=== PATIENT | female | born 1935 | race Caucasian/White ===

== ENCOUNTER 2022-03-29 10:29 | Outpatient (REF) | payer OTHER, SELFPAY ==
--- NOTE | ~2022-03-29 | CT_ITS ---
EXAMINATION: CT CHEST WITHOUT CONTRAST CLINICAL INFORMATION: Chest pain COMPARISON: None TECHNIQUE: Multidetector volumetric CT imaging of the chest was done. Axial MIP volume rendering provided. Sagittal and coronal reformatted images were obtained. This CT examination was performed using dose optimization techniques as appropriate, variously including the following: *Automated exposure control *Adjustment of mA and/or kV according to patient size (this includes techniques or standardized protocols for targeted exams where dose is matched to indication/reason for exam; i.e. extremities or head) *Use of iterative reconstruction technique DLP: 161 mGy-cm FINDINGS: [employer]ERSON[employer]: Enlarged cardiac silhouette LUNGS: There is peripheral or subpleural increased reticulation and scarring in the anterior right upper lobe and right middle lobe. These probably related to previous chest wall radiation. There is a denser linear bandlike density in the right middle lobe question representing scarring or subsegmental atelectasis. This area measures 3 x 15 mm axial image 265 series 5. There are several small micronodules the bilateral upper lobes. There are small bilateral peripheral or subpleural lower lobe dependent or posterior nodules probably representing small subpleural lymph nodes. There is linear scarring or subsegmental atelectasis at the lung bases, Left greater than right. MEDIASTINUM: The heart is enlarged. There is coronary artery and aortic valve calcification. There is no pericardial effusion. The thoracic aorta is normal in caliber. There are small mediastinal lymph nodes. No enlarged hilar or mediastinal lymph nodes. PLEURA: There are small bilateral pleural effusions. AXILLA: There are postsurgical changes to the right breast. No chest wall mass or enlarged axillary lymph nodes are seen. UPPER ABDOMEN: There is fatty infiltration of the pancreas. There is question of a left renal peripelvic cyst versus extrarenal pelvis. OSSEOUS STRUCTURES: There are degenerative changes of the spine and shoulders. There is a soft tissue periarticular fluid collection versus joint effusion left shoulder. CT/CT chest wo con IMPRESSION: Enlarged heart. Coronary artery and aortic valve calcification. Probable post radiation changes to the anterior peripheral or subpleural right upper and right middle lobes. Areas of bilateral linear scarring or subsegmental atelectasis. No suspicious pulmonary nodule. Fleischner guidelines were followed.
== END 2022-03-29 10:30 | disposition home or self-care (01) ==
LOC: HO.CT 10:29
PROVIDERS: PCP Internal Medicine; Visit Provider Internal Medicine
DX: R07.89 Other chest pain (principal)
CPT/HCPCS: 71250

== ENCOUNTER 2022-04-10 08:21 | Outpatient (REF) | payer OTHER, SELFPAY ==
[2022-04-10 11:05] LABS: Appearance Urine CLOUDY; Color Urine YELLOW; Glucose Urine UA NEG (NEG); Leukocyte Esterase Urine 2+ (NEG); Nitrite Urine NEG (NEG); PH 5.5 (5.0-8.0); Specific Gravity - Urine >= 1.030 (1.005-1.025); UACC Culture Trigger YES; Urine Blood 3+ (NEG); Urine Ketones 5 MG/DL (NEG); Urine Protein 3+ MG/DL (NEG-TRACE)
[2022-04-10 11:17] LABS: MANUAL DIFF FLAG NO
[2022-04-10 11:31] LABS: Basophils Percent Auto 0.3 % (0-2); Eosinophils Absolute Auto 0.2 X10*3/uL (0.0-0.4); Eosinophils Percent Auto 1.4 % (0-4); Imm Gran Abs Auto 0.09 X10*3/uL (0.00-0.03); Imm Gran Pct Auto 0.7 % (0.0-0.4); Lymphocytes Absolute Auto 2.6 X10*3/uL (1.2-4.9); Lymphocytes Percent Auto 20.1 % (20-40); Mean Corpuscular HGB Conc 31.8 g/dl (31.0-35.0); Mean Corpuscular Volume 94.4 fL (80.0-98.0); Monocytes Absolute Auto 0.7 X10*3/uL (0.1-1.2); Monocytes Percent Auto 5.6 % (2-11); Neutrophils Absolute Auto 9.1 x10*3/uL (2.0-8.3); Neutrophils Percent Auto 71.9 % (45-73); Platelet Count 224 X10*3/uL (160-400); Red Blood Count 4.66 X10*6/uL (4.20-5.50); Red Cell Distribution Width 14.7 % (11.0-16.0); White Blood Count 12.7 X10*3/uL (4.8-10.8)
[2022-04-10 11:40] LABS: Bacteria Urine 2+ /LPF; RBC Urine 50-75 /HPF (0); UACC CULT YES
[2022-04-10 11:46] LABS: Alanine Aminotransferase 17 U/L (0-31); Albumin Level 4.1 g/dL (3.5-5.0); Alkaline Phosphatase 87 U/L (39-117); Anion Gap 13 (12-20); Aspartate Amino Transferase 14 U/L (5-31); Bilirubin Total 0.9 mg/dL (0.0-1.0); Blood Urea Nitrogen 33 mg/dL (9-16); Calcium 9.7 mg/dL (8.4-10.2); Carbon Dioxide 25 mmol/L (22-29); Chloride 108 mmol/L (96-108); Estimated Glomerular Filt Rate 37; Glucose Random 121 mg/dL (60-115); Potassium 4.2 mmol/L (3.3-5.1); Sodium 142 mmol/L (135-145); Total Protein 6.2 g/dL (6.5-8.0)
[2022-04-10 11:47] LABS: B Type Natriuretic Peptide 416 pg/mL (<100)
== END 2022-04-10 08:22 | disposition home or self-care (01) ==
LOC: HO.MANLDS 08:21
PROVIDERS: Visit Provider Internal Medicine
DX: R06.09 Other forms of dyspnea (principal); R30.9 Painful micturition, unspecified; B96.20 Unspecified Escherichia coli [E. coli] as the cause of diseases classified elsewhere; Z16.11 Resistance to penicillins
CPT/HCPCS: 36415; 80053; 81001; 83880; 85025; 87086; 87088; 87186

== ENCOUNTER 2022-04-13 09:48 | Inpatient (IN) | payer MEDICARE, SELFPAY ==
[2022-04-13] VITALS (7 sets, daily range): BP systolic 78–118; BP diastolic 56–75; PULSE 93–140; RESP 16–23; TEMP 36.3–37.3; O2SAT 90–99; BMI 25.0; BMI 24.8
--- NOTE | ~2022-04-13 | CT_ITS ---
EXAMINATION: CT CHEST WITHOUT CONTRAST CLINICAL INFORMATION: Shortness of breath, dizziness. COMPARISON: CT chest 03/29/2022 TECHNIQUE: Multidetector volumetric CT imaging of the chest was done. Axial MIP volume rendering provided. Sagittal and coronal reformatted images were obtained. This CT examination was performed using dose optimization techniques as appropriate, variously including the following: *Automated exposure control *Adjustment of mA and/or kV according to patient size (this includes techniques or standardized protocols for targeted exams where dose is matched to indication/reason for exam; i.e. extremities or head) *Use of iterative reconstruction technique DLP: 247 mGy-cm FINDINGS: LUNGS: Stable peripheral subpleural increase reticulation and scarring in the anterior right upper lobe and right middle lobe. Stable curvilinear bandlike opacity in the right middle lobe, which could represent scarring or atelectasis. Several small micronodules in bilateral upper lobes are redemonstrated. There is a subpleural right lower lobe atelectasis. There is left lower lobe subpleural groundglass and patchy airspace opacities, increased from previous, which could reflect atelectasis or inflammatory/infectious process. No suspicious nodules identified. MEDIASTINUM: No suspicious findings in the visualized thyroid gland. Heart is enlarged. Coronary artery calcification. No pericardial effusion. Normal caliber thoracic aorta. Scattered atherosclerotic vascular calcification. No enlarged mediastinal or hilar lymphadenopathy. Subcentimeter mediastinal lymph nodes, stable. PLEURA: Small bilateral pleural effusions. AXILLA: No axillary lymphadenopathy. UPPER ABDOMEN: Fatty infiltration of the pancreas with atrophy. OSSEOUS STRUCTURES: Multilevel degenerative changes in the spine. Bilateral glenohumeral joint arthritis. No acute displaced rib fractures identified. Redemonstrated, in the left shoulder, is fluid along the anterior aspect of the joint, from joint effusion versus periarticular fluid collection. CT/CT chest wo con IMPRESSION: Stable cardiomegaly. No pericardial effusion. Stable small bilateral pleural effusions. Redemonstrated are probable posterior examination changes to the anterior peripheral and subpleural right upper lobe and right middle lobes. Left basilar groundglass and patchy airspace opacities, increased from previous, could reflect atelectasis or infectious/inflammatory process. Fleischner guidelines were followed.
--- NOTE | ~2022-04-13 | CT_ITS ---
EXAMINATION: HEAD CT WITHOUT CONTRAST CERVICAL SPINE CT WITHOUT CONTRAST CLINICAL INFORMATION: Dizziness, fall. COMPARISON: None. TECHNIQUE: Contiguous axial imaging of the head was performed without the administration of IV contrast. Axial multidetector volumetric images were also performed through the cervical spine without contrast. Multiplanar reconstructed images in coronal and sagittal orientations were submitted. DOSE: 1005 mGy-cm FINDINGS: HEAD: There is no evidence of acute intracranial hemorrhage or territorial infarction. No abnormal mass-effect or midline shift. No extra-axial fluid collections. Lynn to white matter differentiation is well preserved. Commensurate prominence of the ventricles and sulci is compatible with generalized parenchymal volume loss. There is periventricular and subcortical white matter hypoattenuation, most likely representing microangiopathic disease No acute calvarial fracture. The sinuses and mastoid air cells are clear. CERVICAL SPINE: There is slight reversal of the spinal curvature. Mild anterolisthesis of C2 on C3, C3 on C4. Mild retrolisthesis of C6 on C7. Mild anterolisthesis of C7 on T1. Severe cervical spondylosis present Severe disc degeneration at C5-C6, C6-C7. Multilevel facet degeneration. Bony fusion at bilateral C3-C4, C4-C5 facet joints. There is a prominent degenerative changes in the C1-C2 articulation. No acute fracture is identified of the vertebral bodies or posterior elements. No significant prevertebral soft tissue swelling. No suspicious thyroid findings. No cervical adenopathy identified. See chest CT report for lung findings. CT/CT cervical spine wo con IMPRESSION: 1. No CT evidence of acute intracranial pathology. 2. Advanced spondyloarthropathy of the cervical spine. Severe C5-C6, C6-C7 disc degeneration. Multilevel spondylolisthesis, likely degenerative in nature, detailed above.. No CT evidence of acute fracture or malalignment.
--- NOTE | 2022-04-13 10:06 | ECG_ITS ---
Test Reason : DIZZINESS Blood Pressure : / mmHG Vent. Rate : 125 BPM Atrial Rate : 000 BPM P-R Int : 000 ms QRS Dur : 088 ms QT Int : 290 ms P-R-T Axes : 000 -10 225 degrees QTc Int : 418 ms Atrial fibrillation with rapid ventricular response Nonspecific ST and T wave abnormality Abnormal ECG No previous ECGs available Referred By: Marilu Chan Electronically Signed By:CINDY ULLOA MD
--- NOTE | 2022-04-13 10:06 | ED.NAVMDI ---
HPI - Nausea/Vomiting/Diarrhea General Chief complaint: Nausea/Vomiting/Diarrhea Stated complaint: NVD Time Seen by Provider: 04/13/22 10:06 Source: patient and EMS Mode of arrival: EMS Limitations: no limitations History of Present Illness HPI Narrative: Patient is an 87 year old female with a history of atrial fibrillation for which she takes Warfarin, presenting to the emergency department today with dizziness. Patient states that yesterday she was given macrobid by her PCP for a urinary tract infection and she took her dose without issue yesterday. Patient states that today, she was very dizzy and had a mechanical fall. Patient states that when she fell, she did not hit her head however, she could not get back up so she called EMS. Patient states that she is not normally on oxygen at home and is not normally dizzy. Patient states that she does have a DNR/DNI. Patient states that over the last few days she has had nausea and diarrhea. Patient denies any current dizziness, lightheadedness, abdominal pain, vomiting, fever, chills, blurry vision, double vision, loss of vision, chest pain, difficulty breathing, shortness of breath, back pain, night sweats, pain with urination, increased urinary frequency, increased urinary urgency, blood in her urine or stool, syncope or a near syncopal episode, bowel incontinence, bladder incontinence, bowel retention, bladder retention, or any other complaints at this time. MD elicited complaint: nausea and diarrhea Onset (ago): day(s) Associated nausea: Yes Associated abdominal pain: No Severity: mild Exacerbating factors: none Relieving factors: none Associated symptoms: nausea/vomiting Related Data Home Medications Medication Instructions Recorded Confirmed diltiazem HCl 180 mg capsule,24 1 cap PO DAILY 04/13/22 04/13/22 hr,extended release gabapentin 100 mg capsule 1 cap PO TID 04/13/22 04/13/22 nitrofurantoin 1 cap PO BID 04/13/22 04/13/22 monohydrate/macrocrystals 100 mg capsule pantoprazole 40 mg tablet,delayed 1 tab PO BID 04/13/22 04/13/22 release warfarin 5 mg tablet 5 mg PO DAILY@1800 04/13/22 04/13/22 Allergies Allergy/AdvReac Type Severity Reaction Status Date / Time No Known Allergies Allergy Verified 04/13/22 10:06 Review of Systems Constitutional: Constitutional: Reports no additional constitutional complaints, Denies chills, Denies fever(s) and Denies night sweats Eyes: Eyes: Reports no additional eye complaints, Denies blurry vision, Denies change in vision, Denies diplopia, Denies eye discharge, Denies loss of vision and Denies eye pain ENT: Reports dizziness Cardiovascular: Cardiovascular: Reports no additional cardiovascular complaints, Denies chest pain, Denies lightheadedness, Denies Loss of Consciousness and Denies dyspnea Respiratory: Respiratory: Reports no additional respiratory complaints and Denies dyspnea Gastrointestinal: Gastrointestinal: Reports diarrhea and Reports nausea Genitourinary: Genitourinary: Denies hematuria, Denies urinary frequency, Denies dysuria, Denies urinary incontinence, Denies urinary hesitancy and Denies urinary urgency Musculoskeletal: Musculoskeletal: Reports no additional musculoskeletal complaints, Denies numbness and Denies tingling Neurologic: Reports dizziness, Denies loss of vision, Denies numbness and Denies tingling Psychiatric: Psychiatric: Reports no additional psychiatric complaints Endocrine: Endocrine: Reports no additional endocrine complaints Hematologic/Lymphatic: Hematologic/Lymphatic: Reports no additional hematologic/lymphatic complaints Allergic/Immunologic: Allergic/Immunologic: Reports no additional allergic/immunologic complaints FORMERLY [facility], [facility] Past Medical History Attestation statement: The following information was validated with the patient. Source: old records reviewed Medical History (Updated 04/13/22 @ 18:39 by Bakari Arciniega) Atrial fibrillation Breast cancer GERD (gastroesophageal reflux disease) Ovarian cancer Surgical History (Updated 04/13/22 @ 16:41 by Randee Richter NP) History of hip replacement Previous back surgery Family History Family History (Updated 04/13/22 @ 16:40 by Randee Richter NP) Other Breast cancer Coronary artery disease Prostate cancer Social History Social History Advance Directives: Yes Advance Directives Information Provided: Yes Advance Directives on File: No Physical Exam Vital Signs: Vital Signs: Last Vital Signs Temp 99.2 F 04/13/22 14:28 Pulse 114 H 04/13/22 14:28 Resp 23 H 04/13/22 14:28 BP 107/63 04/13/22 14:28 Pulse Ox 99 04/13/22 14:28 O2 Del Method 04/13/22 14:28 O2 Flow Rate 3 04/13/22 14:28 BMI result Body Mass Index 25.0 Const: General: cooperative, no acute distress, alert and awake Nutritional Appearance: well nourished Orientation/consciousness: patient oriented x3 Limitations: no limitations HEENT: Head: Yes normal to inspection and Yes atraumatic Ears: hearing grossly normal bilaterally and external ears normal General nose exam: Normal external nose present, no nasal discharge noted and no epistaxis Face and sinus: Yes normal facial exam, No abrasion and No laceration Mouth: Normal oral and palatal mucosa present, no drooling and no muffled voice Eyes: General: appearance normal, both eyes and all related structures Periorbital: periorbital findings normal Eyelids: Yes eyelids normal Conjunctivae: conjunctivae normal Pupils: Equal, round and reactive pupils present EOM: EOMs intact bilaterally Neck: Neck: Yes normal visual inspection, Yes full ROM and Yes no lymphadenopathy Chest: Chest palpation & inspection: normal inspection of the chest Resp: Effort & Inspection: normal respiratory effort and able to speak in complete sentences Auscultation: clear to auscultation bilaterally Cardio: Rate: tachycardic Rhythm: abnormal rhythm irregularly irregular GI: Inspection: Yes normal to inspection Palpation (GI): Soft to palpation, not firm, nontender and no guarding Neuro: General: patient oriented x3 and moves all extremities Cranial nerves: Yes Equal, round and reactive pupils present Cognition (Neuro): normal cognition Motor exam (neuro): 5/5 motor strength present throughout Sensory Exam: Normal double simultaneous stimulation for sensation Coordination: [id number] test normal Extrem: General: Yes normal to inspection, Yes full ROM and Yes capillary refill normal Psych: Appearance: grossly normal Mental Status: mental status grossly normal Affect: normal affect Attitude: cooperative Thought process: Normal thought process present Thought content: Normal thought content present Insight: Good insight present (Psych) MDM - Nausea/Vomiting/Diarrhea MDM Narrative Medical decision making narrative: Patient is an 87 year old female presenting to the emergency department today with nausea, vomiting, and dizziness. Patient's physical exam showed a tachycardic individual in obvious discomfort. Patient's blood work showed significantly elevated wbc count at 21, a low PLT count of 135, an elevated lactic acid of 2.1, an elevated creatinine of 1.83 and an elevated troponin of 46.4. Patient's repeat troponin was 42.1. Patient's repeat lactic acid after 1 liter of fluid was 1.0. Patient's INR was 3.3 secondary to her Warfarin use. Sepsis alert was called at 10:28. Rocephin was already ordered as well as blood cultures. Patient's blood pressure was stable and thus she was only given 1 liter of NS as she did not clinically need a 30mg/kg fluid bolus. Patient's d dimer was elevated however, I believe this is secondary to the patient's septic status as the patient is appropriately anti-coagulated on Warfarin. Patient's urine showed no acute process. Patient's EKG showed atrial fibrillation with RVR. Patient's chest CT showed left basilar groundglass and patchy airspace opacities, increased from previous at 1318. At that time, I added Azithromycin to cover for respiratory pathogens. Patient's head and neck CTs showed no acute process. Patient was given 10mg of cardizem which did decrease her heart rate to the 110-100bpm range. I explained my physical exam findings as well as all test results to the patient. I answered all questions asked by the patient. I spoke to Dr. Castro, the hospitalist promotions specialist, who agreed to admission of the patient. Patient verbalized agreement and understanding with this treatment plan and admission. Medical Records Attestation: I reviewed the patient's medical records. Lab Data Attestation: I reviewed the patient's lab results. Result diagrams: 04/13/22 10:28 04/13/22 10:28 Labs: Lab Results 04/13/22 04/13/22 04/13/22 Range/Units 10:28 10:28 10:28 WBC 21.0 H (4.8-10.8) X10*3/uL RBC 4.43 (4.20-5.50) X10*6/uL Hgb 13.1 (12.0-16.0) g/dl Hct 41.7 (37.0-47.0) % MCV 94.1 (80.0-98.0) fL MCH 29.6 (27.0-33.0) pg MCHC 31.4 (31.0-35.0) g/dl RDW 14.9 (11.0-16.0) % Plt Count 135 L D (160-400) X10*3/uL MPV 10.9 (9.4-12.3) fL Immature Gran % (Auto) 0.7 H (0.0-0.4) % Neut % (Auto) 88.9 H (45-73) % Lymph % (Auto) 5.1 L (20-40) % [place] % (Auto) 4.7 (2-11) % Eos % (Auto) 0.4 (0-4) % Baso % (Auto) 0.2 (0-2) % Lymph # (Auto) 1.1 L (1.2-4.9) X10*3/uL [place] # (Auto) 1.0 (0.1-1.2) X10*3/uL Eos # (Auto) 0.1 (0.0-0.4) X10*3/uL Baso # (Auto) 0.0 (0.0-0.2) X10*3/uL Abs Immat Gran (auto) 0.15 H (0.00-0.03) X10*3/uL Absolute Neuts (auto) 18.6 H (2.0-8.3) x10*3/uL Absolute Nucleated RBC 0.000 (0.0-0.012) X10*3/uL Nucleated RBC % (auto) 0.0 (0.0-0.2) /100WBC PT (9.9-13.0) SEC INR (0.9-1.1) APTT (24.1-38.0) SEC D-Dimer High Sensitivty NG/ML VBG pH (7.32-7.43) VBG pCO2 mmHg VBG pO2 mmHg VBG HCO3 (22-26) mmol/L VBG O2 Saturation % VBG Base Excess mmol/L Sodium 143 (135-145) mmol/L Potassium 5.1 D (3.3-5.1) mmol/L Chloride 108 (96-108) mmol/L Carbon Dioxide 26 (22-29) mmol/L Anion Gap 14 (12-20) BUN 33 H (9-16) mg/dL Creatinine 1.83 H (0.5-1.4) mg/dL Estim Creat Clear Calc 22.2 Estimated GFR 26 Random Glucose 90 (60-115) mg/dL Lactic Acid 2.1 H* (0.5-2.0) mmol/L Lactic Acid F/U @ 2Hr (0.5-2.0) mmol/L Calcium 9.2 (8.4-10.2) mg/dL Magnesium 2.1 (1.6-2.6) mg/dL Total Bilirubin 1.1 H (0.0-1.0) mg/dL AST 17 (5-31) U/L ALT 16 (0-31) U/L Alkaline Phosphatase 72 (39-117) U/L Troponin I High Sens (<3.5-17.0) ng/L Total Protein 5.6 L (6.5-8.0) g/dL Albumin 3.6 (3.5-5.0) g/dL COVID-19 (SHIMON) (Negative) COVID-19 Clin Com Influenza Type A (STEPHEN) (Negative) Influenza Type B (STEPHEN) (Negative) Influenza A & B Note 04/13/22 04/13/22 04/13/22 Range/Units 10:28 10:28 10:34 WBC (4.8-10.8) X10*3/uL RBC (4.20-5.50) X10*6/uL Hgb (12.0-16.0) g/dl Hct (37.0-47.0) % MCV (80.0-98.0) fL MCH (27.0-33.0) pg MCHC (31.0-35.0) g/dl RDW (11.0-16.0) % Plt Count (160-400) X10*3/uL MPV (9.4-12.3) fL Immature Gran % (Auto) (0.0-0.4) % Neut % (Auto) (45-73) % Lymph % (Auto) (20-40) % [place] % (Auto) (2-11) % Eos % (Auto) (0-4) % Baso % (Auto) (0-2) % Lymph # (Auto) (1.2-4.9) X10*3/uL [place] # (Auto) (0.1-1.2) X10*3/uL Eos # (Auto) (0.0-0.4) X10*3/uL Baso # (Auto) (0.0-0.2) X10*3/uL Abs Immat Gran (auto) (0.00-0.03) X10*3/uL Absolute Neuts (auto) (2.0-8.3) x10*3/uL Absolute Nucleated RBC (0.0-0.012) X10*3/uL Nucleated RBC % (auto) (0.0-0.2) /100WBC PT 38.2 H (9.9-13.0) SEC INR 3.3 H (0.9-1.1) APTT 35.6 (24.1-38.0) SEC D-Dimer High Sensitivty 448 NG/ML VBG pH 7.35 (7.32-7.43) VBG pCO2 46 mmHg VBG pO2 33 mmHg VBG HCO3 25 (22-26) mmol/L VBG O2 Saturation 48.0 % VBG Base Excess -0.2 mmol/L Sodium (135-145) mmol/L Potassium (3.3-5.1) mmol/L Chloride (96-108) mmol/L Carbon Dioxide (22-29) mmol/L Anion Gap (12-20) BUN (9-16) mg/dL Creatinine (0.5-1.4) mg/dL Estim Creat Clear Calc Estimated GFR Random Glucose (60-115) mg/dL Lactic Acid (0.5-2.0) mmol/L Lactic Acid F/U @ 2Hr (0.5-2.0) mmol/L Calcium (8.4-10.2) mg/dL Magnesium (1.6-2.6) mg/dL Total Bilirubin (0.0-1.0) mg/dL AST (5-31) U/L ALT (0-31) U/L Alkaline Phosphatase (39-117) U/L Troponin I High Sens 46.4 H (<3.5-17.0) ng/L Total Protein (6.5-8.0) g/dL Albumin (3.5-5.0) g/dL COVID-19 ([facility]IMON) (Negative) COVID-19 Clin Com Influenza Type A (STEPHEN) (Negative) Influenza Type B (STEPHEN) (Negative) Influenza A & B Note 04/13/22 04/13/22 04/13/22 Range/Units 10:41 10:41 13:13 WBC (4.8-10.8) X10*3/uL RBC (4.20-5.50) X10*6/uL Hgb (12.0-16.0) g/dl Hct (37.0-47.0) % MCV (80.0-98.0) fL MCH (27.0-33.0) pg MCHC (31.0-35.0) g/dl RDW (11.0-16.0) % Plt Count (160-400) X10*3/uL MPV (9.4-12.3) fL Immature Gran % (Auto) (0.0-0.4) % Neut % (Auto) (45-73) % Lymph % (Auto) (20-40) % [place] % (Auto) (2-11) % Eos % (Auto) (0-4) % Baso % (Auto) (0-2) % Lymph # (Auto) (1.2-4.9) X10*3/uL [place] # (Auto) (0.1-1.2) X10*3/uL Eos # (Auto) (0.0-0.4) X10*3/uL Baso # (Auto) (0.0-0.2) X10*3/uL Abs Immat Gran (auto) (0.00-0.03) X10*3/uL Absolute Neuts (auto) (2.0-8.3) x10*3/uL Absolute Nucleated RBC (0.0-0.012) X10*3/uL Nucleated RBC % (auto) (0.0-0.2) /100WBC PT (9.9-13.0) SEC INR (0.9-1.1) APTT (24.1-38.0) SEC D-Dimer High Sensitivty NG/ML VBG pH (7.32-7.43) VBG pCO2 mmHg VBG pO2 mmHg VBG HCO3 (22-26) mmol/L VBG O2 Saturation % VBG Base Excess mmol/L Sodium (135-145) mmol/L Potassium (3.3-5.1) mmol/L Chloride (96-108) mmol/L Carbon Dioxide (22-29) mmol/L Anion Gap (12-20) BUN (9-16) mg/dL Creatinine (0.5-1.4) mg/dL Estim Creat Clear Calc Estimated GFR Random Glucose (60-115) mg/dL Lactic Acid (0.5-2.0) mmol/L Lactic Acid F/U @ 2Hr (0.5-2.0) mmol/L Calcium (8.4-10.2) mg/dL Magnesium (1.6-2.6) mg/dL Total Bilirubin (0.0-1.0) mg/dL AST (5-31) U/L ALT (0-31) U/L Alkaline Phosphatase (39-117) U/L Troponin I High Sens 42.1 H (<3.5-17.0) ng/L Total Protein (6.5-8.0) g/dL Albumin (3.5-5.0) g/dL COVID-19 (SHIMON) Negative (Negative) COVID-19 Clin Com See Note Influenza Type A (STEPHEN) Negative (Negative) Influenza Type B (STEPHEN) Negative (Negative) Influenza A & B Note See Note 04/13/22 Range/Units 13:13 WBC (4.8-10.8) X10*3/uL RBC (4.20-5.50) X10*6/uL Hgb (12.0-16.0) g/dl Hct (37.0-47.0) % MCV (80.0-98.0) fL MCH (27.0-33.0) pg MCHC (31.0-35.0) g/dl RDW (11.0-16.0) % Plt Count (160-400) X10*3/uL MPV (9.4-12.3) fL Immature Gran % (Auto) (0.0-0.4) % Neut % (Auto) (45-73) % Lymph % (Auto) (20-40) % [place] % (Auto) (2-11) % Eos % (Auto) (0-4) % Baso % (Auto) (0-2) % Lymph # (Auto) (1.2-4.9) X10*3/uL [place] # (Auto) (0.1-1.2) X10*3/uL Eos # (Auto) (0.0-0.4) X10*3/uL Baso # (Auto) (0.0-0.2) X10*3/uL Abs Immat Gran (auto) (0.00-0.03) X10*3/uL Absolute Neuts (auto) (2.0-8.3) x10*3/uL Absolute Nucleated RBC (0.0-0.012) X10*3/uL Nucleated RBC % (auto) (0.0-0.2) /100WBC PT (9.9-13.0) SEC INR (0.9-1.1) APTT (24.1-38.0) SEC D-Dimer High Sensitivty NG/ML VBG pH (7.32-7.43) VBG pCO2 mmHg VBG pO2 mmHg VBG HCO3 (22-26) mmol/L VBG O2 Saturation % VBG Base Excess mmol/L Sodium (135-145) mmol/L Potassium (3.3-5.1) mmol/L Chloride (96-108) mmol/L Carbon Dioxide (22-29) mmol/L Anion Gap (12-20) BUN (9-16) mg/dL Creatinine (0.5-1.4) mg/dL Estim Creat Clear Calc Estimated GFR Random Glucose (60-115) mg/dL Lactic Acid (0.5-2.0) mmol/L Lactic Acid F/U @ 2Hr 1.0 (0.5-2.0) mmol/L Calcium (8.4-10.2) mg/dL Magnesium (1.6-2.6) mg/dL Total Bilirubin (0.0-1.0) mg/dL AST (5-31) U/L ALT (0-31) U/L Alkaline Phosphatase (39-117) U/L Troponin I High Sens (<3.5-17.0) ng/L Total Protein (6.5-8.0) g/dL Albumin (3.5-5.0) g/dL COVID-19 (SHIMON) (Negative) COVID-19 Clin Com Influenza Type A (STEPHEN) (Negative) Influenza Type B (STEPHEN) (Negative) Influenza A & B Note Imaging Data CT scan - chest: Attestation: I personally reviewed and interpreted this imaging study as follows: My impression: Possible pneumonia. Radiologist's impression: EXAMINATION: CT CHEST WITHOUT CONTRAST CLINICAL INFORMATION: Shortness of breath, dizziness.? COMPARISON: CT chest 03/29/2022? TECHNIQUE: Multidetector volumetric CT imaging of the chest was done. Axial MIP volume rendering provided. Sagittal and coronal reformatted images were obtained.? This CT examination was performed using dose optimization techniques as appropriate, variously including the following: *Automated exposure control *Adjustment of mA and/or kV according to patient size (this includes techniques or standardized protocols for targeted exams where dose is matched to indication/reason for exam; i.e. extremities or head) *Use of iterative reconstruction technique DLP: 247 mGy-cm FINDINGS: LUNGS: Stable peripheral subpleural increase reticulation and scarring in the anterior right upper lobe and right middle lobe. Stable curvilinear bandlike opacity in the right middle lobe, which could represent scarring or atelectasis. Several small micronodules in bilateral upper lobes are redemonstrated. There is a subpleural right lower lobe atelectasis. There is left lower lobe subpleural groundglass and patchy airspace opacities, increased from previous, which could reflect atelectasis or inflammatory/infectious process. No suspicious nodules identified.? MEDIASTINUM: No suspicious findings in the visualized thyroid gland. Heart is enlarged. Coronary artery calcification. No pericardial effusion. Normal caliber thoracic aorta. Scattered atherosclerotic vascular calcification. No enlarged mediastinal or hilar lymphadenopathy. Subcentimeter mediastinal lymph nodes, stable.? PLEURA: Small bilateral pleural effusions.? AXILLA: No axillary lymphadenopathy.? UPPER ABDOMEN: Fatty infiltration of the pancreas with atrophy.? OSSEOUS STRUCTURES: Multilevel degenerative changes in the spine. Bilateral glenohumeral joint arthritis. No acute displaced rib fractures identified. Redemonstrated, in the left shoulder, is fluid along the anterior aspect of the joint, from joint effusion versus periarticular fluid collection.? CT/CT chest wo con IMPRESSION: Stable cardiomegaly. No pericardial effusion. Stable small bilateral pleural effusions. Redemonstrated are probable posterior examination changes to the anterior peripheral and subpleural right upper lobe and right middle lobes. Left basilar groundglass and patchy airspace opacities, increased from previous, could reflect atelectasis or infectious/inflammatory process.? ? Fleischner guidelines were followed. Dictated By: Matthew Gilman MD Signed By: Electronically signed by Matthew Gilman MD 04/13/[address] C-Spine: Attestation: I personally reviewed and interpreted this imaging study as follows: My impression: No acute process. Radiologist's impression: EXAMINATION: HEAD CT WITHOUT CONTRAST CERVICAL SPINE CT WITHOUT CONTRAST CLINICAL INFORMATION: Dizziness, fall. COMPARISON: None. TECHNIQUE: Contiguous axial imaging of the head was performed without the administration of IV contrast. Axial multidetector volumetric images were also performed through the cervical spine without contrast. Multiplanar reconstructed images in coronal and sagittal orientations were submitted. DOSE: 1005 mGy-cm FINDINGS: HEAD: There is no evidence of acute intracranial hemorrhage or territorial infarction. No abnormal mass-effect or midline shift. No extra-axial fluid collections.? Lynn to white matter differentiation is well preserved. Commensurate prominence of the ventricles and sulci is compatible with generalized parenchymal volume loss. There is periventricular and subcortical white matter hypoattenuation, most likely representing microangiopathic disease No acute calvarial fracture. The sinuses and mastoid air cells are clear. CERVICAL SPINE: There is slight reversal of the spinal curvature. Mild anterolisthesis of C2 on C3, C3 on C4. Mild retrolisthesis of C6 on C7. Mild anterolisthesis of C7 on T1. Severe cervical spondylosis present Severe disc degeneration at C5-C6, C6-C7. Multilevel facet degeneration. Bony fusion at bilateral C3-C4, C4-C5 facet joints. There is a prominent degenerative changes in the C1-C2 articulation. No acute fracture is identified of the vertebral bodies or posterior elements. No significant prevertebral soft tissue swelling. No suspicious thyroid findings. No cervical adenopathy identified. See chest CT report for lung findings. CT/CT cervical spine wo con IMPRESSION: 1. No CT evidence of acute intracranial pathology. 2. Advanced spondyloarthropathy of the cervical spine. Severe C5-C6, C6-C7 disc degeneration. Multilevel spondylolisthesis, likely degenerative in nature, detailed above.. No CT evidence of acute fracture or malalignment. Dictated By: Matthew Gilman MD Signed By: Electronically signed by Matthew Gilman MD 04/13/22 1238 ECG Data Attestation: I personally reviewed and interpreted this ECG as follows: ECG interpretation date: 04/13/22 ECG interpretation time: 10:13 Prior ECG tracings: not available for review Interpretation: Vent. Rate: 125 BPM ? ? Atrial Rate: 000 BPM P-R Int: 000 ms? QRS Dur: 088 ms QT Int: 290 ms ? ? ? P-R-T Axes: 000 -10 225 degrees QTc Int: 418 ms ? Atrial fibrillation with rapid ventricular response Nonspecific ST and T wave abnormality Abnormal ECG No previous ECGs available DD/ [id number] Critical Care Time Critical Care Time Critical Care Time: Yes Total Critical Care Time: 30 Attestation: I spent 30 minutes of Critical Care Time with this patient. This does not include time spent on separately reported billable procedures. Discharge Plan Discharge Clinical Impression: Sepsis Patient Disposition: Admitted As Inpatient Interventions: Admission Worksheet (ED) Last Done: 04/13/22 18:38 Discharge Date/Time: 04/13/22 18:39
[2022-04-13] MEDS: ondansetron HCL 4 MG/2 ML VIAL IVPUSH (10:32)
[2022-04-13] MEDS: dilTIAZem HCL 50 MG/10 ML VIAL 10 MG IVPUSH (10:32)
[2022-04-13] MEDS: 0.9 % Sodium Chloride 1,000 ML 999 ML IVCONT (10:32)
[2022-04-13 10:37] LABS: MANUAL DIFF FLAG NO
[2022-04-13 10:38] LABS: Venous Blood Gas Refer to POC result
[2022-04-13 10:40] LABS: VBG Base Excess -0.2 mmol/L; VBG HCO3 25 mmol/L (22-26); VBG pCO2 46 mmHg; VBG pH 7.35 (7.32-7.43); VBG pO2 33 mmHg
[2022-04-13 10:42] LABS: Basophils Percent Auto 0.2 % (0-2); Eosinophils Absolute Auto 0.1 X10*3/uL (0.0-0.4); Eosinophils Percent Auto 0.4 % (0-4); Hematocrit 41.7 % (37.0-47.0); Hemoglobin 13.1 g/dl (12.0-16.0); Imm Gran Abs Auto 0.15 X10*3/uL (0.00-0.03); Imm Gran Pct Auto 0.7 % (0.0-0.4); Lymphocytes Absolute Auto 1.1 X10*3/uL (1.2-4.9); Lymphocytes Percent Auto 5.1 % (20-40); Mean Corpuscular HGB Conc 31.4 g/dl (31.0-35.0); Mean Corpuscular Hemoglobin 29.6 pg (27.0-33.0); Mean Corpuscular Volume 94.1 fL (80.0-98.0); Mean Platelet Volume 10.9 fL (9.4-12.3); Monocytes Percent Auto 4.7 % (2-11); Neutrophils Absolute Auto 18.6 x10*3/uL (2.0-8.3); Neutrophils Percent Auto 88.9 % (45-73); Platelet Count 135 X10*3/uL (160-400); Red Blood Count 4.43 X10*6/uL (4.20-5.50); Red Cell Distribution Width 14.9 % (11.0-16.0)
[2022-04-13 10:46] LABS: INTERNATIONAL NORM RATIO 3.3 (0.9-1.1); Prothrombin Time 38.2 SEC (9.9-13.0)
[2022-04-13 10:48] LABS: D Dimer High Sensitivity 448 NG/ML
[2022-04-13 10:49] LABS: Partial Thromboplastin Time 35.6 SEC (24.1-38.0)
[2022-04-13 11:00] LABS: Lactic Acid 2.1 mmol/L (0.5-2.0)
[2022-04-13] MEDS: cefTRIAXone sodium 2 GM in 0.9 % Sodium Chloride 50 ML IV (11:04)
[2022-04-13 11:05] LABS: Alanine Aminotransferase 16 U/L (0-31); Albumin Level 3.6 g/dL (3.5-5.0); Alkaline Phosphatase 72 U/L (39-117); Anion Gap 14 (12-20); Aspartate Amino Transferase 17 U/L (5-31); Bilirubin Total 1.1 mg/dL (0.0-1.0); Blood Urea Nitrogen 33 mg/dL (9-16); Calcium 9.2 mg/dL (8.4-10.2); Carbon Dioxide 26 mmol/L (22-29); Chloride 108 mmol/L (96-108); Creatinine Clr Calc Pharmacy 22.2; Estimated Glomerular Filt Rate 26; Glucose Random 90 mg/dL (60-115); Magnesium 2.1 mg/dL (1.6-2.6); Potassium 5.1 mmol/L (3.3-5.1); Sodium 143 mmol/L (135-145); Total Protein 5.6 g/dL (6.5-8.0); Troponin-I High Sensitivity 46.4 ng/L (<3.5-17.0)
[2022-04-13 11:15] LABS: COVID-19 Test Negative (Negative); IDNOW Serial# 16C4AD1C; Influenza A Negative (Negative); Influenza B2 Negative (Negative)
[2022-04-13 12:36] LABS: Reflex Lactate? Lactic Acid Added
--- NOTE | 2022-04-13 13:16 | PHA.MEDREC ---
Pharmacy Consult ? Medication Reconciliation Pharmacy has completed the medication reconciliation. Pt states that she gets warfarin 5mg tablets through [facility] and takes in the evening. Starting nitrofurantoin for UTI yesterday
[2022-04-13 13:42] LABS: Troponin-I High Sensitivity 42.1 ng/L (<3.5-17.0)
[2022-04-13] MEDS: Azithromycin 500 MG in 0.9 % Sodium Chloride 250 ML 125 MG IV (13:45)
--- NOTE | 2022-04-13 15:02 | P.HPHOSP_ITS ---
History of Present Illness Date of Service: 04/13/22 Attending physician on admission: Zia Villatoro Chief Complaint: Dizziness and fall 87-year-old woman presented to the ER with complaints of a fall. She reports that she felt dizzy like the room was spinning and fell to the ground today. She denied any loss of consciousness nor any traumatic injury. She reports over the last 12-24 hour she had developed some nausea vomiting and diarrhea but just prior to that she had been feeling just fine. She denied any recent travel, sick contacts, chest pain, shortness of breath, fever, chills. She reports that she lives alone and is very independent. She was recently given Macrobid by her primary care provider for urinary tract infection and she had taken her dose with no issue yesterday. In the ER, the urinalysis was positive, white blood cell count 21.0, lactic acid 2.1. She was noted to have heart rate in the high 120 these with history of atrial fibrillation. She was given a dose of IV adult Cardizem, Rocephin, azithromycin, Zofran, a L of IV fluids. Be admitted for further management and treatment sepsis secondary to urinary tract infection with atrial fibrillation with rapid ventricular response. Review of Systems Review of Systems: Denies any recent fever chills or decrease in appetite respiratory denies any shortness of breath coverage production cardiovascular Denies chest pain gastrointestinal denies any dysphagia abdominal pain nausea vomiting or diarrhea genitourinary denies any dysuria frequency or hematuria musculoskeletal denies any joint pain or swelling neuropsych denies any weakness or seizures all other systems reviewed are negative FORMERLY [facility] Medical History (Updated 04/13/22 @ 16:46 by Randee Richter NP) Atrial fibrillation Breast cancer GERD (gastroesophageal reflux disease) Ovarian cancer Family History (Updated 04/13/22 @ 16:40 by Randee Richter NP) Other Breast cancer Coronary artery disease Prostate cancer Surgical History (Updated 04/13/22 @ 16:41 by Randee Richter NP) History of hip replacement Previous back surgery Social History Advance Directives: Yes Advance Directives Information Provided: Yes Advance Directives on File: No Meds Allergies Allergy/AdvReac Type Severity Reaction Status Date / Time No Known Allergies Allergy Verified 04/13/22 10:06 Active Medications: Current Medications Azithromycin 500 mg/ Sodium (Chloride) 250 mls @ 125 mls/hr IV ONCE ONE Stop: 04/13/22 15:23 Last Admin: 04/13/22 13:45 Dose: 125 mls/hr Pharmacy Consult (Consult Rx Perform Med Rec) 1 each MISCELLANE ONCE PRN PRN Reason: Consult order Home Medications Medication Instructions Recorded Confirmed Last Taken Type diltiazem HCl 180 mg capsule,24 1 cap PO DAILY 04/13/22 04/13/22 04/12/22 History hr,extended release gabapentin 100 mg capsule 1 cap PO TID 04/13/22 04/13/22 04/12/22 History nitrofurantoin 1 cap PO BID 04/13/22 04/13/22 04/12/22 History monohydrate/macrocrystals 100 mg capsule pantoprazole 40 mg tablet,delayed 1 tab PO BID 04/13/22 04/13/22 04/12/22 History release warfarin 5 mg tablet 5 mg PO DAILY@1800 04/13/22 04/13/22 04/12/22 History Physical Exam Vital Signs and Narrative: Vital Signs: Last Vital Signs Temp 99.2 F 04/13/22 14:28 Pulse 114 H 04/13/22 14:28 Resp 23 H 04/13/22 14:28 BP 107/63 04/13/22 14:28 Pulse Ox 99 04/13/22 14:28 O2 Del Method 04/13/22 14:28 O2 Flow Rate 3 04/13/22 14:28 BMI result Body Mass Index 25.0 Appearing in no acute distress head is normocephalic atraumatic eyes pupils are PERRLA sclera is anicteric mouth throat mucous membranes are intact and moist neck is supple no lymphadenopathy, no JVD noted lung sounds are clear to auscultation heart regular rate rhythm, clear S1, S2 positive bowel sounds, abdomen is soft, nontender neuro patient is alert x3, no focal deficits Results Labs CBC and Chem 7: 04/13/22 10:28 04/13/22 10:28 Labs: Laboratory Results - last 24 hr 04/13/22 04/13/22 04/13/22 10:28 10:28 10:28 MCV 94.1 MCH 29.6 MCHC 31.4 RDW 14.9 Plt Count 135 L D MPV 10.9 Immature Gran % (Auto) 0.7 H Neut % (Auto) 88.9 H Lymph % (Auto) 5.1 L [place] % (Auto) 4.7 Eos % (Auto) 0.4 Baso % (Auto) 0.2 Lymph # (Auto) 1.1 L [place] # (Auto) 1.0 Eos # (Auto) 0.1 Baso # (Auto) 0.0 Abs Immat Gran (auto) 0.15 H Absolute Neuts (auto) 18.6 H Absolute Nucleated RBC 0.000 Nucleated RBC % (auto) 0.0 PT INR APTT D-Dimer High Sensitivty VBG pH VBG pCO2 VBG pO2 VBG HCO3 VBG O2 Saturation VBG Base Excess Anion Gap 14 Estim Creat Clear Calc 22.2 Estimated GFR 26 Random Glucose 90 Lactic Acid 2.1 H* Lactic Acid F/U @ 2Hr Calcium 9.2 Magnesium 2.1 Total Bilirubin 1.1 H AST 17 ALT 16 Alkaline Phosphatase 72 Troponin I High Sens Total Protein 5.6 L Albumin 3.6 COVID-19 (SHIMON) COVID-19 Clin Com Influenza Type A (STEPHEN) Influenza Type B (STEPHEN) Influenza A & B Note 04/13/22 04/13/22 04/13/22 10:28 10:28 10:34 MCV MCH MCHC RDW Plt Count MPV Immature Gran % (Auto) Neut % (Auto) Lymph % (Auto) [place] % (Auto) Eos % (Auto) Baso % (Auto) Lymph # (Auto) [place] # (Auto) Eos # (Auto) Baso # (Auto) Abs Immat Gran (auto) Absolute Neuts (auto) Absolute Nucleated RBC Nucleated RBC % (auto) PT 38.2 H INR 3.3 H APTT 35.6 D-Dimer High Sensitivty 448 VBG pH 7.35 VBG pCO2 46 VBG pO2 33 VBG HCO3 25 VBG O2 Saturation 48.0 VBG Base Excess -0.2 Anion Gap Estim Creat Clear Calc Estimated GFR Random Glucose Lactic Acid Lactic Acid F/U @ 2Hr Calcium Magnesium Total Bilirubin AST ALT Alkaline Phosphatase Troponin I High Sens 46.4 H Total Protein Albumin COVID-19 (SHIMON) COVID-19 Clin Com Influenza Type A (STEPHEN) Influenza Type B (STEPHEN) Influenza A & B Note 04/13/22 04/13/22 04/13/22 10:41 10:41 13:13 MCV MCH MCHC RDW Plt Count MPV Immature Gran % (Auto) Neut % (Auto) Lymph % (Auto) [place] % (Auto) Eos % (Auto) Baso % (Auto) Lymph # (Auto) [place] # (Auto) Eos # (Auto) Baso # (Auto) Abs Immat Gran (auto) Absolute Neuts (auto) Absolute Nucleated RBC Nucleated RBC % (auto) PT INR APTT D-Dimer High Sensitivty VBG pH VBG pCO2 VBG pO2 VBG HCO3 VBG O2 Saturation VBG Base Excess Anion Gap Estim Creat Clear Calc Estimated GFR Random Glucose Lactic Acid Lactic Acid F/U @ 2Hr Calcium Magnesium Total Bilirubin AST ALT Alkaline Phosphatase Troponin I High Sens 42.1 H Total Protein Albumin COVID-19 (SHIMON) Negative COVID-19 ContaAzul Com See Note Influenza Type A (STEPHEN) Negative Influenza Type B (STEPHEN) Negative Influenza A & B Note See Note 04/13/22 13:13 MCV MCH MCHC RDW Plt Count MPV Immature Gran % (Auto) Neut % (Auto) Lymph % (Auto) [place] % (Auto) Eos % (Auto) Baso % (Auto) Lymph # (Auto) [place] # (Auto) Eos # (Auto) Baso # (Auto) Abs Immat Gran (auto) Absolute Neuts (auto) Absolute Nucleated RBC Nucleated RBC % (auto) PT INR APTT D-Dimer High Sensitivty VBG pH VBG pCO2 VBG pO2 VBG HCO3 VBG O2 Saturation VBG Base Excess Anion Gap Estim Creat Clear Calc Estimated GFR Random Glucose Lactic Acid Lactic Acid F/U @ 2Hr 1.0 Calcium Magnesium Total Bilirubin AST ALT Alkaline Phosphatase Troponin I High Sens Total Protein Albumin COVID-19 (SHIMON) COVID-19 Clin Com Influenza Type A (STEPHEN) Influenza Type B (STEPHEN) Influenza A & B Note Imaging Radiologist's Impressions: Impressions Cervical Spine CT 04/13/22 11:24 IMPRESSION: 1. No CT evidence of acute intracranial pathology. 2. Advanced spondyloarthropathy of the cervical spine. Severe C5-C6, C6-C7 disc degeneration. Multilevel spondylolisthesis, likely degenerative in nature, detailed above.. No CT evidence of acute fracture or malalignment. Chest CT 04/13/22 11:24 IMPRESSION: Stable cardiomegaly. No pericardial effusion. Stable small bilateral pleural effusions. Redemonstrated are probable posterior examination changes to the anterior peripheral and subpleural right upper lobe and right middle lobes. Left basilar groundglass and patchy airspace opacities, increased from previous, could reflect atelectasis or infectious/inflammatory process. Fleischner guidelines were followed. Head CT 04/13/22 11:24 IMPRESSION: 1. No CT evidence of acute intracranial pathology. 2. Advanced spondyloarthropathy of the cervical spine. Severe C5-C6, C6-C7 disc degeneration. Multilevel spondylolisthesis, likely degenerative in nature, detailed above.. No CT evidence of acute fracture or malalignment. Assessment and Plan (1) Sepsis: Status: Acute Plan 87-year-old woman admitted with sepsis secondary to UTI with BEE on CKD Sepsis secondary to urinary tract infection Tachycardia,Tachypnea, leukocytosis, normal lactic acid Rocephin Follow cultures BEE and CKD stage 4 Secondary to UTI Gentle IV fluids Follow BMP Atrial fibrillation with rapid ventricular response Likely secondary to infection Diltiazem, warfarin Check PT INR daily Still tachycardic, will start diltiazem drip Supratherapeutic INR Hold warfarin for today Check INR tomorrow Resume as appropriate Thrombocytopenia. Likely secondary to infection Follow Elevated troponin. Troponins flat No chest pain No acute ischemic changes noted on EKG Likely related to AFib DVT prophylaxis with warfarin Attending Dr. Villatoro Patient likely requires 2 midnights in the hospital For treatment of sepsis secondary to urinary tract infection requiring IV antibiotics as well as IV fluids for BEE on CKD. Quality Stroke Does the patient have a stroke diagnosis?: No VTE Prior VTE?: No VTE Risk Level:: Medical - moderate - high VTE Device Contraindication: Treatment Not Indicated VTE Drug Contraindication: N/A - Med Ordered
[2022-04-13 16:34] LABS: Appearance Urine CLEAR; Color Urine YELLOW; Glucose Urine UA NEG (NEG); Leukocyte Esterase Urine NEG (NEG); Nitrite Urine NEG (NEG); PH 5.5 (5.0-8.0); Urine Blood NEG (NEG); Urine Ketones NEG (NEG); Urine Protein TRACE MG/DL (NEG-TRACE)
[2022-04-13] MEDS: dilTIAZem HCL 125 MG in 0.9 % Sodium Chloride 100 ML 10 MG IVCONT (18:14)
[2022-04-13] MEDS: Omeprazole 20 MG CAPSULE.DR PO (21:30)
[2022-04-13] MEDS: Gabapentin 100 MG CAPSULE PO (21:30)
--- NOTE | 2022-04-14 | ECG_ITS ---
Test Reason : chest pain Blood Pressure : / mmHG Vent. Rate : 087 BPM Atrial Rate : 000 BPM P-R Int : 000 ms QRS Dur : 094 ms QT Int : 342 ms P-R-T Axes : 000 -06 -01 degrees QTc Int : 411 ms Atrial fibrillation with premature ventricular or aberrantly conducted complexes Nonspecific ST and T wave abnormality Abnormal ECG When compared with ECG of 13-APR-2022 10:13, No significant changes seen Referred By: Randee Richter Electronically Signed By:KRISTI CRUZ
[2022-04-14 02:49] VITALS: BP 103/65; PULSE 94; RESP 18; TEMP 36.7; O2SAT 96
[2022-04-14] MEDS: dilTIAZem HCL 125 MG in 0.9 % Sodium Chloride 100 ML IVCONT (06:40)
[2022-04-14 07:07] LABS: MANUAL DIFF FLAG NO
[2022-04-14 07:11] LABS: Basophils Percent Auto 0.2 % (0-2); Eosinophils Absolute Auto 0.4 X10*3/uL (0.0-0.4); Hematocrit 38.4 % (37.0-47.0); Imm Gran Abs Auto 0.07 X10*3/uL (0.00-0.03); Imm Gran Pct Auto 0.6 % (0.0-0.4); Lymphocytes Absolute Auto 1.2 X10*3/uL (1.2-4.9); Lymphocytes Percent Auto 9.4 % (20-40); Mean Corpuscular HGB Conc 31.3 g/dl (31.0-35.0); Mean Corpuscular Hemoglobin 29.9 pg (27.0-33.0); Mean Corpuscular Volume 95.5 fL (80.0-98.0); Monocytes Absolute Auto 0.5 X10*3/uL (0.1-1.2); Neutrophils Absolute Auto 10.4 x10*3/uL (2.0-8.3); Neutrophils Percent Auto 82.8 % (45-73); Platelet Count 112 X10*3/uL (160-400); Red Blood Count 4.02 X10*6/uL (4.20-5.50); Red Cell Distribution Width 15.1 % (11.0-16.0); White Blood Count 12.5 X10*3/uL (4.8-10.8)
[2022-04-14 07:15] LABS: INTERNATIONAL NORM RATIO 2.8 (0.9-1.1); Prothrombin Time 32.4 SEC (9.9-13.0)
[2022-04-14 07:29] LABS: Anion Gap 10 (12-20); Blood Urea Nitrogen 21 mg/dL (9-16); Calcium 8.7 mg/dL (8.4-10.2); Carbon Dioxide 26 mmol/L (22-29); Chloride 112 mmol/L (96-108); Creatinine Clr Calc Pharmacy 41.6; Estimated Glomerular Filt Rate 54; Glucose Random 85 mg/dL (60-115); Sodium 143 mmol/L (135-145)
[2022-04-14 07:49] VITALS: BP 113/66; PULSE 93; RESP 18; TEMP 36.9; O2SAT 98
[2022-04-14] MEDS: Gabapentin 100 MG CAPSULE PO ×3 (09:17→21:23)
[2022-04-14] MEDS: Omeprazole 20 MG CAPSULE.DR PO ×2 (09:17→21:23)
[2022-04-14] MEDS: 0.9 % Sodium Chloride Flush 3 ML SYRINGE IVFLUSH ×3 (09:17→20:12)
[2022-04-14] MEDS: dilTIAZem HCL CD 180 MG CAP.ER.24H PO (09:17)
[2022-04-14 11:09] VITALS: BP 119/75; PULSE 107; RESP 20; TEMP 37.4; O2SAT 98
--- NOTE | 2022-04-14 11:18 | PM.CNCAR ---
History of Present Illness History of Present Illness Date of Service: 04/14/22 Requesting physician: Randee Richter Consult reason: atrial fibrillation Chief complaint: afib rvr, fall Narrative: I was consulted to see Melissa in cardiology consultation today for management of atrial fibrillation. She has 87-year-old woman who is independent and lives at home is in generally good health. Patient presented to the hospital because for recent UTI she was given antibiotic and subsequently developed significant nausea and vomiting. Then when she tried to get up from the sitting position she got dizzy and then fell down. She did not lose consciousness. She denies any significant other symptoms. Patient denies any recent change in diet. When she came to the the ER she was noted to have positive urinalysis with elevated white cell count and lactic acid. She was then treated as sepsis protocol. She is also noted to be in atrial fibrillation rapid ventricular response but she tells me that she is in atrial fibrillation all the time. This is unclear to me whether she has paroxysmal atrial fibrillation with frequent episodes versus persistent atrial fibrillation. She is not sure herself. She is on oral anticoagulation warfarin with therapeutic INR. She is looking very short of breath and says that she short of breath and feels her atrial fibrillation right now. She denies any chest pain. Her chest CT showed by basilar ground-glass opacities. She also noted to have cardiomegaly. She denies any prior history of heart failure. She also denies any prior history of myocardial infarction or coronary artery disease or stenting. She says she is very independent otherwise and where she lives she goes for walk on a daily basis for 10 minutes without restriction. She had another fall many years ago. She has no history of syncope otherwise in the past. No history of valvular heart disease. Review of Systems Constitutional: Constitutional: Reports no additional constitutional complaints Eyes: Eyes: Reports no additional eye complaints Cardiovascular: Cardiovascular: Denies chest pain, Reports rapid heart rate, Denies leg edema, Reports lightheadedness, Denies Loss of Consciousness, Reports dyspnea, Denies dyspnea on exertion and Reports orthopnea Respiratory: Respiratory: Denies no additional respiratory complaints, Reports dyspnea and Denies dyspnea on exertion Gastrointestinal: Gastrointestinal: Reports diarrhea and Reports vomiting Genitourinary: Genitourinary: Reports no additional female genitourinary complaints Musculoskeletal: Musculoskeletal: Reports no additional musculoskeletal complaints Integumentary/Breasts: Skin/Breast: Reports system reviewed and no additional complaints, except as docu Neurologic: Reports system reviewed and no additional complaints, except as documented Psychiatric: Psychiatric: Reports no additional psychiatric complaints Endocrine: Endocrine: Reports no additional endocrine complaints Hematologic/Lymphatic: Hematologic/Lymphatic: Reports no additional hematologic/lymphatic complaints [facility] Past Medical History Medical History Atrial fibrillation Breast cancer GERD (gastroesophageal reflux disease) Ovarian cancer Family History Family History Other Breast cancer Coronary artery disease Prostate cancer Surgical History Surgical History History of hip replacement Previous back surgery Social History Social History Household Members: None Housing: Apartment Do you presently have visiting nurse or other home services: No Patient Tobacco Use Status: Never used Tobacco Use of substances other than those prescribed or required for medical reasons: No Currently Displaying Signs/Symptoms of Drug Intoxication Withdrawal: No Have you been hit, kicked, punched, or otherwise hurt by someone within the past year? If so, by whom?: No Do you feel safe in your current relationship?: No Current Relationship Is there a partner from a previous relationship who is making you feel unsafe now?: No Are you made to feel afraid or neglected: No Advance Directives: Yes Advance Directives Information Provided: Yes Advance Directives on File: No Advance Directives Date on File: 04/13/22 Do you have thoughts of harming others: None Do you have a plan to hurt others: No Plan Recently lost weight without trying: No Nutrition Risks: No Nutritional Risk Patient : No Meds Allergies Allergy/AdvReac Type Severity Reaction Status Date / Time No Known Allergies Allergy Verified 04/13/22 10:06 Active Medications: Current Medications Acetaminophen (Acetaminophen 325 Mg Tablet) 650 mg PO Q6H PRN PRN Reason: Pain, Mild (Pain Scale 1-3) Diltiazem HCl (Diltiazem Hcl Cd 180 Mg Cap.Er.24h) 180 mg PO DAILY [facility]; Protocol Last Admin: 04/14/22 09:17 Dose: 180 mg Gabapentin (Gabapentin 100 Mg Capsule) 100 mg PO TID [facility] Last Admin: 04/14/22 09:17 Dose: 100 mg Diltiazem HCl 125 mg/ Sodium (Chloride) 125 mls @ 0 mls/hr IVCONT .Q0M [facility]; Protocol Last Admin: 04/14/22 06:40 Dose: 5 mg/hr, 5 mls/hr Ceftriaxone Sodium 1 gm/ (Sodium Chloride) 50 mls @ 100 mls/hr IV Q24H [facility] Omeprazole (Omeprazole 20 Mg Capsule.Dr) 20 mg PO BID [facility] Last Admin: 04/14/22 09:17 Dose: 20 mg Ondansetron HCl (Ondansetron Hcl 4 Mg/2 Ml Vial) 4 mg IVPUSH Q8H PRN PRN Reason: Nausea and Vomiting Pharmacy Consult (Consult Rx Perform Med Rec) 1 each MISCELLANE ONCE PRN PRN Reason: Consult order Sodium Chloride (0.9 % Sodium Chloride Flush 3 Ml Syringe) 3 ml IVFLUSH QSHIFT [facility] Last Admin: 04/14/22 09:17 Dose: 3 ml Home Medications Medication Instructions Recorded Confirmed Last Taken Type diltiazem HCl 180 mg capsule,24 1 cap PO DAILY 04/13/22 04/13/22 04/12/22 History hr,extended release gabapentin 100 mg capsule 1 cap PO TID 04/13/22 04/13/22 04/12/22 History nitrofurantoin 1 cap PO BID 04/13/22 04/13/22 04/12/22 History monohydrate/macrocrystals 100 mg capsule pantoprazole 40 mg tablet,delayed 1 tab PO BID 04/13/22 04/13/22 04/12/22 History release warfarin 5 mg tablet 5 mg PO DAILY@1800 04/13/22 04/13/22 04/12/22 History Physical Exam Vital Signs: Vital Signs: Last Vital Signs Temp 99.4 F 04/14/22 11:09 Pulse 107 H 04/14/22 11:09 Resp 20 04/14/22 11:09 BP 119/75 04/14/22 11:09 Pulse Ox 98 04/14/22 11:09 O2 Del Method 04/14/22 11:09 O2 Flow Rate 2 04/14/22 11:09 BMI result Body Mass Index 24.8 Const: General: cooperative, alert, awake, in distress moderate and respiratory and anxious Nutritional Appearance: average body habitus Orientation/consciousness: patient oriented x3 HEENT: Head: Yes normocephalic and Yes atraumatic Neck: Neck: Yes trachea midline, Yes supple and Yes no JVD Resp: Effort & Inspection: normal respiratory effort Auscultation: crackles bilateral at the base Cardio: Palpation: normal PMI Rate: tachycardic Rhythm: abnormal rhythm irregularly irregular Heart sounds: S1 normal heart sound present, S2 normal heart sound present, no click, no gallops, no murmurs and no rubs GI: Auscultation: normal bowel sounds Skin: General skin exam: no rashes or lesions noted Neuro: General: patient oriented x3 and no focal motor deficits Extrem: General: Yes no clubbing, cyanosis or edema Objective Labs and Meds Result diagrams: 04/14/22 05:59 04/14/22 05:59 Lab results: Laboratory Results - last 24 hr 04/13/22 04/13/22 04/13/22 10:34 13:13 13:13 WBC RBC Hgb Hct MCV MCH MCHC RDW Plt Count MPV Immature Gran % (Auto) Neut % (Auto) Lymph % (Auto) [place] % (Auto) Eos % (Auto) Baso % (Auto) Lymph # (Auto) [place] # (Auto) Eos # (Auto) Baso # (Auto) Abs Immat Gran (auto) Absolute Neuts (auto) Absolute Nucleated RBC Nucleated RBC % (auto) PT INR VBG pH 7.35 VBG pCO2 46 VBG pO2 33 VBG HCO3 25 VBG O2 Saturation 48.0 VBG Base Excess -0.2 Sodium Potassium Chloride Carbon Dioxide Anion Gap BUN Creatinine Estim Creat Clear Calc Estimated GFR Random Glucose Lactic Acid F/U @ 2Hr 1.0 Calcium Troponin I High Sens 42.1 H Urine Color Urine Appearance Urine pH Ur Specific [place] Urine Protein Urine Glucose (UA) Urine Ketones Urine Blood Urine Nitrite Ur Leukocyte Esterase 04/13/22 04/14/22 04/14/22 16:27 05:59 05:59 WBC 12.5 H RBC 4.02 L Hgb 12.0 Hct 38.4 MCV 95.5 MCH 29.9 MCHC 31.3 RDW 15.1 Plt Count 112 L MPV 11.0 Immature Gran % (Auto) 0.6 H Neut % (Auto) 82.8 H Lymph % (Auto) 9.4 L [place] % (Auto) 4.0 Eos % (Auto) 3.0 Baso % (Auto) 0.2 Lymph # (Auto) 1.2 [place] # (Auto) 0.5 Eos # (Auto) 0.4 Baso # (Auto) 0.0 Abs Immat Gran (auto) 0.07 H Absolute Neuts (auto) 10.4 H Absolute Nucleated RBC 0.000 Nucleated RBC % (auto) 0.0 PT INR VBG pH VBG pCO2 VBG pO2 VBG HCO3 VBG O2 Saturation VBG Base Excess Sodium 143 Potassium 5.0 Chloride 112 H Carbon Dioxide 26 Anion Gap 10 L BUN 21 H Creatinine 0.98 Estim Creat Clear Calc 41.6 Estimated GFR 54 Random Glucose 85 Lactic Acid F/U @ 2Hr Calcium 8.7 Troponin I High Sens Urine Color YELLOW Urine Appearance CLEAR Urine pH 5.5 Ur Specific [place] 1.020 Urine Protein TRACE Urine Glucose (UA) NEG Urine Ketones NEG Urine Blood NEG Urine Nitrite NEG Ur Leukocyte Esterase NEG 04/14/22 05:59 WBC RBC Hgb Hct MCV MCH MCHC RDW Plt Count MPV Immature Gran % (Auto) Neut % (Auto) Lymph % (Auto) [place] % (Auto) Eos % (Auto) Baso % (Auto) Lymph # (Auto) [place] # (Auto) Eos # (Auto) Baso # (Auto) Abs Immat Gran (auto) Absolute Neuts (auto) Absolute Nucleated RBC Nucleated RBC % (auto) PT 32.4 H INR 2.8 H VBG pH VBG pCO2 VBG pO2 VBG HCO3 VBG O2 Saturation VBG Base Excess Sodium Potassium Chloride Carbon Dioxide Anion Gap BUN Creatinine Estim Creat Clear Calc Estimated GFR Random Glucose Lactic Acid F/U @ 2Hr Calcium Troponin I High Sens Urine Color Urine Appearance Urine pH Ur Specific [place] Urine Protein Urine Glucose (UA) Urine Ketones Urine Blood Urine Nitrite Ur Leukocyte Esterase Imaging Radiologist's impression: Impressions Cervical Spine CT 04/13/22 11:24 IMPRESSION: 1. No CT evidence of acute intracranial pathology. 2. Advanced spondyloarthropathy of the cervical spine. Severe C5-C6, C6-C7 disc degeneration. Multilevel spondylolisthesis, likely degenerative in nature, detailed above.. No CT evidence of acute fracture or malalignment. Chest CT 04/13/22 11:24 IMPRESSION: Stable cardiomegaly. No pericardial effusion. Stable small bilateral pleural effusions. Redemonstrated are probable posterior examination changes to the anterior peripheral and subpleural right upper lobe and right middle lobes. Left basilar groundglass and patchy airspace opacities, increased from previous, could reflect atelectasis or infectious/inflammatory process. Fleischner guidelines were followed. Head CT 04/13/22 11:24 IMPRESSION: 1. No CT evidence of acute intracranial pathology. 2. Advanced spondyloarthropathy of the cervical spine. Severe C5-C6, C6-C7 disc degeneration. Multilevel spondylolisthesis, likely degenerative in nature, detailed above.. No CT evidence of acute fracture or malalignment. Assessment and Plan (1) Atrial fibrillation: Status: Acute Presentation with atrial fibrillation rapid ventricular response which could be due to her acute medical illness with near syncope. Her near syncopal episode appears to be due to dehydration and has been treated with sepsis protocol. Not sure as to the IV fluids given to her. Rate is borderline elevated. She is currently on low-dose Cardizem therapy. Switch her to p.o. metoprolol 25 mg q.6 hours. Continue warfarin therapy with goal INR between 2 and 3. Obtain old records especially cardiology notes from her own e m assembler Dr. Goodrich in [place]. Echocardiogram to assess LV systolic and diastolic function. (2) CHF exacerbation: Status: Acute Patient appears to be very short of breath. This could be related to as reported bilateral atelectasis/infiltration seen on the chest CT. However clinically appears to be probably in heart failure. Obtain an echocardiogram to assess LV systolic and diastolic function biatrial chamber size and valvular abnormality. Gentle diuresis with Lasix 20 mg IV b.i.d.. Strict intake and output chart needs to be pursued. Continue to trend renal function electrolytes as well as BNP tomorrow. Continue supportive care. Continue oxygen supplementation. Continue treat underlying UTI and avoid sudden fluid overload. Will follow with you. Thank you for allowing us to partake in her care Procedures Date of Service Date of Service: 04/14/22
--- NOTE | 2022-04-14 14:06 | P.PNIM_ITS ---
Subjective Subjective Date of Service: 04/14/22 Review of Systems follow-up sepsis secondary to urinary tract infection Patient having right-sided sharp chest pain, reports she has had in the past Denies nausea, vomiting, diarrhea Sitting up in a chair Physical Exam Vital Signs: Vital Signs: Last Vital Signs Temp 99.4 F 04/14/22 11:09 Pulse 107 H 04/14/22 11:09 Resp 20 04/14/22 11:09 BP 119/75 04/14/22 11:09 Pulse Ox 98 04/14/22 11:09 O2 Del Method 04/14/22 11:09 O2 Flow Rate 2 04/14/22 11:09 BMI result Body Mass Index 24.8 Appearing in no acute distress lung sounds are clear to auscultation heart regular rate rhythm, clear S1, S2, no palpable pain positive bowel sounds, abdomen is soft, nontender neuro patient is alert x3, no focal deficits Objective Data Active Medications Acetaminophen (Acetaminophen 325 Mg Tablet) 650 mg PO Q6H PRN PRN Reason: Pain, Mild (Pain Scale 1-3) Diltiazem HCl (Diltiazem Hcl Cd 180 Mg Cap.Er.24h) 180 mg PO DAILY [facility]; Protocol Last Admin: 04/14/22 09:17 Dose: 180 mg Documented By: REGINO Gabapentin (Gabapentin 100 Mg Capsule) 100 mg PO TID [facility] Last Admin: 04/14/22 09:17 Dose: 100 mg Documented By: REGINO Diltiazem HCl 125 mg/ Sodium (Chloride) 125 mls @ 0 mls/hr IVCONT .Q0M [facility]; Protocol Last Admin: 04/14/22 06:40 Dose: 5 mg/hr, 5 mls/hr Documented By: SETH Ceftriaxone Sodium 1 gm/ (Sodium Chloride) 50 mls @ 100 mls/hr IV Q24H [facility] Lidocaine (Lidocaine 4 % Patch Adh..Patch) 1 patch TRANSDERMA DAILY [facility]; [place] [facility] Omeprazole (Omeprazole 20 Mg Capsule.Dr) 20 mg PO BID [facility] Last Admin: 04/14/22 09:17 Dose: 20 mg Documented By: REGINO Ondansetron HCl (Ondansetron Hcl 4 Mg/2 Ml Vial) 4 mg IVPUSH Q8H PRN PRN Reason: Nausea and Vomiting Oxycodone HCl (Oxycodone Hcl Immed Release 5 Mg Tablet) 2.5 mg PO Q4H PRN PRN Reason: Pain, Mild (Pain Scale 1-3) Pharmacy Consult (Consult Rx Perform Med Rec) 1 each MISCELLANE ONCE PRN PRN Reason: Consult order Sodium Chloride (0.9 % Sodium Chloride Flush 3 Ml Syringe) 3 ml IVFLUSH QSHIFT [facility] Last Admin: 04/14/22 09:17 Dose: 3 ml Documented By: REGINO Warfarin Sodium (Warfarin Sodium 5 Mg Tablet) 5 mg PO DAILY@1800 [facility] Labs CBC & Chem 7: 04/14/22 05:59 04/14/22 05:59 Labs: Laboratory Results - last 24 hr 04/13/22 04/13/22 04/14/22 10:34 16:27 05:59 MCV 95.5 MCH 29.9 MCHC 31.3 RDW 15.1 Plt Count 112 L MPV 11.0 Immature Gran % (Auto) 0.6 H Neut % (Auto) 82.8 H Lymph % (Auto) 9.4 L [place] % (Auto) 4.0 Eos % (Auto) 3.0 Baso % (Auto) 0.2 Lymph # (Auto) 1.2 [place] # (Auto) 0.5 Eos # (Auto) 0.4 Baso # (Auto) 0.0 Abs Immat Gran (auto) 0.07 H Absolute Neuts (auto) 10.4 H Absolute Nucleated RBC 0.000 Nucleated RBC % (auto) 0.0 PT INR VBG pH 7.35 VBG pCO2 46 VBG pO2 33 VBG HCO3 25 VBG O2 Saturation 48.0 VBG Base Excess -0.2 Anion Gap Estim Creat Clear Calc Estimated GFR Random Glucose Calcium Urine Color YELLOW Urine Appearance CLEAR Urine pH 5.5 Ur Specific [place] 1.020 Urine Protein TRACE Urine Glucose (UA) NEG Urine Ketones NEG Urine Blood NEG Urine Nitrite NEG Ur Leukocyte Esterase NEG 04/14/22 04/14/22 05:59 05:59 MCV MCH MCHC RDW Plt Count MPV Immature Gran % (Auto) Neut % (Auto) Lymph % (Auto) [place] % (Auto) Eos % (Auto) Baso % (Auto) Lymph # (Auto) [place] # (Auto) Eos # (Auto) Baso # (Auto) Abs Immat Gran (auto) Absolute Neuts (auto) Absolute Nucleated RBC Nucleated RBC % (auto) PT 32.4 H INR 2.8 H VBG pH VBG pCO2 VBG pO2 VBG HCO3 VBG O2 Saturation VBG Base Excess Anion Gap 10 L Estim Creat Clear Calc 41.6 Estimated GFR 54 Random Glucose 85 Calcium 8.7 Urine Color Urine Appearance Urine pH Ur Specific [place] Urine Protein Urine Glucose (UA) Urine Ketones Urine Blood Urine Nitrite Ur Leukocyte Esterase Microbiology Microbiology Results: Microbiology 04/13/22 10:41 Blood Culture - Preliminary Blood - Venous No growth after 24 hours. 04/13/22 10:28 Blood Culture - Preliminary Blood - Venous No growth after 24 hours. Assessment and Plan (1) CHF exacerbation: Status: Acute Plan 87-year-old woman admitted with sepsis secondary to UTI with BEE on CKD Right-sided chest pain. Pain with inspiration Reports that she has had this in the past EKG Lidocaine patch for musculoskeletal pain ? CHF, unspecified Will obtain echo lasix 20mg IV BID follow BNP and BMP follow Intake and output Atrial fibrillation with rapid ventricular response Likely secondary to infection switch to oral metoprolol 25mg Q6h warfarin Sepsis secondary to urinary tract infection Tachycardia,Tachypnea, leukocytosis, normal lactic acid Rocephin Follow cultures BEE and CKD stage 4. Resolved Secondary to UTI Follow BMP fluids stopped Supratherapeutic INR. Resolved, 2.8 today resume warfarin Check INR daily Thrombocytopenia.? Likely secondary to infection Follow Elevated troponin.? Troponins flat No chest pain No acute ischemic changes noted on EKG Likely related to AFib DVT prophylaxis with warfarin Attending Dr. Villatoro Patient requires continued hospitalization for treatment of sepsis secondary to urinary tract infection requiring IV antibiotics as well as IV fluids for BEE on CKD. Quality Stroke Does the patient have a stroke diagnosis?: No VTE Prior VTE?: No VTE Risk Level:: Medical - moderate - high VTE Device Contraindication: Treatment Not Indicated VTE Drug Contraindication: N/A - Med Ordered
[2022-04-14 15:01] VITALS: BP 109/58; PULSE 85; RESP 17; TEMP 36.6; O2SAT 95
--- NOTE | 2022-04-14 16:26 | MHC.CM.PN ---
PT REPORTS SHE LIVES ALONE AND IS INDEPENDENT WITH CARE PT DENIES USE OF DME OR HOME SERVICES PT HAS A MOLST ON FILE AND REPORTS SHE HAS AN APPT WITH HER ATTY TO REDO HER HCP AND WILL PT REPORTS SHE IS COVID-19 VACCINATED AND BOOSTED PCP: KD ARGUELLO IMM DELIVERED CURRENT DC PLAN IS HOME WITH NO SERVICES SON TO TRANSPORT
[2022-04-14] MEDS: Lidocaine 4 % Patch ADH..PATCH 1 PATCH TRANSDERMA (16:39)
[2022-04-14] MEDS: oxyCODONE HCl Immed Release 5 MG TABLET 2.5 MG PO (16:39)
[2022-04-14] MEDS: cefTRIAXone sodium 1 GM in 0.9 % Sodium Chloride 50 ML IV (16:57)
[2022-04-14] MEDS: Furosemide 20 MG/2 ML VIAL IVPUSH (18:22)
[2022-04-14] MEDS: Warfarin Sodium 5 MG TABLET PO (18:24)
[2022-04-14] MEDS: Metoprolol Tartrate 25 MG TABLET PO ×2 (18:25→21:23)
[2022-04-14 18:56] VITALS: BP 123/63; PULSE 88; RESP 17; TEMP 36.9; O2SAT 95
[2022-04-14 19:51] VITALS: BP 104/60; PULSE 80; RESP 18; TEMP 36.7; O2SAT 96
[2022-04-14] MEDS: predniSONE 10 MG TABLET PO (20:12)
[2022-04-15] VITALS: BP 116/64; PULSE 85; RESP 16; TEMP 36.7; O2SAT 96
[2022-04-15 04:00] VITALS: BP 105/77; PULSE 89; RESP 16; TEMP 36.9; O2SAT 97
--- NOTE | 2022-04-15 07:00 | CA_ITS ---
Transthoracic Echocardiogram Patient (Last, First, Middle): Melissa Ray, Gender: Female Date of : 1935 Age: 87 Procedure Date: 04/15/2022 Procedure Type: Transthoracic Echocardiogram Location: [facility] [place] Height: 172.72 cm Weight: 73.94 kg BSA: 1.87 m2 Heart Rate: bpm BP: 105 / 77 mmHg Senior Corporate Strategy Manager: LUCAS Referring MD: Randee Richter NP Poultry Vaccinator: Gm Tirado MD Symptoms: chf Study Quality: Fair ECG Rhythm: Atrial Fibrillation Conclusions: - The left ventricular systolic function is mildly decreased. The visually estimated ejection fraction is between 45-50%. - Moderately increased right ventricular cavity size. - There is mild aortic valve stenosis. - There is mild mitral valve regurgitation. - There is mild to moderate tricuspid valve regurgitation. - Mild pulmonary hypertension is present. Findings Left Ventricle Normal left ventricular cavity size. There is moderately increased left ventricular wall thickness. The left ventricular systolic function is mildly decreased. The visually estimated ejection fraction is between 45-50%. There is mild global hypokinesis. Diastolic function is indeterminate on the basis of available data. Right Ventricle Moderately increased right ventricular cavity size. There is normal right ventricular systolic function. Atria The left atrium is severely dilated. The right atrium is mildly dilated. Aortic Valve The aortic valve structure and function is likely normal. There is moderate calcification of the aortic valve. There is mild aortic valve stenosis. The mean gradient is 10 mmHg. The aortic valve area is 1.61 cm2. There is mild aortic valve regurgitation. Mitral Valve There is mild anterior mitral leaflet thickening. There is mild mitral annular calcification. There is mild mitral valve regurgitation. There is no mitral valve stenosis. Pulmonic Valve There is mild pulmonic valve regurgitation. Tricuspid Valve Normal tricuspid valve structure. There is mild to moderate tricuspid valve regurgitation. Mild pulmonary hypertension is present. Great Vessels The aortic annulus, sinuses of valsalva, and asc aorta are normal in size. Venous The inferior vena cava is mildly dilated and collapses greater than 50% with inspiration. Pericardium/Pleural There is no evidence of pericardial effusion. Prior Study Comparison No prior study available for comparison. Measurements 2D Linear Measurements IVSd: 1.34 0.6-0.9/0.6-1.0 cm LVIDd: 4.38 3.9-5.3/4.2-5.9 cm LVIDd Index: 2.34 2.4-3.2/2.2-3.1 cm/m2 LVIDs: 3.02 2.0-3.6 cm LVPWd: 1.33 0.7-1.1 cm LA Diam: 4.30 2.7-3.8/3.0-4.0 cm LAIDs Index: 2.30 1.5-2.3 cm/m2 LV Mass: 277.03 67-162/88-224 g LV Mass Index: 148.14 43-95/49-115 g/m2 LVOT Diam: 2.00 3.0+(-)1.3 cm 2D Systolic Function EF 4C: 50.80 >55% EF 2C: 42.10 >55% EF BiP: 47.30 >55% Mitral Valve MV Pk E: 0.66 MV Decel Time: 223.00 E'Lateral: 13.20 E'Medial: 9.20 E/E' Med: 7.20 E/E' Lat: 5.00 PHT: 65.00 MVA PHT: 3.38 Decel Keith: 2.99 Aortic Valve AoV Pk Jason: 2.02 AoV Mn Jason: 1.47 AoV VTI: 0.37 AoV Pk Grad: 16.00 Aov Mn Grad: 10.00 QIAN Cont.VTI: 1.61 AI Pk Jason: 4.78 AI Keith: 3.34 LVOT LVOT Pk Jason: 0.96 LVOT Mn Jason: 0.68 LVOT VTI: 0.19 LVOT Pk Grad: 4.00 LVOT Mn Grad: 2.00 LVOT Diam: 2.00 LVOT Area: 3.14 Diastolic Function MV Pk E: 0.66 E'Medial: 9.20 E/E' Med: 7.20 E' Laterial: 13.20 E/E' Lat: 5.00 Right Ventricle TAPSE (mm): 17.00 TVS' Jason: 15.00 Tricuspid Valve TR Pk Jason: 2.69 TR Pk Grad: 29.00 RA Press: 8.00 RVSP: 37.00 Great Vessels Aorta Ao Asc: 3.50 2.1-3.4 cm Updated in Other Vendor System with Status of Final Gm Tirado MD electronically signed on 04/15/2022 10:24:24 AM with status of Final
[2022-04-15 07:25] LABS: INTERNATIONAL NORM RATIO 1.9 (0.9-1.1); Prothrombin Time 21.4 SEC (9.9-13.0)
[2022-04-15 07:36] LABS: Anion Gap 10 (12-20); Blood Urea Nitrogen 18 mg/dL (9-16); Calcium 8.8 mg/dL (8.4-10.2); Carbon Dioxide 27 mmol/L (22-29); Chloride 108 mmol/L (96-108); Creatinine Clr Calc Pharmacy 45.7; Estimated Glomerular Filt Rate > 60; Glucose Random 102 mg/dL (60-115); Potassium 4.8 mmol/L (3.3-5.1); Sodium 140 mmol/L (135-145)
[2022-04-15 07:46] LABS: B Type Natriuretic Peptide 476 pg/mL (<100)
[2022-04-15 08:00] VITALS: BP 117/69; PULSE 83; RESP 20; TEMP 36.5; O2SAT 98
[2022-04-15] MEDS: Gabapentin 100 MG CAPSULE PO ×3 (08:14→21:34)
[2022-04-15] MEDS: dilTIAZem HCL CD 180 MG CAP.ER.24H PO (08:14)
[2022-04-15] MEDS: predniSONE 10 MG TABLET PO (08:14)
[2022-04-15] MEDS: Metoprolol Tartrate 25 MG TABLET PO ×4 (08:14→21:34)
[2022-04-15] MEDS: Omeprazole 20 MG CAPSULE.DR PO ×2 (08:14→21:34)
[2022-04-15] MEDS: Furosemide 20 MG/2 ML VIAL IVPUSH ×2 (08:15→17:34)
[2022-04-15] MEDS: 0.9 % Sodium Chloride Flush 3 ML SYRINGE IVFLUSH ×3 (08:15→21:35)
[2022-04-15] MEDS: oxyCODONE HCl Immed Release 5 MG TABLET 2.5 MG PO (08:28)
--- NOTE | 2022-04-15 09:35 | PM.PNCARD ---
Subjective Subjective Date of Service: 04/15/22 Interval history: Complaining of shortness of breath. Not actively feeling any palpitations. Otherwise, ok. Review of Systems Review of Systems Yes all other systems are reviewed and are negative Constitutional: Reports as per HPI Eyes: Reports as per HPI Reports as per HPI Cardiovascular: Reports as per HPI, Denies acrocyanosis, Denies cool extremities, Denies chest pain, Denies leg edema, Denies lightheadedness, Denies palpitations and Reports dyspnea Respiratory: Reports as per HPI, Reports no additional respiratory complaints and Reports dyspnea Gastrointestinal: Reports as per HPI and Reports no additional gastrointestinal complaints Genitourinary: Reports as per HPI Musculoskeletal: Reports no additional musculoskeletal complaints and Reports as per HPI Skin/Breast: Reports system reviewed and no additional complaints, except as docu Reports system reviewed and no additional complaints, except as documented and Reports as per HPI Psychiatric: Reports no additional psychiatric complaints and Reports as per HPI Endocrine: Reports no additional endocrine complaints, Reports as per HPI and Denies palpitations Hematologic/Lymphatic: Reports no additional hematologic/lymphatic complaints and Reports as per HPI Allergic/Immunologic: Reports no additional allergic/immunologic complaints and Reports as per HPI Physical Exam Vital Signs: Last Vital Signs Temp 97.7 F 04/15/22 08:00 Pulse 83 04/15/22 08:00 Resp 20 04/15/22 08:00 BP 117/69 04/15/22 08:00 Pulse Ox 98 04/15/22 08:00 O2 Del Method 04/15/22 08:00 O2 Flow Rate 2 04/15/22 08:00 BMI result Body Mass Index 24.8 Const General: alert and awake Orientation/consciousness: patient oriented x3 HEENT Other: Unremarkable Head: Yes normal to inspection Neck Neck: Yes normal visual inspection Chest Chest palpation & inspection: normal inspection of the chest Resp Other: minimal crackles Cardio Palpation: normal PMI Heart sounds: S1 normal heart sound present, S2 normal heart sound present, no gallops, no murmurs and no rubs GI Palpation (GI): Soft to palpation Back/Spine/Pelvis Other: unremarkable Skin General skin exam: no rashes or lesions noted Neuro General: patient oriented x3 Extrem General: Yes normal to inspection Psych Mental Status: mental status grossly normal Objective Labs and Meds Result diagrams: 04/14/22 05:59 04/15/22 06:15 Lab results: Laboratory Results - last 24 hr 04/15/22 04/15/22 04/15/22 06:15 06:15 06:15 PT 21.4 H INR 1.9 H Sodium 140 Potassium 4.8 Chloride 108 Carbon Dioxide 27 Anion Gap 10 L BUN 18 H Creatinine 0.89 Estim Creat Clear Calc 45.7 Estimated GFR > 60 Random Glucose 102 Calcium 8.8 B-Natriuretic Peptide 476 H Imaging Radiologist's impression: Impressions Cervical Spine CT 04/13/22 11:24 IMPRESSION: 1. No CT evidence of acute intracranial pathology. 2. Advanced spondyloarthropathy of the cervical spine. Severe C5-C6, C6-C7 disc degeneration. Multilevel spondylolisthesis, likely degenerative in nature, detailed above.. No CT evidence of acute fracture or malalignment. Chest CT 04/13/22 11:24 IMPRESSION: Stable cardiomegaly. No pericardial effusion. Stable small bilateral pleural effusions. Redemonstrated are probable posterior examination changes to the anterior peripheral and subpleural right upper lobe and right middle lobes. Left basilar groundglass and patchy airspace opacities, increased from previous, could reflect atelectasis or infectious/inflammatory process. Fleischner guidelines were followed. Head CT 04/13/22 11:24 IMPRESSION: 1. No CT evidence of acute intracranial pathology. 2. Advanced spondyloarthropathy of the cervical spine. Severe C5-C6, C6-C7 disc degeneration. Multilevel spondylolisthesis, likely degenerative in nature, detailed above.. No CT evidence of acute fracture or malalignment. Progress Note: A&P Assessment and plan (1) Atrial fibrillation with rapid ventricular response: Status: Acute (2) CHF exacerbation: Status: Acute Plan Pertinent data reviewed. High sensitive troponins are 46 and 42. Cardiac BNP is 476. Chest CT scan with stable cardiomegaly, small bilateral pleural effusions. Coronary as well as vascular calcifications. Currently rate is better controlled. She is on diltiazem and metoprolol. No changes. Also getting gentle diuretics. Anticoagulation. Echocardiogram for LV function assessment. Will eventually need ischemic workup as well considering borderline troponins as well as findings of vascular calcification on CT scan. Discussed with [id number] the bedside. Time Spent With Patient Time: Total time spent is greater than 50% in coordination of care (as documented) at patient's floor/unit and/or counseling patient: 35min Progress Note: Quality Stroke Does the patient have a stroke diagnosis?: No Procedures Date of Service Date of Service: 04/15/22
--- NOTE | 2022-04-15 10:33 | P.PNIM_ITS ---
Subjective Subjective Date of Service: 04/15/22 Interval History: seen and examined this AM family bedside pt reports improvement in her breathing and R chest wall pain reports she has not ambulated much so unsure of any STRONG Review of Systems negative exept HPI Physical Exam Vital Signs: Vital Signs: Last Vital Signs Temp 97.7 F 04/15/22 08:00 Pulse 83 04/15/22 08:00 Resp 20 04/15/22 08:00 BP 117/69 04/15/22 08:00 Pulse Ox 98 04/15/22 08:00 O2 Del Method 04/15/22 08:00 O2 Flow Rate 2 04/15/22 08:00 BMI result Body Mass Index 24.8 Const: Other: General - no acute distress, appears comfortable Cardiovascular - IRR; +edema Lungs - rales bilaterally at bases; dyspnea with conversation Abdomen - soft, nontender, no rebound or guarding Extremities - +edema Neuro - awake and alert, no focal deficits Objective Data Active Medications Acetaminophen (Acetaminophen 325 Mg Tablet) 650 mg PO Q6H PRN PRN Reason: Pain, Mild (Pain Scale 1-3) Furosemide (Furosemide 20 Mg/2 Ml Vial) 20 mg IVPUSH BID@0900,1800 [facility]; Protocol Last Admin: 04/15/22 08:15 Dose: 20 mg Documented By: CAROLANN Gabapentin (Gabapentin 100 Mg Capsule) 100 mg PO TID [facility] Last Admin: 04/15/22 08:14 Dose: 100 mg Documented By: CAROLANN Ceftriaxone Sodium 1 gm/ (Sodium Chloride) 50 mls @ 100 mls/hr IV Q24H [facility] Last Infusion: 04/14/22 18:32 Dose: 0 mls/hr Documented By: JESE Lidocaine (Lidocaine 4 % Patch Adh..Patch) 1 patch TRANSDERMA DAILY [facility]; Protocol Last Admin: 04/15/22 08:15 Dose: Not Given Documented By: CAROLANN Non-Admin Reason: Patient Refused Lorazepam (Lorazepam 2 Mg/Ml Vial) 0.25 mg IVPUSH Q6H PRN PRN Reason: anxiety Metoprolol Tartrate (Metoprolol Tartrate 25 Mg Tablet) 25 mg PO QID [facility]; Protocol Last Admin: 04/15/22 08:14 Dose: 25 mg Documented By: CAROLANN Omeprazole (Omeprazole 20 Mg Capsule.Dr) 20 mg PO BID [facility] Last Admin: 04/15/22 08:14 Dose: 20 mg Documented By: CAROLANN Ondansetron HCl (Ondansetron Hcl 4 Mg/2 Ml Vial) 4 mg IVPUSH Q8H PRN PRN Reason: Nausea and Vomiting Oxycodone HCl (Oxycodone Hcl Immed Release 5 Mg Tablet) 2.5 mg PO Q4H PRN PRN Reason: Pain, Mild (Pain Scale 1-3) Last Admin: 04/15/22 08:28 Dose: 2.5 mg Documented By: CAROLANN Pharmacy Consult (Consult Rx Perform Med Rec) 1 each MISCELLANE ONCE PRN PRN Reason: Consult order Prednisone (Prednisone 10 Mg Tablet) 10 mg PO DAILY [facility] Last Admin: 04/15/22 08:14 Dose: 10 mg Documented By: CAROLANN Sodium Chloride (0.9 % Sodium Chloride Flush 3 Ml Syringe) 3 ml IVFLUSH QSHIFT [facility] Last Admin: 04/15/22 08:15 Dose: 3 ml Documented By: CAROLANN Warfarin Sodium (Warfarin Sodium 5 Mg Tablet) 5 mg PO DAILY@1800 [facility] Last Admin: 04/14/22 18:24 Dose: 5 mg Documented By: JESE Labs CBC & Chem 7: 04/14/22 05:59 04/15/22 06:15 Labs: Laboratory Results - last 24 hr 04/15/22 04/15/22 04/15/22 06:15 06:15 06:15 PT 21.4 H INR 1.9 H Anion Gap 10 L Estim Creat Clear Calc 45.7 Estimated GFR > 60 Random Glucose 102 Calcium 8.8 B-Natriuretic Peptide 476 H Microbiology Microbiology Results: Microbiology 04/13/22 10:41 Blood Culture - Preliminary Blood - Venous No growth after 24 hours. 04/13/22 10:28 Blood Culture - Preliminary Blood - Venous No growth after 24 hours. Assessment and Plan (1) CHF exacerbation: Status: Acute Plan 87-year-old woman admitted with sepsis secondary to UTI with BEE on CKD Sepsis secondary to E. Coli UTI blood cx negative to date, urine growing e. coli sensitive to cephalosporins continue rocehpin -- day #3 f/u final blood cx Acute CHF, unspecified has pleural effusions, LE edema, rales on exam, o2 dependence Echo pending empiric IV lasix BID i/O Right-sided chest pain. intermittently chronic -- reports prior radiation and rpeorts pain worsening during acute illness in the past symptomatic treatment. Atrial fibrillation with rapid ventricular response rates improved with cardizem drip, po cardizem and po metoprolo continue po cardizem/metoprolol continue coumadin -- INR 1.9 today BEE and CKD stage -- suspected stage 3 baseline likely due to cardiorenal versus ATN from sepsis improving monitor closely Thrombocytopenia.? Likely secondary to infection AM CBC pending Elevated troponin.? Troponins flat No chest pain No acute ischemic changes noted on EKG Likely related to AFib DVT prophylaxis with warfarin Attending Dr. Villatoro Reason for continued hospitalization: continues to required oxgen secondary to acute CHF. She is also on IV diuretics. Quality Stroke Does the patient have a stroke diagnosis?: No VTE Prior VTE?: No VTE Risk Level:: Medical - moderate - high VTE Device Contraindication: Treatment Not Indicated VTE Drug Contraindication: N/A - Med Ordered
[2022-04-15 11:31] LABS: Hematocrit 39.7 % (37.0-47.0); Hemoglobin 12.7 g/dl (12.0-16.0); Mean Corpuscular Hemoglobin 30.3 pg (27.0-33.0); Mean Corpuscular Volume 94.7 fL (80.0-98.0); Mean Platelet Volume 11.1 fL (9.4-12.3); Platelet Count 109 X10*3/uL (160-400); Red Blood Count 4.19 X10*6/uL (4.20-5.50); Red Cell Distribution Width 14.6 % (11.0-16.0); White Blood Count 9.8 X10*3/uL (4.8-10.8)
--- NOTE | 2022-04-15 11:59 | MHC.CM.PN ---
Per ROUNDS discussion, Patient is not yet medically cleared for dc (needs PT eval, IV Ceftriaxone, IV LKasix, Still requiring O2); home is the goal and CM will continue to follow.
[2022-04-15 12:00] VITALS: BP 100/68; PULSE 90; RESP 20; TEMP 36.6; O2SAT 99
[2022-04-15] MEDS: cefTRIAXone sodium 1 GM in 0.9 % Sodium Chloride 50 ML IV (13:46)
[2022-04-15 15:19] VITALS: BP 118/64; PULSE 77; RESP 18; TEMP 37; O2SAT 98
[2022-04-15] MEDS: Warfarin Sodium 5 MG TABLET PO (17:34)
[2022-04-15 19:27] VITALS: BP 110/60; PULSE 79; RESP 18; TEMP 36.6; O2SAT 99
[2022-04-16] VITALS: BP 118/69; PULSE 77; RESP 15; TEMP 36.4; O2SAT 98
[2022-04-16 03:44] VITALS: BP 109/59; PULSE 78; RESP 16; TEMP 36.8; O2SAT 95
[2022-04-16 08:00] VITALS: BP 140/85; PULSE 106; RESP 20; TEMP 36.1; O2SAT 99
[2022-04-16] MEDS: dilTIAZem HCL CD 180 MG CAP.ER.24H PO (09:04)
[2022-04-16] MEDS: predniSONE 10 MG TABLET PO (09:04)
[2022-04-16] MEDS: Omeprazole 20 MG CAPSULE.DR PO (09:04)
[2022-04-16] MEDS: Metoprolol Tartrate 25 MG TABLET PO ×2 (09:04→11:57)
[2022-04-16] MEDS: Furosemide 20 MG/2 ML VIAL IVPUSH (09:04)
[2022-04-16] MEDS: Gabapentin 100 MG CAPSULE PO (09:04)
[2022-04-16 09:44] VITALS: BP 140/85; PULSE 84; O2SAT 95
--- NOTE | 2022-04-16 10:18 | PM.PNCARD ---
Subjective Subjective Date of Service: 04/16/22 Interval history: Today, she states that she is feeling much better. She is actually sitting in a chair. Yesterday she was in bed morning. Seems to be in better spirits too. Review of Systems Review of Systems Yes all other systems are reviewed and are negative Constitutional: Reports as per HPI Eyes: Reports as per HPI Reports as per HPI Cardiovascular: Reports as per HPI, Denies acrocyanosis, Denies cool extremities, Denies chest pain, Denies leg edema, Denies lightheadedness, Denies palpitations and Denies dyspnea Respiratory: Reports as per HPI, Reports no additional respiratory complaints and Denies dyspnea Gastrointestinal: Reports as per HPI and Reports no additional gastrointestinal complaints Genitourinary: Reports as per HPI Musculoskeletal: Reports no additional musculoskeletal complaints and Reports as per HPI Skin/Breast: Reports system reviewed and no additional complaints, except as docu Reports system reviewed and no additional complaints, except as documented and Reports as per HPI Psychiatric: Reports no additional psychiatric complaints and Reports as per HPI Endocrine: Reports no additional endocrine complaints, Reports as per HPI and Denies palpitations Hematologic/Lymphatic: Reports no additional hematologic/lymphatic complaints and Reports as per HPI Allergic/Immunologic: Reports no additional allergic/immunologic complaints and Reports as per HPI Physical Exam Vital Signs: Last Vital Signs Temp 97 F 04/16/22 08:00 Pulse 84 04/16/22 09:44 Resp 20 04/16/22 08:00 BP 140/85 H 04/16/22 09:44 Pulse Ox 95 04/16/22 09:44 O2 Del Method 04/16/22 08:00 O2 Flow Rate 3 04/16/22 08:00 BMI result Body Mass Index 24.8 Const General: comfortable and no acute distress Orientation/consciousness: patient oriented x3 HEENT Other: Unremarkable Head: Yes normal to inspection Neck Neck: Yes normal visual inspection Chest Chest palpation & inspection: normal inspection of the chest Resp Other: minimal crackles Cardio Palpation: normal PMI Heart sounds: S1 normal heart sound present, S2 normal heart sound present, no gallops, no murmurs and no rubs GI Palpation (GI): Soft to palpation Back/Spine/Pelvis Other: unremarkable Skin General skin exam: no rashes or lesions noted Neuro General: patient oriented x3 Extrem General: Yes normal to inspection Psych Mental Status: mental status grossly normal Objective Labs and Meds Result diagrams: 04/15/22 10:20 04/15/22 06:15 Lab results: Laboratory Results - last 24 hr 04/15/22 04/16/22 10:20 06:31 WBC 9.8 RBC 4.19 L Hgb 12.7 Hct 39.7 MCV 94.7 MCH 30.3 MCHC 32.0 RDW 14.6 Plt Count 109 L MPV 11.1 Absolute Nucleated RBC 0.000 Nucleated RBC % (auto) 0.0 PT 23.0 H INR 2.0 H Progress Note: A&P Assessment and plan (1) Atrial fibrillation with rapid ventricular response: Status: Acute (2) Acute diastolic (congestive) heart failure: Status: Acute (3) Atherosclerotic cardiovascular disease: Status: Acute Plan High sensitive troponins are 46 and 42. Cardiac BNP is 476. Chest CT scan with stable cardiomegaly, small bilateral pleural effusions. Coronary as well as vascular calcifications. Echocardiogram with mild LV dysfunction with an EF of 45-50%. Right ventricular size increased. Otherwise, mild aortic stenosis and mild mitral regurgitation with [id number] tricuspid regurgitation. There was mild pulmonary hypertension. With regard to her clinical symptoms, she seems significantly improved. On diltiazem, metoprolol. On telemetry, atrial fibrillation rate is around 90s. Some low 100s but nothing too fast. Further rate control can be achieved as an outpatient. We can switch her to oral diuretics. Since admission, she has negative-1.7 L by input output charting. Anticoagulation. She has no angina but has vascular calcifications on CT scan. Outpatient ischemic workup can be considered. Discharge planning. Discussed with by Roya. Time Spent With Patient Time: Total time spent is greater than 50% in coordination of care (as documented) at patient's floor/unit and/or counseling patient: 35min. Progress Note: Quality Stroke Does the patient have a stroke diagnosis?: No Procedures Date of Service Date of Service: 04/16/22
--- NOTE | 2022-04-16 11:22 | PC.NURSE ---
pt stated she would like to be discharged home today. PT evaluated pt stating she did great. informed
[2022-04-16 11:57] VITALS: BP 108/60; PULSE 82; RESP 20; TEMP 36.8; O2SAT 97
--- NOTE | 2022-04-16 12:04 | P.DS_ITS ---
DS: Providers Provider Date of Service: 04/16/22 Date of admission: 04/13/22 15:26 Primary care physician: Ciaran Man MD Consults: 04/13/22 16:42 Consult to Cardiology Routine Consulting Provider: Michel Gaming Reason for consultation: afib rvr Has provider been notified: No DS: Diagnosis Discharge Diagnosis (1) Sepsis secondary to UTI: Status: Acute (2) Atrial fibrillation with rapid ventricular response: Status: Acute DS: Summary Hospital Course Hospital Course: 87-year-old woman presented to the ER with complaints of a fall.? She reports that she felt dizzy like the room was spinning and fell to the ground today.? She denied any loss of consciousness nor any traumatic injury.? She reports over the last 12-24 hour she had developed some nausea vomiting and diarrhea but just prior to that she had been feeling just fine.? She denied any recent travel, sick contacts, chest pain, shortness of breath, fever, chills.? She reports that she lives alone and is very independent.? She was recently given Macrobid by her primary care provider for urinary tract infection and she had taken her dose with no issue yesterday.? In the ER, the urinalysis was positive, white blood cell count 21.0, lactic acid 2.1.? She was noted to have heart rate in the high 120 these with history of atrial fibrillation.? She was given a dose of IV adult Cardizem, Rocephin, azithromycin, Zofran, a L of IV fluids.? Be admitted for further management and treatment sepsis secondary to urinary tract infection with atrial fibrillation with rapid ventricular response. Hospital course Was started on ceftriaxone for UTI; culture ultimately grew E coli sensitive to same and she will be discharged on a course of oral Ceftin. She was managed with IV Cardizem and subsequently switched to oral with the addition of a beta- kade. She also was noted to be in acute diastolic CHF. She was diuresed approximately 2 L with improvement of symptoms. Per Cardiology, the time of discharge rate control is adequate and she can follow-up with her outpatient apartment assistant manager. Her sepsis responded as expected to IV antibiotics and volume repletion. Time Spent with Patient Time attestation: Total time spent providing and/or coordinating discharge services: Discharge coordination time: Greater than 30 minutes Quality: Safe Use of Opioids Does Pt have an Active Cancer Diagnosis on the Problem List?: No Quality: Stroke Does the patient have a stroke diagnosis?: No Physical Exam Vital Signs: Vital Signs: Last Vital Signs Temp 98.2 F 04/16/22 11:57 Pulse 82 04/16/22 11:57 Resp 20 04/16/22 11:57 BP 108/60 04/16/22 11:57 Pulse Ox 97 04/16/22 11:57 O2 Del Method 04/16/22 11:57 O2 Flow Rate 3 04/16/22 08:00 BMI result Body Mass Index 24.8 Const: Other: Awake alert oriented x3 no acute distress Resp: Other: Clear to auscultation bilaterally no rales rhonchi or wheezes Cardio: Other: Irregularly irregular; no S4; positive S1-S2; no S3 murmurs rubs or gallops GI: Other: Soft nontender nondistended with normoactive bowel sounds Neuro: Other: Cranial nerves 2-12 grossly intact as tested. Motor is 5/5 all extremities. Sensation is intact. Cognition is appropriate Extrem: Other: No edema bilaterally DS: Data Data Completed and Pending Labs on day of discharge: Laboratory Results - last 24 hr 04/16/22 06:31 PT 23.0 H INR 2.0 H Preliminary micro results at discharge 04/13/22 10:41 Blood Culture - Preliminary Blood - Venous No growth after 48 hours. 04/13/22 10:28 Blood Culture - Preliminary Blood - Venous No growth after 48 hours. Discharge Plan Discharge Patient Disposition: Home, Self-Care Discharge Diagnosis: Sepsis secondary to UTI Referrals: Ciaran Man MD [Primary Care Provider] - 1 Week Discharge Medications: New prednisone 10 mg tablet 10 mg PO DAILY Qty: 5 0RF Rx Instructions: 10 mg orally; metoprolol tartrate 50 mg tablet 50 mg PO BID Qty: 60 0RF cefuroxime axetil 500 mg tablet 500 mg PO BID 10 Days Qty: 20 0RF Continued diltiazem HCl 180 mg capsule,extended release 24 hr 1 cap PO DAILY pantoprazole 40 mg tablet,delayed release (DR/EC) 1 tab PO BID gabapentin 100 mg capsule 1 cap PO TID warfarin 5 mg Tablet 5 mg PO DAILY@1800 Discontinued nitrofurantoin monohyd/m-cryst 100 mg capsule 1 cap PO BID Discharge Orders: Discharge Order (Routine); Ordered 04/16/22 Ordered By: Misael Metzger Diet: advance to usual diet Activity on Discharge: As tolerated Stand Alone Forms: Patient Portal Discharge page Care Plan Goals: Complete course of antibiotics (Ceftin) twice daily for 10 days. Complete prednisone as ordered for chest pain. Health Concerns: Add metoprolol to regimen of Cardizem for rate control Plan of Treatment: Will need to follow-up with your apartment assistant manager for further evaluation and to ass ess rate control Assessment: See discharge summary
--- NOTE | 2022-04-16 12:48 | PC.NURSE ---
pt discharge. tele removed and iV's removed. pt family picked pt up
--- NOTE | 2022-04-16 13:19 | MHC.CM.PN ---
Patient has been medically cleared for dc to home today, no services.Last IMM addressed on 04/14/22.
== END 2022-04-16 12:48 | disposition home or self-care (01) | DRG 871 ==
LOC: HO.ED 15:04 → HO.EDOVER 15:37 → HO.IMC 17:26
PROVIDERS: Family Medicine; Physician Assistant Medical; Admitting Provider Nurse Practitioner Acute Care; Emergency Provider Emergency Medicine; PCP Internal Medicine; Responsible Provider Hospitalist; Visit Provider Hospitalist
DX: A41.9 Sepsis, unspecified organism (principal); I50.31 Acute diastolic (congestive) heart failure; N17.0 Acute kidney failure with tubular necrosis; N39.0 Urinary tract infection, site not specified; N18.4 Chronic kidney disease, stage 4 (severe); B96.20 Unspecified Escherichia coli [E. coli] as the cause of diseases classified elsewhere; I25.10 Atherosclerotic heart disease of native coronary artery without angina pectoris; R79.1 Abnormal coagulation profile; D69.59 Other secondary thrombocytopenia; K21.9 Gastro-esophageal reflux disease without esophagitis; Z20.822 Contact with and (suspected) exposure to COVID-19; Z92.3 Personal history of irradiation; Z85.3 Personal history of malignant neoplasm of breast; Z79.01 Long term (current) use of anticoagulants; Z79.899 Other long term (current) drug therapy
CPT/HCPCS: 36415; 70450; 71250; 72125; 80048; 80053; 81003; 82803; 83605; 83735; 83880; 84484; 85025; 85027; 85379; 85610; 85730; 87040; 87502; 87635; 93005; 93306; 96361; 96365; 96366; 96375; 97161; 99285; J0456; J0696; J1940; J2405

== ENCOUNTER 2025-04-01 08:44 | Observation (INO) | payer MEDICARE, SELFPAY ==
[2025-04-01] VITALS (8 sets, daily range): BP systolic 102–151; BP diastolic 60–70; PULSE 89–108; RESP 16–25; TEMP 36.2–36.9; O2SAT 94–98; BMI 27.9
--- NOTE | 2025-04-01 | ECG_ITS ---
Test Reason : CHEST PAIN Blood Pressure : */* mmHG Vent. Rate : 98 BPM Atrial Rate : * BPM P-R Int : * ms QRS Dur : 110 ms QT Int : 318 ms P-R-T Axes : * -7 199 degrees QTcB Int : 405 ms Atrial fibrillation Minimal voltage criteria for LVH, may be normal variant ( Jimbo product ) Nonspecific ST and T wave abnormality Abnormal ECG When compared with ECG of 01-Apr-2025 11:31, No significant change was found Referred By: Theodora Flynn Electronically Signed By: CINDY ULLOA MD
--- NOTE | ~2025-04-01 | US_ITS ---
EXAMINATION: US ABDOMEN LIMITED CLINICAL INFORMATION: Right upper quadrant pain, abnormal LFTs.gb/cbd only per Saba Treviño COMPARISON: CT chest April 13, 2022 TECHNIQUE: Real-time imaging of the gallbladder and extrahepatic bile duct. FINDINGS: GALLBLADDER: The gallbladder is physiologically distended without evidence of stones, sludge, polyps, wall thickening or pericholecystic fluid. EXTRAHEPATIC BILE DUCT: Normal in caliber measuring 4 mm in diameter. US/US abdomen limited IMPRESSION: Unremarkable gallbladder ultrasound Electronically signed by: Leo Casey MD 04/01/2025 11:47 AM EDT
--- NOTE | ~2025-04-01 | MR_ITS ---
CLINICAL HISTORY: abd pain ,elevated lft -? Choledocholithiasis MR abdomen without contrast, MRCP Comparison: None Findings: No signal abnormality in the lung bases. Cardiomegaly. No cholelithiasis. No gallbladder distention, wall thickening or pericholecystic fluid. Mild intrahepatic and extrahepatic biliary ductal dilatation. The common bile duct measures up to 1.0 cm. There is no stone to indicate choledocholithiasis. No abrupt cutoff. The proximal pancreatic duct is mildly dilated, measuring up to 3.4 mm. Upstream the duct is nondilated. There is pancreatic lipomatosis. In the lower pole of the right kidney there is a 1.2 cm cyst with dependent low signal material on the T2 weighted images which could be calcification /milk of calcium. Mild fullness of the bilateral renal collecting systems with extrarenal pelvises. There are bilateral renal cysts, measuring up to 4.6 cm on the left. No loss of signal in the liver on the out of phase images to indicate hepatic steatosis. subcentimeter fluid attenuation lesions in the liver could be cysts or biliary hamartoma. The other solid organs are unremarkable. No bowel wall thickening or dilation. Colonic diverticulosis. No aneurysm. No lymphadenopathy. No ascites. Status post ventral hernia repair. Normal marrow signal. Mild scoliosis. Multilevel perineural cysts. Impression: Mild intrahepatic and extrahepatic biliary ductal dilatation. No choledocholithiasis. No abrupt cutoff to indicate stricture or mass.. This document has been electronically signed by: Svetlana Frye MD on 04/02/2025 19:33:20
--- NOTE | ~2025-04-01 | CT_ITS ---
EXAMINATION: CT ABDOMEN AND PELVIS WITH CONTRAST CLINICAL INFORMATION: Nausea and vomiting.] Antegrade tolerate p.o. COMPARISON: Ultrasound abdomen limited 04/01/2025 TECHNIQUE: Multidetector volumetric images were obtained from the superior aspect of the liver through the pubic symphysis following administration 85 mL of Omnipaque 350 intravenous and oral contrast. Sagittal and coronal reformatted images were obtained on the technologist's workstation. Oral contrast: No DLP: 624 mGy/cm. This CT examination was performed using dose optimization techniques as appropriate, variously including the following: *Automated exposure control *Adjustment of mA and/or kV according to patient size (this includes techniques or standardized protocols for targeted exams where dose is matched to indication/reason for exam; i.e. extremities or head) *Use of iterative reconstruction technique FINDINGS: LUNG BASES: There is bibasilar atelectasis and/or scarring. Heart size is mildly enlarged. LIVER, GALLBLADDER, AND BILIARY TREE: The liver is normal in size, shape, and attenuation. There is a punctate hypodensity right hepatic lobe image 11/3, nonspecific. There are no additional focal hepatic lesion or biliary ductal dilatation is present. The gallbladder is unremarkable with no evidence of radiopaque gallstones, gallbladder wall thickening, or obvious pericholecystic inflammatory changes. PANCREAS: Unremarkable. SPLEEN: Unremarkable. ADRENAL GLANDS: Unremarkable. KIDNEYS AND URETERS: The kidneys are lobulated with bilateral renal cyst. No radiopaque renal calculi seen. BLADDER: Unremarkable. GASTROINTESTINAL TRACT: There is scattered stool, diverticuli and gas seen in colon without distention. The small bowel loops are normal caliber. Appendix is not visualized with certainty. No free air or free fluid seen. ABDOMINAL WALL: Tiny umbilical hernia containing fat. LYMPH NODES: Normal. VASCULAR: There is mild aneurysmal dilatation of mid abdominal aorta measuring 2.5 cm wide and 2.2 cm in AP on axial image 38/3 similarly there is mild nasal dilatation of the proximal abdominal aorta measuring 3.0 cm in AP and 2.4 cm wide. PELVIC VISCERA: Surgical negrita in the pelvis from previous intervention. Most of the pelvis is limited evaluation secondary to beam hardening artifact from bilateral hip prosthesis. OSSEOUS STRUCTURES: Mildly in this changes L3-4, L4-5 and L5-S1 disc levels. No aggressive lytic or sclerotic process seen. Bilateral hip prosthesis. CT/CT abdomen pelvis w IV con IMPRESSION: Moderate constipation. Colonic diverticulosis without diverticulitis. No signs of obstruction. Mild mucosal dilatation of proximal and mid abdominal aorta. Bilateral renal cysts largest in the lower pole left kidney measuring 4.5 cm Bibasilar atelectasis and/or scarring. All cardiomegaly. Fleischner guidelines were followed. Electronically signed by: Shahram Deleon MD 04/01/2025 05:13 PM EDT
--- NOTE | ~2025-04-01 | XR_ITS ---
EXAMINATION: XR ABDOMEN KUB CLINICAL INDICATION: abdominal pain COMPARISON: None available. TECHNIQUE: AP view of the abdomen. FINDINGS: There is gas throughout intestine. No gross air-fluid levels. No gross intestinal dilatation. Stool within the right hemicolon. Multiple vascular clips overlapping the lumbar spine and both sides of the pelvis. Metallic prosthesis both hips no fully included in the [id number]. S-shaped curvature of the lumbar spine. Calcified plaques in the abdominal aorta. XR/XR KUB IMPRESSION: No intestinal obstruction pattern. Electronically signed by: Daren Hull MD 04/01/2025 09:24 AM EDT
--- NOTE | ~2025-04-01 | XR_ITS ---
EXAMINATION: XR CHEST CLINICAL INFORMATION: sob COMPARISON: None available. TECHNIQUE: Frontal view of the chest was obtained. FINDINGS: Mild prominence of the interstitial markings. No consolidation pleural effusion or pneumothorax. Cardiomediastinal silhouette size appears prominent. Postop plaque thoracic aorta. S-shaped curvature of the thoracolumbar spine. Multilevel thoracolumbar spondylosis. Degenerative changes in the right shoulder with joint space narrowing at the acromioclavicular humeral joint space. XR/XR chest 1V IMPRESSION: Consider mild interstitial edema in the correct clinical settings. 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 Electronically signed by: Daren Hull MD 04/01/2025 09:23 AM EDT
--- NOTE | ~2025-04-01 | XR_ITS ---
CLINICAL HISTORY: right lower rib cage pain --- Additional Notes or Special Instructions: Called kathieo r, reached out to transport 1230 and transport stated they will bring patient after lunch--CM Radiographs of the chest and bilateral ribs Comparison: CR/SR - XR CHEST 1V - 04/01/25 09:11 EDT Findings: No rib fracture or other acute osseous abnormality. Cardiomegaly. Normal mediastinal contours. No pneumothorax. Faint opacity in the right upper lobe could be scarring. No pleural effusion. Normal upper abdomen. Impression: No rib fracture. This document has been electronically signed by: Svetlana Frye MD on 04/03/2025 15:55:04
--- NOTE | 2025-04-01 08:46 | ED.ABDPAIN ---
HPI - Abdominal Pain General Chief Complaint: Abdominal Pain Stated Complaint: ABD PAIN/NAUSEA, AFIB PER EMS Time Seen by Provider: 04/01/25 08:45 Source: patient, EMS, RN notes reviewed and old records reviewed Mode of arrival: EMS Limitations: no limitations History of Present Illness ED Provider: Krystal Treviño PA-C HPI narrative: 89 yo female with history of afib on coumadin, sepsis 2/2 E. coli UTI in the past, CHF w/ EF 45%, recent admission to [facility] for diverticulitis and then again for upper abdominal pain (normal CT scan at that time) who presents to the ER today for evaluation of upper abdominal pain, constipation and nausea that started 2 days ago. She reports she last had a BM 03/30 morning and her symptoms began later that day. She has had the sensation that her stomach is unable to empty and move things along her digestive tract. She states she was only able to eat jello and a few bites of yogurt yesterday. She has had vomiting x1, on 03/30 night. She reports the pain is sharp and below both of her ribs. Pain is associated with both SOB and chest pain. She denies fever, chills, urinary symptoms, dizziness, cough, URI symptoms. She denies any lower abdominal pain or suprapubic pain. MD elicited complaint: abdominal pain Pertinent past history: constipation Onset (ago): day(s) (2) Pain Consistency: constant Location: epigastric, LUQ and RUQ Severity: severe Quality: cramping and sharp Radiation: none Migration to: no migration Exacerbating factors: eating Context: history of similar episodes Associated symptoms: nausea and constipation Related Data Home Medications ?Medication ?Instructions ?Recorded ?Confirmed diltiazem HCl 180 mg capsule,24 1 cap PO DAILY 04/13/22 04/13/22 hr,extended release gabapentin 100 mg capsule 1 cap PO TID 04/13/22 04/13/22 pantoprazole 40 mg tablet,delayed 1 tab PO BID 04/13/22 04/13/22 release warfarin 5 mg tablet 5 mg PO DAILY@1800 04/13/22 04/13/22 Previous Rx's ?Medication ?Instructions ?Recorded cefuroxime axetil 500 mg tablet 500 mg PO BID 10 days #20 tabs 04/16/22 metoprolol tartrate 50 mg tablet 50 mg PO BID #60 tabs 04/16/22 prednisone 10 mg tablet 10 mg PO DAILY #5 tabs 04/16/22 Allergies Allergy/AdvReac Type Severity Reaction Status Date / Time ciprofloxacin [From Cipro] Allergy Rash Verified 04/01/25 09:08 Sulfa (Sulfonamide Allergy Rash Verified 04/01/25 09:07 Antibiotics) codeine AdvReac Vomiting Verified 04/01/25 09:08 Review of Systems Review of Systems Yes all other systems are reviewed and are negative [facility] Past Medical History Medical History (Updated 04/01/25 @ 17:36 by DRE Adams) Atherosclerotic cardiovascular disease Atrial fibrillation Breast cancer Ovarian cancer GERD (gastroesophageal reflux disease) Atrial fibrillation Surgical History Previous back surgery History of hip replacement Family History Family History (System 04/15/22 @ 08:33 by Reba Collazo) Other Breast cancer Coronary artery disease Prostate cancer Social History Social History (System 04/15/22 @ 08:33 by Reba Collazo) Household Members: None Housing: Apartment Do you presently have visiting nurse or other home services: No Patient Tobacco Use Status: Never used Tobacco Smoked in Last 30 Days: No Use of substances other than those prescribed or required for medical reasons: No Advance Directives: Yes Advance Directives Information Provided: Yes Advance Directives on File: No Advance Directives Date on File: 04/13/22 Do you have a plan to hurt others: No Plan service: No Current occupational status: retired Physical Exam ED Vital Signs: Vital Signs - 24 hr 04/01/25 08:59 04/01/25 09:45 04/01/25 11:31 Temperature 98.4 F 97.2 F Pulse Rate 102 H 103 H 97 Respiratory Rate 16 18 25 H Blood Pressure 140/61 H 151/70 H 102/60 Pulse Oximetry 98 95 94 Oxygen Delivery Method Room Air Room Air Room Air 04/01/25 14:15 04/01/25 16:18 04/01/25 18:07 Temperature 98.1 F 97.9 F Pulse Rate 101 H 89 93 Respiratory Rate 16 18 18 Blood Pressure 105/60 119/61 125/60 Pulse Oximetry 96 96 97 Oxygen Delivery Method Room Air Room Air Room Air 04/01/25 20:13 Temperature 97.7 F Pulse Rate 108 H Respiratory Rate 19 Blood Pressure 122/65 Pulse Oximetry 94 Oxygen Delivery Method Room Air BMI result Body Mass Index 27.9 Appearance: Alert elderly female, appears uncomfortable. Oriented X3. Mild acute distress, holding her upper abdomen in pain Head: normocephalic, atraumatic. Eyes: Pupils equal, round and reactive to light. ENT: Pharynx normal. No tonsillar swelling or exudate. Neck: Normal inspection. Neck supple. CVS: Normal heart rate and rhythm. Pulses normal. Respiratory: No respiratory distress. Breath sounds normal. Abdomen: epigastric, LUQ and RUQ tenderness on examination. Skin: Skin warm and dry. Normal skin color. Normal skin turgor. No rashes. Extremities: No lower extremity edema. No joint swelling. Neuro/psych: Oriented X 3. No motor deficit. No sensory deficit. CN II-XII intact. Normal speech and cognition. Course Reevaluation(s) Reevaluation #1: patient received in sign-out at change of shift pending re-evaluation after bowel regimen. She had a very small bowel movement in his still complaining of abdominal pain. She does report feeling somewhat improved but still complaining of pain. She is requesting to try to have an additional bowel movement Time: 21:00 Reevaluation #2: the patient was able to have an additional bowel movement but still complains of abdominal pain and does not feel safe being home, discuss with the hospitalist and she will be hospitalized under an observation status for intractable abdominal pain and a bowel regimen for constipation. Medical Decision Making Medical Decision Making MDM Narrative: 89 yo female with history of afib on coumadin, sepsis 2/2 E. coli UTI in the past, CHF w/ EF 45%, recent admission to [facility] for diverticulitis and then again for upper abdominal pain (normal CT scan at that time) who presents to the ER today for evaluation of upper abdominal pain, constipation and nausea that started 2 days ago. She feels like she is obstructed On arrival patient in pain. HR low 100s with stable BP. she has diffuse upper abdominal pain and tenderness. She had a normal CT scan on 03/22. This was with IV contrast. She has hyperactive bowel sounds in the left side of her abdomen. Her abdomen is tender throughout, more in the bilateral upper quadrants and less so in the lower quadrants. Clinically she is not obstructed. She is very worried something is blocking her GI tract. Patient given IV Zofran and morphine with improvement in her symptoms Right upper quadrant ultrasound was ordered which was unremarkable. Patient developed right-sided chest pain, repeat EKGs unremarkable. Repeat troponin is unremarkable. She has some central vascular congestion on chest x-ray without any over pulmonary edema. Her BNP is less than her baseline. No resp distress. PO tylenol given with improvement. She continues to c/o abdominal pain. CT with PO contrast ordered for further evaluation. 16:20 - patient able to tolerate the PO contrast. when she got back from CT scan she c/o recurrent abd pain and is asking for more pain medication. 2nd dose IV morphine ordered. will reassess. 18:00 - patient feeling better after 2nd dose of morphine. CT scan is only showing moderate constipation. She is feeling slightly better but is worried about her recurrent pain in her chest and abdomen. EKGs have been unremarkable, troponins are flat. Will start bowel regimen and see if having a bowel movement helps her pain. Case discussed with hospitalist who does not feel admission to the hospital for intractable abdominal pain is warranted at this time. If she has a bowel movement and is still having significant pain, plan to reconsult the hospitalist for admission. Will place patient physician observation pending improvement in her abdominal pain, will physical therapy and Case Management involved as well Differential Diagnosis Differential Diagnoses: The differential diagnosis associated with the presentation includes SBO, [place]'s syndrome, constipation, pancreatitis, cholecystitis, biliary colic, gastritis, PUD, ACS Admission/Observation Consideration of admission/observation: Escalation of care including admission/observation considered Consult Healthcare Provider Management of the patient was discussed with: Hospitalist Dr. Ríos Lab Data MDM Lab Attestation statement: I reviewed the patient's lab results. Mild leukocytosis, normal renal function, flat troponin 04/01/25 09:25 04/01/25 09:25 Labs: Lab Results 04/01/25 04/01/25 04/01/25 Range/Units : 09:30 12:13 WBC 13.3 H (4.8-10.8) X10*3/uL RBC 3.97 L (4.20-5.50) X10*6/uL Hgb 12.1 (12.0-16.0) g/dl Hct 36.6 L (37.0-47.0) % MCV 92.2 (80.0-98.0) fL MCH 30.5 (27.0-33.0) pg MCHC 33.1 (31.0-35.0) g/dl RDW 13.3 (11.0-16.0) % Plt Count 178 D (160-400) X10*3/uL MPV 11.7 (9.4-12.3) fL Immature Gran % (Auto) 0.6 H (0.0-0.4) % Neut % (Auto) 87.0 H (45-73) % Lymph % (Auto) 6.2 L (20-40) % [place] % (Auto) 4.7 (2-11) % Eos % (Auto) 1.3 (0-4) % Baso % (Auto) 0.2 (0-2) % Lymph # (Auto) 0.8 L (1.2-4.9) X10*3/uL [place] # (Auto) 0.6 (0.1-1.2) X10*3/uL Eos # (Auto) 0.2 (0.0-0.4) X10*3/uL Baso # (Auto) 0.0 (0.0-0.2) X10*3/uL Abs Immat Gran (auto) 0.08 H (0.00-0.03) X10*3/uL Absolute Neuts (auto) 11.6 H (2.0-8.3) x10*3/uL Absolute Nucleated RBC 0.000 (0.0-0.012) X10*3/uL Nucleated RBC % (auto) 0.0 (0.0-0.2) /100WBC PT 24.7 H (10.9-12.4) SEC INR 2.2 H (0.9-1.1) APTT 34.0 (26.0-36.8) SEC Sodium 136 (135-145) mmol/L Potassium 4.2 (3.3-5.1) mmol/L Chloride 104 (96-108) mmol/L Carbon Dioxide 25 (22-29) mmol/L Anion Gap 11 L (12-20) BUN 23 H (9-16) mg/dL Creatinine 1.21 (0.5-1.4) mg/dL Estim Creat Clear Calc 32.1 Estimated GFR 42 Random Glucose 94 (60-115) mg/dL Lactic Acid 1.3 (0.5-2.0) mmol/L Calcium 9.9 D (8.4-10.2) mg/dL Magnesium 2.0 (1.6-2.6) mg/dL Total Bilirubin 2.0 H (0.0-1.0) mg/dL Direct Bilirubin 1.1 H (0.0-0.5) mg/dL AST 43 H (5-31) U/L ALT 30 (0-31) U/L Alkaline Phosphatase 71 (39-117) U/L Troponin I High Sens 13.4 12.7 (<3.5-17.0) ng/L B-Natriuretic Peptide 331 H (<100) pg/mL Total Protein 6.7 (6.5-8.0) g/dL Albumin 4.2 (3.5-5.0) g/dL Lipase 62 (8-78) U/L TSH 3.40 (0.32-4.0) uIU/mL Urine Color Urine Appearance Urine pH (5.0-9.0) Ur Specific [place] (1.005-1.025) Urine Protein (Neg-Trace) mg/dL Urine Glucose (UA) (Negative) mg/dL Urine Ketones (Negative) mg/dL Urine Blood (Negative) Urine Nitrite (Negative) Ur Leukocyte Esterase (Negative) Urine RBC (0-2) /HPF Urine WBC (0-5) /HPF Ur Squamous Epith Cells (0-2) /HPF Urine Bacteria (None Seen) Hyaline Casts (0-2) /LPF Influenza Type A (PCR) NEGATIVE (Negative) Influenza Type B (PCR) NEGATIVE (Negative) RSV RNA Qual (PCR) NEGATIVE (Negative) SARS-CoV-2 RNA (RT-PCR) NEGATIVE (Negative) 04/01/25 Range/Units 16:18 WBC (4.8-10.8) X10*3/uL RBC (4.20-5.50) X10*6/uL Hgb (12.0-16.0) g/dl Hct (37.0-47.0) % MCV (80.0-98.0) fL MCH (27.0-33.0) pg MCHC (31.0-35.0) g/dl RDW (11.0-16.0) % Plt Count (160-400) X10*3/uL MPV (9.4-12.3) fL Immature Gran % (Auto) (0.0-0.4) % Neut % (Auto) (45-73) % Lymph % (Auto) (20-40) % [place] % (Auto) (2-11) % Eos % (Auto) (0-4) % Baso % (Auto) (0-2) % Lymph # (Auto) (1.2-4.9) X10*3/uL [place] # (Auto) (0.1-1.2) X10*3/uL Eos # (Auto) (0.0-0.4) X10*3/uL Baso # (Auto) (0.0-0.2) X10*3/uL Abs Immat Gran (auto) (0.00-0.03) X10*3/uL Absolute Neuts (auto) (2.0-8.3) x10*3/uL Absolute Nucleated RBC (0.0-0.012) X10*3/uL Nucleated RBC % (auto) (0.0-0.2) /100WBC PT (10.9-12.4) SEC INR (0.9-1.1) APTT (26.0-36.8) SEC Sodium (135-145) mmol/L Potassium (3.3-5.1) mmol/L Chloride (96-108) mmol/L Carbon Dioxide (22-29) mmol/L Anion Gap (12-20) BUN (9-16) mg/dL Creatinine (0.5-1.4) mg/dL Estim Creat Clear Calc Estimated GFR Random Glucose (60-115) mg/dL Lactic Acid (0.5-2.0) mmol/L Calcium (8.4-10.2) mg/dL Magnesium (1.6-2.6) mg/dL Total Bilirubin (0.0-1.0) mg/dL Direct Bilirubin (0.0-0.5) mg/dL AST (5-31) U/L ALT (0-31) U/L Alkaline Phosphatase (39-117) U/L Troponin I High Sens (<3.5-17.0) ng/L B-Natriuretic Peptide (<100) pg/mL Total Protein (6.5-8.0) g/dL Albumin (3.5-5.0) g/dL Lipase (8-78) U/L TSH (0.32-4.0) uIU/mL Urine Color Dark Yellow Urine Appearance Clear Urine pH 6.5 (5.0-9.0) Ur Specific [place] 1.015 (1.005-1.025) Urine Protein Trace (Neg-Trace) mg/dL Urine Glucose (UA) Negative (Negative) mg/dL Urine Ketones Trace (Negative) mg/dL Urine Blood Negative (Negative) Urine Nitrite Negative (Negative) Ur Leukocyte Esterase Trace H (Negative) Urine RBC 0-2 (0-2) /HPF Urine WBC 0-5 (0-5) /HPF Ur Squamous Epith Cells 0-2 (0-2) /HPF Urine Bacteria None Seen (None Seen) Hyaline Casts 0-2 (0-2) /LPF Influenza Type A (PCR) (Negative) Influenza Type B (PCR) (Negative) RSV RNA Qual (PCR) (Negative) SARS-CoV-2 RNA (RT-PCR) (Negative) Independent Interpretation I performed an independent interpretation of an: EKG, Ultrasound and CT Scan Interpretation: #1 atrial fibrillation, ventriculat rate 99 bpm, nonspecific ST and T-wave abnormality, no change from 2021 #2Atrial fibrillation, ventricular rate 92 beats per minute, nonspecific ST and T-wave abnormality, some artifact is present no change from prior CT scan of the abdomen Ultrasound of the gallbladder without any appreciated stones Radiology Impression Discussion of test interpretation with radiology: I have reviewed the radiologist's reading. Radiologist Impression: US/US abdomen limited IMPRESSION: Unremarkable gallbladder ultrasound CT/CT abdomen pelvis w IV con IMPRESSION: Moderate constipation. Colonic diverticulosis without diverticulitis. No signs of obstruction. Mild mucosal dilatation of proximal and mid abdominal aorta. Bilateral renal cysts largest in the lower pole left kidney measuring 4.5 cm Bibasilar atelectasis and/or scarring. All cardiomegaly. Independent Historian Clinical information obtained from an independent historian. History obtained from or confirmed by: EMS External Record Review External record reviewed: Inpatient record, Outpatient record, Prior outpatient labs and Primary care record Tests considered The following testing was considered but not selected: CTA chest considered given c/o chest pain w/ tachycardia however low suspicion for PE, INR therapeutic Prescription Management I considered prescription management with: Pain Medication and Antibiotic Chronic Conditions Patient?s care impacted by: Hypertension Medications Administered Discontinued Medications Generic Name Dose Route Start Last Admin Trade Name Freq PRN Reason Stop Dose Admin Acetaminophen 975 mg 04/01/25 12:21 04/01/25 12:32 Acetaminophen 325 Mg Tablet PO 04/01/25 12:22 975 mg ONCE ONE Administration Diatrizoate Meglum/Diatrizoate Sod 30 ml 04/01/25 16:23 04/01/25 16:23 Diatrizoate Meglumine, Sodium 30 Ml Solution PO 04/01/25 16:24 30 ml ONCE ONE Administration Iohexol 100 ml 04/01/25 16:22 04/01/25 16:22 Iohexol 350 Mg/Ml 100 Ml Infus..Btl IV 04/01/25 16:23 85 ml ONCE ONE Administration Morphine Sulfate 4 mg 04/01/25 09:03 04/01/25 09:41 Morphine Sulfate 4 Mg/Ml Cartridge IVPUSH 04/01/25 09:04 4 mg ONCE ONE Administration Protocol Morphine Sulfate 4 mg 04/01/25 16:20 04/01/25 16:24 Morphine Sulfate 4 Mg/Ml Cartridge IVPUSH 04/01/25 16:21 4 mg ONCE ONE Administration Protocol Ondansetron HCl 4 mg 04/01/25 09:03 04/01/25 09:40 Ondansetron Hcl 4 Mg/2 Ml Vial IVPUSH 04/01/25 09:04 4 mg ONCE ONE Administration Polyethylene Glycol 17 gm 04/01/25 17:16 04/01/25 17:55 Polyethylene Glycol 3350 17 Gm Powd.Pack PO 04/01/25 17:17 17 gm ONCE ONE Administration Senna 17.2 mg 04/01/25 17:16 04/01/25 17:55 Sennosides Oral Syrup 8.8 Mg/5 Ml PO 04/01/25 17:17 17.2 mg ONCE ONE Administration Sodium Biphosphate/Sodium Phosphate 133 ml 04/01/25 17:36 04/01/25 18:29 Sodium Phosphate,[place]-Dibasic 133 Ml Enema VA 04/01/25 17:37 133 ml ONCE ONE Administration Critical Care Time Critical Care Time Critical Care Time: Yes Total Critical Care Time: 33 Attestation: I have personally provided critical care time exclusive of time spent on separately billable procedures. Time includes review of lab data, radiology results, discussion with consultants, and monitoring for potential decompensation. Intervention performed as documented. Discharge Plan Discharge Clinical Impression: Abdominal pain, Constipation Patient Disposition: Admitted As Inpatient Prescriptions: No Action diltiazem HCl 180 mg capsule,extended release 24 hr 1 cap PO DAILY pantoprazole 40 mg tablet,delayed release (DR/EC) 1 tab PO BID gabapentin 100 mg capsule 1 cap PO TID warfarin 5 mg Tablet 5 mg PO DAILY@1800 prednisone 10 mg tablet 10 mg PO DAILY Qty: 5 0RF Rx Instructions: 10 mg orally; metoprolol tartrate 50 mg tablet 50 mg PO BID Qty: 60 0RF cefuroxime axetil 500 mg tablet 500 mg PO BID 10 Days Qty: 20 0RF Print Language: Cambodian
--- NOTE | 2025-04-01 08:51 | ECG_ITS ---
Test Reason : CHEST PAIN Blood Pressure : */* mmHG Vent. Rate : 99 BPM Atrial Rate : * BPM P-R Int : * ms QRS Dur : 100 ms QT Int : 310 ms P-R-T Axes : * -8 101 degrees QTcB Int : 397 ms Atrial fibrillation Minimal voltage criteria for LVH, may be normal variant ( R in aVL ) Nonspecific ST and T wave abnormality Abnormal ECG When compared with ECG of 14-Apr-2022 14:20, No significant change was found Referred By: Saba Treviño Electronically Signed By: CINDY ULLOA MD
--- NOTE | 2025-04-01 09:12 | PC.NURSE ---
Report received. Taken over care at this time.
[2025-04-01 09:38] LABS: MANUAL DIFF FLAG NO
[2025-04-01] MEDS: ondansetron HCL 4 MG/2 ML VIAL IVPUSH (09:40)
[2025-04-01] MEDS: Morphine Sulfate 4 MG/ML CARTRIDGE IVPUSH ×2 (09:41→16:24)
[2025-04-01 09:42] LABS: Basophils Percent Auto 0.2 % (0-2); Eosinophils Absolute Auto 0.2 X10*3/uL (0.0-0.4); Eosinophils Percent Auto 1.3 % (0-4); Hematocrit 36.6 % (37.0-47.0); Hemoglobin 12.1 g/dl (12.0-16.0); Imm Gran Abs Auto 0.08 X10*3/uL (0.00-0.03); Imm Gran Pct Auto 0.6 % (0.0-0.4); Lymphocytes Absolute Auto 0.8 X10*3/uL (1.2-4.9); Lymphocytes Percent Auto 6.2 % (20-40); Mean Corpuscular HGB Conc 33.1 g/dl (31.0-35.0); Mean Corpuscular Hemoglobin 30.5 pg (27.0-33.0); Mean Corpuscular Volume 92.2 fL (80.0-98.0); Mean Platelet Volume 11.7 fL (9.4-12.3); Monocytes Absolute Auto 0.6 X10*3/uL (0.1-1.2); Monocytes Percent Auto 4.7 % (2-11); Neutrophils Absolute Auto 11.6 x10*3/uL (2.0-8.3); Platelet Count 178 X10*3/uL (160-400); Red Blood Count 3.97 X10*6/uL (4.20-5.50); Red Cell Distribution Width 13.3 % (11.0-16.0); White Blood Count 13.3 X10*3/uL (4.8-10.8)
--- NOTE | 2025-04-01 09:46 | PC.NURSE ---
Pt. has allergy to codeine, verified with provider Saba, if okay to give. Provider okay and made aware.
[2025-04-01 09:49] LABS: INTERNATIONAL NORM RATIO 2.2 (0.9-1.1); Prothrombin Time 24.7 SEC (10.9-12.4)
[2025-04-01 10:00] LABS: Lactic Acid 1.3 mmol/L (0.5-2.0)
[2025-04-01 10:07] LABS: B Type Natriuretic Peptide 331 pg/mL (<100)
[2025-04-01 10:08] LABS: Alanine Aminotransferase 30 U/L (0-31); Albumin Level 4.2 g/dL (3.5-5.0); Alkaline Phosphatase 71 U/L (39-117); Anion Gap 11 (12-20); Aspartate Amino Transferase 43 U/L (5-31); Bilirubin Direct 1.1 mg/dL (0.0-0.5); Blood Urea Nitrogen 23 mg/dL (9-16); Calcium 9.9 mg/dL (8.4-10.2); Carbon Dioxide 25 mmol/L (22-29); Chloride 104 mmol/L (96-108); Creatinine Clr Calc Pharmacy 32.1; Estimated Glomerular Filt Rate 42; Glucose Random 94 mg/dL (60-115); Lipase 62 U/L (8-78); Potassium 4.2 mmol/L (3.3-5.1); Sodium 136 mmol/L (135-145); Total Protein 6.7 g/dL (6.5-8.0)
[2025-04-01 10:10] LABS: Troponin-I High Sensitivity 13.4 ng/L (<3.5-17.0)
--- OUTSIDE RECORDS SUMMARY | 2025-04-01 10:10 | XMS_ITS | Data Portability ---
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) [facility] MODERATE MUST MEET 2 OUT OF 3 ELEMENTS: PROBLEMS, DATA OR RISK ELEMENT 1: PROBLEMS ADDRESSED 1 OR MORE CHRONIC ILLNESS WITH EXACERBATION OR 2 OR MORE STABLE CHRONIC ILLNESSES OR 1 UNDIAGNOSED NEW PROBLEM OR 1 ACUTE ILLNESS W/SYMPTOMS OR 1 ACUTE COMPLICATED INJURY ELEMENT 2: DATA MUST MEET 1 OF 3 CATEGORIES CATEGORY 1: REVIEW OF PRIOR EXTERNAL NOTES, REVIEW OF RESULTS, ORDERING OF EACH TEST, ASSESSMENT REQUIRING INDEPENDENT HISTORIAN OR CATEGORY 2: INDEPENDENT INTERPRETATION OF TESTS BY ANOTHER PHYSICIAN OR SPECIALIST OR CATEGORY 3: DISCUSSION OF MGT OR TEST INTERPRETATION W/EXTERNAL PHYSICIAN OR SPECIALIST ELEMENT 3: RISK RISK OF COMPLICATIONS AND/OR MORBIDITY OR MORTALITY OF PATIENT MANAGEMENT PROVIDER MUST THOROUGHLY DOCUMENT EACH ELEMENT THAT IS COVERED Not available 08/09/2024 12:06:49 03/02/2025 03/02/20[place] [id number] [place] [id number] (DRINKING WATER TECHNICIAN) [facility] MODERATE MUST MEET 2 OUT OF 3 ELEMENTS: PROBLEMS, DATA OR RISK ELEMENT 1: PROBLEMS ADDRESSED 1 OR MORE CHRONIC ILLNESS WITH EXACERBATION OR 2 OR MORE STABLE CHRONIC ILLNESSES OR 1 UNDIAGNOSED NEW PROBLEM OR 1 ACUTE ILLNESS W/SYMPTOMS OR 1 ACUTE COMPLICATED INJURY ELEMENT 2: DATA MUST MEET 1 OF 3 CATEGORIES CATEGORY 1: REVIEW OF PRIOR EXTERNAL NOTES, REVIEW OF RESULTS, ORDERING OF EACH TEST, ASSESSMENT REQUIRING INDEPENDENT HISTORIAN OR CATEGORY 2: INDEPENDENT INTERPRETATION OF TESTS BY ANOTHER PHYSICIAN OR SPECIALIST OR CATEGORY 3: DISCUSSION OF MGT OR TEST INTERPRETATION W/EXTERNAL PHYSICIAN OR SPECIALIST ELEMENT 3: RISK RISK OF COMPLICATIONS AND/OR MORBIDITY OR MORTALITY OF PATIENT MANAGEMENT PROVIDER MUST THOROUGHLY DOCUMENT EACH ELEMENT THAT IS COVERED Not available 03/02/2025 14:34:16 Plan of Treatment Reminders Order Date Submit Date Provider Last Modified By Organization Details Last Modified Time Details Appointments FOLLOW UP 15 2024 04:15P M DR ARGUELLO Not available Not available Not available FOLLOW UP 15 2024 01:30P M DR ARGUELLO Not available Not available Not available Lab None recorded . Referral None recorded . Procedures None recorded . Surgeries None recorded . Imaging None recorded . Medication Orders None recorded . Patient TargetsNo targets recorded. Patient Instructions Encounter Date Encounter Id Patient Instructions Last Modified By Organization Details Last Modified Time 05/05/2023 [id number] pulse oximetry* [facility] Not available 05/05/2023 13:50:09 03/05/2024 [id number] pulse oximetry* [facility] Not available 03/05/2024 14:53:01 heart failure: care instructions Not available 03/05/2024 12:03:03 learning about heart failure Not available 03/05/2024 12:03:03 08/09/2024 [id number] stroke: care instructions Not available 08/09/2024 12:06:50 atrial fibrillation: care instructions Not available 08/09/2024 12:06:51 pulse oximetry* Not available 08/09/2024 12:06:54 chronic obstructive pulmonary disease (COPD): care instructions Not available 08/09/2024 12:06:51 learning about copd and how to prevent lung infections Not available 08/09/2024 12:06:51 03/02/2025 [id number] pulse oximetry* Not available 03/02/2025 14:36:18 Reason for Referral None Reported. Results Created Date Observation Date Name Description Value Unit Range Abnormal Flag Note LastModifiedBy Organization Detail LastModifiedTime 08/09/20 24 08/09/2024 pulse oxime try* Result 97 Not Available [facility] [address] [place] [address] D, [place], [address], 07/21/2024 11:05:17 03/02/20 25 03/02/2025 pulse oxime try* Result 98 Not Available [facility] [address], [place], [address], 02/28/2025 12:10:39 04/14/20 23 04/12/2023 MRI, lumba r spine , w/o contr ast No observ ation record ed. [facility] [address], [place], [address], 04/15/2023 09:12:17 05/08/20 23 05/07/2023 myoca rdial perfu mark study w/ eject ion fract ion (PROC ) No observ ation record ed. [address] Cardi[facility]a r [facility] [address], [place], [address], 05/08/2023 16:56:40 07/30/20 23 07/18/2023 sammie r monit or No observ ation record ed. [facility] [address], [place], [address], 07/30/2023 08:42:47 02/18/20 24 02/18/2024 CT, abdom en + pelvi s, w/o contr ast No observ ation record ed. [email or web address] [facility] (Emergency Room) [address] [place] [address], [address], 02/18/2024 09:47:01 06/01/20 24 06/01/2024 compl ete PFT w/ post [facility] hodil ator delio metry * No observ ation record ed. [email or web address] (Genetics) [address] [place] [address], [place], [address], 06/01/2024 23:07:57 06/01/20 24 06/01/2024 compl ete PFT w/ post [facility] hodil ator delio metry * No observ ation record ed. [facility] [address], [place], [address], 06/01/2024 23:07:57 06/01/20 24 06/01/2024 compl ete PFT w/ post [facility] hodil ator delio metry * No observ ation record ed. [facility] (Genetics) [address], [place], [address], 06/01/2024 23:07:58 02/24/20 25 02/22/2025 , [facility] ardio gram No observ ation record ed. [email or web address] [facility] [address] , [place], [address], 02/23/2025 09:21:19 04/01/20 25 04/01/2025 imagi ng/di agnos tic resul t No observ ation record ed. [facility] (Medical Records) [address] [place], [address], 04/01/2025 09:27:46 04/01/20 25 04/01/2025 imagi ng/di agnos tic resul t No observ ation record ed. [facility] (Medical Records) [address] [place], [address], 04/01/2025 09:29:24 Result Notes None recorded. Problems Name Problem SNOMED Code Status Onset Date Resolution Date Notes Provider Name and Address Organization Details Recorded Time Hyperten sive disorder 86815710 Active 2017 Not Available [facility] 2 06:29:15 Allergic rhinitis 67608056 Active 2017 Not Available [facility] 2 06:29:15 Sacrum sprain 753282284 Active 2017 Not Available [facility] 2 06:29:14 Atrial fibrilla tion 66765877 Active 2017 Not Available [facility] 2 06:29:15 Osteoart hritis of knee 536873058 Active 2017 left Not Available [facility] 2 06:29:15 Malignan t neoplasm of ovary 876194977 Active 2017 Not Available [facility] 2 06:29:14 Pulmonar y embolism 37490060 Active 2017 Not Available [facility] 2 06:29:15 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 2365317501 75159 Completed 201804/21/2019 Removal Reason: had surgery back in 1970's Ciaran Arguello DO [address] [place] [address], [address], [facility] 9 14:29:03 Osteopor osis 45331447 Active 2018 Not Available [facility] 2 06:29:15 Insomnia 800671009 Active 2019 Not Available [facility] 2 06:29:15 Gastroes ophageal reflux disease 145048231 Active 2020 Not Available [facility] 2 06:29:15 Acute urinary tract infectio n 755025460 Active 2021 Ciaran Arguello DO [address] [place] [address], [address], [facility] 5 10:37:50 Costal chondrit is 57444275 Active 2021 Not Available [facility] 2 06:29:15 Atypical chest pain 346362568 Active 2021 Not Available [facility] 2 06:29:15 Melanocy tic nevus 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 2021 Ciaran Arguello DO [address] [place] [address], [address], [facility] 2 12:44:16 Dyspnea on exertion 45399278 Active 2021 Ciaran Arguello DO [address] [place] [address], [address], [facility] 2 13:46:34 Intersti tial lung disease 158289761 Active 2021 Ciaran Arguello DO [address] [place] [address], [address], [facility] 2 16:15:11 Recurren t urinary tract infectio n 681063056 Active 2021 Ciaran Arguello DO [address] [place], [address], [facility] 2 12:09:35 Bilatera l hydronep hrosis 18760235 Active 2022 DRE RYAN [address] [place], [address], [facility] 3 13:28:19 Chronic urinary tract infectio n 301576173 Active 2022 DRE RYAN [address] [place] [address], [address], [facility] 3 13:28:27 Chronic kidney disease 046203882 Active 2022 DRE RYAN [address] [place] [address], [address], [facility] 3 13:29:19 Systolic heart failure 651822940 Active 2022 DRE RYAN [address] [place] [address], [address], [facility] 3 13:29:36 Thrombop hilia 960625364 Active 2022 DRE RYAN [address] [place] [address], [address], [facility] 3 13:29:45 Pyelonep hritis 78802136 Active 2022 DRE RYAN [address] [place] [address], [address], [facility] 3 13:30:22 Bilatera l hearing loss 70823794 Active 2022 DRE RYAN [address] [place], [address], [facility] 3 13:58:48 Paresthe manuel of lower extremit y 543220388 Active 2022 DRE RYAN [address] [place], [address], [facility] 3 14:02:20 Cervical radiculo cliff 86365188 Active 2022 DRE RYAN [address] [place], [address], [facility] 3 14:10:21 Actinic keratosi s 217358648 Active 2022 DRE RYAN [address] [place], [address], [facility] 3 14:10:40 Cerebrov ascular accident 909532547 Active 2022 DRE RYAN [address] [place], [address], [facility] 3 11:21:47 Myasthen ia gravis, adult form 66979486 Active 2022 DRE RYAN [address] [place], [address], [facility] 3 11:26:53 Hyperlip idemia 93052454 Active 2023 DRE RYAN [address] [place], [address], [facility] 4 15:00:01 Myasthen ia gravis 58375773 Active 2023 DRE RYAN [address] [place], [address], [facility] 4 13:48:07 Congesti ve heart failure 48414095 Active 2023 DRE RYAN [address] [place], [address], [facility] 4 13:48:07 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 001486304 Active 2023 DRE RYAN [address] [place], [address], [facility] 4 13:48:07 Blood coagulat ion disorder 89350504 Active 2023 DRE RYAN [address] [place], [address], [facility] 4 13:48:07 Chronic obstruct scotty pulmonar y disease 73739873 Active 2023 DRE RYAN [address] [place] [address], [address], [facility] 4 13:48:07 Bilatera l pneumoni a 713899181 Active 2023 Ciaran Arguello DO [address] [place] [address], [address], [facility] 4 11:26:26 Pneumoni a 197928276 Active 2023 DRE RYAN [address] [place] [address], [address], [facility] 4 11:16:47 Cough 94247435 Active 2023 Ciaran Arguello DO [address] [place] [address], [address], [facility] 4 16:47:46 Ischemic congesti ve cardiomy opathy 078134724 Active 2023 Ciaran Arguello DO [address] [place] [address], [address], [facility] 4 12:06:18 Atrial dilatati on 47806634 Active 2024 Ciaran Arguello DO [address] [place] [address], [address], [facility] 5 14:34:28 Problem Notes None recorded. Procedures Surgical History Date Name Laterality Status Provider Name and Address Organization Details Recorded Time 021 Corticosteroid Injection completed Ciaran ArguelloDO [address] [place] [address], [address], [facility] 04/11/2021 11:21:52 020 Corticosteroid Injection completed Ciaran ArguelloDO [address] [place] [address], [address], [facility] 09/11/2020 14:43:31 020 Cataract Surgery completed [facility] 05/24/2020 14:59:05 019 Breast Surgery completed [facility] 05/24/2020 14:59:05 010 Orthopedic Surgery completed [facility] 05/24/2020 14:59:05 010 Other completed [facility] 05/24/2020 14:59:05 009 Cancer Surgery completed [facility] 05/24/2020 14:59:05 009 Total Hysterectomy completed [facility] 05/24/2020 14:59:05 963 Tubal Ligation completed [facility] 05/24/2020 14:59:05 Colonoscopy completed [facility] 05/24/2020 14:59:06 Back Surgery completed [facility] 05/24/2020 14:59:06 Imaging Results None recorded. Procedure Notes None recorded. Medical Equipment None Reported. Allergies Allergen ID Allergen Name Allergen Category Reaction Reaction Severity Criticality Documentation Date Start Date Code Code System Note Provider Name and Address Organization Details Recorded Time 2488 codeine medicatio n nausea Not available low 08/24/2018 2670 RxNorm Ciaran ArguelloDO [address] [place] [address], [address], [facility] 4 11:31:59 2489 Diovan medicatio n Not available Not available Not available 08/24/2018 47755 2 [facility] 8 16:49:39 2490 Substance with sulfonami de structure and antibacte rial mechanism of action (substanc e) medicatio n Not available Not available Not available 08/24/2018 31165 8003 [facility] 8 16:49:43 2491 Product containin g angiotens in-conver ting enzyme inhibitor (product) medicatio n Not available Not available Not available 08/24/2018 05265 009 [facility] Nilsa burnette [facility] 8 16:49:57 2492 Inderal medicatio n Not available Not available Not available 08/24/2018 96030 0 RxNorm Nilsa burnette [facility] 8 16:50:13 4717 Cipro medicatio n Not available Not available Not available 06/15/202130686 3 RxNorm [facility] 1 14:47:08 7871 Product containin g 3-hydroxy -3-methyl glutaryl- coenzyme A reductase inhibitor (product) medicatio n muscle cramps Not available [facility] 12/29/2023 73456 009 SNOMED DRE RYAN [address] [place], [address] [place] [address] 4 15:57:15 Medications Name Sig Start Date Stop Date Status Note LastModified by Organization Details LastModified Time amoxicillin 500 mg capsule TAKE 1 CAPSULE BY MOUTH EVERY 8 HOURS FOR 10 DAYS 12/09 completed Not Available Not Available Not Available atorvastati n 80 mg tablet Take 1 tablet every day by oral route for 90 days. 12/28 completed Not Available Not Available Not Available prednisone 10 mg tablet TAKE 1 TABLET BY MOUTH EVERY DAY FOR 7 DAYS 03/03 completed Not Available Not Available Not Available cefuroxime axetil 250 mg tablet 12/15 completed Not Available Not Available Not Available diltiazem ER 180 mg capsule,24 hr,extended release TAKE 1 CAPSULE DAILY active Not Available Not Available No t Available trazodone 50 mg tablet Take 1 tablet every day by oral route for 90 days. 07/06 completed Not Available Not Available Not Available cefpodoxime 200 mg tablet TAKE 1 TABLET (200 MG TOTAL) BY MOUTH EVERY 12 (TWELVE) HOURS FOR 3 DAYS. 08/09 completed Not Available Not Available Not Available azithromyci n 250 mg tablet TAKE 2 TABLETS BY MOUTH TODAY, THEN TAKE 1 TABLET DAILY FOR 4 DAYS DIRECTED 08/09 completed Not Available Not Available Not Available diltiazem CD 180 mg capsule,ext ended release 24 hr 05/20 completed Not Available Not Available Not Available amiodarone 200 mg tablet Take 1 tablet every day by oral route for 30 days. 05/20 completed Not Available Not Available Not Available benzonatate 200 mg capsule TAKE 1 CAPSULE BY MOUTH 3 TIMES A DAY FOR 7 DAY(S), NEEDED FOR COUGH AND CONGESTIO N 03/27 completed Not Available Not Available Not Available prednisone 20 mg tablet TAKE 2 TABLETS BY MOUTH EVERY DAY DIRECTED FOR 14 DAYS 08/09 completed Not Available Not Available Not Available diltiazem ER 240 mg capsule,24 hr,extended release TAKE 1 CAPSULE DAILY 07/06 completed Not Available Not Available Not Available ciprofloxac in 250 mg tablet TAKE 1 TABLET BY MOUTH TWICE A DAY FOR 5 DAYS 07/06 completed Not Available Not Available Not Available prochlorper azine maleate 10 mg tablet 08/25 completed Not Available Not Available Not Available tramadol 50 mg tablet Take 1 tablet every 6 hours by oral route for 7 days. 07/06 completed Not Available Not Available Not Available spironolact one 25 mg tablet Take 1 tablet every day by oral route. active Not Available Not Available No t Available lidocaine-p rilocaine 2.5 %-2.5 % topical cream 08/25 completed Not Available Not Available Not Available warfarin 3 mg tablet Take 1.5 tablets every day by oral route for 90 days. 05/05 completed Not Available Not Available Not Available ketorolac 10 mg tablet Take 1 tablet 3 times a day by oral route with meals for 3 days. 03/05 completed Not Available Not Available Not Available ketorolac 0.5 % eye drops INSTILL 1 DROP IN LEFT EYE THREE TIMES A DAY FOR THREE WEEKS FOLLOWING CATARACT SURGERY 03/03 completed Not Available Not Available Not Available prednisolon e acetate 1 % eye drops,suspe nsion INSTILL 1 DROP IN LEFT EYE THREE TIMES A DAY FOR THREE WEEKS FOLLOWING CATARACT SURGERY 03/03 completed Not Available Not Available Not Available lorazepam 0.5 mg tablet prn 05/24 completed Not Available Not Available Not Available amiodarone 400 mg tablet 07/06 completed Not Available Not Available Not Available benzonatate 100 mg capsule TAKE 1 CAPSULE BY MOUTH THREE TIMES A DAY NEEDED 03/27 completed Not Available Not Available Not Available gemfibrozil 600 mg tablet TAKE 1 TABLET TWICE A DAY BY ORAL ROUTE FOR 90 DAYS. active Not Available Not Available No t Available cephalexin 500 mg capsule TAKE 1 CAPSULE BY MOUTH EVERY 6 HOURS FOR 7 DAYS 12/09 completed Not Available Not Available Not Available pantoprazol e 40 mg tablet,aj yed release TAKE 1 TABLET BY MOUTH EVERY DAY active Not Available Not Available No t Available nitrofurant oin macrocrysta l 100 mg capsule Take 1 capsule twice a day by oral route for 7 days. 07/06 completed Not Available Not Available Not Available ranitidine 150 mg tablet Take 1 tablet twice a day by oral route for 90 days. 08/08 completed Not Available Not Available Not Available lansoprazol e 30 mg capsule,del ayed release TAKE 1 CAPSULE BY MOUTH EVERY DAY 07/06 completed Not Available Not Available Not Available warfarin 5 mg tablet TAKE 1 TABLET BY MOUTH ON FRIDAY, FRIDAY, FRIDAY , FRIDAY AND 05/05 completed Not Available Not Available Not Available metoprolol tartrate 50 mg tablet TAKE 1 TABLET BY MOUTH TWICE A DAY 05/20 completed Not Available Not Available Not Available furosemide 20 mg tablet TAKE 1 TABLET BY MOUTH EVERY DAY active Not Available Not Available No t Available gabapentin 100 mg capsule TAKE 1 CAPSULE BY MOUTH THREE TIMES A DAY 03/02 completed Not Available Not Available Not Available cefuroxime axetil 500 mg tablet TAKE 1 TABLET (500 MG TOTAL) BY MOUTH IN THE MORNING AND BEFORE BEDTIME FOR 10 DAYS 03/05 completed Not Available Not Available Not Available albuterol sulfate HFA 90 mcg/actuati on aerosol inhaler TAKE 2 PUFFS BY MOUTH EVERY 4 HOURS NEEDED 07/06 completed Not Available Not Available Not Available ketoconazol e 2 % topical cream 08/25 completed Not Available Not Available Not Available ondansetron 4 mg disintegrat ing tablet TAKE 1 TABLET BY MOUTH EVERY 8 HOURS NEEDED FOR NAUSEA active Not Available Not Available No t Available doxycycline hyclate 100 mg tablet TAKE 1 TABLET BY MOUTH TWICE A DAY FOR 7 DAYS 02/20 completed Not Available Not Available Not Available amoxicillin 875 mg-potassiu m clavulanate 125 mg tablet TAKE 1 TABLET BY MOUTH TWICE A DAY FOR 10 DAYS active Not Available Not Available No t Available oxycodone 5 mg tablet TAKE 1 TABLET BY MOUTH 4 TIMES A DAY NEEDED FOR 7 DAYS. 03/05 completed Not Available Not Available Not Available enoxaparin 40 mg/0.4 mL subcutaneou s syringe 08/25 completed Not Available Not Available Not Available rosuvastati n 5 mg tablet Take 1 tablet every day by oral route. 04/16 completed Not Available Not Available Not Available metoprolol tartrate 25 mg tablet Take 1 tablet twice a day by oral route for 30 days. 03/02 completed Not Available Not Available Not Available nitrofurant oin monohydrate /macrocryst als 100 mg capsule Take 1 capsule every 12 hours by oral route for 5 days. 2024 active Not Available Not Available Not Avai lable Boostrix Tdap 2.5 Lf unit-8 mcg-5 Lf/0.5 mL intramuscul ar syringe 08/08 completed Not Available Not Available Not Available furosemide 20 MG 2024 active Not Available Not Available Not Avai lable fiber qd 03/03 completed Not Available Not Available Not Available Vitamin D3 1500mg qd 03/03 completed Not Available Not Available Not Available hydrocodone 10 mg-acetamin ophen 325 mg/15 mL (15 mL) oral solution Take 10 mL every 8 hours by oral route as needed for 7 days. 08/09 completed Not Available Not Available Not Available Probiotic qd 03/03 completed Not Available Not Available Not Available Eliquis 5 mg tablet TAKE 1 TABLET TWICE A DAY active Not Available Not Available No t Available Repatha SureClick 140 mg/mL subcutaneou s pen injector 03/03 completed Not Available Not Available Not Available Shingrix (PF) 50 mcg/0.5 mL intramuscul ar suspension, kit PHARMACY ADMINISTE RED 01/01 completed Not Available Not Available Not Available Glucosamine Chondroitin qd 03/03 completed Not Available Not Available Not Available Nexlizet 180 mg-10 mg tablet TAKE 1 TABLET DAILY active Not Available Not Available No t Available Vitals Date Recorded Body height Body mass index (BMI) Body weight Heart rate Oxygen saturation Oxygen saturation in Arterial blood by Pulse oximetry Systolic blood pressure Diastolic blood pressure Provider Name and Address Organization Details Last Updated DateTime 5 172.72 cm 24.3 kg/m2 89613.7 8 g 90 /min 98 % 98 % 120 mm[Hg] 78 mm[Hg] Claudia Mata [facility] 5 14:12:08 Date Recorded Body height Body mass index (BMI) Body weight Heart rate Oxygen saturation Oxygen saturation in Arterial blood by Pulse oximetry Systolic blood pressure Diastolic blood pressure Provider Name and Address Organization Details Last Updated DateTime 4 172.72 cm 24.6 kg/m2 34116.9 6 g 86 /min 98 % 98 % 126 mm[Hg] 74 mm[Hg] Francine Hayes [facility] 4 13:37:50 Date Recorded Body height Body mass index (BMI) Body weight Heart rate Respiratory rate Oxygen saturation Oxygen saturation in Arterial blood by Pulse oximetry Systolic blood pressure Diastolic blood pressure Provider Name and Address Organization Details Last Updated DateTime 4 172.72 cm 24.3 kg/m2 68400.0 6 g 86 /min 16 /min 98 % 98 % 132 mm[Hg] 80 mm[Hg] Theodore Winkler [facility] 4 11:35:14 Date Recorded Body height Body mass index (BMI) Body weight Heart rate Oxygen saturation Oxygen saturation in Arterial blood by Pulse oximetry Systolic blood pressure Diastolic blood pressure Provider Name and Address Organization Details Last Updated DateTime 3 172.72 cm 24.3 kg/m2 73602.7 8 g 87 /min 97 % 97 % 118 mm[Hg] 62 mm[Hg] Veto Arguello [facility] 3 13:29:41 Date Recorded Body height Body mass index (BMI) Body weight Heart rate Oxygen saturation Oxygen saturation in Arterial blood by Pulse oximetry Systolic blood pressure Diastolic blood pressure Provider Name and Address Organization Details Last Updated DateTime 4 172.72 cm 24.3 kg/m2 05820.7 8 g 90 /min 97 % 97 % 118 mm[Hg] 66 mm[Hg] Theodore Espino [facility] 4 11:43:49 Social History Question Answer Notes LastModified by Organizat ion Details LastModified Time Tobacco Smoking Status Former Smoker Not Available [employer] 08/22/2020 03:36:24 Do You Have An Advance Directive? Yes [id number] Information not available 08/22/2020 Are You Blind Or Do You Have Difficulty Seeing? No [id number] Information not available 08/22/2020 What Is Your Level Of Caffeine Consumption? Moderate [id number] Information not available 08/22/2020 How Much Tobacco Do You Chew? None [id number] Information not available 08/22/2020 Are You Deaf Or Do You Have Serious Difficulty Hearing? No [id number] Information not available 08/22/2020 What Type Of Diet Are You Following? REGULAR [id number] Information not available 08/22/2020 Education 12 Information no t available 05/24/2020 How Many Days Of Moderate To Strenuous Exercise, Like A Brisk Walk, Did You Do In The Last 7 Days? 7 [id number] Information not available 08/22/2020 On Those Days That You Engage In Moderate To Strenuous Exercise, How Many Minutes, On Average, Do You Exercise? 10 [id number] Information not available 08/22/2020 Are There Any Guns Present In Your Home? No [id number] Information not available 08/22/2020 Hard Of Hearing Or Deaf In One Or Both Ears? No Information not available 05/24/2020 Live Alone Or With Others? With Others Information not available 05/24/2020 What Was The Date Of Your Most Recent Tobacco Screening? 03/02/2025 Information not available 03/02/2025 How Many Children Do You Have? 0 [id number] Information not available 08/22/2020 Performs Monthly Self-breast Exam? Yes Information not available 05/24/2020 Are You Sexually Active? No [id number] Information not available 08/22/2020 Smoke Alarm In Home Yes Information not available 05/24/2020 Are You Passively Exposed To Smoke? No Information not available 05/24/2020 Do You Use Sunscreen Routinely? No [id number] Information not available 08/22/2020 How Many Years Have You Smoked Tobacco? 10 [id number] Information not available 08/22/2020 Do You Have Difficulty Walking Or Climbing Stairs? Yes [id number] Information not available 08/22/2020 Sex: Unknown Functional Status Question Answer Note LastModified by Organizat ion Details LastModified Time Do you use any illicit or recreational drugs? No Information not available 03/05/2023 Do you or have you ever used any other forms of tobacco or nicotine? No Information not available 03/22/2022 What is your level of alcohol consumption? Occasional [id number] Information not available 08/22/2020 Are you currently employed? No [id number] Information not available 08/22/2020 Are you able to walk? YESWOREST [id number] Information not available 08/22/2020 Are you able to care for yourself? Yes [id number] Information n ot available 08/22/2020 What is your occupation? retired [id number] Information not available 08/22/2020 Do you have difficulty dressing or bathing? No [id number] Information not available 08/22/2020 What is your exercise level? Moderate [id number] Information not available 08/22/2020 Mental Status Question Answer Note LastModified by Organization D etails LastModified Time Do you have difficulty concentrating, remembering or making decisions? No [id number] Information no t available 08/22/2020 Family History Relationship Description Onset Age of this Age Resolved Age Notes LastModified by Organization Details LastModified Time Father No current problems or disability [email or web address] Not available 03/03 13:50:00 Mother No current problems or disability [email or web address] Not available 03/03 13:50:00 Medical History Condition Response Coronary Artery Disease N Gout N Other N Kidney Stones N Blood Diseases N Blood Transfusion N Breast Cancer Y Lung Disease N Depression N COPD N Defects or Inherited Disease N Anxiety Disorder N Muscle, Joint, or Bone Problems N Obesity N Vision or Eye Problems N Arthritis Y Infertility N Polyps N Mental Disorder N Cancer N Stroke N Varicosities N Endometriosis N Bladder or Kidney Problems N High Cholesterol N Liver Disease N Fibromyalgia N Headaches N Kidney Disease N Allergies/Hayfever N Heart Problems N Hospitalizations N Thyroid Problems N GI Problems N Eating Disorder N Skin Problems N Anemia N MRSA exposure N Constipation N Mental Illness N Diabetes N Ovarian Cancer N Seizures/Epilepsy N Tuberculosis N Congestive Heart Failure (CHF) N Eczema N Abuse/Domestic Violence N Diverticulitis N Asthma N Reflux/GERD N Hepatitis N Heart Disease N Pulmonary Embolism N Hypertension N Chicken Pox N Autism Spectrum Disorder (ASD) N Osteoporosis N Gynecological HistoryNo gynecological history recorded. Obstetrics History GPAL:G 0 P 0 0 0 0 Immunizations Vaccine Type Date Status Note Provider Nam e and Address Organization Details Recorded Time COVID-19 vaccine, vector-nr, rS-ChAdOx1, PF, 0.5 mL 1 completed Not Available [facility] 03/26/2022 06:29:15 COVID-19, mRNA, LNP-S, PF, 100 mcg/0.5mL dose or 50 mcg/0.25mL dose 1 completed Not Available [facility] 03/26/2022 06:29:15 zoster recombinant 0 completed OLY Doss [facility] 03/05/2023 14:14:39 Influenza, split virus, quadrivalent, preservative 9 completed Not Available [facility] 03/26/2022 06:29:15 Influenza, split virus, quadrivalent, preservative 9 completed Not Available [facility] 03/26/2022 06:29:15 Tdap 0 completed Not Available [facility] 03/26/2022 06:29:15 zoster recombinant 0 completed Not Available [facility] 03/26/2022 06:29:15 zoster recombinant 0 completed Not Available [facility] 03/26/2022 06:29:15 Past Encounters Encounter ID Performer Location Encounter Start Date Encounter Closed Date Diagnosis/Indication Diagnosis SNOMED-CT Code Diagnosis ICD10 Code Diagnosis Note [id number] DO Srinivas [facility] [address] [facility],[place] [address] 08/25/2018 14:11:39 08/25/2018 15:31:01 Atrial fibrillation 50130347 I48.91 quiet good rate with no evid of AF Hypertensive disorder 38 436725 I10 excellent bp stays very active and is without major symptoms no cp no sob Malignant neoplasm of ovary 746494426 C56.9 2008 , considered curative will need to have her get f/'u of hwer breast issue needs to have this after rt Malignant tumor of breast 709103562 C50.011 will be seeing ocologist tomorrow [id number] Ciaran Arguello [facility] [address] [facility], [place] [address] 12/15/2018 13:32:09 12/15/2018 13:49:30 Atrial fibrillation 39462844 I48.91 quiet good rate with no evid of AF Hypertensive disorder 38 392069 I10 excellent bp stays very active and is without major symptoms no cp Viral syndrome 992027156 B34.9 now becoming more pneumonia as she has had for 3 weeks and is now worsening Pneumonia 610120587 J18. 9 [id number] Ciaran Arguello [facility] [address] [place] [address], [place] [address] 04/21/2019 14:00:45 04/21/2019 14:32:54 Lumbar radiculopathy 433925713 M54.16 [id number] Ciaran Arguello [facility] [address] [facility],[place] [address] 04/25/2020 15:26:35 04/25/2020 15:49:09 Pre-surgery evaluation 356793543 Z01.818 based on examinatio n and discussing PMH with patient, the patient is cleared for surgery Atrial fibrillation 4943 6004 I48.91 stable [id number] Ciaran Arguello [facility] [address] [facility],[place] [address] 05/24/2020 14:57:03 05/24/2020 15:27:45 Atrial fibrillation 34431493 I48.91 quiet good rate with no evid of AF Hypertensive disorder 38 745855 I10 excellent bp stays very active and is without major symptoms no cp 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 1067642815 29699 M51.16 [id number] Ciaran Arguello [facility] [address] [facility] [address] 08/08/2020 10:51:42 08/08/2020 11:42:39 Active or passive immunization 420688753 Z23 up to date Adult heal th examination 045222049 Z00.01 if not for her back she is doing quite good Atrial fibrillation 4943 6004 I48.91 is in afib right now but with a controlled VR at 88 Spinal milvia nosis of lumbar region 93242844 M48.062 requires new L3 epidural injection [id number] Ciaran Arguello [facility] [address] [facility] [facility] [place] [address] 09/11/2020 14:25:52 09/11/2020 15:00:04 Insomnia 177167878 G47.00 [id number] Ciaran Arguello [facility] [address] [facility],[place] [address] 02/20/2021 15:47:25 02/20/2021 16:29:35 Atrial fibrillation 52069172 I48.91 is in afib right now but with a controlled VR at 88 Hypertensive disorder 38 976308 I10 excellent bp stays very active and is without major symptoms no cp Sacrum sprain 631390454 S33.6XXD noted osteoarthr itis of the LS spine [id number] Ciaran Arguello [facility] [address] [facility],[place] [facility] [address] 04/11/2021 10:29:11 04/11/2021 12:06:15 Osteoarthritis of left knee joint 1863549100 95833 M17.12 cortisone well tolerated isntructio ns given Malignant neoplasm of ovary 869028947 C56.9 2008 , considered curative will need to have her get f/'[place] [id number] Ciaran Arguello [facility] [address] [facility],[place] [address] 06/06/2021 09:37:52 06/06/2021 14:31:11 Renewal of prescription 348446039 Z76.0 Atrial fibrillation 4943 6004 I48.91 is in afib right now but with a controlled VR at 88 Hypertensive disorder 38 691992 I10 excellent bp stays very active and is without major symptoms no cp Gastroesop hageal reflux disease 893680072 K21.9 we will start a PPI and discussion re this med Osteoarthr itis of knee 558346432 M17.9 GIVEN HER ONGOING PAIN we will xr her knees and rechk Malignant neoplasm of ovary 021723727 C56.9 2008 , considered curative will need to have her get f/'u of hwer breast [place] [id number] Ciaran Arguello [facility] [address] [facility],[place] [address] 07/06/2021 12:15:56 07/06/2021 13:22:54 Atrial fibrillation 83189214 I48.91 is in afib right now but with a controlled VR at 88 Pneumonia 281231582 J18. 9 now stabilized and is doing better she will slowly get stronger Hypertensive disorder 38 746446 I10 excellent bp stays very active and is without major symptoms no cp Gastroesop hageal reflux disease 295083713 K21.9 we will start a PPI and discussion re this med Bilateral osteoarthritis of knees 2815285195 10902 M17.0 discussed xray results will use chacorta inj when need [id number] Ciaran Arguello [facility] [address] [facility],[place] [address] 03/22/2022 10:29:49 03/22/2022 11:25:04 Malignant neoplasm of ovary 034483905 C56.9 2008 , considered curative needs [place] 125 Atrial fibrillation 4943 6004 I48.91 current palpations are not present Advance care planning 71 9025707 Z71.89 done Costal chondritis 952220 04 M94.0 we will treat as above currently but will pursue with a ct scan Atypical chest pain 1025 37905 R07.89 as noted we will use this and get the [id number] Ciaran Arguello [facility] [address] [facility],[place] [address] 03/27/2022 11:34:33 03/27/2022 12:47:25 Atypical chest pain 390466596 R07.89 as noted we will use this and get the pred finished if her sx return we will have her restart the pred Melanocytic nevus 619770 001 D22.9 [id number] Ciaran Rice [facility] [address] [facility],[place] [address] 05/20/2022 11:18:35 05/20/2022 13:09:30 Active or passive immunization 707539978 Z23 advised she is due for pneumovax Adult heal th examination 936989065 Z00.01 if not for her back she is doing quite good Screening for cardiovascular system disease 191500216 Z13.6 stable so no further eval for lipids now Screening for malignant neoplasm of colon 266646910 Z12.11 set up Screening for osteoporosis 122352781 Z13.820 will order Screening mammography 24 634570 Z12.31 not needed now Atrial fibrillation 4943 6004 I48.91 current palpations are not present and pulse is normal no afib Recurrent urinary tract infection 237996989 N39.0 [id number] Ciaran Meltoncaro [facility] [address] [facility],[place] [address] 06/04/2022 11:57:36 06/04/2022 12:41:59 Atrial fibrillation 06142254 I48.91 current palpations are not present and pulse is normal no afib Gastroesop hageal reflux disease 393228291 K21.9 we will start a PPI and discussion re this medbut she has noticed onset of some diff swallow requiring her to use glass of h2O to get food down this is infrequent but has increased as of lateshe will need an egd in the future to chk for esoph stricture [id number] Ciaran Rice [facility] [address] [facility],[place] [address] 03/05/2023 13:51:33 03/05/2023 15:16:07 Bilateral hydronephrosis 63581103 N13.0 per uromonitor ing Chronic ur inary tract infection 191607266 N11.1 stable Pyelonephritis 06307677 N16 stable Malignant neoplasm of ovary 570699383 C56.3 remission Atrial fibrillation 4943 6004 I48.11 stable Interstiti al lung disease 231072661 J44.9 stable Chronic ki dney disease 855063859 N18.4 stable Systolic h eart failure 121863346 I50.9 stable Thrombophilia 762635939 D68.69 stable Bilateral hearing loss 78548367 H90.3 referral sent Paresthesi a of lower extremity 347936355 R20.2 MRI sent Cervical radiculopathy 32951945 M54.12 agreed to both cervical and lumbar MRI Actinic keratosis 007 L57.0 agreed to derm referral; concern for carcinoma r/o melanoma [id number] Ciaran Arguello [facility] [address] [place] [address] 04/08/2023 10:59:38 04/08/2023 11:44:19 Cerebrovascular accident 075691587 I63.412 will set up with [facility] for speech rehabpossi kristen given referral at the hospital Atrial fibrillation 4943 6004 I48.0 stable Myasthenia gravis, adult form 67814179 G70.00 [id number] Ciaran Arguello [facility] [address] [facility],[place] [address] 05/05/2023 13:24:41 05/05/2023 16:06:50 Pre-surgery evaluation 181872612 Z01.818 The patient was seen in the office today for pre-op evaluation . All medical conditions on patient's problem list were addressed and are currently stable, no interventi on needed at this time. Based on history and physical performed, the patient is cleared for surgery. 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 Myasthenia gravis 573191 04 G70.00 stable Congestive heart failure 66263097 I50.9 stable, recent echo normal Atrial fibrillation 4943 6004 I48.91 stable Cerebrovas cular accident 714364496 I63.412 recovering wellmild speech deficits but also improving 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 881550678 G81.91 stable Chronic ob structive pulmonary disease 74936282 J44.9 stable Chronic ki dney disease 870351651 N18.4 stable [id number] Ciaran Arguello [facility] [address] [facility], [place] [address] 03/05/2024 11:24:15 03/05/2024 12:27:03 Active or passive immunization 259010679 Z23 advised she is due for pneumovax Adult [facility] th examination 818816631 Z00.00 if not for her back she is doing quite good Atrial fibrillation 4943 6004 I48.91 current palpations are not present and pulse is normal no afib Chronic ob structive pulmonary disease 80854189 J44.9 stable Hypertensive disorder 38 601221 I10 excellent bp stays very active and is without major symptoms no cp Depression screening 171 095095 Z13.31 Negative Screening Congestive heart failure 43284623 I50.9 stabkle occ cough [id number] Ciaran Krystal Arguello [facility] [address] [facility] [address] 08/09/2024 11:31:13 08/09/2024 13:37:15 Chronic obstructive pulmonary disease 81485378 J44.9 stable Atrial fibrillation 4943 6004 I48.91 current palpations are not present and pulse is normal no afib Cerebrovas cular accident 710298972 I63.412 she is doing great and continues to improve Chronic ki dney disease 409881628 N18.4 stable and no major issue Hypertensive disorder 38 044115 I10 excellent bp stays very active and is without major symptoms no cp [id number] DO Srinivas [facility] [address] [facility] [address],[place] [address] 03/02/2025 14:07:22 03/02/2025 14:45:20 Chronic obstructive pulmonary disease 03983868 J44.9 stable Hypertensive disorder 38 852843 I10 excellent bp stays very active and is without major symptoms no cp Hyperlipidemia 45562842 E78.5 ?cont the nexilit? Depression screening 171 280983 Z13.31 Negative Screening Atrial fibrillation 4943 6004 I48.91 current palpations are not present and pulse is normal no afibwill be seeing cardiology Atrial dilatation 886273 03 I51.7 had echo will be seeing cardiol Health Concerns Section Related Observation LastModified by Organization Detai ls LastModified Time None Recorded Concern Status LastModified by Organization Details LastModified Time None Recorded Advance Directives Directive Y: Payers Insurance Date Sequence Insurance Name Policy Number Policy Kennedy Covered Member ID Kennedy Member ID Guarantor Name 03/29/2025 1 [employer] (MEDICARE REPLACEMENT/ ADVANTAGE - PPO) [id number] 2 Melissa Sun [id number] Melissa 03/02/[address] [facility] [id number] Melissa Sun [id number] Melissa Sun Notes Date Note Type Note Provider Name and Address Organization Details Recorded Time 05/05/20 23 text/htm l Pre-OpReported bypatient.Surgery to be Performed:left eye cataract with Dr. Castro Context/Condition Being Addressed:left eye cataract Location:left eye Severity:moderate; blurred vision left eye Risk Factorsno cognitive impairment; no functional impairment; no malnutrition; no frailty; able to climb a flight of stairs (exercise capacity>4 METS); no obstructive sleep apnea; non-smoker; no alcohol misuse; no illicit drug use; no chronic cardiopulmonary condition; not obese;chronic cardiopulmonary condition(recent CVA; recovering well (mild verbal deficits which are improving)) Anesthesia hx:no hx of anesthesia complications; no allergy to anesthetic agents; no family history of anesthesia complications Functional Ability:able to walk up stairs; able to perform heavy work around the house; no difficulty walking up hills; able to walk 4 mph Post-Op Support:adequate assistance at home DRE RYAN [address] [place], [address], [facility] 05/05/2023 13:47:52 03/03/20 text/htm l f/u medication the patient reports that is no longer taking atorvastatin or repatha, needs it taken off from [facility] the patient is now taking rosuvastatin 5 mg, once per day without muscle pain which is excellent afib is well controlledmedications all set up otherwise doing DRE RYAN [address] [place], [address], [facility] 03/03/2024 13:53:22 03/05/20 text/htm l Annual WellnessReported bypatient.Diet and Nutrition:healthy diet Fracture Risk:no history of fractures; no recent explained fracture; no sudden unexplained fractures; no previous musculoskeletal injuries Physical Activity:exercises on a regular basis; recent increase in physical activity; good physical condition Additional Lifestyle Factors:no tobacco use; no alcohol intake; stopped drinking alcohol Depression Risk:never feels sad, empty, or tearful; no loss of interest in activities; no significant changes in weight; no sleep disturbances or insomnia; no agitation; no loss of energy; no feelings of worthlessness or guilt; no thoughts of suicide; no history of depression; no history of mood disorders Hearing:no loss of hearing Vision:no vision problemsNotes:she has some dysarthria but is working hard to get better relates that overall she has been managing Ciaran RobertGerald Donovan, [address] [place], [address], [facility] 03/05/2024 12:03:24 08/09/20 text/htm l Care Management - HypertensionReported bypatient.Self Care:not under emotional stress Severity:symptoms are improving; does not interfere with daily activities Associated Symptoms:no dizziness; no lightheadedness; no chest pain; no shortness of breath; no palpitations; no edema; no calf muscle cramps; no blurred vision; no confusion; no headaches; no fatigue here for rechk and is feeling ok overallrelates her right shoulder is still sore but she is doing exercises and feels betterhasd a pneumonia this summer and is still a bit fatigued from thather stroke has left her a bit unsteady but this is improving and she is no longer thinking about her foot planting Ciaran Arguello DO [address] [place], [address], [facility] 08/09/2024 12:07:24 03/02/20 25 text/htm l Care Management - Atrial FibrillationReported bypatient.Medications:comp liant with medication Prior Imaging:echocardiogram; recent ECG Associated Symptoms:no dizziness; no chest pain; no easy bruisability; no rapid heart rateCare Management - Chronic Obstructive Pulmonary Disease (COPD)Reported bypatient.Severity:symptom s are improving; does not interfere with daily activities Associated Symptoms:no chest tightness; no shortness of breath; no wheezing; not constantly clearing the throat; no blueness of the lips; no fatigue; no respiratory infectionsCare Management - HyperlipidemiaReported bypatient.Control:usually well controlled; improving; at goal Complications:no coronary artery disease; no heart attack; no cardiovascular disease; no pancreatitis; no strokeCare Management - HypertensionReported bypatient.Self Care:not under emotional stress Severity:symptoms are improving; does not interfere with daily activities Associated Symptoms:no dizziness; no lightheadedness; no chest pain; no shortness of breath; no palpitations; no edema; no calf muscle cramps; no blurred vision; no confusion; no headaches; no fatigue here for rechk [facility] found to have dilated atriashe has been more tired than usual Ciaran Arguello DO [address] [place], [id number], [facility] Internal Medicine 03/02/2025 14:38:08 OBGyn Episode No OBEpisode recorded.
[2025-04-01 10:21] LABS: Influenza A PCR NEGATIVE (Negative); Influenza B PCR NEGATIVE (Negative); Resp Syncy Virus RNA Qual PCR NEGATIVE (Negative); SARS COV2 PCR INHOUSE NEGATIVE (Negative)
--- NOTE | 2025-04-01 11:36 | ECG_ITS ---
Test Reason : CP Blood Pressure : */* mmHG Vent. Rate : 92 BPM Atrial Rate : * BPM P-R Int : * ms QRS Dur : 94 ms QT Int : 354 ms P-R-T Axes : * -12 -49 degrees QTcB Int : 437 ms Atrial fibrillation Nonspecific ST and T wave abnormality Abnormal ECG When compared with ECG of 01-Apr-2025 09:04, No significant change was found Referred By: Saba Treviño Electronically Signed By: CINDY ULLOA MD
[2025-04-01] MEDS: Acetaminophen 325 MG TABLET 975 MG PO (12:32)
[2025-04-01 12:45] LABS: Troponin-I High Sensitivity 12.7 ng/L (<3.5-17.0)
[2025-04-01] MEDS: iohexoL 350 MG/ML 100 ML INFUS..BTL IV (16:22)
[2025-04-01 16:23] LABS: Appearance Urine Clear; Color Urine Dark Yellow; Glucose Urine UA Negative (Negative); Leukocyte Esterase Urine Trace (Negative); Nitrite Urine Negative (Negative); PH 6.5 (5.0-9.0); Specific Gravity - Urine 1.015 (1.005-1.025); UMIC TRIGGER UACC YES; Urine Blood Negative (Negative); Urine Ketones Trace mg/dL (Negative); Urine Protein Trace mg/dL (Neg-Trace)
[2025-04-01] MEDS: Diatrizoate Meglumine, Sodium 30 ML SOLUTION PO (16:23)
[2025-04-01 16:27] LABS: Bacteria Urine None Seen (None Seen); Hyaline Casts Urine 0-2 /LPF (0-2); RBC Urine 0-2 /HPF (0-2); Squamous Epithelial Cell Urine 0-2 /HPF (0-2); WBC Urine 0-5 /HPF (0-5)
[2025-04-01] MEDS: polyethylene glycoL 3350 17 GM POWD.PACK PO (17:55)
[2025-04-01] MEDS: Sennosides Oral Syrup 8.8 MG/5 ML 17.2 MG PO (17:55)
[2025-04-01] MEDS: Sodium Phosphate,Mono-Dibasic 133 ML ENEMA PR (18:29)
--- NOTE | 2025-04-01 20:24 | PC.NURSE ---
Pt. still constipated and c/o pain. Informed DRE Pathak. Awaiting orders.
[2025-04-01] MEDS: HYDROmorphone HCl 1 MG/ML SYRINGE IVPUSH (22:10)
--- NOTE | 2025-04-01 22:16 | P.HPHOSP_ITS ---
History of Present Illness Date of Service: 04/01/25 Attending physician on admission: Theodora Flynn Chief Complaint: Abdominal pain Melissa Ray is 89 years old woman with past medical history significant for GERD, postoperative PE, recurrent UTIs, stroke, atrial fibrillation on warfarin, essential hypertension, HFrEF (45-50%) and ovarian + breast CA presents to the emergency department complaining of generalized abdominal pain that started 2 days ago associated with nausea and vomiting. She denied constipation to me, anatomic that actually she has no problems with constipation. Now, she complains of right-sided chest pain/upper abdominal pain that increases with inspiration. She will has been unable to eat due to early satiety. He denied fever, chills, or any acute urinary symptoms. He denies shortness or breath, dizziness, cough or palpitations. She denied tobacco smoking, alcohol abuse or illicit drug use. Recently received a prescription for nitrofurantoin. Recently, the patient has been evaluated twice at [facility] one for diverticulitis and another one for upper abdominal pain. In the ED she was found to stable vital signs. Blood workup showed leukocytosis of 13.3. There is no lactic acidosis. Hemoglobin is 12.1 and platelet 178. INR is 2.2. There are no electrolyte imbalances. BUN is 23 and creatinine 1.21. Total bilirubin is 2.0 endarterectomy bilirubin 1.2. AST is 43 and alk- phos 71. Troponin is negative x2 (13.4 --> 12.7). Lipase is normal. TSH 3.40. Urinalysis is unremarkable. Viral testing for COVID-19, influenza and RSV is negative. CXR showed possible findings of mild interstitial edema in the [facility] clinical setting. Abdominal ultrasound showed unremarkable gallbladder. Abdomen pelvis CT scan with IV contrast, moderate constipation, colonic diverticulosis without diverticulitis no cyanosis oxygen. It also showed bibasilar atelectasis and/or scaring; and cardiomegaly. ECG x2 showed no acute ischemia. ED tx: Morphine 8 mg IV total, Zofran 4 mg IV, acetaminophen 975 mg p.o., MiraLax 17 g PO, [employer]ICIAN 17.2 mg p.o., Fleet enema. Review of Systems 2 Review of Systems: All 12 systems were reviewed and normal except as noted in HPI. [facility] Medical History (Updated 04/01/25 @ 23:14 by Theodora Flynn MD) Atherosclerotic cardiovascular disease Atrial fibrillation Breast cancer Ovarian cancer GERD (gastroesophageal reflux disease) Atrial fibrillation Family History (System 04/15/22 @ 08:33 by Reba Collazo) Other Breast cancer Coronary artery disease Prostate cancer Surgical History Previous back surgery History of hip replacement Social History (System 04/15/22 @ 08:33 by Reba Collazo) Household Members: None Housing: Apartment Do you presently have visiting nurse or other home services: No Patient Tobacco Use Status: Never used Tobacco Smoked in Last 30 Days: No Use of substances other than those prescribed or required for medical reasons: No Advance Directives: Yes Advance Directives Information Provided: Yes Advance Directives on File: No Advance Directives Date on File: 04/13/22 Do you have a plan to hurt others: No Plan service: No Current occupational status: retired Meds Allergies Allergy/AdvReac Type Severity Reaction Status Date / Time ciprofloxacin [From Cipro] Allergy Rash Verified 04/01/25 09:08 Sulfa (Sulfonamide Allergy Rash Verified 04/01/25 09:07 Antibiotics) codeine AdvReac Vomiting Verified 04/01/25 09:08 Active Medications: Current Medications Hydromorphone HCl (Hydromorphone Hcl 0.5 Mg/0.5 Ml Syringe) 0.5 mg IVPUSH Q4H PRN; Protocol PRN Reason: Pain, Severe (Pain Scale 7-10) Acetaminophen (Ofirmev) 1,000 mg in 100 mls @ 400 mls/hr IV Q6H [facility] Stop: 04/02/25 10:29 Sodium Chloride (0.9 % Sodium Chloride Flush 3 Ml Syringe) 3 ml IVFLUSH QSHIFT [facility] Home Medications ?Medication ?Instructions ?Recorded ?Confirmed ?Last Taken ?Type diltiazem HCl 180 mg capsule,24 1 cap PO DAILY 04/13/22 04/13/22 04/12/22 History hr,extended release gabapentin 100 mg capsule 1 cap PO TID 04/13/22 04/13/22 04/12/22 History pantoprazole 40 mg tablet,delayed 1 tab PO BID 04/13/22 04/13/22 04/12/22 History release warfarin 5 mg tablet 5 mg PO DAILY@1800 04/13/22 04/13/22 04/12/22 History apixaban 5 mg tablet (Eliquis) 5 mg PO BID 04/01/25 Unknown History bempedoic acid 180 mg-ezetimibe 10 1 tab PO DAILY 04/01/25 Unknown History mg tablet (Nexlizet) furosemide 20 mg tablet 20 mg PO DAILY 04/01/25 Unknown History nitrofurantoin 1 cap PO BID 04/01/25 Unknown History monohydrate/macrocrystals 100 mg capsule ondansetron 4 mg disintegrating 4 mg PO Q8H PRN nausea 04/01/25 Unknown History tablet spironolactone 25 mg tablet 25 mg PO DAILY 04/01/25 Unknown History Physical Exam 2 Vital Signs and Narrative: Vital Signs: Last Vital Signs Temp 97.7 F 04/01/25 20:13 Pulse 108 H 04/01/25 20:13 Resp 19 04/01/25 20:13 BP 122/65 04/01/25 20:13 Pulse Ox 94 04/01/25 20:13 O2 Del Method Room Air 04/01/25 20:13 BMI result Body Mass Index 27.9 Constitutional - Awake and Alert. In acute distress due to abdominal pain. Cooperative. Pleasant. HEENT - PER, EOMI. Dry oral mucosa. Heart- RRR, No murmurs. Lungs- Normal lung expansion, Normal respiratory effort, No respiratory distress, CTA bilaterally Abdomen - Increased bowel sounds. Nondistended. Generalized tenderness to palpation with mild guarding. No rebound. Midline infraumbilical surgical scar. Extremities - no calf tenderness bilaterally, no swelling Musculoskeletal - Normal inspection, normal ROM Skin - Warm/Dry Neurological - Alert & oriented x3. No focal weakness grossly noted. Normal speech. Psychological - Appropriate affect Results Labs 04/01/25 09:25 04/01/25 09:25 Labs: Laboratory Results - last 24 hr 04/01/25 04/01/25 04/01/25 09: 09:30 12:13 MCV 92.2 MCH 30.5 MCHC 33.1 RDW 13.3 Plt Count 178 D MPV 11.7 Immature Gran % (Auto) 0.6 H Neut % (Auto) 87.0 H Lymph % (Auto) 6.2 L Cataño % (Auto) 4.7 Eos % (Auto) 1.3 Baso % (Auto) 0.2 Lymph # (Auto) 0.8 L Cataño # (Auto) 0.6 Eos # (Auto) 0.2 Baso # (Auto) 0.0 Abs Immat Gran (auto) 0.08 H Absolute Neuts (auto) 11.6 H Absolute Nucleated RBC 0.000 Nucleated RBC % (auto) 0.0 PT 24.7 H INR 2.2 H APTT 34.0 Anion Gap 11 L Estim Creat Clear Calc 32.1 Estimated GFR 42 Random Glucose 94 Lactic Acid 1.3 Calcium 9.9 D Magnesium 2.0 Total Bilirubin 2.0 H Direct Bilirubin 1.1 H AST 43 H ALT 30 Alkaline Phosphatase 71 Troponin I High Sens 13.4 12.7 B-Natriuretic Peptide 331 H Total Protein 6.7 Albumin 4.2 Lipase 62 TSH 3.40 Urine Color Urine Appearance Urine pH Ur Specific Jeddo Urine Protein Urine Glucose (UA) Urine Ketones Urine Blood Urine Nitrite Ur Leukocyte Esterase Urine RBC Urine WBC Ur Squamous Epith Cells Urine Bacteria Hyaline Casts Influenza Type A (PCR) NEGATIVE Influenza Type B (PCR) NEGATIVE RSV RNA Qual (PCR) NEGATIVE SARS-CoV-2 RNA (RT-PCR) NEGATIVE 04/01/25 16:18 MCV MCH MCHC RDW Plt Count MPV Immature Gran % (Auto) Neut % (Auto) Lymph % (Auto) Cataño % (Auto) Eos % (Auto) Baso % (Auto) Lymph # (Auto) Cataño # (Auto) Eos # (Auto) Baso # (Auto) Abs Immat Gran (auto) Absolute Neuts (auto) Absolute Nucleated RBC Nucleated RBC % (auto) PT INR APTT Anion Gap Estim Creat Clear Calc Estimated GFR Random Glucose Lactic Acid Calcium Magnesium Total Bilirubin Direct Bilirubin AST ALT Alkaline Phosphatase Troponin I High Sens B-Natriuretic Peptide Total Protein Albumin Lipase TSH Urine Color Dark Yellow Urine Appearance Clear Urine pH 6.5 Ur Specific Jeddo 1.015 Urine Protein Trace Urine Glucose (UA) Negative Urine Ketones Trace Urine Blood Negative Urine Nitrite Negative Ur Leukocyte Esterase Trace H Urine RBC 0-2 Urine WBC 0-5 Ur Squamous Epith Cells 0-2 Urine Bacteria None Seen Hyaline Casts 0-2 Influenza Type A (PCR) Influenza Type B (PCR) RSV RNA Qual (PCR) SARS-CoV-2 RNA (RT-PCR) Imaging Radiologist's Impressions: Impressions KUB X-Ray 04/01/25 08:09 IMPRESSION: No intestinal obstruction pattern. Electronically signed by: Daren Hull MD 04/01/2025 09:24 AM EDT RP Chest X-Ray 04/01/25 08:11 IMPRESSION: Consider mild interstitial edema in the correct clinical settings. 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 Electronically signed by: Daren Hull MD 04/01/2025 09:23 AM EDT RP Abdomen Ultrasound 04/01/25 11:19 IMPRESSION: Unremarkable gallbladder ultrasound Electronically signed by: Leo Casey MD 04/01/2025 11:47 AM EDT RP Abdomen/Pelvis CT 04/01/25 14:56 IMPRESSION: Moderate constipation. Colonic diverticulosis without diverticulitis. No signs of obstruction. Mild mucosal dilatation of proximal and mid abdominal aorta. Bilateral renal cysts largest in the lower pole left kidney measuring 4.5 cm Bibasilar atelectasis and/or scarring. All cardiomegaly. Fleischner guidelines were followed. Electronically signed by: Shahram Deleon MD 04/01/2025 05:13 PM EDT RP Assessment and Plan (1) Abdominal pain: Qualifiers: Abdominal location: generalized Qualified Code(s): R10.84 - Generalized abdominal pain Status: Acute (2) Nausea and vomiting: Qualifiers: Vomiting type: unspecified Qualified Code(s): R11.2 - Nausea with vomiting, unspecified Status: Acute Plan Melissa Ray is 89 y/o woman admitted with: * Abdominal pain, unclear etiology associated with nausea and vomiting; elevated total/direct bilirubin and. AST. ?Acute gastritis ?2/2 nitrofurantoin. Admit to hospitalist service. NPO. Supportive therapy with IV fluids, antiemetic and PPI IV. Gastroenterology consult. * Leukocytosis, likely secondary to vomiting. IV fluids. Encourage PO hydration if tolerated. * Chest pain. ECG x2 showed no acute ischemic changes. Troponin negative x2. Recheck troponin. Recheck ECG - negative for ischemia. * ?Constipation. Patient denied constipation. Had an adequate bowel movement after enema given in the ED. * Atrial fibrillation, rate controlled. Continue diltiazem and warfarin. INR is therapeutic. Daily INR checks. * History of postop PE. On warfarin. INR therapeutic. * Essential hypertension. Continue diltiazem and spironolactone. * HFrEF (EF 45-50%). BNP < than baseline. CXR ? Pulmonary edema but lungs clear and normal oxygen saturation. * GERD. Protonix IV. * Hx of ovarian + breast CA. s/p surgery and chemotherapy. DVT prophylaxis: On warfarin Code status: Full Patient will need hospitalization for at least midnights for recurrent abdominal pain therapy with IV pain control symptomatic therapy with antiemetics and anti- reflux medications. Assessment and Plan per providers at [facility] ED (March 25, 2025) Patient presents for an episode of epigastric abdominal pain with nausea and vomiting that resolved prior to my evaluation. Similar episode of pain yesterday resolved with medicine given by EMS en route. Her medical workup last week was negative for any cardiac or acute intra-abdominal surgical or infectious pathology contirmed by climaging. Her labs today show that she is likely slightly dehydrated. Given IV fluids. With her pain resolved, and similar to last week's episode with no acute process identified, I did not think she required repeat CT imaging. Patient agreed with this. She was requesting food. She tolerated p.o. without recurrence of symptoms. On review of her medications, she had previously been prescribed Protonix. However she does not take this medication anymore and she is unsure why. On chart review it looks like she was told to hold this medication while on cephalosporin about a year ago. It seems as though she never restarted this medicine. Discussed possible GERD/gastritis with recommended restart of Protonix. Also discussed that recent antibiotic use can cause Gl upset, though that should improve with time. Ultimately no concerning pathology identified or suspected on history, exam, medical workup. Suspect benign etiology at this time. Advised to follow-up closely with PCP and return to ER for any acutely worsening symptoms or other urgent medical concerns. Patient was agreeable this plan and discharged stable condition. Quality Stroke Does the patient have a stroke diagnosis?: No VTE Prior VTE?: No VTE Risk Level:: Medical - moderate - high VTE Device Contraindication: Treatment Not Indicated VTE Drug Contraindication: N/A - Med Ordered
[2025-04-02] VITALS (9 sets, daily range): BP systolic 101–135; BP diastolic 55–96; PULSE 77–96; RESP 16–20; TEMP 36–36.9; O2SAT 93–98; BMI 25.1
[2025-04-02] MEDS: Acetaminophen 1,000 MG/100 ML PIGGYBACK 400 MG IV ×2 (00:24→06:01)
[2025-04-02] MEDS: 0.9 % Sodium Chloride 500 ML IV (00:25)
[2025-04-02] MEDS: Pantoprazole Sodium 40 MG/10 ML VIAL IVPUSH ×2 (00:25→04:13)
--- NOTE | 2025-04-02 00:47 | PC.NURSE ---
pt reported having some heartburn, nearimng epigastric region, Dr. Clay made aware, PRN order for tums placed, meds given per DEC. With good effect.
--- NOTE | 2025-04-02 00:52 | PC.NURSE ---
assumed care of pt. Pt medicated per DEC. Wrist IV on L did not flush well. Meds running through L AC line. PT has no complaints.
--- NOTE | 2025-04-02 02:00 | PC.NURSE ---
LATE ENTRY DELAY IN ADMIN OF IV TYLENOL DUE TO CLARIFYING ORDERS WITH HOSPITALIST. PHARMACY CALLED TO RE-TIME NEXT DOSE OF IV TYLENOL
--- NOTE | 2025-04-02 02:59 | PC.NURSE ---
Resumed care of patient at 0300, Pt is currently resting comfortably at this time. Call ramirez is within reach, all needs met at this time, pt is awaiting bed at this time.
--- NOTE | 2025-04-02 04:08 | PC.NURSE ---
Pt called this RN into room stating she was having increased acid reflux, noted to be having pain in epigastric/ lower esophagus area. Pt states she has really struggled with her acid reflux in the past, vitals within normal limits, denies CP/ SOB. Hospitalist messaged to see if pt can receive protonix early, and assess if she can eat or drink. okay'd protonix early, NPO until GI assess
--- NOTE | 2025-04-02 06:22 | PC.NURSE ---
Pt reporting resolved heartburn at this time. Pt reporting medications given helped and this RN also had given her a heat pack which also helped resolved the pain. Pt is currently sleeping comfortably at this time.
[2025-04-02 06:41] LABS: MANUAL DIFF FLAG NO
[2025-04-02 06:46] LABS: Basophils Percent Auto 0.4 % (0-2); Eosinophils Absolute Auto 0.3 X10*3/uL (0.0-0.4); Eosinophils Percent Auto 3.9 % (0-4); Hematocrit 32.6 % (37.0-47.0); Hemoglobin 10.6 g/dl (12.0-16.0); Imm Gran Abs Auto 0.03 X10*3/uL (0.00-0.03); Imm Gran Pct Auto 0.4 % (0.0-0.4); Lymphocytes Percent Auto 11.7 % (20-40); Mean Corpuscular HGB Conc 32.5 g/dl (31.0-35.0); Mean Corpuscular Hemoglobin 30.2 pg (27.0-33.0); Mean Corpuscular Volume 92.9 fL (80.0-98.0); Mean Platelet Volume 11.3 fL (9.4-12.3); Monocytes Absolute Auto 0.7 X10*3/uL (0.1-1.2); Monocytes Percent Auto 8.4 % (2-11); Neutrophils Absolute Auto 6.2 x10*3/uL (2.0-8.3); Neutrophils Percent Auto 75.2 % (45-73); Platelet Count 153 X10*3/uL (160-400); Red Blood Count 3.51 X10*6/uL (4.20-5.50); Red Cell Distribution Width 13.7 % (11.0-16.0); White Blood Count 8.2 X10*3/uL (4.8-10.8)
[2025-04-02 06:56] LABS: INTERNATIONAL NORM RATIO 1.5 (0.9-1.1); Prothrombin Time 17.2 SEC (10.9-12.4)
[2025-04-02 06:58] LABS: Anion Gap 13 (12-20); Blood Urea Nitrogen 26 mg/dL (9-16); Calcium 9.5 mg/dL (8.4-10.2); Carbon Dioxide 23 mmol/L (22-29); Chloride 106 mmol/L (96-108); Creatinine Clr Calc Pharmacy 35.3; Estimated Glomerular Filt Rate 47; Glucose Random 68 mg/dL (60-115); Potassium 3.8 mmol/L (3.3-5.1); Sodium 138 mmol/L (135-145)
[2025-04-02] MEDS: 0.9 % Sodium Chloride Flush 3 ML SYRINGE IVFLUSH ×2 (07:49→21:35)
--- NOTE | 2025-04-02 07:52 | PC.NURSE ---
patient a&ox3, rr equal/non labored, lungs clear, pt oob with PT this morning, teletypesetter monitor- afib -pt has history of afib, vitals stable, pt currently npo but feeling hungry and wanting to eat. call ramirez within reach, plan of care ongoing
--- NOTE | 2025-04-02 08:00 | P.CNGI_ITS ---
History of Present Illness Data of Consult Service Date: 04/02/25 Requesting physician: Theodora Flynn Primary Care Provider: Ciaran Man MD [facility] Reason for consult: Abdominal pain, elevated LFTs 89 YF with GERD, postoperative PE, recurrent UTIs, stroke, atrial fibrillation on warfarin, essential hypertension, HFrEF (45-50%) and ovarian + breast CA seen at [facility] ED on 04/01/25 with generalized abdominal pain that started 2 days ago associated with nausea and vomiting. Pt reports early satiety for the past 4 months followed by intermittent episodes of upper abdominal pain for 3 weeks. Also complains of pain below the right ribs - becomes worse with breathing. She was seen at ER x 2 once for diverticulitis and another visit for upper abdominal pain. She stopped eating and drinking for 8 - 10 hrs and abd pain eased off after 5-6 hours and pt was discharged home. Pt notes improvement in abd pain after having a few BMs overnight. Pt has noted a change in her bowel pattern for the past several months - has been having multiple soft/bulky BMs several times a day like baby poop - sometimes with nocturnal incontinence (previously she had one firm BM daily) Pt gives a hx of low grade fever and denies chills, or any acute urinary symptoms, shortness or breath, dizziness, cough or palpitations. Pt admits to wt loss of 5-6 lbs over the past 3 months. Pt reports she had a negative colon 15 yrs ago at [facility] - no report in [employer] Pt smoked 1/2 PPD in the past and quitted in the 1970's, takes alcohol occasionally. Recently received a prescription for nitrofurantoin for UTI symptoms. Pt reports being dxed with Ovarian cancer in 2008 and had total hysterectomy with salpingo-oophorectomy and resection of part of her bowel. Had surgery for breast cancer in 2018. Patient is , worked as a banker, lives alone (a son and a daughter live close by) and is independent with her ADLs - drives and does her own shopping, cooking and laundry. In the ED she was found to stable vital signs. Labs showed leukocytosis of 13.3. Hemoglobin is 12.1 and platelet 178. INR is 2.2. There are no no lactic acidosis or electrolyte imbalances. BUN is 23 and creatinine 1.21. Total bilirubin is 2.0 indirect bilirubin 1.2. AST is 43 and alk-phos 71. Troponin is negative x2 (13.4 --> 12.7). Lipase is normal. TSH 3.40. Viral testing for COVID-19, influenza and RSV is negative. CXR showed possible findings of mild interstitial edema in the [facility] clinical setting. Abdominal ultrasound showed unremarkable gallbladder. ECG x2 showed no acute ischemia. ED tx: Morphine 8 mg IV total, Zofran 4 mg IV, acetaminophen 975 mg p.o., MiraLax 17 g PO, [employer] 17.2 mg p.o., Fleet enema. 04/01/[address] SCAN SHOWED: Moderate constipation. Colonic diverticulosis without diverticulitis. No signs of obstruction. Mild mucosal dilatation of proximal and mid abdominal aorta. Bilateral renal cysts largest in the lower pole left kidney measuring 4.5 cm Bibasilar atelectasis and/or scarring. All cardiomegaly. Review of Systems 2 Review of Systems: Yes all other systems are reviewed and are negative [facility] Past Medical History Medical History (Updated 04/02/25 @ 12:52 by Allison Matamoros MD) Atherosclerotic cardiovascular disease Atrial fibrillation Breast cancer Ovarian cancer GERD (gastroesophageal reflux disease) Atrial fibrillation Family History Family History (System 04/15/22 @ 08:33 by Reab Collazo) Other Breast cancer Coronary artery disease Prostate cancer Surgical History Surgical History Previous back surgery History of hip replacement Social History Social History (System 04/15/22 @ 08:33 by Reba Collazo) Household Members: None Housing: Apartment Do you presently have visiting nurse or other home services: No Patient Tobacco Use Status: Never used Tobacco Advance Directives Date on File: 04/13/22 service: No Current occupational status: retired Meds Allergies Allergy/AdvReac Type Severity Reaction Status Date / Time ciprofloxacin [From Cipro] Allergy Rash Verified 04/01/25 09:08 Sulfa (Sulfonamide Allergy Rash Verified 04/01/25 09:07 Antibiotics) codeine AdvReac Vomiting Verified 04/01/25 09:08 Active Medications: Current Medications Hydromorphone HCl (Hydromorphone Hcl 0.5 Mg/0.5 Ml Syringe) 0.5 mg IVPUSH Q4H PRN; Protocol PRN Reason: Pain, Severe (Pain Scale 7-10) Acetaminophen (Ofirmev) 1,000 mg in 100 mls @ 400 mls/hr IV Q6H [facility] Stop: 04/02/25 12:14 Last Infusion: 04/02/25 06:19 Dose: Infused Metoclopramide HCl (Metoclopramide Hcl 10 Mg/2 Ml Vial) 5 mg IVPUSH Q6H PRN PRN Reason: Nausea and Vomiting Pantoprazole Sodium (Pantoprazole Sodium 40 Mg/10 Ml Vial) 40 mg IVPUSH DAILY@0630 [facility] Last Admin: 04/02/25 04:13 Dose: 40 mg Sodium Chloride (0.9 % Sodium Chloride Flush 3 Ml Syringe) 3 ml IVFLUSH QSHIFT [facility] Last Admin: 04/02/25 07:49 Dose: 3 ml Home Medications ?Medication ?Instructions ?Recorded ?Confirmed ?Last Taken ?Type diltiazem HCl 180 mg capsule,24 1 cap PO DAILY 04/13/22 04/02/25 03/31/25 History hr,extended release pantoprazole 40 mg tablet,delayed 1 tab PO DAILY 04/13/22 04/02/25 03/31/25 History release apixaban 5 mg tablet (Eliquis) 5 mg PO BID 04/01/25 04/02/25 03/31/25 History bempedoic acid 180 mg-ezetimibe 10 1 tab PO DAILY 04/01/25 04/02/25 03/31/25 History mg tablet (Nexlizet) furosemide 20 mg tablet 20 mg PO DAILY 04/01/25 04/02/25 03/31/25 History nitrofurantoin 1 cap PO BID 04/01/25 04/02/25 03/31/25 History monohydrate/macrocrystals 100 mg capsule spironolactone 25 mg tablet 25 mg PO DAILY 04/01/25 04/02/25 03/31/25 History Physical Exam 2 Vital Signs: Vital Signs: Last Vital Signs Temp 98.0 F 04/02/25 07:50 Pulse 92 04/02/25 07:50 Resp 16 04/02/25 07:50 BP 116/57 L 04/02/25 07:50 Pulse Ox 98 04/02/25 07:50 O2 Del Method Room Air 06/14/25 07:50 BMI result Body Mass Index 27.9 Const: General: healthy appearing and no acute distress Nutritional Appearance: overweight Orientation/consciousness: patient oriented x3 L imitations: no limitations HEENT: Head: Yes normal to inspection Ears: hearing grossly normal bilaterally Eyes: Sclerae: sclerae normal Pupils: Equal, round and reactive pupils present Neck: Neck: Yes normal visual inspection Chest: Chest palpation & inspection: normal inspection of the chest Resp: Effort & Inspection: normal respiratory effort Auscultation: clear to auscultation bilaterally Cardio: Palpation: normal PMI Rate: regular rate Rhythm: regular rhythm Heart sounds: S1 normal heart sound present, S2 normal heart sound present and no murmurs GI: Palpation (GI): Soft to palpation, Tenderness to palpation present (GI) (Mild tenderness in epigastric area and over rt lower ribs) and No hepatosplenomegaly present Auscultation: normal bowel sounds Rectal Exam - Female: deferred Skin: General skin exam: no rashes or lesions noted Neuro: General: patient oriented x3, gait normal and moves all extremities Cranial nerves: Yes Equal, round and reactive pupils present Psych: Appearance: grossly normal Mental Status: mental status grossly normal Results Labs 04/02/25 06:29 04/02/25 06:29 Labs: Short CBC 04/01/25 04/02/25 Range/Units 09:25 06:29 WBC 13.3 H 8.2 (4.8-10.8) X10*3/uL Hgb 12.1 10.6 L (12.0-16.0) g/dl Hct 36.6 L 32.6 L (37.0-47.0) % Plt Count 178 D 153 L (160-400) X10*3/uL [facility] 04/01/25 04/02/25 09:25 06:29 Sodium 136 138 Potassium 4.2 3.8 Chloride 104 106 Carbon Dioxide 25 23 BUN 23 H 26 H Creatinine 1.21 1.10 Calcium 9.9 D 9.5 Liver Function 04/01/25 Range/Units 09:25 Total Bilirubin 2.0 H (0.0-1.0) mg/dL Direct Bilirubin 1.1 H (0.0-0.5) mg/dL AST 43 H (5-31) U/L ALT 30 (0-31) U/L Alkaline Phosphatase 71 (39-117) U/L Albumin 4.2 (3.5-5.0) g/dL Urine 04/01/25 Range/Units 16:18 Urine Color Dark Yellow Urine Appearance Clear Urine pH 6.5 (5.0-9.0) Ur Specific [place] 1.015 (1.005-1.025) Urine Protein Trace (Neg-Trace) mg/dL Urine Glucose (UA) Negative (Negative) mg/dL Assessment and Plan (1) Abdominal pain: Qualifiers: Abdominal location: generalized Qualified Code(s): R10.84 - Generalized abdominal pain Status: Acute (2) Constipation: Status: Acute (3) Elevated LFTs: Status: Acute Plan 89 YF with GERD, postoperative PE, recurrent UTIs, stroke, atrial fibrillation on warfarin, essential hypertension, HFrEF (45-50%) and ovarian + breast CA admitted to [facility] on 04/01/25 with early satiety, upper abdominal pain, nausea and vomiting. Abdominal pain can be related to constipation versus pancreatic or biliary source (given LFT elevation). Pt notes increased stool frequency with soft, bulky stools suggestive of possible pancreatic insufficiency Labs showed total bilirubin is 2.0 indirect bilirubin 1.2. AST is 43 and alk- phos 71. Lipase is normal. Abdominal ultrasound showed unremarkable gallbladder. Abd CT scan showed moderate constipation, diverticulosis and bilateral renal cysts. RECOMMENDATIONS: 1. Agree with IV PPI, antiemetics and pain medicine 2. Stool for pancreatic elastase - order placed. 3. Abdominal MRI with MRCP - rule out pancreatic/biliary source of pain. 4. Continue Miralax daily for constipation. Procedures Date of Service Date of Service: 04/02/25
--- NOTE | 2025-04-02 08:17 | PHA.MEDREC ---
Addendum entered by Kumar Liu RPh 04/02/25 08:31: MED REC REVIEWED Original Note: Pharmacy Consult ? Medication Reconciliation Pharmacy has completed the medication reconciliation. Spoke to patient to confirm med list. Patient states she is no longer taking Gabapentin 100 mg, Metoprolol tart 50 mg, Zofran 4 mg, Prednisone 10 mg and Warfarin 5 mg ( Now on Eliquis 5 mg). Patient is still taking Macrobid 100 mg BID. End date is 04/04/25.
[2025-04-02 09:06] LABS: Alanine Aminotransferase 18 U/L (0-31); Albumin Level 3.6 g/dL (3.5-5.0); Alkaline Phosphatase 57 U/L (39-117); Aspartate Amino Transferase 22 U/L (5-31); Bilirubin Direct 0.7 mg/dL (0.0-0.5); Bilirubin Total 1.2 mg/dL (0.0-1.0); Total Protein 5.7 g/dL (6.5-8.0)
[2025-04-02] MEDS: Furosemide 20 MG TABLET PO (09:29)
[2025-04-02] MEDS: Apixaban 5 MG TABLET PO ×2 (09:29→21:34)
[2025-04-02] MEDS: dilTIAZem HCL CD 180 MG CAP.ER.24H PO (09:29)
[2025-04-02] MEDS: Pantoprazole Sodium 20 MG TABLET.DR 40 MG PO (09:30)
[2025-04-02] MEDS: Ezetimibe 10 MG TABLET PO (11:12)
[2025-04-02] MEDS: Acetaminophen 1,000 MG/100 ML PIGGYBACK 100 MG IV (11:12)
--- NOTE | 2025-04-02 15:55 | HO.PM.IMPN ---
Subjective Subjective Date of Service: 04/02/25 Interval History: abd pain ,constipation ,elevated lft Review of Systems abd pain improving ,passing bm Review of Systems: Yes all other systems are reviewed and are negative Physical Exam Vital Signs: Vital Signs: Last Vital Signs Temp 96.9 F 04/02/25 12:00 Pulse 93 04/02/25 12:00 Resp 18 04/02/25 12:00 BP 109/62 04/02/25 12:00 Pulse Ox 96 04/02/25 12:00 O2 Del Method Room Air 04/02/25 12:00 BMI result Body Mass Index 25.1 Appearance: Alert.? Oriented X3.? cvs: rrr, [id number]. res: clear to auscultation ,no rhonchii or wheezing abd: no rebound or guarding ,nt, bs present. ext pulses present , no cyanosis. neuro: axo3 , nonfocal. Objective Data Active Medications Apixaban (Apixaban 5 Mg Tablet) 5 mg PO BID [facility] Last Admin: 04/02/25 09:29 Dose: 5 mg Documented By: KENNY Diltiazem HCl (Diltiazem Hcl Cd 180 Mg Cap.Er.24h) 180 mg PO DAILY [facility]; Protocol Last Admin: 04/02/25 09:29 Dose: 180 mg Documented By: KENNY Ezetimibe (Ezetimibe 10 Mg Tablet) 10 mg PO DAILY [facility] Last Admin: 04/02/25 11:12 Dose: 10 mg Documented By: KENNY Furosemide (Furosemide 20 Mg Tablet) 20 mg PO DAILY [facility]; Protocol Last Admin: 04/02/25 09:29 Dose: 20 mg Documented By: KENNY Hydromorphone HCl (Hydromorphone Hcl 0.5 Mg/0.5 Ml Syringe) 0.5 mg IVPUSH Q4H PRN; Protocol PRN Reason: Pain, Severe (Pain Scale 7-10) Metoclopramide HCl (Metoclopramide Hcl 10 Mg/2 Ml Vial) 5 mg IVPUSH Q6H PRN PRN Reason: Nausea and Vomiting Pantoprazole Sodium (Pantoprazole Sodium 40 Mg/10 Ml Vial) 40 mg IVPUSH DAILY@0630 [facility] Last Admin: 04/02/25 04:13 Dose: 40 mg Documented By: CORIE Comments: MD okay'd to give early Sodium Chloride (0.9 % Sodium Chloride Flush 3 Ml Syringe) [facility] Last Admin: 04/02/25 07:49 Dose: 3 ml Documented By: KENNY Labs 04/02/25 06:29 04/02/25 06:29 Labs: Laboratory Results - last 24 hr 04/01/25 04/01/25 04/02/25 16:18 22:28 06:29 MCV 92.9 MCH 30.2 MCHC 32.5 RDW 13.7 Plt Count 153 L MPV 11.3 Immature Gran % (Auto) 0.4 Neut % (Auto) 75.2 H Lymph % (Auto) 11.7 L [place] % (Auto) 8.4 Eos % (Auto) 3.9 Baso % (Auto) 0.4 Lymph # (Auto) 1.0 L [place] # (Auto) 0.7 Eos # (Auto) 0.3 Baso # (Auto) 0.0 Abs Immat Gran (auto) 0.03 Absolute Neuts (auto) 6.2 Absolute Nucleated RBC 0.000 Nucleated RBC % (auto) 0.0 PT 17.2 H D INR 1.5 H Anion Gap 13 Estim Creat Clear Calc 35.3 Estimated GFR 47 Random Glucose 68 Calcium 9.5 Total Bilirubin 1.2 H Direct Bilirubin 0.7 H AST 22 ALT 18 Alkaline Phosphatase 57 Troponin I High Sens 11.0 Total Protein 5.7 L Albumin 3.6 Urine Color Dark Yellow Urine Appearance Clear Urine pH 6.5 Ur Specific [place] 1.015 Urine Protein Trace Urine Glucose (UA) Negative Urine Ketones Trace Urine Blood Negative Urine Nitrite Negative Ur Leukocyte Esterase Trace H Urine RBC 0-2 Urine WBC 0-5 Ur Squamous Epith Cells 0-2 Urine Bacteria None Seen Hyaline Casts 0-2 Microbiology Microbiology Results: Microbiology 04/01/25 09:35 Blood Culture - Preliminary Blood - Venous No growth after 24 hours. 04/01/25 09:30 Blood Culture - Preliminary Blood - Venous No growth after 24 hours. Assessment and Plan (1) Elevated LFTs: Status: Acute (2) Constipation: Status: Acute (3) Nausea and vomiting: Status: Acute Plan 89 y/o woman admitted with: Abdominal pain, unclear etiology associated with nausea and vomiting; elevated total/direct bilirubin and. AST. ?Acute gastritis ?2/2 nitrofurantoin. Admit to hospitalist service. NPO. Supportive therapy with IV fluids, antiemetic and PPI IV. Gi eval noted-in view of recurrent symptoms, LFT elevation-added MRCP. Leukocytosis, likely secondary to vomiting. IV fluids. Encourage PO hydration if tolerated. Chest pain. ECG x2 showed no acute ischemic changes. Troponin negative x2. Recheck troponin. Recheck ECG - negative for ischemia. Constipation. Patient denied constipation. Had an adequate bowel movement after enema given in the ED. Atrial fibrillation, rate controlled. Continue diltiazem and warfarin. INR is INR mildly subtherapeutic,. Daily INR checks. History of postop PE. On warfarin. INR therapeutic. Essential hypertension. Continue diltiazem and spironolactone. HFrEF (EF 45-50%). BNP < than baseline. CXR ? Pulmonary edema but lungs clear and normal oxygen saturation. GERD. Protonix IV. UA negative: Patient does not have any urinary symptoms, stop nitrofurantoin.d/w patient pcp. Hx of ovarian + breast CA. s/p surgery and chemotherapy. dvt prophylax: continue warfrain Ongoing need: Recurrent abdominal pain/constipation/L. LFTs-need renal function electrolyte LFT monitoring as well as need workup for elevated LFTs including MRCP. Quality Stroke Does the patient have a stroke diagnosis?: No VTE Prior VTE?: No VTE Risk Level:: Medical - moderate - high VTE Device Contraindication: Treatment Not Indicated VTE Drug Contraindication: N/A - Med Ordered
--- NOTE | 2025-04-02 16:38 | MHC.CM.PN ---
PT REPORTS SHE LIVES ALONE AND IS INDEPENDENT WITH CARE SHE HAS NO DME AND NO SERVICES SHE REPORTS SHE HAS A HCP ON FILE AT [facility], UNABLE TO REQUEST COPY ON WEEKEND PCP: KD ARGUELLO OBSERVATION NOTICE DELIVERED PT IS AWARE PT SERVICES HAVE BEEN RECOMMENDED, HOWEVER STATES SHE FEELS SHE IS JUST CAPABLE WHEN SHE CAME IN SO DOES NOT FEEL THEY ARE NEEDED FAMILY WILL TRANSPORT AT [place]
[2025-04-02] MEDS: Calcium Carbonate 750 MG TAB.CHEW PO (21:34)
[2025-04-03] VITALS (8 sets, daily range): BP systolic 109–123; BP diastolic 55–79; PULSE 53–86; RESP 12–18; TEMP 36–36.5; O2SAT 94–99
--- NOTE | 2025-04-03 | ECG_ITS ---
Test Reason : rib cage pain Blood Pressure : */* mmHG Vent. Rate : 72 BPM Atrial Rate : * BPM P-R Int : * ms QRS Dur : 102 ms QT Int : 388 ms P-R-T Axes : * -12 22 degrees QTcB Int : 424 ms Atrial fibrillation Nonspecific ST abnormality Abnormal ECG When compared with ECG of 01-Apr-2025 22:44, Nonspecific T wave abnormality, improved in Lateral leads Referred By: Ambar Venegas Electronically Signed By: August Vera
[2025-04-03] MEDS: Pantoprazole Sodium 40 MG/10 ML VIAL IVPUSH (05:35)
[2025-04-03] MEDS: Furosemide 20 MG TABLET PO (09:01)
[2025-04-03] MEDS: Apixaban 5 MG TABLET PO ×2 (09:01→20:41)
[2025-04-03] MEDS: Ezetimibe 10 MG TABLET PO (09:01)
[2025-04-03] MEDS: dilTIAZem HCL CD 180 MG CAP.ER.24H PO (09:01)
[2025-04-03] MEDS: 0.9 % Sodium Chloride Flush 3 ML SYRINGE IVFLUSH ×3 (09:03→20:41)
[2025-04-03 10:07] LABS: Alanine Aminotransferase 22 U/L (0-31); Albumin Level 3.9 g/dL (3.5-5.0); Alkaline Phosphatase 76 U/L (39-117); Aspartate Amino Transferase 25 U/L (5-31); Bilirubin Direct 0.4 mg/dL (0.0-0.5); Bilirubin Total 0.9 mg/dL (0.0-1.0); Total Protein 6.2 g/dL (6.5-8.0)
--- NOTE | 2025-04-03 16:44 | HO.PM.IMPN ---
Subjective Subjective Date of Service: 04/03/25 Interval History: abd pain ,constipation ,elevated lft Review of Systems abd pain seems improved has rib cage pain ,dry cough Review of Systems: Yes all other systems are reviewed and are negative Physical Exam Vital Signs: Vital Signs: Last Vital Signs Temp 97.0 F 04/03/25 16:01 Pulse 53 04/03/25 16:01 Resp 12 04/03/25 16:01 BP 109/55 L 04/03/25 16:01 Pulse Ox 94 04/03/25 16:01 O2 Del Method Room Air 04/03/25 16:01 BMI result Body Mass Index 25.1 Appearance: Alert.? Oriented X3.? cvs: rrr, [id number]. res: clear to auscultation ,no rhonchii or wheezing abd: no rebound or guarding ,nt, bs present. ext pulses present , no cyanosis. neuro: axo3 , nonfocal. Objective Data Active Medications Apixaban (Apixaban 5 Mg Tablet) 5 mg PO BID [facility] Last Admin: 04/03/25 09:01 Dose: 5 mg Documented By: IVONE Calcium Carbonate (Calcium Carbonate 750 Mg Tab.Chew) 750 mg PO Q6H PRN PRN Reason: Heartburn Last Admin: 04/02/25 21:34 Dose: 750 mg Documented By: YURI Diltiazem HCl (Diltiazem Hcl Cd 180 Mg Cap.Er.24h) 180 mg PO DAILY [facility]; Protocol Last Admin: 04/03/25 09:01 Dose: 180 mg Documented By: IVONE Ezetimibe (Ezetimibe 10 Mg Tablet) 10 mg PO DAILY [facility] Last Admin: 04/03/25 09:01 Dose: 10 mg Documented By: IVONE Furosemide (Furosemide 20 Mg Tablet) 20 mg PO DAILY [facility]; Protocol Last Admin: 04/03/25 09:01 Dose: 20 mg Documented By: IVONE Guaifenesin (Guaifenesin 200 Mg/10 Ml 10 Ml Liquid) 10 ml PO Q6H PRN PRN Reason: Cough Hydromorphone HCl (Hydromorphone Hcl 0.5 Mg/0.5 Ml Syringe) 0.5 mg IVPUSH Q4H PRN; Protocol PRN Reason: Pain, Severe (Pain Scale 7-10) Metoclopramide HCl (Metoclopramide Hcl 10 Mg/2 Ml Vial) 5 mg IVPUSH Q6H PRN PRN Reason: Nausea and Vomiting Pantoprazole Sodium (Pantoprazole Sodium 40 Mg/10 Ml Vial) 40 mg IVPUSH DAILY@0630 [facility] Last Admin: 04/03/25 05:35 Dose: 40 mg Documented By: YURI Sodium Chloride (0.9 % Sodium Chloride Flush 3 Ml Syringe) 3 ml IVFLUSH QSHIFT [facility] Last Admin: 04/03/25 16:30 Dose: 3 ml Documented By: IVONE Labs 04/02/25 06:29 04/02/25 06:29 Labs: Laboratory Results - last 24 hr 04/03/25 09:38 Total Bilirubin 0.9 Direct Bilirubin 0.4 AST 25 ALT 22 Alkaline Phosphatase 76 Total Protein 6.2 L Albumin 3.9 Microbiology Microbiology Results: Microbiology 04/01/25 09:35 Blood Culture - Preliminary Blood - Venous No growth after 48 hours. 04/01/25 09:30 Blood Culture - Preliminary Blood - Venous No growth after 48 hours. Assessment and Plan (1) Elevated LFTs: Status: Acute Assessment and Plan: 89 y/o woman admitted with: Abdominal pain, unclear etiology associated with nausea and vomiting; elevated total/direct bilirubin and. AST. ?Acute gastritis ?2/2 nitrofurantoin. Admit to hospitalist service. NPO. Supportive therapy with IV fluids, antiemetic and PPI IV. Gi eval noted-in view of recurrent symptoms, LFT elevation- seems improved. mrcp: No choledocholithiasis Leukocytosis, likely secondary to vomiting-reactive and resolved. blood culture neg@48hrs Chest pain. ECG x2 showed no acute ischemic changes. Troponin negative x2. Recheck troponin. Recheck ECG - negative . Constipation: no abd pain tolertaing diet. Atrial fibrillation, rate controlled. Continue diltiazem and warfarin. INR is INR mildly subtherapeutic,. Daily INR checks. History of postop PE. On warfarin. INR therapeutic. Essential hypertension. Continue diltiazem and spironolactone. mild HFrEF (EF 45-50%) excerebation: has some ribcage soarness,cough CXR ? Pulmonary edema but lungs clear and normal oxygen saturation. bnp elevated ,rib cage xary seems fine plan: will check ekg ,trop,added iv lasix moniter I&O, daily weight, renal function electrolytes. GERD. Protonix IV. UA negative: Patient does not have any urinary symptoms, stop nitrofurantoin.d/w patient pcp. Hx of ovarian + breast CA. s/p surgery and chemotherapy. dvt prophylax: continue warfrain Ongoing need: Recurrent abdominal pain/constipation/L. LFTs-need renal function electrolyte LFT monitoring as well as need workup for elevated LFTs including MRCP. (2) Nausea and vomiting: Status: Acute (3) Constipation: Status: Acute Quality Stroke Does the patient have a stroke diagnosis?: No VTE Prior VTE?: No VTE Risk Level:: Medical - moderate - high VTE Device Contraindication: Treatment Not Indicated VTE Drug Contraindication: N/A - Med Ordered
[2025-04-03 17:45] LABS: Anion Gap 14 (12-20); Blood Urea Nitrogen 15 mg/dL (9-16); Calcium 9.8 mg/dL (8.4-10.2); Carbon Dioxide 20 mmol/L (22-29); Chloride 110 mmol/L (96-108); Creatinine Clr Calc Pharmacy 39.4; Estimated Glomerular Filt Rate 56; Glucose Fasting 80 mg/dL (60-99); Potassium 4.4 mmol/L (3.3-5.1); Sodium 140 mmol/L (135-145)
[2025-04-03 17:53] LABS: Troponin-I High Sensitivity 9.8 ng/L (<3.5-17.0)
[2025-04-03] MEDS: Furosemide 20 MG/2 ML VIAL IVPUSH (17:54)
[2025-04-03 19:54] LABS: INTERNATIONAL NORM RATIO 1.8 (0.9-1.1); Prothrombin Time 20.7 SEC (10.9-12.4)
[2025-04-04 04:00] VITALS: BP 121/69; PULSE 75; RESP 16; TEMP 36.2; O2SAT 98
[2025-04-04] MEDS: Pantoprazole Sodium 40 MG/10 ML VIAL IVPUSH (05:34)
[2025-04-04 06:00] VITALS: BMI 24.6
[2025-04-04 06:57] LABS: B Type Natriuretic Peptide 369 pg/mL (<100)
[2025-04-04 07:04] LABS: Anion Gap 14 (12-20); Blood Urea Nitrogen 14 mg/dL (9-16); Calcium 10.2 mg/dL (8.4-10.2); Carbon Dioxide 26 mmol/L (22-29); Chloride 109 mmol/L (96-108); Creatinine Clr Calc Pharmacy 33.2; Estimated Glomerular Filt Rate 50; Glucose Random 89 mg/dL (60-115); Potassium 4.5 mmol/L (3.3-5.1); Sodium 144 mmol/L (135-145)
[2025-04-04 07:47] VITALS: BP 97/65; PULSE 88; RESP 12; TEMP 36.6; O2SAT 97
[2025-04-04] MEDS: Ezetimibe 10 MG TABLET PO (08:44)
[2025-04-04] MEDS: Furosemide 20 MG/2 ML VIAL IVPUSH (08:44)
[2025-04-04] MEDS: 0.9 % Sodium Chloride Flush 3 ML SYRINGE IVFLUSH (08:45)
[2025-04-04] MEDS: Apixaban 5 MG TABLET PO (08:45)
[2025-04-04] MEDS: dilTIAZem HCL CD 180 MG CAP.ER.24H PO (08:45)
--- NOTE | 2025-04-04 11:53 | P.DS_ITS ---
DS: Providers Provider Date of Service: 04/04/25 Date of admission: 04/01/25 21:09 Date of discharge: 04/04/25 Primary care physician: Ciaran Man MD Consults: 04/01/25 23:04 Consult to Gastroenterology Routine Consulting Provider: Allison Matamoros Reason for consultation: Recurrent upper abdominal pain, elevated bilirubin and AST Has provider been notified: No Attending physician on discharge: Ambar Vengeas Discharging clinician: Ambar Venegas DS: Diagnosis Discharge Diagnosis (1) Elevated LFTs: Status: Acute (2) Nausea and vomiting: Status: Acute (3) Constipation: Status: Acute DS: Summary Hospital Course Hospital Course: 89 years old woman with past medical history significant for GERD, postoperative PE, recurrent UTIs, stroke, atrial fibrillation on warfarin, essential hypertension, HFrEF (45-50%) and ovarian + breast CA presents to the emergency department complaining of generalized abdominal pain that started 2 days ago associated with nausea and vomiting. She denied constipation to me, anatomic that actually she has no problems with constipation. Now, she complains of right-sided chest pain/upper abdominal pain that increases with inspiration. She will has been unable to eat due to early satiety. He denied fever, chills, or any acute urinary symptoms. He denies shortness or breath, dizziness, cough or palpitations. She denied tobacco smoking, alcohol abuse or illicit drug use. Recently received a prescription for nitrofurantoin. Recently, the patient has been evaluated twice at [facility] one for diverticulitis and another one for upper abdominal pain. In the ED she was found to stable vital signs. Blood workup showed leukocytosis of 13.3. There is no lactic acidosis. Hemoglobin is 12.1 and platelet 178. INR is 2.2. There are no electrolyte imbalances. BUN is 23 and creatinine 1.2 1. Total bilirubin is 2.0 endarterectomy bilirubin 1.2. AST is 43 and alk-phos 71. Troponin is negative x2 (13.4 --> 12.7). Lipase is normal. TSH 3.40. Urinalysis is unremarkable. Viral testing for COVID-19, influenza and RSV is negative. CXR showed possible findings of mild interstitial edema in the [facility] clinical setting. Abdominal ultrasound showed unremarkable gallbladder. Abdomen pelvis CT scan with IV contrast, moderate constipation, colonic diverticulosis without diverticulitis no cyanosis oxygen. It also showed bibasilar atelectasis and/or scaring; and cardiomegaly. ECG x2 showed no acute ischemia. ED tx: Morphine 8 mg IV total, Zofran 4 mg IV, acetaminophen 975 mg p.o., MiraLax 17 g PO, [employer] 17.2 mg p.o., Fleet enema. Hospital course: 89 y/o woman admitted with:Abdominal pain, unclear etiology associated with nausea and vomiting; elevated total/direct bilirubin and. AST-thought to be Acute gastritis vs sec nitrofurantoin use: Patient had denies any urinary comp laints, UA negative-hence nitrofurantoin discontinued.Leukocytosis thought to be reactive to nausea vomiting which is resolved. No new symptoms. Discussed with the patient's PCP-she was started for nitrofurantoin empirically outpatient, currently does not have any symptoms UA negative, agreeable with different antibiotics. Question of elevated LFTs: CT abdomen showed moderate constipation, Seen by GI MRCP done-did not show choledocholithiasis, abdominal pain improved. LFTs are normal. Might have mild elevation secondary to antibiotic use . Constipation: Patient received stool softener and passing bowels. Abdominal pain improved.added prn stool softener and laxative for home. Mild CHF exacerbation(HF with reduced ef): Patient had interstitial changes on on chest x-ray question pulmonary edema, occasional dry cough, also had some discomfort nonspecific lower ribcage: Ribcage chest x-ray also negative. BNP slightly trending up : Patient was started IV Lasix , diuresed well and patient's symptoms improved significantly. Patient says she is at her baseline now. last echo was in 2021 ef :40-45% In addition patient has CT abdomen shows had bibasilar atelectasis at the bases of the lung: Patient was encouraged to for ambulation, incentive spirometry. Patient is currently walking fine without any distress, her symptoms are resolved, her sats are 97% on room air, she is walking fine without any symptoms. Currently will be going home with p.o. Lasix, Lasix dose adjusted to 20 mg b.i.d. Patient was seen by PT -[facility]. CTA abdomen: Incidental findings:Mild mucosal dilatation of proximal and mid abdominal aorta. Bilateral renal cysts largest in the lower pole left kidney measuring 4.5 cm For above incidental CTA abdominal finding-further workup outpatient with PCP if needed. Plan: Monitor CBC, CMP ,bnp outpatient. Lasix 20 mg b.i.d. Continue incentive spirometry Lidocaine patch and Tylenol as needed CHF education given-if gains weight 2 lb or more in a week-will need outpatient Lasix dosing assessment with PCP. Consider Follow-up with cardiology outpatient If any new symptoms go to nearest emergency room. Monitor BMP/BNP outpatient with PCP, consider outpatient cardiology follow-up. Above management discussed with the patient detail length she understand and in agreement with the above plan, time spent 40 minute, all question answered, staff was present during conversation. Time Attestation Total time managing care of this patient today: 40 mintues. Discharge Coordination Time (in mins): 40 minute. Quality: Safe Use of Opioids Does Pt have an Active Cancer Diagnosis on the Problem List?: No Quality: Stroke Does the patient have a stroke diagnosis?: No Physical Exam Vital Signs: Vital Signs: Last Vital Signs Temp 97.9 F 04/04/25 07:47 Pulse 88 04/04/25 07:47 Resp 12 04/04/25 07:47 BP 97/65 04/04/25 07:47 Pulse Ox 97 04/04/25 07:47 O2 Del Method Room Air 04/04/25 07:47 BMI result Body Mass Index 24.6 Appearance: Alert.? Oriented X3. cvs: rrr, [id number] . res: clear to auscultation ,no rhonchii or wheezing abd: no rebound or guarding ,nt, bs present. ext pulses present , no cyanosis . neuro: axo3 , nonfocal. DS: Data Data Completed and Pending Labs on day of discharge: Laboratory Results - last 24 hr 04/03/25 04/03/25 04/04/25 17:00 17:20 06:04 PT 20.7 H D INR 1.8 H Sodium 140 144 Potassium 4.4 4.5 Chloride 110 H 109 H Carbon Dioxide 20 L 26 Anion Gap 14 14 BUN 15 14 Creatinine 0.94 1.03 Estim Creat Clear Calc 39.4 33.2 Estimated GFR 56 50 Random Glucose 89 Fasting Glucose 80 Calcium 9.8 10.2 Troponin I High Sens 9.8 B-Natriuretic Peptide 369 H Preliminary micro results at discharge 04/01/25 09:35 Blood Culture - Preliminary Blood - Venous No growth after 48 hours. 04/01/25 09:30 Blood Culture - Preliminary Blood - Venous No growth after 48 hours. Imaging Chest x-ray: Radiologist's impression: ITS Impressions KUB X-Ray 04/01/25 08:09 IMPRESSION: No intestinal obstruction pattern. Chest X-Ray 04/01/25 08:11 IMPRESSION: Consider mild interstitial edema in the correct clinical settings. 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 Abdomen Ultrasound 04/01/25 11:19 IMPRESSION: Unremarkable gallbladder ultrasound Abdomen/Pelvis CT 04/01/25 14:56 IMPRESSION: Moderate constipation. Colonic diverticulosis without diverticulitis. No signs of obstruction. Mild mucosal dilatation of proximal and mid abdominal aorta. Bilateral renal cysts largest in the lower pole left kidney measuring 4.5 cm Bibasilar atelectasis and/or scarring. All cardiomegaly. Fleischner guidelines were followed. Discharge Plan Discharge Anticipated Discharge Date/Time: 04/04/25 11:32 Patient Disposition: Home, Self-Care Discharge Diagnosis: Abdominal pain, elevated LFTs, possible mild CHF exacerbation Referrals: Ciaran Man MD [Primary Care Provider] - 1 Week Discharge Medications: New docusate sodium [Colace] 100 mg capsule 100 mg PO BID PRN (Reason: constipation) Qty: 30 0RF polyethylene glycol 3350 [Miralax] 17 gram/dose powder 17 g PO DAILY PRN (Reason: constipation) Qty: 119 0RF guaifenesin [Chest Congestion Relief] 100 mg/5 mL liquid 200 mg PO Q6H PRN (Reason: congestion) Qty: 473 0RF Continued diltiazem HCl 180 mg capsule,extended release 24 hr 1 cap PO DAILY pantoprazole 40 mg tablet,delayed release (DR/EC) 1 tab PO DAILY spironolactone 25 mg tablet 25 mg PO DAILY Eliquis 5 mg tablet 5 mg PO BID Nexlizet 180-10 mg tablet 1 tab PO DAILY Changed furosemide 20 mg tablet 20 mg PO BID Qty: 60 0RF Discontinued nitrofurantoin monohyd/m-cryst 100 mg capsule 1 cap PO BID Rx Instructions: end date 04/04/25 Discharge Orders: Discharge Order (Routine); Ordered 04/04/25 Ordered By: Ambar Venegas Diet: Advance to usual diet Activity on Discharge: As tolerated Stand Alone Forms: Patient Portal Discharge page Print Language: Cameroonian Other Ambulatory Orders: B Type Natriuretic Peptide (Routine) Timeframe: 1 Day Facility: [facility] - Location: Laboratory Ordered By: Ambar Venegas Complete Blood Count no Diff (Routine) Timeframe: 1 Week Facility: [facility] - Location: Laboratory Ordered By: Ambar Venegas Comprehensive Met. Panel (Routine) Timeframe: 1 Week Facility: [facility] - Location: Laboratory Ordered By: Ambar Venegas Care Plan Goals: As below Health Concerns: Monitor CBC, CMP, BNP outpatient. Lasix 20 mg b.i.d. Continue incentive spirometry Lidocaine patch and Tylenol as needed CHF education given-if gains weight 2 lb or more in a week-will need outpatient Lasix dosing assessment with PCP. Consider Follow-up with cardiology outpatient If any new symptoms go to nearest emergency room. Monitor BMP/BNP outpatient with PCP, consider outpatient cardiology follow-up. Plan of Treatment: As above. Assessment: As above.
--- NOTE | 2025-04-04 12:02 | MHC.CM.PN ---
PT WILL DC HOME TODAY WITH NO SERVICES VIA FAMILY TRANSPORT
[2025-04-04 12:04] VITALS: BP 113/55; PULSE 84; RESP 12; TEMP 36.1; O2SAT 97
== END 2025-04-04 14:08 | disposition home or self-care (01) ==
LOC: HO.ED 21:30 → HO.EDOVER 21:37 → HO.S3 04-02 11:41
PROVIDERS: Physician Assistant; Admitting Provider Internal Medicine; Emergency Provider Emergency Medicine; PCP Internal Medicine; Visit Provider Internal Medicine
DX: R10.10 Upper abdominal pain, unspecified (principal); R79.89 Other specified abnormal findings of blood chemistry; I11.0 Hypertensive heart disease with heart failure; I50.20 Unspecified systolic (congestive) heart failure; R07.9 Chest pain, unspecified; R11.2 Nausea with vomiting, unspecified; R06.02 Shortness of breath; R10.9 Unspecified abdominal pain; K59.00 Constipation, unspecified; I48.91 Unspecified atrial fibrillation; K21.9 Gastro-esophageal reflux disease without esophagitis; D72.829 Elevated white blood cell count, unspecified; Z79.01 Long term (current) use of anticoagulants; Z85.3 Personal history of malignant neoplasm of breast; Z85.43 Personal history of malignant neoplasm of ovary
CPT/HCPCS: 0241U; 36415; 71045; 71111; 74018; 74177; 74181; 76705; 80048; 80076; 81001; 83605; 83690; 83735; 83880; 84443; 84484; 85025; 85610; 85730; 87040; 93005; 96365; 96366; 96375; 96376; 97161; 99221; 99285; J0131; J1171; J1938; J2270; J2405; J2470; Q9967

== ENCOUNTER → 2025-04-01 08:51 | Outpatient (BNV) | payer MEDICARE, SELFPAY | PROVIDERS: Emergency Provider Emergency Medicine; PCP Internal Medicine; Visit Provider Internal Medicine Cardiovascular Disease | DX: I48.91 Unspecified atrial fibrillation (principal) | CPT/HCPCS: 93010 ==

== ENCOUNTER → 2025-04-01 08:52 | Outpatient (BNV) | payer MEDICARE, SELFPAY | PROVIDERS: Emergency Provider Emergency Medicine; PCP Internal Medicine; Visit Provider Radiology Diagnostic Radiology | DX: K59.00 Constipation, unspecified (principal); K57.30 Diverticulosis of large intestine without perforation or abscess without bleeding; N28.1 Cyst of kidney, acquired; I51.7 Cardiomegaly; J98.11 Atelectasis; R10.11 Right upper quadrant pain; R06.02 Shortness of breath; R10.9 Unspecified abdominal pain | CPT/HCPCS: 71045; 74018; 74177; 76705 ==

== ENCOUNTER 2025-04-01 21:09 | Outpatient (BNV) | payer MEDICARE, SELFPAY | END 2025-04-03 18:52 | PROVIDERS: Admitting Provider Internal Medicine; Emergency Provider Emergency Medicine; PCP Internal Medicine; Visit Provider Internal Medicine Cardiovascular Disease | DX: I48.91 Unspecified atrial fibrillation (principal) | CPT/HCPCS: 93010 ==

== ENCOUNTER 2025-04-01 21:09 | Outpatient (BNV) | payer MEDICARE, SELFPAY | END 2025-04-03 14:40 | PROVIDERS: Admitting Provider Internal Medicine; Emergency Provider Emergency Medicine; PCP Internal Medicine; Visit Provider Radiology Diagnostic Radiology | DX: R07.81 Pleurodynia (principal) | CPT/HCPCS: 71111 ==

== ENCOUNTER 2025-04-01 21:09 | Outpatient (BNV) | payer MEDICARE, SELFPAY | END 2025-04-02 17:13 | PROVIDERS: Admitting Provider Internal Medicine; Emergency Provider Emergency Medicine; PCP Internal Medicine; Visit Provider Radiology Diagnostic Radiology | DX: R10.9 Unspecified abdominal pain (principal); R74.01 Elevation of levels of liver transaminase levels | CPT/HCPCS: 74181 ==

== ENCOUNTER → 2025-04-01 21:09 | Outpatient (BNV) | payer MEDICARE, SELFPAY | PROVIDERS: Admitting Provider Internal Medicine; Emergency Provider Emergency Medicine; PCP Internal Medicine; Visit Provider Internal Medicine | DX: R79.89 Other specified abnormal findings of blood chemistry (principal); K59.00 Constipation, unspecified; R11.2 Nausea with vomiting, unspecified | CPT/HCPCS: 99231 ==

== ENCOUNTER → 2025-04-01 21:09 | Outpatient (BNV) | payer MEDICARE, SELFPAY | PROVIDERS: Admitting Provider Internal Medicine; Emergency Provider Emergency Medicine; PCP Internal Medicine; Visit Provider Internal Medicine Gastroenterology | DX: R10.84 Generalized abdominal pain (principal); K59.00 Constipation, unspecified; R79.89 Other specified abnormal findings of blood chemistry; D72.829 Elevated white blood cell count, unspecified; I50.9 Heart failure, unspecified | CPT/HCPCS: 99499 ==

== ENCOUNTER 2025-08-08 15:03 | Outpatient (REF) | payer MEDICARE, SELFPAY ==
--- OUTSIDE RECORDS SUMMARY | 2025-08-04 09:05 | XMS_ITS | Encounter Summary ---
Author Organization [facility] Address [address] [place] [address] [place] [id number] Phone Care Team Providers Care Independent Sales Representative Name Role Phone Chris Martinez MD Unavailable [phone] Shanta Gregory MD Unavailable [phone] Ciaran Man DO Primary Care Provider [phone] Reason for Referral * Outpatient Procedure - New Request Specialty Diagnoses / Procedures Referred By Katelin leblanc Referred To Contact Diagnoses Cardiomyopathy, unspecified type Aortic valve stenosis with insufficiency, etiology of cardiac valve disease unspecified Procedures Adult Echo TTE Kamilah Sloan DNP [address] [place] [id number] Phone: tel: fax: mailto: Referral ID Status Reason Start Date Expiration Date V isits Requested Visits Authorized [id number] New Request 03/10/2025 1 1 Reason for Visit * Outpatient Procedure - New Request Specialty Diagnoses / Procedures Referred By Katelin leblanc Referred To Contact Diagnoses Cardiomyopathy, unspecified type Aortic valve stenosis with insufficiency, etiology of cardiac valve disease unspecified Procedures Adult Echo TTE Kamilah Sloan DNP [address] [place] [id number] Phone: tel: fax: [email or web address]:[email or web address] Referral ID Status Reason Start Date Expiration Date V isits Requested Visits Authorized [id number] New Request 03/10/2025 1 1 Encounter Details Date Type Department Care Team (Latest Contact Info) Description 08/04/2025 9:05 AM EDT - 08/04/2025 11:59 PM EDT Hospital Encounter Echo Lab [place] [place] [address] Kamilah Sloan, [facility] [address] [place] [address] Arrived Discharge Disposition: Home or Self Care Social History Tobacco Use Types Packs/Day Years Used Date Smoking Tobacco: Former Cigarettes Q uit: 1970 Smokeless Tobacco: Never Alcohol Use Standard Drinks/Week Comments Yes 0 (1 standard drink = 0.6 oz pur e alcohol) rare Home Health Assessment: Transportation Answer Date Recorded Lack of Transportation (Medical) No 05/25/2024 Lack of Transportation (Non-Medical) No 05/25/2024 Patient Unable or Declines to Respond No 05/25/2024 Education Answer Date Recorded Are you interested in more education? Not on ramón e 02/24/2023 Are you concerned about learning? Not on file 02/24/2023 No 02/24/2023 No 02/24/2023 Food Answer Date Recorded Within the past 6 months we worried whether our food would run out before we got money to buy more. Never True 03/22/2025 Within the past 6 months the food we bought just didn't last and we didn't have enough money to get more. Never True Residential Stability Answer Date Recor ded What is your housing situation today? I have andreea sing 03/22/2025 How many times have you move d in the past 12 months? Zero (I did not move) 03/22/2025 Paying for Meds Answer Date Recorded Do you have trouble paying for medicines? No 03/22/2025 Paying Utility Bills Answer Date Record ed Do you have trouble paying your heating or elect ricity bill? No 03/22/2025 Transportation Answer Date Recorded Has the lack of transportati on kept you from medical appointments or from getting medications? No 03/22/2025 Digital Access Answer Date Recorded No 03/22/2025 Yes 03/22/2025 Do you have reliable internet access at home? Ye s 03/22/2025 Do you have a device (e.g., phone, tablet, computer) with a working camera? Yes 03/22/2025 Intimate Partner Violence Answer Date R ecorded Are you denied basic needs s uch as food, clothing, or medical care? No 03/25/2025 In the past 12 months have y ou been in a relationship with a person who hurts, threatens, or tries to control you? No 03/25/2025 Are you denied basic needs s uch as food, clothing, or medical care? No 03/25/2025 In the past 12 months have y ou been in a relationship with a person who hurts, threatens, or tries to control you? No 03/25/2025 Comments No Sex and Gender Information Value Date Recorded Sex Assigned at Female 06/15/2018 11:58 AM EDT Legal Sex Female 7:02 PM EST Gender Identity Female 06/15/2018 11:58 AM EDT Sexual Orientation Straight 06/15/2018 11 :58 AM EDT documented as of this encounter Medications at Time of Discharge aluminum-magnesium hydroxide-simethicon e (MAALOX) 200-200-20 mg/5 mL Susp Take 30 mL by mouth every 6 (six) hours as needed (abdominal pain). 354 mL 03/25/2025 apixaban (ELIQUIS) 5 mg tablet Take 1 tablet (5 mg total) by mouth 2 (two) times a day. 60 tablet 03/26/2023 bacillus coagulans-inulin 1 billion-250 cell-mg Cap Take 250 mg by mouth daily. bempedoic acid-ezetimibe (NEXLIZET) 180-10 mg per tabletIndications:Me dication refill Take 1 tablet by mouth daily. 90 tablet 3 11/23/2024 cholecalciferol (VITAMIN D3) 1,000 unit tablet Take 1,000 Units by mouth daily. cranberry 500 mg Cap Take by mouth daily. dilTIAZem (TIAZAC) 180 MG 24 hr capsuleIndications:M edication refill Take 1 capsule (180 mg total) by mouth daily. 90 capsule 3 09/22/2024 furosemide (LASIX) 20 MG tablet Take 1 tablet (20 mg total) by mouth daily. 90 tablet 3 03/10/2025 magnesium 250 mg Tab Take 325 mg by mouth daily. 04/16/2024 ondansetron (ZOFRAN-ODT) 4 MG disintegrating tablet Take 1 tablet (4 mg total) by mouth every 8 (eight) hours as needed for nausea. 20 tablet 03/25/2025 pantoprazole (PROTONIX) 40 MG tablet Take 1 tablet (40 mg total) by mouth daily. 30 tablet 03/25/2025 spironolactone (ALDACTONE) 25 MG tablet Take 1 tablet (25 mg total) by mouth daily. 90 tablet 3 03/10/2025 documented as of this encounter Plan of Treatment Upcoming Encounters Date Type Department Care Team (Late st Contact Info) Description 02/20/2026 1:00 PM EDT Office Visit [facility] [address] [place] [address] [address] Floor, [address] [place] [address] Israel Goodrich MD [address] [facility], [address] [place] [address] [email or web address] documented as of this encounter Procedures Procedure Name Priority Date/Time Associated Diagnosis Comments TTE COMPREHENSIVE Routine 08/04/2025 10: 14 AM EDT Cardiomyopathy, unspecified type Aortic valve stenosis with insufficiency, etiology of cardiac valve disease unspecified documented in this encounter Results * TTE COMPREHENSIVE (08/04/2025 10:14 AM EDT) Height 170 cm Weight 69 kg Systolic BP 116 mmHg Diastolic BP 65 mmHg Interventricular Septum Thickness 12 6 - 11 mm Left Ventricle Internal Diameter End Diastole 44 37 - 52 mm Left Ventricle Internal Diameter End Systole 30 <35 mm Left Ventricular Outflow Tract Diameter 20.0 mm Left Ventricular Posterior Wall Thickness 13 6 - 11 mm Ejection Fraction 60 50 - 75 Percent Left Atrium Dimension Anterior-Posterior 47 15 - 40 mm Aortic Valve Regurgitation Pressure Half Time 436 ms Aortic Valve Peak Velocity 2.5 m/s Aortic Valve Peak Velocity 2.5 m/s Aortic Valve Peak Gradient 25 mmHg Aortic Valve Mean Gradient 15 mmHg Aortic Valve Time Velocity Integral 595.0 mm Aortic Arch Diameter 26 mm Aortic Sinus Diameter 32 <40 mm Ascending Aorta Diameter 34 <36 mm Inferior Vena Cava Diameter 16 <21 mm Pulmonary Valve Peak Velocity 0.9 m/s Pulmonary Valve Peak Gradient 3 mmHg Right Ventricle Basal Diameter 41 25 - 41 mm Tricuspid Valve Peak Velocity 2.7 m/s Raw LV EF% 54 % Relative Wall Thickness 0.59 0.22 - 0.42 Aortic Valve Prosthetic Peak Gradient 25 mmHg Aortic Valve Prosthetic Mean Gradient 15 mmHg Aorta Sinus Index by Height 1.88 cm/m Aorta Sinus CSA index by Height 4.73 cm2/m Asc Aorta CSA Index by Height 5.34 cm2/m Right Ventricle to Right Atrium Pressure Gradient 29 mmHg Right Ventricle Peak Systolic Pressure (Assuming RAP 10) 39 mmHg MGB CV ECHO TV RVSP (ASSUMING RAP OF 5) 34 mmHg RVSP (Exclusive of RAP) 29 mmHg Pulmonic Valve Prosthetic Peak Gradient 3 mmHg Body Surface Area 1.80 m2 Left Atrial Volume Index 65 16 - 34 mL/m2 Right Ventricle Peak Systolic Pressure 32 mmHg Left Ventricle indexed to BSA 112.8 g/m2 Left Atrial Volume 117 mL Left Atrial Volume Index by Height 69 mL/m LVOT VTI REST 20.0 cm Aortic Valve Sinus Index by BSA 18 mm/m2 Ascending Aorta Index 19 mm/m2 Right Atrium Pressure Estimated 3 mmHg Ascending Aorta Index 19 mm Aortic Sinus Index 18 mm Ascending Aorta Diameter 19 mm Aortic Valve Sinus Index 1 18 19 - 27 mm AO ASC DIAM BSA INDEX 18.89 Anatomical Region Laterality Modality Heart Ultrasound Narrative 08/05/2025 6:50 AM EDT Images from the original result were not included. 1. The indication is aortic regurgitation severity. The estimated ejection fraction is 55 to 60%. Diastolic function was indeterminate and there is mild concentric LVH. Regional wall motion is normal. 2. Normal RV size and function. 3. Trileaflet aortic valve there is mild to moderate aortic stenosis with a mean gradient of 15 mmHg and a peak of 25 mmHg. There is moderate aortic regurgitation the pressure half-time is 436 ms. The ascending aortic root is normal size. 4. Moderate mitral and moderate tricuspid sufficiency, the PA pressure is normal at 32 mmHg. 5. Normal pericardium when compared to the prior echo done in February of this year, the degree of aortic stenosis and regurgitation as well as mitral regurgitation is about the same the pulmonary artery pressure on the study is lower. Left Ventricle The left ventricle is normal in size. There is mild concentric hypertrophy. The interventricular septal thickness is 12 mm. The LV posterior wall thickness is 13 mm. There is normal left ventricular systolic function. The LV ejection fraction is 60% (calculated via biplane measurement). LV diastolic function parameters are indeterminate in total. There is a false tendon (normal variant). Right Ventricle The right ventricle is normal in size. There is normal right ventricular systolic function. Left Atrium The left atrium is severely dilated. The left atrial volume index by BSA is 65 mL/m2. Right Atrium The right atrium is severely dilated. There is a prominent Eustachian valve (normal variant). The IVC is normal in size. The IVC diameter is 16 mm (normal: <= 21 mm). Mitral Valve There is mild thickening of both mitral leaflets. There is mitral annular calcification. There is no mitral stenosis. There is moderate mitral regurgitation. Tricuspid Valve The tricuspid valve appears normal. There is no tricuspid stenosis. There is moderate tricuspid regurgitation. The RV systolic pressure was calculated at 32 mmHg (using TR peak velocity of 2.7 m/s and assuming an RA pressure of 3 mmHg). Aortic Valve The aortic valve is tricuspid. Multiple leaflets are severely thickened. There is [id number] aortic stenosis. The peak and mean aortic valve gradients are 25 mmHg and 15 mmHg respectively. The left ventricular outflow tract velocity time integral is 20.0 cm. There is moderate aortic regurgitation. The regurgitation pressure half time is 436 ms. The visualized portions of the thoracic aorta appear normal in size. Pulmonic Valve The pulmonic valve appears normal. There is no pulmonic stenosis. There is trace pulmonic regurgitation. Pericardium The pericardium appears normal. There is no pericardial effusion. General Findings The image quality was fair (3). Technique(s) used in the evaluation: Multiplane, Color flow Doppler and Spectral Doppler. The predominant rhythm during the study was atrial fibrillation. Patient tolerated the procedure well. 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 There is no evidence of patent foramen ovale (PFO) by Doppler. Kamilah Sloan DNP CV ECHO ORDERABLES Final Result documented in this encounter Visit Diagnoses Diagnosis Cardiomyopathy, unspecified type Aortic valve stenosis with insufficiency, etiology of cardiac valve disease unspecified documented in this encounter Care Teams Independent Sales Representative Relationship Specialty Start Date End Date Ciaran Man DO [address] [place] [address] [place] [address] [email or web address] PCP - General Internal Medicine 02/17/25 Chris Martinez MD [address] [place] [address] [email or web address] Hematology and Oncology 05/06/18 Shanta Gregory MD [address] [place] [phone] Internal Medicine 08/24/18 documented as of this encounter Additional Source Comments The information contained in this document represents components of the legal health record. It is not the complete legal health record.[facility]
[2025-08-08 18:40] LABS: Appearance Urine Cloudy; Glucose Urine UA 250 mg/dL (Negative); PH 6.5 (5.0-9.0); Specific Gravity - Urine 1.010 (1.005-1.025); UMIC TRIGGER UACC YES
[2025-08-08 18:47] LABS: Alanine Aminotransferase 12 U/L (0-31); Albumin Level 4.4 g/dL (3.5-5.0); Alkaline Phosphatase 51 U/L (39-117); Anion Gap 13 (12-20); Aspartate Amino Transferase 22 U/L (5-31); Blood Urea Nitrogen 32 mg/dL (9-16); Calcium 10.2 mg/dL (8.4-10.2); Carbon Dioxide 25 mmol/L (22-29); Chloride 106 mmol/L (96-108); Estimated Glomerular Filt Rate 42; Potassium 4.6 mmol/L (3.3-5.1); Sodium 139 mmol/L (135-145); Total Protein 6.6 g/dL (6.5-8.0); Uric Acid 7.0 mg/dL (2.4-5.7)
[2025-08-08 19:07] LABS: UACC Culture Trigger YES
--- OUTSIDE RECORDS SUMMARY | 2025-08-08 19:14 | XMS_ITS | Encounter Summary ---
Author Organization [facility] Address [address] [place] [address] [place] [address] Phone Care Team Providers Care Visual Journalist Name Role Phone Chris Martinez MD Unavailable Shanta Gregory MD Unavailable [phone] Ciaran Man DO Primary Care Provider [phone] Encounter Details Date Type Department Care Team (Late st Contact Info) Description 03/07/2025 Procedure Pass [facility], Ct Scan - [address] [id number] Social History Tobacco Use Types Packs/Day Years [...] got money to buy more. Never True 03/07/2025 Within the past 6 months the food we bought just didn't last and we didn't have enough money to get more. Never True Residential Stability Answer Date Recor ded What is your housing situation today? I have andreea serrano 03/07/2025 How many times have you move d in the past 12 months? Zero (I did not move) 03/07/2025 Paying for Meds Answer Date Recorded Do you have trouble paying for medicines? No 03/07/2025 Paying Utility Bills Answer Date Record ed Do you have trouble paying your heating or elect ricity bill? No 03/07/2025 Transportation Answer Date Recorded Has the lack of transportati on kept you from medical appointments or from getting medications? No 03/07/2025 Digital Access Answer Date Recorded No 03/07/2025 Yes 03/07/2025 Do you have reliable internet access at home? Ye s 03/07/2025 Do you have a device (e.g., phone, tablet, computer) with a working camera? Yes 03/07/2025 Intimate Partner Violence Answer Date R ecorded Are you denied basic needs s uch as food, clothing, or medical care? No 03/07/2025 In the past 12 months have y ou been in a relationship with a person who hurts, threatens, or tries to control you? No 03/07/2025 Are you denied basic needs s uch as food, clothing, or medical care? No 03/07/2025 In the past 12 months have y ou been in a relationship with a person who hurts, threatens, or tries to control you? No 03/07/2025 Comments No Sex and Gender Information Value Date Recorded Sex Assigned at Female 06/15/2018 11:58 AM EDT Legal Sex Female 7:02 PM EST Gender Identity Female 06/15/2018 11:58 AM EDT Sexual Orientation Straight 06/15/2018 11 :58 AM EDT documented as of this encounter Functional Status * Calculated C-SSRS Risk Score (Lifetime/Recent) Answer Date of Assessment Author No Risk Indicated 03/07/2025 10:06 AM EDT Kim Stanley RN * [place] Suicide Severity Rating Scale (Screener/Recent Self-Report) Question Answer Date of Assessment Author 1. Wish to be (Past 1 Month) No 025 10:06 AM EDT Kim Pagan, ALMAZ 2. Non-Specific Active Suici roxana Thoughts (Past 1 Month) No 03/07/2025 10:06 AM EDT Isaias Pagan RN 6. Suicidal Behavior (Lifetime) No 5 10:06 AM EDT Kim Pagan, ALMAZ documented as of this encounter Plan of Treatment Upcoming Encounters Date Type Department Care Team (Late st Contact Info) Description 02/20/2026 1:00 PM EDT Office Visit [facility] [address] [place] [address] 3rd Floor, [address] [place] [address] Israel Goodrich MD [address] [place] [address], [address] [address] documented as of this encounter Visit Diagnoses Not on filedocumented in this encounter Care Teams Visual Journalist Relationship Specialty Start Date End Date Ciaran Man DO [address] [place] [address] [place] [address] carlos PCP - General Internal Medicine 02/17/25 Chris Martinez MD [address] [place] [address] Hematology and Oncology 05/06/18 Shanta Gregory MD [address] [place] [address] [facility] [address] [place] [address] Internal Medicine 08/24/18 documented as of this encounter Additional Source Comments The information contained in this document represents components of the legal health record. It is not the complete legal health record.[facility]
--- OUTSIDE RECORDS SUMMARY | 2025-08-08 19:14 | XMS_ITS | Encounter Summary ---
Author Organization [facility] Address [address] [place] [address] Phone Care Team Providers Care Brazer Induction Name Role Phone Chris Martinez MD Unavailable [phone] Ciaran Man DO Primary Care Provider [phone] Shanta Gregory MD Unavailable [phone] Ciaran Man DO Primary Care Provider [phone] Reason for Referral * Consultation (Elective) - Closed Specialty Diagnoses / Procedures Referred By Katelin leblanc Referred To Contact Diagnoses Atrial fibrillation, unspecified type Ciaran Man DO Phone: tel: fax: mailto:[email or web address] [facility] [address] [place] [address] Phone: tel: Referral ID Status Reason Start Date Expiration Date Visits Re quested Visits Authorized [id number] Closed 05/23/2022 05/23/2023 1 1 Encounter Details Date Type Department Care Team (Late st Contact Info) Description 05/23/2022 Transcribe Orders [facility] Department [address] [place] [address] Ciaran Man DO [address] [place] [address] carlos Atrial fibrillation, unspecified type (Primary Dx) Social History Tobacco Use Types Packs/Day Years Used Date Smoking Tobacco: Former Cigarettes Q uit: 1970 Smokeless Tobacco: Never Alcohol Use Standard Drinks/Week Comments Yes 0 (1 standard drink = 0.6 oz pur e alcohol) rare Comments No Sex and Gender Information Value Date Recorded Sex Assigned at Female 06/15/2018 11:58 AM EDT Legal Sex Female 7:02 PM EST Gender Identity Female 06/15/2018 11:58 AM EDT Sexual Orientation Straight 06/15/2018 11 :58 AM EDT documented as of this encounter Plan of Treatment Upcoming Encounters Date Type Department Care Team ([facility] Contact Info) Description 02/20/2026 1:00 PM EDT Office Visit [facility] [address] [place] [address] 3rd [facility], [address] [address] Israel Goodrich MD [address] [place] [address] [email or web address] Scheduled Referrals Name Type Priority Associated Diagnoses Order Schedule Ambulatory referral to [facility] Anticoagulation Clinic Outpatient Referral Routine Atrial fibrillation, unspecified type Ordered: 05/23/2022 documented as of this encounter Visit Diagnoses Diagnosis Atrial fibrillation, unspecified type- Primary documented in this encounter Additional Health Concerns Infection Onset Date Last Indicated Resolved Time CoV-Risk Comment:Per note documentation 02/18/2024 02/19/2024 10:23 AM EDT CoV-Risk 04/11/2024 04/12/2024 04/12/2024 11:0 3 AM EDT documented as of this encounter Care Teams Brazer Induction Relationship Specialty Start Date End Date Ciaran Man DO [address] [place] [address] carlos PCP - General Internal Medicine 06/15/18 02/16/25 Ciaran Man DO [address] [place] [address] [email or web address] PCP - General Internal Medicine 02/17/25 Chris Martinez MD [address] [place] [address] [email or web address] Hematology and Oncology 05/06/18 Shanta Gregory MD [facility] [place] [address] Internal Medicine 08/24/18 documented as of this encounter Additional Source Comments The information contained in this document represents components of the legal health record. It is not the complete legal health record.[facility]
--- OUTSIDE RECORDS SUMMARY | 2025-08-08 19:14 | XMS_ITS | Encounter Summary ---
Author Organization [facility] Address [address] [place] [address] [address] [place] [address] Phone Care Team Providers Care Roof Slater Name Role Phone Chris Martinez MD Unavailable [phone] Ciaran Man DO Primary Care Provider + Shanta Gregory MD Unavailable [phone] Ciaran Man DO Primary Care Provider + Encounter Details Date Type Department Care Team (Late st Contact Info) Description 06/12/2022 Procedure Pass Non-Invasive Cardiology [address] [place] [address] Social History Tobacco Use Types Packs/Day Years [...] Description 02/20/2026 1:00 PM EDT Office Visit [facility] [address] Floor, [address] [place] [address] Israel Goodrich MD 22 [facility] [address] [place] [address] [email or web address] documented as of this encounter Visit Diagnoses Not on filedocumented in this encounter Additional Health Concerns Infection Onset Date Last Indicated Resolved Time CoV-Risk Comment:Per note documentation 02/18/2024 02/19/2024 10:23 AM EDT CoV-Risk 04/11/2024 04/12/2024 04/12/2024 11:0 3 AM EDT documented as of this encounter Care Teams Roof Slater Relationship Specialty Start Date End Date Ciaran Man DO [address] [place] [address] [email or web address] PCP - General Internal Medicine 06/15/18 02/16/25 Ciaran Man DO [address] [place] [address] carlos PCP - General Internal Medicine 02/17/25 Chris Martinez MD [address] [place] [address] Hematology and Oncology 05/06/18 Shanta Gregory MD [address] [place] [address] [facility] [address] [place] [address] Internal Medicine 08/24/18 documented as of this encounter Additional Source Comments The information contained in this document represents components of the legal health record. It is not the complete legal health record.[facility]
--- OUTSIDE RECORDS SUMMARY | 2025-08-08 19:14 | XMS_ITS | Encounter Summary ---
Author Organization [facility] Address [address] [place] [address] [place] [address] Phone Care Team Providers Care Director School Of Nursing Name Role Phone Chris Martinez MD Unavailable [phone] Ciaran Man DO Primary Care Provider + Shanta Gregory MD Unavailable [phone] Ciaran Man DO Primary Care Provider + Encounter Details Date Type Department Care Team (Late st Contact Info) Description 08/13/2024 Procedure Pass [facility] [place] [place] [address] Social History Tobacco Use Types [...] on file 02/24/2023 No 02/24/2023 No 02/24/2023 Digital Access Answer Date Recorded No 03/16/2023 No 03/16/2023 Reliable internet access at home? Not on file 03/16/2023 Device with a working camera? Not on file Intimate Partner Violence Answer Date R ecorded Are you denied basic needs s uch as food, clothing, or medical care? No 04/11/2024 In the past 12 months have y ou been in a relationship with a person who hurts, threatens, or tries to control you? No 04/11/2024 Are you denied basic needs s uch as food, clothing, or medical care? No 04/11/2024 In the past 12 months have y ou been in a relationship with a person who hurts, threatens, or tries to control you? No 04/11/2024 Comments No Sex and Gender Information Value [...] Description 02/20/2026 1:00 PM EDT Office Visit [facility] [address] [place] [address], [address] [address] Israel Goodrich MD [address] [place] [address] [email or web address] documented as of this encounter Visit Diagnoses Not on filedocumented in this encounter Care Teams Director School Of Nursing Relationship Specialty Start Date End Date Ciaran Man DO [address] [place] [address] carlos PCP - General Internal Medicine 06/15/18 02/16/25 Ciaran Man DO [address] [place] [address] [place] [address] carlos PCP - General Internal Medicine 02/17/25 Chris Martinez MD [address] [place] [address] [email or web address] Hematology and Oncology 05/06/18 Shanta Gregory MD [facility] [place] [address] Internal Medicine 08/24/18 documented as of this encounter Additional Source Comments The information contained in this document represents components of the legal health record. It is not the complete legal health record.[facility]
--- OUTSIDE RECORDS SUMMARY | 2025-08-08 19:14 | XMS_ITS | Encounter Summary ---
Author Organization [facility] Address [address] [place] [address] Phone Care Team Providers Care Process Engineering Intern Name Role Phone Chris Martinez MD Unavailable [phone] Ciaran Man DO Primary Care Provider [phone] Shanta Gregory MD Unavailable [phone] Ciaran Man DO Primary Care Provider [phone] Encounter Details Date Type Department Care Team (Late st Contact Info) Description 05/20/2022 Transcribe Orders Virtual Department [address] [place] [address] Ciaran Man DO [address] [facility] [place] [address] carlos Encounter for screening for osteoporosis (Primary Dx) Social History Tobacco Use Types [...] Description 02/20/2026 1:00 PM EDT Office Visit [facility] [address] [place] [address] 3rd Floor, [address] [place] [address] Israel Goodrich MD 22 [facility], [address] [address] documented as of this encounter Visit Diagnoses Diagnosis Encounter for screening for osteoporosis- Primary documented in this encounter Additional Health Concerns Infection Onset Date Last Indicated Resolved Time CoV-Risk Comment:Per note documentation 02/18/2024 02/19/2024 10:23 AM EDT CoV-Risk 04/11/2024 04/12/2024 04/12/2024 11:0 3 AM EDT documented as of this encounter Care Teams Process Engineering Intern Relationship Specialty Start Date End Date Ciaran Man DO [address] [place] [address] carlos PCP - General Internal Medicine 06/15/18 02/16/25 Ciaran Man DO [address] [place] [address] [place] [address] carlos PCP - General Internal Medicine 02/17/25 Chris Martinez MD [address] [place] [address] Hematology and Oncology 05/06/18 Shanta Gregory MD [facility] [place] [address] [place] [address] Internal Medicine 08/24/18 documented as of this encounter Additional Source Comments The information contained in this document represents components of the legal health record. It is not the complete legal health record.[facility]
--- OUTSIDE RECORDS SUMMARY | 2025-08-08 19:14 | XMS_ITS | Encounter Summary ---
Author Organization [facility] Address [address] [place] [address] [place] [address] Phone Care Team Providers Care Retail Cosmetics Sales Beauty Advisor Name Role Phone Chris Martinez MD Unavailable [phone] Ciaran Man DO Primary Care Provider [phone] Shanta Gregory MD Unavailable [phone] Ciaran Man DO Primary Care Provider [phone] Encounter Details Date Type Department Care Team (Late st Contact Info) Description 02/25/2024 Transcribe Orders Virtual Department [address] [place] [address] Destiny Naik MD 15 [facility], 2nd [place] [address] [email or web address] Breast screening (Primary Dx) Social History Tobacco Use Types Packs/Day Years Used Date Smoking Tobacco: Former Cigarettes Q uit: 1970 Smokeless Tobacco: Never Alcohol Use Standard Drinks/Week Comments Yes 0 (1 standard drink = 0.6 oz pur e alcohol) rare Home Health Assessment: Transportation Answer Date Recorded Lack of Transportation (Medical) No 05/13/2023 Lack of Transportation (Non-Medical) No 05/13/2023 Patient Unable or Declines to Respond No 05/13/2023 Education Answer Date Recorded Are you interested in more education? Not on ramón e 02/24/2023 Are you concerned about learning? Not on file 02/24/2023 No 02/24/2023 No 02/24/2023 Digital Access Answer Date Recorded No 03/16/2023 No 03/16/2023 Reliable internet access at home? Not on file 03/16/2023 Device with a working camera? Not on file Comments No Sex and Gender Information Value [...] Description 02/20/2026 1:00 PM EDT Office Visit [facility] [address] [place] [address] 3rd Floor, [address] [place] [address] Israel Goodrich MD [address] [place] [address] [email or web address] documented as of this encounter Results * BI MAMMOGRAM SCREENING WITH TOMOSYNTHESIS WITH CAD (BILATERAL) (06/04/2024 3:53 PM EDT) Anatomical Region Laterality Modality Breast Left, Breast Right, Breast Bilateral Bila teral Mammography 06/08/2024 7:57 AM EDT Impressions 06/08/2024 7:57 AM EDT No mammographic evidence of malignancy in either breast. Annual screening mammography is recommended. BI-RADS 2 BENIGN The patient will be notified of the results and recommendations. Narrative 06/08/2024 7:57 AM EDT BI MAMMOGRAM SCREENING WITH TOMOSYNTHESIS WITH CAD (BILATERAL) Additional patient information: Screening. COMPARISON: Comparison is made with relevant prior imaging. Breast composition: There are scattered areas of fibroglandular density. FINDINGS: There are postsurgical changes to the right breast. No abnormal masses, suspicious calcifications, or other significant findings are identified mammographically in either breast. Procedure Note Annetta Christensen MD - 06/08/2024 BI MAMMOGRAM SCREENING WITH TOMOSYNTHESIS WITH CAD (BILATERAL) Additional patient information: Screening. COMPARISON: Comparison is made with relevant prior imaging. Breast composition: There are scattered areas of fibroglandular density. FINDINGS: There are postsurgical changes to the right breast. No abnormal masses, suspicious calcifications, or other significantfindings are identified mammographically in either breast. IMPRESSION: No mammographic evidence of malignancy in either breast. Annual screening mammography is recommended. BI-RADS 2 BENIGN The patient will be notified of the results and recommendations. us Destiny Naik MD IMG MG EXAMS Final Result documented in this encounter Visit Diagnoses Diagnosis Breast screening- Primary Breast screening, unspecified Breast screening Breast screening, unspecified documented in this encounter Additional Health Concerns Infection Onset Date Last Indicated Resolved Time CoV-Risk 04/11/2024 04/12/2024 04/12/2024 11:0 3 AM EDT documented as of this encounter Care Teams Retail Cosmetics Sales Beauty Advisor Relationship Specialty Start Date End Date Ciaran Man DO [address] [place] [address] carlos PCP - General Internal Medicine 06/15/18 02/16/25 Ciaran Man DO [address] [place] [address] carlos PCP - General Internal Medicine 02/17/25 Chris Martinez MD [address] [place] [address] Hematology and Oncology 05/06/18 Shanta Gregory MD [address] [place] [address] [place] [address] Internal Medicine 08/24/18 documented as of this encounter Additional Source Comments The information contained in this document represents components of the legal health record. It is not the complete legal health record.[facility]
--- OUTSIDE RECORDS SUMMARY | 2025-08-08 19:14 | XMS_ITS | Encounter Summary ---
Author Organization [facility] Address [address] [place] [address] [address] [place] [address] Phone Care Team Providers Care Manganese Wheeler Name Role Phone Chris Martinez MD Unavailable [phone] Ciaran Man DO Primary Care Provider + Shanta Gregory MD Unavailable [phone] Ciaran Man DO Primary Care Provider [phone] Encounter Details Date Type Department Care Team (Late st Contact Info) Description 08/27/2021 Procedure Pass [facility], [address] [address] Social History Tobacco Use Types Packs/Day Years [...] Description 02/20/2026 1:00 PM EDT Office Visit [facility] [address] [place] [address] 3rd Floor, [address] [address] Israel Goodrich MD [address] [address] [email or web address] documented as of this encounter Visit Diagnoses Not on filedocumented in this encounter Additional Health Concerns Infection Onset Date Last Indicated Resolved Time CoV-Risk 03/20/2022 03/20/2022 03/31/2022 1:22 AM EDT CoV-Risk Comment:Per note documentation 02/18/2024 02/19/2024 10:23 AM EDT CoV-Risk 04/11/2024 04/12/2024 04/12/2024 11:0 3 AM EDT documented as of this encounter Care Teams Manganese Wheeler Relationship Specialty Start Date End Date Ciaran Man DO [address] [place] [address] [email or web address] PCP - General Internal Medicine 06/15/18 02/16/25 Ciaran Man DO [address] [place] [address] [place] [address] carlos PCP - General Internal Medicine 02/17/25 Chris Martinez MD [address] [place] [address] [email or web address] Hematology and Oncology 05/06/18 Shanta Gregory MD [address] [place] [address] [place] [address] Internal Medicine 08/24/18 documented as of this encounter Additional Source Comments The information contained in this document represents components of the legal health record. It is not the complete legal health record.[facility]
--- OUTSIDE RECORDS SUMMARY | 2025-08-08 19:15 | XMS_ITS | Encounter Summary ---
Author Organization [facility] Address [address] [place] [address] [place] [address] Phone Care Team Providers Care Administration Professional Name Role Phone Chris Martinez MD Unavailable [phone] Ciaran Man DO Primary Care Provider [phone] Shanta Gregory MD Unavailable [phone] Ciaran Man DO Primary Care Provider [phone] Reason for Referral * MRI/CAT Scan - Closed Specialty Diagnoses / Procedures Referred By Katelin leblanc Referred To Contact Radiology Diagnoses Paresthesia Procedures MRI Lumbar Spine CHG MRI, LUMBAR SPINE Tamica Cline PA 6 [facility] [place] [address] Phone: tel: fax: Referral ID Status Reason Start Date Expiration Date Visits Re quested Visits Authorized [id number] Closed 03/06/2023 09/02/2023 1 1 Encounter Details Date Type Department Care Team (Latest Contact Info) Description 03/10/2023 Transcribe Orders [facility] Department [address] [place] [address] Tamica Cline PA 6 [facility] [place] [address] Paresthesia (Primary Dx) Social History Tobacco Use Types Packs/Day Years Used Date Smoking Tobacco: Former Cigarettes Q uit: 1970 Smokeless Tobacco: Never Alcohol Use Standard Drinks/Week Comments Yes 0 (1 standard drink = 0.6 oz pur e alcohol) rare Education Answer Date Recorded Are you interested in more education? Not on ramón e 02/24/2023 Are you concerned about learning? Not on file 02/24/2023 No 02/24/2023 No 02/24/2023 Comments No Sex and Gender Information Value [...] Description 02/20/2026 1:00 PM EDT Office Visit [facility] [address] [place] [address] 3[address] [facility], [address] [place] [address] Israel Goodrich MD [address] [place] [address], [address] [address] [email or web address] documented as of this encounter Results * MRI LUMBAR SPINE (NEURO) WITHOUT CONTRAST (04/12/2023 10:01 AM EDT) Anatomical Region Laterality Modality L-spine Magnetic Resonan ce 04/14/2023 11:0 3 PM EDT Impressions 04/14/2023 11:16 PM EDT When compared to 2019: Unchanged moderate spinal canal stenosis at L2-3. Unchanged mild neuroforaminal stenoses at L2-3 and L5-S1. Incidental fusiform infrarenal abdominal aortic ectasia measuring up to 2.8 cm. Narrative 04/14/2023 11:16 PM EDT MRI LUMBAR SPINE (NEURO) WITHOUT CONTRAST TECHNIQUE: MRI LUMBAR SPINE (NEURO) WITHOUT CONTRAST COMPARISON: MRI LUMBAR SPINE (BONE) WITHOUT CONTRAST FINDINGS: ALIGNMENT: Levoconvex lumbar curvature centered at L2. MARROW: No compression fracture or marrow replacing lesion. DISCS: Disc desiccation T12-S1. CONUS: Normal appearance and terminates at L1-L2. PARASPINAL SOFT TISSUES: Partially visualized left lower pole renal cyst measuring up to 3.5 cm. 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 Multifocal fusiform infrarenal abdominal aortic ectasia measuring up to 2.8 cm. S2 Tarlov cyst unchanged. FINDINGS BY LEVEL: T12-L1:Facet arthropathy and thickening of ligamentum flavum. No spinal canal or neuroforaminal stenosis. L1-2: Diffuse disc bulge, facet arthropathy, and thickening of ligamentum flavum. No spinal canal or neuroforaminal stenosis. L2-3: Diffuse disc bulge, facet arthropathy, and thickening of ligamentum flavum. Moderate spinal canal stenosis. Mild neuroforaminal stenosis. L3-4: Diffuse disc bulge, facet arthropathy, and thickening of ligamentum flavum. No spinal canal or neuroforaminal stenosis. L4-5: Facet arthropathy. Suspected prior L4-5 partial discectomy. No spinal canal or neuroforaminal stenosis. L5-S1: Disc culture and facet arthropathy. No spinal canal stenosis. Mild neuroforaminal stenosis. Procedure Note Geetha Colon MD - 04/14/2023 MRI LUMBAR SPINE (NEURO) WITHOUT CONTRAST TECHNIQUE: MRI LUMBAR SPINE (NEURO) WITHOUT CONTRAST COMPARISON: MRI LUMBAR SPINE (BONE) WITHOUT CONTRAST FINDINGS: ALIGNMENT: Levoconvex lumbar curvature centered at L2. MARROW: No compression fracture or marrow replacing lesion. DISCS: Disc desiccation T12-S1. CONUS: Normal appearance and terminates at L1-L2. PARASPINAL SOFT TISSUES: Partially visualized left lower pole renal cystmeasuring up to 3.5 cm. Susceptibility artifact from bilateral hiparthroplasties. Multifocal fusiform infrarenal abdominal aortic ectasiameasuring up to 2.8 cm. S2 Tarlov cyst unchanged. FINDINGS BY LEVEL: T12-L1:Facet arthropathy and thickening of ligamentum flavum. No spinalcanal or neuroforaminal stenosis. L1-2: Diffuse disc bulge, facet arthropathy, and thickening of ligamentumflavum. No spinal canal or neuroforaminal stenosis. L2-3: Diffuse disc bulge, facet arthropathy, and thickening of ligamentumflavum. Moderate spinal canal stenosis. Mild neuroforaminal stenosis. L3-4: Diffuse disc bulge, facet arthropathy, and thickening of ligamentumflavum. No spinal canal or neuroforaminal stenosis. L4-5: Facet arthropathy. Suspected prior L4-5 partial discectomy. Nospinal canal or neuroforaminal stenosis. L5-S1: Disc culture and facet arthropathy. No spinal canal stenosis. Mildneuroforaminal stenosis. IMPRESSION: When compared to 2020: Unchanged moderate spinal canal stenosis at L2-3. Unchanged mild neuroforaminal stenoses at L2-3 and L5-S1. Incidental fusiform infrarenal abdominal aortic ectasia measuring up to2.8 cm. Tamica ERICKSON IMG MR XSPECIALTY Final Res ult documented in this encounter Visit Diagnoses Diagnosis Paresthesia- Primary Disturbance of skin sensation Paresthesia Disturbance of skin sensation documented in this encounter Additional Health Concerns Infection Onset Date Last Indicated Resolved Time CoV-Risk Comment:Per note documentation 02/18/2024 02/19/2024 10:23 AM EDT CoV-Risk 04/11/2024 04/12/2024 04/12/2024 11:0 3 AM EDT documented as of this encounter Care Teams Administration Professional Relationship Specialty Start Date End Date Ciaran Man DO [address] [place] [id number] [email or web address] PCP - General Internal Medicine 06/15/18 02/16/25 Ciaran Man DO [address] [place] [address] carlos PCP - General Internal Medicine 02/17/25 Chris Martinez MD [address] [place] [address] Hematology and Oncology 05/06/18 Shanta Gregory MD [facility] [address] [address] Internal Medicine 08/24/18 documented as of this encounter Additional Source Comments The information contained in this document represents components of the legal health record. It is not the complete legal health record.[facility]
--- OUTSIDE RECORDS SUMMARY | 2025-08-08 19:15 | XMS_ITS | Encounter Summary ---
Author Organization [facility] Address [address] [place] [address] Phone Care Team Providers Care Flower Picker Name Role Phone Chris Martinez MD Unavailable [phone] Ciaran Man DO Primary Care Provider [phone] Shanta Gregory MD Unavailable [phone] Ciaran Man DO Primary Care Provider [phone] Encounter Details Date Type Department Care Team (Late st Contact Info) Description 04/03/2022 Transcribe Orders Virtual Department [address] [place] [address] Ciaran Man DO [address] [facility] [place] [address] [email or web address] Other form of dyspnea Social History Tobacco Use Types Packs/Day Years [...] Description 02/20/2026 1:00 PM EDT Office Visit [facility] 22 [facility] 3rd Floor, [address] [place] [address] Israel Goodrich MD [address] [address] [email or web address] documented as of this encounter Visit Diagnoses Diagnosis Other form of dyspnea documented in this encounter Additional Health Concerns Infection Onset Date Last Indicated Resolved Time CoV-Risk Comment:Per note documentation 02/18/2024 02/19/2024 10:23 AM EDT CoV-Risk 04/11/2024 04/12/2024 04/12/2024 11:0 3 AM EDT documented as of this encounter Care Teams Flower Picker Relationship Specialty Start Date End Date Ciaran Man DO [address] [place] [phone] carlos PCP - General Internal Medicine 06/15/18 02/16/25 Ciaran Man DO [address] [place] [address] [place] [address] carlos PCP - General Internal Medicine 02/17/25 Chris Martinez MD [address] [place] [address] Hematology and Oncology 05/06/18 Shanta Gregory MD [address] [facility] [address] [place] [address] Internal Medicine 08/24/18 documented as of this encounter Additional Source Comments The information contained in this document represents components of the legal health record. It is not the complete legal health record.[facility]
--- OUTSIDE RECORDS SUMMARY | 2025-08-08 19:15 | XMS_ITS | Encounter Summary ---
Author Organization [facility] Address [address] [place] [address] [place] [address] Phone Care Team Providers Care Steel Detailer Name Role Phone Chris Martinez MD Unavailable [phone] Ciaran Man DO Primary Care Provider [phone] Shanta Gregory MD Unavailable [phone] Ciaran Man DO Primary Care Provider [phone] Encounter Details Date Type Department Care Team (Late Contact Info) Description 05/31/2019 Ancillary Orders [facility],Outside Imaging [address] [place] [address] System, Provider Not In, [facility] [address] [address] Social History Tobacco Use Types Packs/Day Years [...] Encounters Date Type Department Care Team (Late Contact Info) Description 02/20/2026 1:00 PM EDT Office Visit [facility] [address] [place] [address] 3rd Floor, [address] [place] [address] Israel Goodrich MD 22 [facility], [address] [place] [address] [email or web address] documented as of this encounter Results * US Breast Outside (No Interpretation) (11/10/2017 12:00 AM EST) Narrative SYSTEMGENERATED, DOCUMENTATION - 05/31/2019 10:52 AM EDT This study is for PACS storage only and not for interpretation. us Provider Not In System PhD IMG OUTSIDE IMAGING W /OUT INTERPRETATION Final Result documented in this encounter Visit Diagnoses Not on filedocumented in this encounter Additional Health Concerns Infection Onset Date Last Indicated Resolved Time CoV-Risk 06/17/2021 06/17/2021 06/20/2021 3:52 PM EDT CoV-Risk 03/20/2022 03/20/2022 03/31/2022 1:22 AM EDT CoV-Risk Comment:Per note documentation 02/18/2024 02/19/2024 10:23 AM EDT CoV-Risk 04/11/2024 04/12/2024 04/12/2024 11:0 3 AM EDT documented as of this encounter Care Teams Steel Detailer Relationship Specialty Start Date End Date Ciaran Man DO [address] [place] [address] [email or web address] PCP - General Internal Medicine 06/15/18 02/16/25 Ciaran Man DO [address] [place] [address] [place] [address] [email or web address] PCP - General Internal Medicine 02/17/25 Chris Martinez MD [address] [place] [address] Hematology and Oncology 05/06/18 Shanta Gregory MD [address] [place], [place] [address] [address] Internal Medicine 08/24/18 documented as of this encounter Additional Source Comments The information contained in this document represents components of the legal health record. It is not the complete legal health record.[facility]
--- OUTSIDE RECORDS SUMMARY | 2025-08-08 19:15 | XMS_ITS | Encounter Summary ---
Author Organization [facility] Address [address] [place] [address] Phone Care Team Providers Care Interventional Radiologist Name Role Phone Chris Martinez MD Unavailable [phone] Ciaran Man DO Primary Care Provider + Shanta Gregory MD Unavailable [phone] Ciaran Man DO Primary Care Provider [phone] Encounter Details Date Type Department Care Team (Late st Contact Info) Description 03/10/2023 Procedure Pass [facility], [address] [address] Social History Tobacco Use Types Packs/Day Years [...] Description 02/20/2026 1:00 PM EDT Office Visit [facility] [address] [place] [address] 3rd Floor, [address] [place] [address] Israel Goodrich MD [address] [address] documented as of this encounter Visit Diagnoses Not on filedocumented in this encounter Additional Health Concerns Infection Onset Date Last Indicated Resolved Time CoV-Risk Comment:Per note documentation 02/18/2024 02/19/2024 10:23 AM EDT CoV-Risk 04/11/2024 04/12/2024 04/12/2024 11:0 3 AM EDT documented as of this encounter Care Teams Interventional Radiologist Relationship Specialty Start Date End Date Ciaran Man DO [address] [place] [address] carlos PCP - General Internal Medicine 06/15/18 02/16/25 Ciaran Man DO [address] [facility] [place] [address] carlos PCP - General Internal Medicine 02/17/25 Chris Martinez MD [address] [place] [address] Hematology and Oncology 05/06/18 Shanta Gregory MD [facility] [place] [address] [place] [address] Internal Medicine 08/24/18 documented as of this encounter Additional Source Comments The information contained in this document represents components of the legal health record. It is not the complete legal health record.[facility]
--- OUTSIDE RECORDS SUMMARY | 2025-08-08 19:15 | XMS_ITS | Encounter Summary ---
Author Organization [facility] Address [address] [place] [address] [place] [address] Phone Care Team Providers Care Mineral Mixer Name Role Phone Chris Martinez MD Unavailable [phone] Ciaran Man DO Primary Care Provider + Shanta Gregory MD Unavailable [phone] Ciaran Man DO Primary Care Provider [phone] Encounter Details Date Type Department Care Team (Late st Contact Info) Description 02/25/2024 Procedure Pass [facility], [address] [address] Social History Tobacco Use Types Packs/Day Years [...] Description 02/20/2026 1:00 PM EDT Office Visit [facility] [address] [place] [address] 3rd [facility], [address] [place] [address] Israel Goodrich MD [address] [place] [address] [email or web address] documented as of this encounter Visit Diagnoses Not on filedocumented in this encounter Additional Health Concerns Infection Onset Date Last Indicated Resolved Time CoV-Risk 04/11/2024 04/12/2024 04/12/2024 11:0 3 AM EDT documented as of this encounter Care Teams Mineral Mixer Relationship Specialty Start Date End Date Ciaran Man DO [address] [place] [address] carlos PCP - General Internal Medicine 06/15/18 02/16/25 Ciaran Man DO [address] [place] [address] [place] [address] carlos PCP - General Internal Medicine 02/17/25 Chris Martinez MD [address] [place] [address] Hematology and Oncology 05/06/18 Shanta Gregory MD [facility] [place] [facility] [address] [place] [address] Internal Medicine 08/24/18 documented as of this encounter Additional Source Comments The information contained in this document represents components of the legal health record. It is not the complete legal health record.[facility]
--- OUTSIDE RECORDS SUMMARY | 2025-08-08 19:15 | XMS_ITS | Clinical Summary ---
Author Organization [facility] Address [address] [place] [id number] Phone Care Team Providers Care Professor Of Communication And Writing Name Role Phone Chris Martinez MD Unavailable [phone] Shanta Gregory MD Unavailable Ciaran Man DO Primary Care Provider [phone] Allergies Active Allergy Reactions Criticality Noted Date Comments Carlos Inhibitors 07/17/2022 Ciprofloxacin Rash Medium 06/15/2018 Codeine 07/17/2022 Metronidazole Unknown 05/21/2017 Other Unknown 05/21/2017 ryan (sp) Swwlayi-Adc-Pvc Reductase Inhibitors Cramps High 06/11/2024 Muscle cramps Sulfa (Sulfonamide Antibiotics) Rash Medium 11/2009 Valsartan 07/17/2022 Medications cholecalciferol (VITAMIN D3) 1,000 unit tablet Take 1,000 Units by mouth daily. Active bacillus coagulans-inulin 1 billion-250 cell-mg Cap Take 250 mg by mouth daily. Active apixaban (ELIQUIS) 5 mg tablet Take 1 tablet (5 mg total) by mouth 2 (two) times a day. 60 tablet 3 Active cranberry 500 mg Cap Take by mouth daily. Active magnesium 250 mg Tab Take 325 mg by mouth daily. 4 Active dilTIAZem (TIAZAC) 180 MG 24 hr capsuleIndications: Medication refill Take 1 capsule (180 mg total) by mouth daily. 90 capsule 3 4 Active bempedoic acid-ezetimibe (NEXLIZET) 180-10 mg per tabletIndications:M edication refill Take 1 tablet by mouth daily. 90 tablet 3 5 08/20/20 25 Active spironolactone (ALDACTONE) 25 MG tablet Take 1 tablet (25 mg total) by mouth daily. 90 tablet 3 5 Active furosemide (LASIX) 20 MG tablet Take 1 tablet (20 mg total) by mouth daily. 90 tablet 3 5 Active pantoprazole (PROTONIX) 40 MG tablet Take 1 tablet (40 mg total) by mouth daily. 30 tablet 5 Active ondansetron (ZOFRAN-ODT) 4 MG disintegrating tablet Take 1 tablet (4 mg total) by mouth every 8 (eight) hours as needed for nausea. 20 tablet 5 Active aluminum-magnesium hydroxide-simethico ne (MAALOX) 200-200-20 mg/5 mL Susp Take 30 mL by mouth every 6 (six) hours as needed (abdominal pain). 354 mL 5 Active Active Problems Patient Care Coordination No te Formatting of this note migh t be different from the original. Height 169.5 cm with flat SHOES 08/26/18 Problem Noted Date Diagnosed Date Hyperlipidemia 08/13/2024 Assessment & Plan (03/10/2025 9:10 AM EDT): Previously intolerant to statin medications due to myalgia. LDL goal less than 70 most recent 119. She was started on Nexlizet at her last follow-up here which she has been tolerating she has not yet got an updated lipid. I asked her to get an updated lipid panel. Assessment & Plan (08/13/2024 2:11 PM EDT): She has been intolerant of both atorvastatin and rosuvastatin due to myalgia Is a history of both a stroke also with known coronary calcifications as seen on CT scan LDL should be less than 70, most recently was 119 when checked. Will start her on Nexlizet and see how she tolerates this Will repeat lipids/LFTs in 3 months Lab Results Component Value Date CHOL 201 08/06/2024 HDL 53 08/06/2024 LDL 119 08/06/2024 TRIG 146 08/06/2024 CHOLHDL 3.8 08/06/2024 ; Pneumonia 04/11/2024 Assessment & Plan (04/13/2024 6:22 PM EDT): Tired today. Not hypoxic. Continues to have persistent dry cough that is quite limiting. Last fever was yesterday afternoon. White count now normalized to 10. Tessalon not helping. Allergy to codeine. Chest x-ray showed bilateral lower lobe opacities. Influenza, Legionella, COVID, strep pneumo, MRSA negative. -Continue current antibiotics, ceftriaxone and azithromycin -Follow fever curve -Repeat CBC in the morning -Guaifenesin DM as needed Sepsis 04/11/2024 Assessment & Plan (04/13/2024 6:22 PM EDT): Resolved. Continues to have sinus tachycardia and elevated respiratory rate but fever is improving. Leukocytosis improving as well. Lactate resolved after 2 L normal saline, currently 1.9. She is drinking well and blood pressure stable. Blood cultures negative -Continue IV ceftriaxone and azithromycin HTN (hypertension) 04/11/2024 Assessment & Plan (03/10/2025 9:58 AM EDT): Blood pressure today 150/82. Patient educated on HTN pathophysiology, htn medication, importance of low salt DASH heart healthy diet, exercise and home B/P monitoring. I have started her on Lasix and spironolactone for HFpEF and asked her to monitor her blood pressure. Assessment & Plan (08/13/2024 2:08 PM EDT): Blood pressure elevated here in the office today Not checking at home I have asked her to keep a blood pressure log for the next week at home, if her systolic blood pressures persistently above 130 mmHg she is going to notify us and we can adjust her medications from there Assessment & Plan (04/11/2024 7:19 PM EDT): -Blood pressures currently controlled continue diltiazem Hyperglycemia 04/11/2024 Assessment & Plan (04/13/2024 6:23 PM EDT): In the ED glucose was 201, no prior history of diabetes. Patient mentions that she has been drinking lots of Gatorade and thinks perhaps this could have contributed to her elevated glucose. She was treated with insulin sliding scale but this morning her blood sugar dropped to 62. Glucose is currently stable Her A1c is 5.5. -Continue roays-eh-kail's. 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 02/18/2024 Assessment & Plan (02/19/2024 9:53 AM EDT): Patient with evidence of pulmonary edema with trace bilateral pleural effusions and elevated BNP Received 40 mg of IV Lasix in the ER with appropriate response in urine production TTE this admission showing EF of 50% with mild pulmonary hypertension Patient successfully weaned down to room air Lung auscultation reveals clear breath sounds, will hold off on further Lasix Recurrent UTI 02/18/2024 Assessment & Plan (02/19/2024 9:54 AM EDT): Patient giving history of recurrent UTIs, sees a urologist in [place] Patient has a prescription of antibiotics at home which she takes as needed when symptoms of UTI occur Patient and family at bedside do not know the name of the antibiotic, pharmacy number provided did not have any information about the patient UA on 02/17 appears completely normal, and patient endorsing no concerning symptoms Will hold off on antibiotics for now Acute nasopharyngitis 02/18/2024 Assessment & Plan (02/19/2024 9:53 AM EDT): Patient endorsing flulike symptoms with nasal congestion, chills, malaise and cough Influenza and COVID-negative Will follow-up respiratory pathogen panel 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 She does report some shortness of breath on exertion with no associated symptoms no chest pain as well as orthopnea. She does tell me she had a recent hospitalization over in [place] for an acute heart failure exacerbation. Since she is having some shortness of breath on exertion as well as orthopnea I have started patient on a very low-dose of Lasix 20 mg daily as well as spironolactone 25 mg daily and asked her to get the labs in 2 weeks. Most recent echo on 02/2025 showed an EF of 55% unable to assess diastolic function due to A-fib. I have asked patient to get an updated echo in 6 months to reassess specifically to look more at her valves. Patient is minimally symptomatic I am hoping these 2 medications help her. Assessment & Plan (06/18/2023 11:40 AM EDT): She had a mild cardiomyopathy with an EF of 45 to 50%. This is the first echocardiogram which has shown a reduced EF. I then suggested that she have a nuclear stress test to rule out coronary artery disease. She did have a nuclear stress test and that showed that she had no evidence of coronary artery disease. During the nuclear stress test, her EF was much better at 55%. Assessment & Plan (03/26/2023 3:51 PM EDT): She has a mild cardiomyopathy with an EF of 45 to 50%. This is the first echocardiogram which has shown a reduced EF. I suggested that she have a nuclear stress test to rule out coronary disease. She will have the test done on medications including metoprolol and diltiazem. She will try to exercise but may need to be converted to a pharmacologic if she is not able. I will follow-up with her after the stress test. 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 Most recent echo done on 02/2025 showed-Mild aortic stenosis with a mean gradient of 18 mmHg the peak gradient is 34 mmHg. There is mild to moderate aortic regurgitation. The ascending aortic root is normal in size. The gradient across the valve is slightly higher than the prior echocardiogram. 4. Moderate mitral and moderate to severe tricuspid insufficiency, the PA pressure is mildly elevated at 35 to 40 mmHg. 5. Normal pericardium when compared to the prior echo done in 2023 the gradient across the aortic valve is slightly higher with a mean gradient of 18 mmHg where it was 10 mmHg. I have asked patient to get updated echo in 6 months before her follow-up with . Assessment & Plan (08/13/2024 2:08 PM EDT): Mild aortic stenosis and moderate mitral regurgitation on last echocardiogram February 2024 No symptoms from this at all We will repeat echocardiogram February 2025 prior to her next visit with Dr. Goodrich Assessment & Plan (07/11/2023 11:37 AM EDT): She is getting regular echocardiograms and following up with cardiology. Assessment & Plan (06/18/2023 11:39 AM EDT): The patient has moderate aortic stenosis on the most recent echocardiogram which was done in February. We will repeat an echocardiogram next year. Assessment & Plan (03/26/2023 3:52 PM EDT): She has moderate aortic stenosis. We will check an echocardiogram next year. Assessment & Plan (07/17/2022 3:30 PM EDT): Monitor with echocardiogram. Assessment & Plan (06/12/2022 8:55 AM EDT): She reports an increase in shortness of breath. She has a echocardiogram scheduled for reassessment. Assessment & Plan (03/19/2022 12:43 PM EDT): Asymptomatic at this time. Repeat echo prior to follow up visit with Dr Goodrich in the fall. Assessment & Plan (07/24/2020 2:44 PM EDT): Recent echocardiogram from 06/28/2020 showing moderate aortic regurgitation, moderate mitral regurgitation, moderate to severe tricuspid regurgitation. There was no change from previous echo. We will repeat this in 1 year. Assessment & Plan (06/26/2018 12:02 PM EDT): She has moderate aortic insufficiency but this has been stable for several years. As long as she is clinically doing well we could wait a couple years before rechecking this. Vertigo 06/26/2018 Breast cancer 02/23/2018 Cancer Staging:Clinical stage from 02/25/2018:Stage IIA(T1c, N1, M0) - Signed by Chris Martinez MD on 02/25/2018 Permanent atrial fibrillation 08/10/2017 Assessment & Plan (03/10/2025 9:11 AM EDT): No symptoms from this. Heart rate irregularly irregular on exam today. No bleeding concerns on Eliquis. She will continue on Eliquis 5 mg twice daily and diltiazem 100 mg daily. Assessment & Plan (08/13/2024 2:07 PM EDT): No symptoms from this Heart rate irregularly irregular on exam today No bleeding issues on Eliquis Continue Eliquis 5 mg twice daily Continue diltiazem 180 mg daily Assessment & Plan (04/11/2024 7:19 PM EDT): -Initially in the ED heart rate was in the low 100s but is now in the 80s after receiving IV fluids -Continue rate control with diltiazem and anticoagulation with Eliquis Assessment & Plan (02/18/2024 11:54 AM EDT): Continuing home diltiazem and Eliquis Will monitor on telemetry Assessment & Plan (07/11/2023 11:35 AM EDT): Denies any symptoms from atrial fibrillation. Heart rate on EKG on today's visit was 83 bpm. In view of her low ejection fraction we will request for Holter monitor. If her average heart rate is below 80 we will continue with the same dose of AV shereen blocking agents. If her average heart rate is above 80 will increase the dose of AV shereen blocking agents. Continue Coumadin Assessment & Plan (06/18/2023 11:41 AM EDT): The patient is adequately rate controlled. She recently had a stroke while on the Coumadin. She was transitioned to Eliquis and is doing well on this dose, 5 mg twice daily. No medication changes. We will have her follow-up with Dr. Szymanski before she heads down to [place] for the winter. Assessment & Plan (03/26/2023 3:50 PM EDT): She is adequately rate controlled. She is on diltiazem and metoprolol which she will continue. She is anticoagulated on Coumadin. I have proposed the switch from Coumadin to Eliquis. The patient is very interested in making that change. However, she tells me that about 8 years ago she tried to make the change and it was too expensive. I have prescribed 1 months worth of Eliquis to see how much it cost at the pharmacy. If she is able to afford it, she will pick it up and we will make the change at her next follow-up. She knows not to take the Eliquis until I see her next. Assessment & Plan (07/17/2022 3:30 PM EDT): Is rate controlled here in the office. She did have a monitor which shows that her atrial fibrillation is also rate controlled. She is on diltiazem 180 mg daily, metoprolol 50 mg twice daily which she will remain on. She is anticoagulated on Coumadin and she will remain on her medications without change. She did have an echocardiogram scheduled for August which will have to be rescheduled as she is going to [place] for the winter beginning in July. I have asked her to get her echocardiogram when she returns from [place] and to have a follow-up appointment after that. Assessment & Plan (06/12/2022 2:18 PM EDT): On EKG today her atrial fibrillation is rate controlled at 78 bpm. On initial vital sign check her heart rate was documented at 138 bpm. She is on diltiazem 180 mg daily and is on Coumadin for anticoagulation. She tells me when she is active and moving around she notices an increase in her heart rate as well as shortness of breath. She does have an echocardiogram already scheduled by her primary care in August. I will order a 24-hour Holter monitor to see what her heart rate is doing with activity and adjust her medications at that time. She also brings in a medication list that shows she is on metoprolol 50 mg twice daily but she is unsure if she is actually on this medication or if this was prescribed to her in the hospital when she was in the [place]. She did call this office to let us know if she is actually on metoprolol 50mg BID and her medications will be adjusted as necessary after the Holter monitor has been read. Assessment & Plan (03/19/2022 12:45 PM EDT): Asymptomatic. Appropriately anticoagulated with warfarin. Rate controlled with diltiazem. Her BP is elevated in the 140 systolic range, looks like this is fairly consistent whenever she comes into the office (though she does report new onset UTI symptoms today which may be contributing). She does not check her BP at home. I have advised her to purchase a BP cuff and check her BP at home a few times per week and keep track of these values. Assessment & Plan (07/10/2021 5:16 PM EDT): We will continue adequate anticoagulation with warfarin, patient denies any bleeding complaint. Previously, patient was on diltiazem 240 mg daily but this was discontinued during recent hospitalization when she was found to be in A. fib with RVR. She was loaded with amiodarone and cardioverted successfully on 06/20/2021. However, today in the office, EKG shows again atrial fibrillation. We discussed treatment options and patient prefers rate control as she does not want to continue with amiodarone care home or attempt another cardioversion. I agree to discontinue amiodarone as it is not suppressing her arrhythmia and I believe the risks may outweigh the benefits as patient is asymptomatic and rate controlled at this time. I will start her back with diltiazem 180 mg which can be uptitrated if needed. Patient is asymptomatic in A. fib, even at higher rates. She has been advised to call the office with any hypotension/bradycardia/lightheadedness or dizziness back on diltiazem as BP on my check 110/70. Assessment & Plan (06/21/2021 6:55 PM EDT): Rate controlled. INR is 2.5. Patient seen by cardiology and taken off of diltiazem and transition to oral amiodarone 400 mg p.o. 3 times daily Status post cardioversion 06/20/2021 EKG post procedure at 1336 shows normal sinus rhythm at 62 with LAD. Prolonged QTC of 481. residential monitor reveals persistent sinus rhythm in the 70s to 80s. Plan -Continue 400 mg amiodarone twice daily to complete a 5-day load then dose is to decrease to 200 mg daily. -Follow-up with cardiology PA in 2 weeks -Follow-up with Dr. Castillo in 3 to 4 months. Assessment & Plan (07/24/2020 2:42 PM EDT): Patient has chronic atrial fibrillation and is anticoagulated on warfarin without bleeding complaint at this time. She has continued on diltiazem 240. We will continue warfarin and dilt. She remains asymptomatic from her arrhythmia. EKG in the office today shows atrial flutter at 83 bpm. Assessment & Plan (06/26/2018 12:01 PM EDT): She has chronic atrial fibrillation on diltiazem and warfarin. I would continue these medications. Resolved Problems Problem Noted Date Diagnosed Date Resolved Date Multifocal pneumonia 06/20/2021 023 Assessment & Plan (06/21/2021 6:47 PM EDT): Multifocal pneumonia identified on CT as noted above. Patient with cough with deep inspiration which is nonproductive indicating a bronchitic component. -Procalcitonin elevated 1.68. ESR also elevated consistent with infectious process. -No further hypoxemia Patient has completed 3 days of IV Zosyn. She remains stable with no hypoxemia. -Transition to oral Augmentin for 2 days to complete a 5-day course of treatment. NB-patient pleated 2 days of ceftriaxone and Zithromax and is on antibiotic day #5. Bronchitis 06/20/2021 04/04/2023 Assessment & Plan (06/21/2021 7:00 PM EDT): Patient has continued dry cough which likely reflects a postinfectious tussive syndrome or bronchitic component to pneumonia. -Case discussed with pulmonology and CT reviewed ; recommend short course of oral steroids. Will start on prednisone 5 mg daily x5 days. Patient has had marked decrease in a cough. -Continue albuterol nebs 3 times daily -Complete 5-day course of prednisone. -Tessalon Perles 200 mg 3 times daily for 1 more day. Acute respiratory failure with hypoxia 06/17/2021 04/04/2023 Assessment & Plan (06/21/2021 6:46 PM EDT): -CT scan from admission was reviewed by the hospitalist and heart doctor on admission and it was agree that the patient likely had an early pneumonia on the right side as well as potential left lower lobe pneumonia. -Hypoxic respiratory failure thought to be secondary to this multifocal pneumonia. -Patient was noted to have pleuritic chest pain which was thought to be contributing to splinting and hypoxic respiratory failure. She has had improvement with Toradol. -Patient initially required oxygen at 3 L/min but has been weaned off oxygen and now satting at 98 to 99% on room air. 06/21 pleuritic chest pain now resolved with trial of Toradol and treatment of underlying pneumonia. -Flutter valve, HyperSal and albuterol via nebulizer Leukocytosis 06/17/2021 04/04/2023 Assessment & Plan (06/21/2021 6:58 PM EDT): Leukocytosis was likely due to pneumonia. Resolved with antibiotic treatment. Lactic acidosis 06/17/2021 04/04/2023 Dysuria 06/17/2021 04/04/2023 Assessment & Plan (06/20/2021 3:40 PM EDT): Patient had complaints of dysuria earlier in her hospital course. Patient denies dysuria at present. -She was given antibiotics prior to admission, -urinalysis was unremarkable culture not performed. No clinical evidence of UTI. Anticoagulated 08/10/2017 04/14/2023 Assessment & Plan (06/21/2021 6:58 PM EDT): INR now therapeutic --restart warfarin at 4.5 mg daily. Patient was previously taking 7.5 mg daily and current dose represents 25% dose reduction. -Repeat INR in a.m. Encounters Date Type Department Care Team Description 08/04/2025 9:05 AM EDT - 08/04/2025 11:59 PM EDT Hospital Encounter Echo Lab [address] [place] [address] Kamilah Sloan, MIAH Arrived Discharge Disposition: Home or Self Care 06/07/2025 9:04 AM EDT - 06/07/2025 11:59 PM EDT Hospital Encounter [address] [address] Destiny Naik MD Discharge Disposition: Home or Self Care 03/10/2025 Procedure Pass Echo Lab [address] [place] [address] 06/11/2024 Procedure Pass [address] [id number] from Last 3 Months Immunizations Immunization Administration Dates Next Due Influenza High-Dose Trivalen t Preservative Free IM 08/17/2019,09/18/2018,09/28/2015 Influenza Trivalent Adjuvant ed Preservative free IM 09/03/2017,07/24/2016 Zoster recombinant 09/26/2020,08/10/2020 Family History Medical History Relation Comments Prostate cancer Brother 1 Cancer Brother 2 Breast cancer Sister 1 Breast cancer Sister 2 Ovarian cancer Sister 3 Relation Status Comments Brother 1 Brother 2 Alive Sister 1 Sister 2 Sister 3 Social History Tobacco Use Types Packs/Day Years Used Date Smoking Tobacco: Former Cigarettes Q uit: 1970 Smokeless Tobacco: Never Tobacco Cessation:Counseling Given: Not Answered Alcohol Use Standard Drinks/Week Comments Yes 0 [...] Orientation Straight 06/15/2018 11 :58 AM EDT Last Filed Vital Signs Vital Sign Reading Time Taken Comments Blood Pressure 150/80 03/25/2025 8:00 PM EDT Pulse 73 03/25/2025 8:00 PM EDT Temperature 36.3 C (97.3 F) 03/25/2025 4:07 PM EDT Respiratory Rate 17 03/25/2025 4:07 PM EDT Oxygen Saturation 100% 03/25/2025 8:00 PM EDT Inhaled Oxygen Concentration - - Weight 68.9 kg (152 lb) 03/25/2025 2:11 PM EDT Height 170.2 cm (5' 7 ) 03/25/2025 2:11 PM EDT Body Mass Index 23.81 03/25/2025 2:11 PM EDT Plan of Treatment Upcoming Encounters Date Type Department Care Team (Late st Contact Info) Description 02/20/2026 1:00 PM EDT Office Visit [facility] [address] [place] [address] [address] Floor, [address] [place] [id number] Israel Goodrich MD [address] [facility], [address] [place] [id number] [email or web address] Health Maintenance Due Date Last Done Comments DEPRESSION SCREENING 1948 PNEUMOCOCCAL VACCINES (50+ years) (1 of 2 - PCV) 01/30/1955 OSTEOPOROSIS SCREENING INITIAL (ONE-TIME) 01/30/2001 RSV VACCINE (1 - 1-dose 75+ series) 01/30/2011 INFLUENZA VACCINE (#1) 2025 9, 11/12/2018, 09/18/2018, Additional history exists COVID-19 VACCINE ( season) 2025 08/28/2021, 03/02/2021, 03/02/2021 LIPID PANEL 03/17/2026 03/17/2025, 07/20, 04/05/2023 CREATININE LEVEL 03/25/2026 03/25/2025, 12/2024, 03/17/2025, Additional history exists POTASSIUM LEVEL 03/25/2026 03/25/2025, 0612/2024, 03/17/2025, Additional history exists Adult Td,Tdap Booster 06/06/2030 06/06/2020 ZOSTER VACCINES Completed 09/26/2020, 07/21, 06/06/2020 HEPATITIS A VACCINES Aged Out No long er eligible based on patient's age to complete this topic HIB VACCINES Aged Out No longer eligi ble based on patient's age to complete this topic MENINGOCOCCAL VACCINES (ACWY) Aged Out No longer eligible based on patient's age to complete this topic MENINGOCOCCAL VACCINES (B) Aged Out N o longer eligible based on patient's age to complete this topic Medical Devices Not on file Procedures Procedure Name Priority Date/Time Associated Diagnosis Comments TTE COMPREHENSIVE Routine 08/04/2025 10:14 AM EDT Cardiomyopathy, unspecified type Aortic valve stenosis with insufficiency, etiology of cardiac valve disease unspecified BI MAMMOGRAM SCREENING WITH TOMOSYNTHESIS WITH CAD (BILATERAL) Routine 06/07/2025 9:24 AM EDT Malignant neoplasm of upper-outer quadrant of right breast in female, estrogen receptor negative BASIC METABOLIC PANEL STAT 03/25/2025 2:45 PM EDT LIPID PANEL Routine 03/17/2025 9:41 AM EDT Pure hypercholesterolemia from Last 3 Months or Most Recently Relevant to Health Maintenance Results * TTE COMPREHENSIVE (08/04/2025 10:14 AM [...] Multiple leaflets are severely thickened. There is [id number] aortic stenosis. The peak and mean aortic [...] patent foramen ovale (PFO) by Doppler. Kamilah Fleming Luther [facility] CV ECHO ORDERABLES Final Result * BI MAMMOGRAM SCREENING WITH TOMOSYNTHESIS WITH CAD (BILATERAL) (06/07/2025 9:24 AM EDT) Anatomical Region Laterality Modality Breast Left, Breast Right, Breast Bilateral Bila teral Mammography 06/08/2025 9:19 AM EDT Impressions 06/08/2025 9:29 AM EDT No mammographic evidence of malignancy in either breast. Annual screening mammography is recommended. BI-RADS 2 BENIGN The patient will be notified of the results and recommendations. Narrative 06/08/2025 9:29 AM EDT BI MAMMOGRAM SCREENING WITH TOMOSYNTHESIS WITH CAD (BILATERAL) Additional patient information: Screening. The patient is status-post lumpectomy in 2018. COMPARISON: Comparison is made with relevant prior imaging. Breast composition: There are scattered areas of fibroglandular density. FINDINGS: Post-treatment changes in the right breast are stable. No abnormal masses, suspicious calcifications, or other significant findings are identified mammographically in either breast. Procedure Note Varun Lacy MD - 06/08/2025 BI MAMMOGRAM SCREENING WITH TOMOSYNTHESIS WITH CAD (BILATERAL) Additional patient information: Screening. The patient is status-postlumpectomy in 2018. COMPARISON: Comparison is made with relevant prior imaging. Breast composition: There are scattered areas of fibroglandular density. FINDINGS: Post-treatment changes in the right breast are stable. No abnormal masses, suspicious calcifications, or other significantfindings are identified mammographically in either breast. IMPRESSION: No mammographic evidence of malignancy in either breast. Annual screening mammography is recommended. BI-RADS 2 BENIGN The patient will be notified of the results and recommendations. us Destiny Naik MD IMG MG EXAMS Final Result * (ABNORMAL) Basic metabolic panel (03/25/2025 2:45 PM EDT) SODIUM 137 133 - 146 mmol/L [facility] CHLORIDE 96 96 - 108 mmol/L [facility] POTASSIUM 5.2(H) 3.3 - 5.1 mmol/L [facility] CO2 30 21 - 35 mmol/L [facility] BUN 37(H) 6 - 19 mg/dL [facility] CREATININE 1.40 0.5 - 1.5 mg/dL [facility] GLUCOSE 163(H) 70 - 99 mg/dL [facility] CALCIUM 11.3(H) 8.4 - 10.3 mg/dL [facility] EGFR 36(L) >59 mL/min/1.7 3m2 [facility] Comment:Estimated glomerular filtration rate calculated using the CKD-EPI refit equation. ANION GAP 16 10 - 20 mmol/L [facility] Blood 03/25/2025 2:45 PM EDT 03/25/2025 2:48 PM EDT us Julio Hawthorne MD LAB BLOOD ORDERABLES Final Resul t Performing Organization Address City/State/[facility] Co de Phone Number [address] [address] * (ABNORMAL) Lipid panel (03/17/2025 9:41 AM EDT) HDL 38 mg/dL [facility] Comment: Interpretation <40 mg/dL: Low HDL cholesterol (major risk factor for CHD) Greater than or equal to 60 mg/dL: High HDL cholesterol ( negative risk factor for CHD) HDL - cholesterol is affected by a number of factors, e.g. smoking, excerise, hormones, sex and age. CHOLESTEROL 98 0 - 240 mg/dL [facility] TRIGLYCERIDES 114 30 - 160 mg/dL [facility] LDL 37(L) 50 - 129 mg/dL [facility] Comment: LDL levels in terms of risk for coronary heart disease: <100 mg/dL: Optimal 100-129 mg/dL: Near or above optimal 130-159 mg/dL: Borderline high 160-189 mg/dL: High >190 mg/dL: Very High CARDIAC RISK RATIO 2.6(L) 3.3 - 4.4 [facility] Blood 03/17/2025 9:41 AM EDT 03/17/2025 9:44 AM EDT us Kamilah Sloan DNP LAB BLOOD ORDERABLES Fin al Result [facility] [address] [place] [address] from Last 3 Months or Most Recently Relevant to Health Maintenance Insurance [employer] PPO MEDICARE REPLACEMENT [employer] PPO MEDICARE REPLACEMENT [employer] PPO MEDICARE RE[facility]ACEMENT [facility]AC[place] [address] [address] MEDICARE REPLACEMENT [facility] MEDICARE REPLACEMENT [facility] MEDICARE REPLACEMENT [facility] MEDICARE REPLACEMENT [employer] PPO MEDICARE REPLACEMENT Advance Directives For more information, please contact: [phone] (9AM - 5PM [facility], Friday-Friday) Documents on File Type Date Recorded Patient Shoe Stitcher Odd Expl anation MOLST 02/24/2024 5:11 PM POLST 02/24/2024 5:08 PM Healthcare Proxy 04/07/2023 4:36 PM * DNR/DNI (No CPR/No Intubation) (Latest Code Status on File) Date Activated Date Inactivated Comments 04/11/2024 7:16 PM Question Answer Comments Code Status Confirmed With: Patient * DNR/DNI (No CPR/No Intubation) Date Activated Date Inactivated Comments 02/18/2024 11:52 AM 04/11/2024 7:16 PM Question Answer Comments Code Status Confirmed With: Patient * DNR/DNI (No CPR/No Intubation) Date Activated Date Inactivated Comments 04/04/2023 3:52 PM 02/18/2024 11:52 AM Question Answer Comments Code Status Confirmed With: Patient * DNR/DNI (No CPR/No Intubation) Date Activated Date Inactivated Comments 06/17/2021 9:22 PM 04/04/2023 3:52 PM Question Answer Comments Code Status Confirmed With: Patient Healthcare Agents on File Name Relationship Healthcare Agent [facility] Communication Varun Mata .Primary Health Care Agent (Proxy form on file) Care Teams Professor Of Communication And Writing Relationship Specialty Start Date End Date Ciaran Man DO [address] [place] [address], [place] [address] [email or web address] PCP - General Internal Medicine 02/17/25 Chris Martinez MD [address] [place] [address] [email or web address] Hematology and Oncology 05/06/18 Shanta Gregory MD [facility] [place] [address] Internal Medicine 08/24/18 Additional Source Comments The information contained in this document represents components of the legal health record. It is not the complete legal health record.[facility]
--- OUTSIDE RECORDS SUMMARY | 2025-08-08 19:15 | XMS_ITS ---
Author Organization [facility] Address [address] [facility] [address] [place] [address] Phone Care Team Providers Care Middle School Tutor Name Role Phone Chris Martinez MD Unavailable [phone] Shanta Gregory MD Unavailable [phone] Ciaran Man DO Primary Care Provider [phone] Active Problems Patient Care Coordination No te [...] currently stable Her A1c is 5.5. -Continue [id number]'s. 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 Since [...] Dr. Szymanski before she heads down to [place] for the winter. Assessment & Plan (03/26/2023 [...] be rescheduled as she is going to [place] for the winter beginning in July. I have asked her to get her echocardiogram when she returns from [place] and to have a follow-up appointment after [...] the hospital when she was in the [place]. She did call this office to let [...] does not want to continue with amiodarone latex foam worker or attempt another cardioversion. I agree to [...] 63 with LAD. Prolonged QTC of 481. factory expert reveals persistent sinus rhythm in the 70s [...] and warfarin. I would continue these medications. Current Treatment and Therapy Plans No current plan information found. Past Treatment and Therapy Plans TREATMENT PLAN Plan Name Start Date Discontinue Date Treatment Medications Discontinue Reason Plan Provider Cycles [facility] - CYCLOPHOSPHAMIDE/M ETHOTREXATE/FLUORO URACIL- 21 DAY CYCLE 8 02/24/2019 cycloPHOSphamide (CYTOXAN)cycloPHOS phamide (CYTOXAN) infusion 250 mL (powder vial)fluorouraciL (ADRUCIL)methotrex ate sodium (PF) a. Therapy Complete Chris Martinez MD 6 of 6 cycles started [facility] - CYCLOPHOSPHAMIDE PO/METHOTREXATE/FL UOROURACIL 8 03/05/2018 No medications scheduled. m. Entered in error Chris Martinez MD No cycles in plan Resolved Problems Problem Noted Date Diagnosed Date [...] admission was reviewed by the hospitalist and typewriter assembler on admission and it was agree that [...]
--- OUTSIDE RECORDS SUMMARY | 2025-08-08 19:15 | XMS_ITS | Encounter Summary ---
Author Organization [facility] Address [address] [place] [address] [place] [address] Phone Care Team Providers Care Holistic Pulser Name Role Phone Chris Martinez MD Unavailable [phone] Ciaran Man DO Primary Care Provider + Shanta Gregory MD Unavailable [phone] Ciaran Man DO Primary Care Provider [phone] Encounter Details Date Type Department Care Team (Late st Contact Info) Description 04/04/2023 Procedure Pass [facility], Ct Scan - [address] [address] Social History Tobacco Use Types Packs/Day Years [...] Date of Assessment Author No Risk Indicated 04/04/2023 3:00 PM EDT Vibha Shoemaker RN * [place] Suicide Severity Rating Scale (Screener/Recent Self-Report) Question Answer Date of Assessment Author 1. Wish to be (Past 1 Month) No 023 3:00 PM EDT Vibha Shoemaker RN 2. Non-Specific Active Suici roxana Thoughts (Past 1 Month) No 04/04/2023 3:00 PM EDT Jacoby Shoemaker RN 6. Suicidal Behavior (Lifetime) No 3:00 PM EDT Vibha Shoemaker RN documented as of this encounter Plan of Treatment Upcoming Encounters Date Type Department Care Team (Late st Contact Info) Description 02/20/2026 1:00 PM EDT Office Visit [facility] [address] [place] [address] 3rd [facility], [address] [place] [address] Israel Goodrich MD [address] [place] [address] [email or web address] documented as of this encounter Visit Diagnoses Not on filedocumented in this encounter Additional Health Concerns Infection Onset Date Last Indicated Resolved Time CoV-Risk Comment:Per note documentation 02/18/2024 02/19/2024 10:23 AM EDT CoV-Risk 04/11/2024 04/12/2024 04/12/2024 11:0 3 AM EDT documented as of this encounter Care Teams Holistic Pulser Relationship Specialty Start Date End Date Ciaran Man DO [address] [place] [address] [email or web address] PCP - General Internal Medicine 06/15/18 02/16/25 Ciaran Man DO [address] [place] [address] [email or web address] PCP - General Internal Medicine 02/17/25 Chris Martinez MD [address] [place] [address] [email or web address] Hematology and Oncology 05/06/18 Shanta Gregory MD [address] [place], [place] [address] [address] Internal Medicine 08/24/18 documented as of this encounter Additional Source Comments The information contained in this document represents components of the legal health record. It is not the complete legal health record.[facility]
--- OUTSIDE RECORDS SUMMARY | 2025-08-08 19:15 | XMS_ITS | Encounter Summary ---
Author Organization [facility] Address [address] [place] [address] [address] [place] [address] Phone Care Team Providers Care Thermal Cutting Machine Operator Name Role Phone Chris Martinez MD Unavailable [phone] Ciaran Man DO Primary Care Provider + Shanta Gregory MD Unavailable [phone] Ciaran Man DO Primary Care Provider + Encounter Details Date Type Department Care Team (Late st Contact Info) Description 06/08/2019 Procedure Pass [facility], [address] [address] Social History Tobacco Use Types Packs/Day Years [...] Description 02/20/2026 1:00 PM EDT Office Visit [facility] [address] [place] [address] [address]rd Floor, [address] [address] Israel Goodrich MD [address] [place] [address] documented as of this encounter Visit Diagnoses Not on filedocumented in this encounter Additional Health Concerns Infection Onset Date Last Indicated Resolved Time CoV-Risk 06/17/2021 06/17/2021 06/20/2021 3:52 PM EDT CoV-Risk 03/20/2022 03/20/2022 03/31/2022 1:22 AM EDT CoV-Risk Comment:Per note documentation 02/18/2024 02/19/2024 10:23 AM EDT CoV-Risk 04/11/2024 04/12/2024 04/12/2024 11:0 3 AM EDT documented as of this encounter Care Teams Thermal Cutting Machine Operator Relationship Specialty Start Date End Date Ciaran Man DO [address] [place] [address] carlos PCP - General Internal Medicine 06/15/18 02/16/25 Ciaran Man DO [address] [place] [address] carlos PCP - General Internal Medicine 02/17/25 Chris Martinez MD [address] [place] [address] Hematology and Oncology 05/06/18 Shanta Gregory MD [facility] [place] [facility] [address] [place] [address] Internal Medicine 08/24/18 documented as of this encounter Additional Source Comments The information contained in this document represents components of the legal health record. It is not the complete legal health record.[facility]
--- OUTSIDE RECORDS SUMMARY | 2025-08-08 19:15 | XMS_ITS | Encounter Summary ---
Author Organization [facility] Address [address] [place] [address] Phone Care Team Providers Care Food Service Tray Attendant Name Role Phone Chris Martinez MD Unavailable [phone] Ciaran Man DO Primary Care Provider [phone] Shanta Gregory MD Unavailable [phone] Ciaran Man DO Primary Care Provider [phone] Reason for Referral * MRI/CAT Scan - Closed Specialty Diagnoses / Procedures Referred By Katelin leblanc Referred To Contact Radiology Diagnoses Lumbosacral radiculopathy Procedures MRI Lumbar Spine Ciaran Man DO Phone: tel: fax: [email or web address] Referral ID Status Reason Start Date Expiration Date Visits Re quested Visits Authorized [id number] Closed 06/08/2019 06/07/2020 1 1 Encounter Details Date Type Department Care Team (Late st Contact Info) Description 06/08/2019 Transcribe Orders Virtual Department [address] [place] [address] Ciaran Man DO [address] [facility] [place] [address] [email or web address] Lumbosacral radiculopathy (Primary Dx) Social History Tobacco Use Types [...] Description 02/20/2026 1:00 PM EDT Office Visit [facility] [address] [place] [address] 3rd Floor, [address] [place] [address] Israel Goodrich MD [address] [address] [email or web address] documented as of this encounter Results * MRI LUMBAR SPINE (NEURO) WITHOUT CONTRAST (06/18/2019 1:29 PM EDT) Anatomical Region Laterality Modality L-spine Magnetic Resonan ce 06/18/2019 1:31 PM EDT Impressions 06/18/2019 2:01 PM EDT Mild to moderately progressive degenerative endplate changes. Only minor foraminal narrowing near the origin of the left L5 nerve root. No pronounced canal or foraminal stenosis. Fairly large left renal cyst with mild bilateral hydronephrosis. Follow-up renal ultrasound suggested. POS - [id number] Edited by: Cinthya Quintanilla on 06/18/2019 1:51 PM Narrative 06/18/2019 2:01 PM EDT HISTORY: Low back pain with bilateral radicular symptoms. COMPARISON: Radiographs April 26, 2019 and MRI March 25, 2008. TECHNIQUE: Exam performed on a 1.5 Patricia high-field MRI scanner. Sagittal T1, T2 and STIR, axial T1 and T2 sequences were obtained. FINDINGS: On sagittal views at T11-12 and T12-L1 no finding of concern is identified. There is scoliosis convex left, apex L1 at the thoracolumbar junction and convex right, apex L4 in the lumbar spine. L1-2: No findings of concern. L2-3: Mild degenerative disc disease with diffuse disc bulging. Bilateral facet arthropathy, worse on the right. No significant canal or foraminal stenosis. Minor lateral recess narrowing. L3-4: More advanced degenerative disc disease, slightly progressive since prior. Minor disc ridge complex. More spurring towards the left than right but no prominent mass effect on canal or foramina. Some facet degenerative change noted bilaterally of fairly mild degree. L4-5: Progressive degenerative disc disease, particularly at the left side endplates. No significant canal or foraminal stenosis, however. Relatively minor facet degenerative changes. L5-S1: Degenerative disc disease, also mildly progressive with mild uncovertebral spurring bilaterally. Minimal mass effect on the left L5 nerve root. No central canal stenosis. No prominent hypertrophic changes of facets. Small dural cyst at the sacrum again noted without worrisome change. No worrisome marrow signal changes are identified. No compression deformity. Conus is present at the L1-2 level. Dominant renal cyst seen at the lateral left kidney, present previously but much larger than on prior study. There also appears to be mild hydronephrosis, difficult to assess for change compared to prior. No evidence of pronounced cortical thinning in the visualized portion of the kidneys. Procedure Note Rene Vera MD - 06/18/2019 HISTORY: Low back pain with bilateral radicular symptoms. COMPARISON: Radiographs April 26, 2019 and MRI March 25, 2008. TECHNIQUE: Exam performed on a 1.5 Patricia high-field MRI scanner. SagittalT1, T2 and STIR, axial T1 and T2 sequences were obtained. FINDINGS: On sagittal views at T11-12 and T12-L1 no finding of concern isidentified. There is scoliosis convex left, apex L1 at the thoracolumbarjunction and convex right, apex L4 in the lumbar spine. L1-2: No findings of concern. L2-3: Mild degenerative disc disease with diffuse disc bulging. Bilateralfacet arthropathy, worse on the right. No significant canal or foraminalstenosis. Minor lateral recess narrowing. L3-4: More advanced degenerative disc disease, slightly progressive sinceprior. Minor disc ridge complex. More spurring towards the left than rightbut no prominent mass effect on canal or foramina. Some facet degenerativechange noted bilaterally of fairly mild degree. L4-5: Progressive degenerative disc disease, particularly at the left sideendplates. No significant canal or foraminal stenosis, however. Relativelyminor facet degenerative changes. L5-S1: Degenerative disc disease, also mildly progressive with milduncovertebral spurring bilaterally. Minimal mass effect on the left J8wstlv root. No central canal stenosis. No prominent hypertrophic changesof facets. Small dural cyst at the sacrum again noted without worrisomechange. No worrisome marrow signal changes are identified. No compressiondeformity. Conus is present at the L1-2 level. Dominant renal cyst seen at the lateral left kidney, present previouslybut much larger than on prior study. There also appears to be mildhydronephrosis, difficult to assess for change compared to prior. Noevidence of pronounced cortical thinning in the visualized portion of thekidneys. IMPRESSION: Mild to moderately progressive degenerative endplate changes. Only minorforaminal narrowing near the origin of the left L5 nerve root. Nopronounced canal or foraminal stenosis. Fairly large left renal cyst withmild bilateral hydronephrosis. Follow-up renal ultrasound suggested. POS - [id number] Edited by: Cinthya Quintanilla on 06/18/2019 1:51 PM Ciaran Man DO [facility] Final Result documented in this encounter Visit Diagnoses Diagnosis Lumbosacral radiculopathy- Primary Thoracic or lumbosacral neuritis or radiculitis, unspecified Lumbosacral radiculopathy Thoracic or lumbosacral neuritis or radiculitis, unspecified documented in this encounter Additional Health Concerns Infection Onset Date Last Indicated Resolved Time CoV-Risk 06/17/2021 06/17/2021 06/20/2021 3:52 PM EDT CoV-Risk 03/20/2022 03/20/2022 03/31/2022 1:22 AM EDT CoV-Risk Comment:Per note documentation 02/18/2024 02/19/2024 10:23 AM EDT CoV-Risk 04/11/2024 04/12/2024 04/12/2024 11:0 3 AM EDT documented as of this encounter Care Teams Food Service Tray Attendant Relationship Specialty Start Date End Date Ciaran Man DO [address] [place] [address] PCP - General Internal Medicine 06/15/18 02/16/25 Ciaran Man DO [address] [place] [address] carlos PCP - General Internal Medicine 02/17/25 Chris Martinez MD [address] [place] [address] Hematology and Oncology 05/06/18 Shanta Gregory MD [address] [place] [address] Internal Medicine 08/24/18 documented as of this encounter Additional Source Comments The information contained in this document represents components of the legal health record. It is not the complete legal health record.[facility]
--- OUTSIDE RECORDS SUMMARY | 2025-08-08 19:15 | XMS_ITS | Encounter Summary ---
Author Organization [facility] Address [address] [place] [address] [place] [address] Phone Care Team Providers Care Lead Material Handler Name Role Phone Chris Martinez MD Unavailable [phone] Ciaran Man DO Primary Care Provider + Shanta Gregory MD Unavailable [phone] Ciaran Man DO Primary Care Provider [phone] Encounter Details Date Type Department Care Team (Late st Contact Info) Description 04/04/2023 Procedure Pass [facility], Ct Scan - [address] [address] Social History Tobacco Use Types Packs/Day Years [...] 3:00 PM EDT Vibha Shoemaker RN * [place] Suicide Severity Rating Scale (Screener/Recent Self-Report) Question [...] Description 02/20/2026 1:00 PM EDT Office Visit [facility] [address] [place] [address] 3rd [facility], [address] [place] [address] Israel Goodrich MD [address] [place] [address] [email or web address] documented as of this encounter Visit Diagnoses Not on filedocumented in this encounter Additional Health Concerns Infection Onset Date Last Indicated Resolved Time CoV-Risk Comment:Per note documentation 02/18/2024 02/19/2024 10:23 AM EDT CoV-Risk 04/11/2024 04/12/2024 04/12/2024 11:0 3 AM EDT documented as of this encounter Care Teams Lead Material Handler Relationship Specialty Start Date End Date Ciaran Man DO [address] [place] [address] [email or web address] PCP - General Internal Medicine 06/15/18 02/16/25 Ciaran Man DO [address] [place] [address] [email or web address] PCP - General Internal Medicine 02/17/25 Chris Martinez MD [address] [place] [address] [email or web address] Hematology and Oncology 05/06/18 Shanta Gregory MD [address] [place], [place] [address] [address] Internal Medicine 08/24/18 documented as of this encounter Additional Source Comments The information contained in this document represents components of the legal health record. It is not the complete legal health record.[facility]
--- OUTSIDE RECORDS SUMMARY | 2025-08-08 19:15 | XMS_ITS | Encounter Summary ---
Author Organization [facility] Address [address] [place] [address] [place] [address] Phone Care Team Providers Care Tonnage Compilation Clerk Name Role Phone Chris Martinez MD Unavailable [phone] Ciaran Man DO Primary Care Provider [phone] Shanta Gregory MD Unavailable [phone] Ciaran Man DO Primary Care Provider [phone] Encounter Details Date Type Department Care Team (Late Contact Info) Description 05/31/2019 Ancillary Orders [facility],Outside Imaging [address] [place] [address] System, Provider Not In, [facility] [address] [address] Social History Tobacco Use Types Packs/Day Years [...] Description 02/20/2026 1:00 PM EDT Office Visit [facility] [address] [place] [address] 3rd Floor, [address] [place] [address] Israel Goodrich MD 22 [facility], [address] [place] [address] [email or web address] documented as of this encounter Results * Mammogram Outside (No Interpretation) (11/10/2017 12:05 AM EST) Narrative SYSTEMGENERATED, DOCUMENTATION - 05/31/2019 11:07 AM EDT This study is for PACS [...] documented as of this encounter Care Teams Tonnage Compilation Clerk Relationship Specialty Start Date End Date Ciaran Man DO [address] [place] [address] [email or web address] PCP - General Internal Medicine 06/15/18 02/16/25 Ciaran Man DO [address] [place] [address] [place] [address] [email or web address] PCP - General Internal Medicine 02/17/25 Chris Martinez MD [address] [place] [address] Hematology and Oncology 05/06/18 Shanta Gregory MD [address] [place], [place] [address] [address] Internal Medicine 08/24/18 documented as of this encounter Additional Source Comments The information contained in this document represents components of the legal health record. It is not the complete legal health record.[facility]
--- OUTSIDE RECORDS SUMMARY | 2025-08-08 19:15 | XMS_ITS | Encounter Summary ---
Author Organization [facility] Address [address] [place] [address] [place] [address] Phone Care Team Providers Care Diamond Mounter Name Role Phone Chris Martinez MD Unavailable [phone] Ciaran Man DO Primary Care Provider [phone] Shanta Gregory MD Unavailable [phone] Ciaran Man DO Primary Care Provider [phone] Encounter Details Date Type Department Care Team (Late Contact Info) Description 05/31/2019 Ancillary Orders [facility],Outside Imaging 30 [place] [address] System, Provider Not In, [facility] [address] [address] Social History Tobacco Use Types Packs/Day Years [...] Description 02/20/2026 1:00 PM EDT Office Visit [facility] [address] [place] [address] 3rd Floor, [address] [place] [address] Israel Goodrich MD 22 [facility], [address] [place] [address] [email or web address] documented as of this encounter Results * US Breast Outside (No Interpretation) (10/31/2017 12:05 AM EST) Narrative SYSTEMGENERATED, DOCUMENTATION - 05/31/2019 11:08 AM EDT This study is for PACS [...] documented as of this encounter Care Teams Diamond Mounter Relationship Specialty Start Date End Date Ciaran Man DO [address] [place] [address] [email or web address] PCP - General Internal Medicine 06/15/18 02/16/25 Ciaran Man DO [address] [place] [address] [place] [address] [email or web address] PCP - General Internal Medicine 02/17/25 Chris Martinez MD [address] [place] [address] Hematology and Oncology 05/06/18 Shanta Gregory MD [address] [place], [place] [address] [address] Internal Medicine 08/24/18 documented as of this encounter Additional Source Comments The information contained in this document represents components of the legal health record. It is not the complete legal health record.[facility]
--- OUTSIDE RECORDS SUMMARY | 2025-08-08 19:15 | XMS_ITS | Encounter Summary ---
Author Organization [facility] Address [address] [place] [address] [place] [address] Phone Care Team Providers Care Rn Progressive Care Unit Name Role Phone Chris Martinez MD Unavailable [phone] Ciaran Man DO Primary Care Provider [phone] Shanta Gregory MD Unavailable [phone] Ciaran Man DO Primary Care Provider [phone] Encounter Details Date Type Department Care Team (Late Contact Info) Description 05/31/2019 Ancillary Orders [facility],Outside Imaging 30 [place] [address] System, Provider Not In, [facility] [address] [address] Social History Tobacco Use Types Packs/Day Years [...] Description 02/20/2026 1:00 PM EDT Office Visit [facility] [address] [place] [address] 3rd Floor, [address] [place] [address] Israel Goodrich MD 22 [facility], [address] [place] [address] [email or web address] documented as of this encounter Results * Mammogram Outside (No Interpretation) (10/31/2017 12:00 AM EST) Narrative SYSTEMGENERATED, DOCUMENTATION - 05/31/2019 10:57 AM EDT This study is for PACS [...] documented as of this encounter Care Teams Rn Progressive Care Unit Relationship Specialty Start Date End Date Ciaran Man DO [address] [place] [address] [email or web address] PCP - General Internal Medicine 06/15/18 02/16/25 Ciaran Man DO [address] [place] [address] [place] [address] [email or web address] PCP - General Internal Medicine 02/17/25 Chris Martinez MD [address] [place] [address] Hematology and Oncology 05/06/18 Shanta Gregory MD [address] [place], [place] [address] [address] Internal Medicine 08/24/18 documented as of this encounter Additional Source Comments The information contained in this document represents components of the legal health record. It is not the complete legal health record.[facility]
--- OUTSIDE RECORDS SUMMARY | 2025-08-08 19:15 | XMS_ITS | Encounter Summary ---
Author Organization [facility] Address [address] [place] [address] [address] [place] [address] Phone Care Team Providers Care Customer Agent Name Role Phone Chris Martinez MD Unavailable [phone] Ciaran Man DO Primary Care Provider [phone] Shanta Gregory MD Unavailable [phone] Ciaran Man DO Primary Care Provider [phone] Encounter Details Date Type Department Care Team (Late Contact Info) Description 06/19/2021 Procedure Pass [facility] Cardiovascular And Interventional Radiology 30 [place] [address] Social History Tobacco Use Types Packs/Day Years [...] Upcoming Encounters Date Type Department Care Team ([facility] Contact Info) Description 02/20/2026 1:00 PM EDT Office Visit [facility] [address] [place] [address] 3rd Floor, [address] [place] [address] Israel Goodrich MD 22 [facility] 301 [place] [address] documented as of this encounter Visit Diagnoses Not on filedocumented in this encounter Additional Health Concerns Infection Onset Date Last Indicated Resolved Time CoV-Risk 06/17/2021 06/17/2021 06/20/2021 3:52 PM EDT CoV-Risk 03/20/2022 03/20/2022 03/31/2022 1:22 AM EDT CoV-Risk Comment:Per note documentation 02/18/2024 02/19/2024 10:23 AM EDT CoV-Risk 04/11/2024 04/12/2024 04/12/2024 11:0 3 AM EDT documented as of this encounter Care Teams Customer Agent Relationship Specialty Start Date End Date Ciaran Man DO [address] [place] [address] carlos PCP - General Internal Medicine 06/15/18 02/16/25 Ciaran Man DO [address] [place] [address] [place] [address] carlos PCP - General Internal Medicine 02/17/25 Chris Martinez MD [address] [place] [address] Hematology and Oncology 05/06/18 Shanta Gregory MD [facility] [place] [address] [place] [address] Internal Medicine 08/24/18 documented as of this encounter Additional Source Comments The information contained in this document represents components of the legal health record. It is not the complete legal health record.[facility]
--- OUTSIDE RECORDS SUMMARY | 2025-08-08 19:15 | XMS_ITS | Encounter Summary ---
Author Organization [facility] Address [address] [place] [address] [place] [address] Phone Care Team Providers Care Monogram Operator Name Role Phone Chris Martinez MD Unavailable [phone] Ciaran Man DO Primary Care Provider [phone] Shanta Gregory MD Unavailable [phone] Ciaran Man DO Primary Care Provider [phone] Encounter Details Date Type Department Care Team (Late Contact Info) Description 05/31/2019 Ancillary Orders [facility],Outside Imaging 30 [place] [address] System, Provider Not In, [facility] [address] [address] Social History Tobacco Use Types Packs/Day Years [...] Description 02/20/2026 1:00 PM EDT Office Visit [facility] [address] [place] [address] 3rd Floor, [address] [place] [address] Israel Goodrich MD 22 [facility], [address] [place] [address] [email or web address] documented as of this encounter Results * US Breast Outside (No Interpretation) (01/12/2018 12:00 AM EDT) Narrative SYSTEMGENERATED, DOCUMENTATION - 05/31/2019 10:51 AM EDT This study is for PACS [...] documented as of this encounter Care Teams Monogram Operator Relationship Specialty Start Date End Date Ciaran Man DO [address] [place] [address] [email or web address] PCP - General Internal Medicine 06/15/18 02/16/25 Ciaran Man DO [address] [place] [address] [place] [address] [email or web address] PCP - General Internal Medicine 02/17/25 Chris Martinez MD [address] [place] [address] Hematology and Oncology 05/06/18 Shanta Gregory MD [address] [place], [place] [address] [address] Internal Medicine 08/24/18 documented as of this encounter Additional Source Comments The information contained in this document represents components of the legal health record. It is not the complete legal health record.[facility]
--- OUTSIDE RECORDS SUMMARY | 2025-08-08 19:15 | XMS_ITS | Encounter Summary ---
Author Organization [facility] Address [address] [place] [address] Phone Care Team Providers Care Parole Agent Name Role Phone Chris Martinez MD Unavailable [phone] [facility] Primary Care Provider [phone] Shanta Gregory MD Unavailable [phone] Ciaran Man DO Primary Care Provider [phone] Encounter Details Date Type Department Care Team (Latest Contact Info) Description 06/18/2019 Transcribe Orders Virtual Department 30 [place] [address] Cristy Pittman PA-C [address] [place] [address] [email or web address] Bilateral hydronephrosis (Primary Dx) Social History Tobacco Use Types [...] Description 02/20/2026 1:00 PM EDT Office Visit [facility] [address] [place] [address] 3rd Floor, [address] [place] [address] Israel Goodrich MD 22 [facility], [address] [place] [address] [email or web address] documented as of this encounter Results * US Kidneys (07/01/2019 10:03 AM EDT) Anatomical Region Laterality Modality Abdomen, Kidney Ultrasound 07/01/2019 10:2 6 AM EDT Impressions 07/01/2019 10:29 AM EDT Mild right hydronephrosis of uncertain etiology. No left-sided hydronephrosis. Chronic left renal cortical cyst without other significant parenchymal abnormality apparent. POS - [id number] Narrative 07/01/2019 10:29 AM EDT COMPARISON: 03/05/2018 PET/CT and 06/18/2019 lumbar MR FINDINGS: Kidneys are within normal limits overall size with right measuring 9.8 x 3.8 cm and left 9.1 x 4.3 cm in a longitudinal plane. Study is somewhat limited due to overlying bowel gas. There appears to be mild right hydronephrosis. No left renal collecting system distention demonstrated. There is a 2.7 x 2.7 x 2.8 cm chronic left lower pole cortical cyst. No solid renal mass or shadowing intrarenal calculi detected on either side. Procedure Note Mattie Joy MD - 07/01/2019 COMPARISON: 03/05/2018 PET/CT and 06/18/2019 lumbar MR FINDINGS: Kidneys are within normal limits overall size with right measuring 9.8 x3.8 cm and left 9.1 x 4.3 cm in a longitudinal plane. Study is somewhatlimited due to overlying bowel gas. There appears to be mild righthydronephrosis. No left renal collecting system distention demonstrated.There is a 2.7 x 2.7 x 2.8 cm chronic left lower pole cortical cyst. Nosolid renal mass or shadowing intrarenal calculi detected on eitherside. IMPRESSION: Mild right hydronephrosis of uncertain etiology. No left-sidedhydronephrosis. Chronic left renal cortical cyst without othersignificant parenchymal abnormality apparent. POS - [id number] January Toya PARRY IMG US RENAL Final Result documented in this encounter Visit Diagnoses Diagnosis Bilateral hydronephrosis- Primary Hydronephrosis Bilateral hydronephrosis Hydronephrosis documented in this encounter Additional Health Concerns Infection Onset Date Last Indicated Resolved Time CoV-Risk 06/17/2021 06/17/2021 06/20/2021 3:52 PM EDT CoV-Risk 03/20/2022 03/20/2022 03/31/2022 1:22 AM EDT CoV-Risk Comment:Per note documentation 02/18/2024 02/19/2024 10:23 AM EDT CoV-Risk 04/11/2024 04/12/2024 04/12/2024 11:0 3 AM EDT documented as of this encounter Care Teams Parole Agent Relationship Specialty Start Date End Date Ciaran Man DO 30 [place] [address] carlos PCP - General Internal Medicine 06/15/18 02/16/25 Ciaran Man DO [address] [place] [address] carlos PCP - General Internal Medicine 02/17/25 Chris Martinez MD 30 [place] [address] Hematology and Oncology 05/06/18 Shanta Gregory MD [address] [place] [address] [place] [address] Internal Medicine 08/24/18 documented as of this encounter Additional Source Comments The information contained in this document represents components of the legal health record. It is not the complete legal health record.[facility]
--- OUTSIDE RECORDS SUMMARY | 2025-08-08 19:16 | XMS_ITS | Encounter Summary ---
Author Organization [facility] Address [address] [place] [address] Phone Care Team Providers Care Toddler Teacher Name Role Phone Chris Martinez MD Unavailable [phone] Ciaran aMn DO Primary Care Provider [phone] Shanta Gregory MD Unavailable [phone] Ciaran Man DO Primary Care Provider [phone] Reason for Referral * Consultation (Elective) - Closed Specialty Diagnoses / Procedures Referred By Katelin leblanc Referred To Contact Diagnoses Atrial fibrillation, unspecified type Ciaran Man DO Phone: tel: fax: mailto:[email or web address] [facility] 30 [place] [address] Phone: tel: Referral ID Status Reason Start Date Expiration Date Visits Re quested Visits Authorized [id number] Closed 06/08/2021 06/08/2022 1 1 Encounter Details Date Type Department Care Team (Late st Contact Info) Description 06/08/2021 Transcribe Orders [facility] Department 30 [place] [address] Ciaran Man DO [address] [place] [address] [email or web address] Atrial fibrillation, unspecified type (Primary Dx) Social [...] Description 02/20/2026 1:00 PM EDT Office Visit [facility] [address] [place] [address] 3rd [facility], [address] [address] Israel Goodrich MD [address] [place] [address] [email or web address] Scheduled Referrals Name Type Priority Associated Diagnoses Order Schedule Ambulatory referral to [facility] Anticoagulation Clinic Outpatient Referral Routine Atrial fibrillation, unspecified type Ordered: 06/08/2021 documented as of this encounter Visit Diagnoses [...] documented as of this encounter Care Teams Toddler Teacher Relationship Specialty Start Date End Date Ciaran Man DO [address] [place] [address] PCP - General Internal Medicine 06/15/18 02/16/25 Ciaran Man DO [address] [place] [address] carlos PCP - General Internal Medicine 02/17/25 Chris Martinez MD [address] [place] [address] Hematology and Oncology 05/06/18 Shanta Gregory MD [facility] [place] [address] [place] [address] Internal Medicine 08/24/18 documented as of this encounter Additional Source Comments The information contained in this document represents components of the legal health record. It is not the complete legal health record.[facility]
--- OUTSIDE RECORDS SUMMARY | 2025-08-08 19:16 | XMS_ITS | Encounter Summary ---
Author Organization [facility] Address [address] [place] [address] [place] [address] Phone Care Team Providers Care Wire Drawing Machine Operator Name Role Phone Chris Martinez MD Unavailable [phone] Ciaran Man DO Primary Care Provider [phone] Shanta Gregory MD Unavailable [phone] Ciaran Man DO Primary Care Provider [phone] Encounter Details Date Type Department Care Team (Late Contact Info) Description 05/31/2019 Ancillary Orders [facility],Outside Imaging 30 [place] [address] System, Provider Not In, [facility] [address] [address] Social History Tobacco Use Types Packs/Day Years [...] Description 02/20/2026 1:00 PM EDT Office Visit [facility] [address] [place] [address] 3rd Floor, [address] [place] [address] Israel Goodrich MD 22 [facility], [address] [place] [address] [email or web address] documented as of this encounter Results * Mammogram Outside (No Interpretation) (01/13/2018 12:00 AM EDT) Narrative SYSTEMGENERATED, DOCUMENTATION - 05/31/2019 10:50 AM EDT This study is for PACS [...] documented as of this encounter Care Teams Wire Drawing Machine Operator Relationship Specialty Start Date End Date Ciaran Man DO [address] [place] [address] [email or web address] PCP - General Internal Medicine 06/15/18 02/16/25 Ciaran Man DO [address] [place] [address] [place] [address] [email or web address] PCP - General Internal Medicine 02/17/25 Chris Martinez MD [address] [place] [address] Hematology and Oncology 05/06/18 Shanta Gregory MD [address] [place], [place] [address] [address] Internal Medicine 08/24/18 documented as of this encounter Additional Source Comments The information contained in this document represents components of the legal health record. It is not the complete legal health record.[facility]
--- OUTSIDE RECORDS SUMMARY | 2025-08-08 19:16 | XMS_ITS | Encounter Summary ---
Author Organization [facility] Address [address] [place] [address] [place] [address] Phone Care Team Providers Care Patents Examiner Name Role Phone Chris Martinez MD Unavailable [phone] Ciaran Man DO Primary Care Provider + Shanta Gregory MD Unavailable [phone] Ciaran Man DO Primary Care Provider + Encounter Details Date Type Department Care Team (Late st Contact Info) Description 03/19/2022 Procedure Pass [facility] [place] [facility] [place] [address] Social History Tobacco Use Types [...] Date of Assessment Author No Risk Indicated 03/20/2022 9:54 AM EDT Minnie Crowder RN * [place] Suicide Severity Rating Scale (Screener/Recent Self-Report) Question Answer Date of Assessment Author 1. Wish to be (Past 1 Month) No 022 9:54 AM EDT Minnie Crowder RN 2. Non-Specific Active Suici roxana Thoughts (Past 1 Month) No 03/20/2022 9:54 AM EDT Jermain Crowder, ALMAZ 6. Suicidal Behavior (Lifetime) No 9:54 AM EDT Minnie Crowder RN documented as of this encounter Plan of Treatment Upcoming Encounters Date Type Department Care Team (Late st Contact Info) Description 02/20/2026 1:00 PM EDT Office Visit [facility] [address] [place] [address] 3rd Floor, [address] [place] [address] Israel Goodrich MD [address] [place] [address] [email or web address] documented as of this encounter Visit Diagnoses Not on filedocumented in this encounter Additional Health Concerns Infection Onset Date Last Indicated Resolved Time CoV-Risk 03/20/2022 03/20/2022 03/31/2022 1:22 AM EDT CoV-Risk Comment:Per note documentation 02/18/2024 02/19/2024 10:23 AM EDT CoV-Risk 04/11/2024 04/12/2024 04/12/2024 11:0 3 AM EDT documented as of this encounter Care Teams Patents Examiner Relationship Specialty Start Date End Date Ciaran Man DO 30 [place] [address] carlos PCP - General Internal Medicine 06/15/18 02/16/25 Ciaran Man DO [address] [place] [address] carlos PCP - General Internal Medicine 02/17/25 Chris Martinez MD [address] [place] [address] [email or web address] Hematology and Oncology 05/06/18 Shanta Gregory MD [facility] [place] [address] [place] [address] Internal Medicine 08/24/18 documented as of this encounter Additional Source Comments The information contained in this document represents components of the legal health record. It is not the complete legal health record.[facility]
--- OUTSIDE RECORDS SUMMARY | 2025-08-08 19:16 | XMS_ITS | Encounter Summary ---
Author Organization [facility] Address [address] [place] [address] [place] [address] Phone Care Team Providers Care Radio Time Salesperson Name Role Phone Chris Martinez MD Unavailable [phone] Ciaran Man DO Primary Care Provider [phone] Shanta Gregory MD Unavailable [phone] Ciaran Man DO Primary Care Provider [phone] Encounter Details Date Type Department Care Team (Late Contact Info) Description 05/31/2019 Ancillary Orders [facility],Outside Imaging [address] [place] [address] System, Provider Not In, [facility] [address] [address] Social History Tobacco Use Types Packs/Day Years [...] Description 02/20/2026 1:00 PM EDT Office Visit [facility] [address] [place] [address] 3rd Floor, [address] [place] [address] Israel Goodrich MD 22 [facility], [address] [place] [address] [email or web address] documented as of this encounter Results * Mammogram Outside (No Interpretation) (01/12/2018 12:05 AM EDT) Narrative SYSTEMGENERATED, DOCUMENTATION - 05/31/2019 10:53 AM EDT This study is for PACS [...] documented as of this encounter Care Teams Radio Time Salesperson Relationship Specialty Start Date End Date Ciaran Man DO [address] [place] [address] [email or web address] PCP - General Internal Medicine 06/15/18 02/16/25 Ciaran Man DO [address] [place] [address] [place] [address] [email or web address] PCP - General Internal Medicine 02/17/25 Chris Martinez MD [address] [place] [address] Hematology and Oncology 05/06/18 Shanta Gregory MD [address] [place], [place] [address] [address] Internal Medicine 08/24/18 documented as of this encounter Additional Source Comments The information contained in this document represents components of the legal health record. It is not the complete legal health record.[facility]
--- OUTSIDE RECORDS SUMMARY | 2025-08-08 19:16 | XMS_ITS | Encounter Summary ---
Author Organization [facility] Address [address] [place] [address] [place] [address] Phone Care Team Providers Care Inshore Undersea Warfare Officer Name Role Phone Chris Martinez MD Unavailable Ciaran Man DO Primary Care Provider + Shanta Gregory MD Unavailable [phone] Ciaran Man DO Primary Care Provider [phone] Encounter Details Date Type Department Care Team (Late st Contact Info) Description 06/17/2021 Procedure Pass [facility], Ct Scan - [address] [address] Social History Tobacco Use Types Packs/Day Years [...] Date of Assessment Author No Risk Indicated 06/17/2021 1:48 PM EDT Kamilah Florentino RN * [place] Suicide Severity Rating Scale (Screener/Recent Self-Report) Question Answer Date of Assessment Author 1. Wish to be (Past 1 Month) No 021 1:48 PM EDT Kmailah Florentino RN 2. Non-Specific Active Suici roxana Thoughts (Past 1 Month) No 06/17/2021 1:48 PM EDT Kamilah Florentino RN 6. Suicidal Behavior (Lifetime) No 1:48 PM EDT Kamilah Florentino RN documented as of this encounter Plan of Treatment Upcoming Encounters Date Type Department Care Team (Late st Contact Info) Description 02/20/2026 1:00 PM EDT Office Visit [facility] [address] [place] [address] 3rd Floor, [address] [place] [address] Israel Goodrich MD [address] [place] [address] [email or web address] documented as of this encounter Visit Diagnoses Not on filedocumented in this encounter Additional Health Concerns Infection Onset Date Last Indicated Resolved Time CoV-Risk 06/17/2021 06/17/2021 06/20/2021 3:52 PM EDT CoV-Risk 03/20/2022 03/20/2022 03/31/2022 1:22 AM EDT CoV-Risk Comment:Per note documentation 02/18/2024 02/19/2024 10:23 AM EDT CoV-Risk 04/11/2024 04/12/2024 04/12/2024 11:0 3 AM EDT documented as of this encounter Care Teams Inshore Undersea Warfare Officer Relationship Specialty Start Date End Date Ciaran Man DO [address] [place] [address] carlos PCP - General Internal Medicine 06/15/18 02/16/25 Ciaran Man DO [address] [place] [address] [place] [address] [email or web address] PCP - General Internal Medicine 02/17/25 Chris Martinez MD [address] [place] [address] [email or web address] Hematology and Oncology 05/06/18 Shanta Gregory MD [address] [place] [address] Internal Medicine 08/24/18 documented as of this encounter Additional Source Comments The information contained in this document represents components of the legal health record. It is not the complete legal health record.[facility]
--- OUTSIDE RECORDS SUMMARY | 2025-08-08 19:16 | XMS_ITS | Encounter Summary ---
Author Organization [facility] Address [address] [place] [address] [place] [address] Phone Care Team Providers Care Oven Dauber Name Role Phone Chrsi Martinez MD Unavailable [phone] Shanta Gregory MD Unavailable [phone] Ciaran Man DO Primary Care Provider [phone] Encounter Details Date Type Department Care Team (Latest Contact Info) Description 04/08/2025 Transcribe Orders Virtual Department 30 [place] [address] Tamica Cline PA 6 [facility] [place] [address] Acute abdominal pain (Primary Dx) Social History Tobacco Use Types [...] Description 02/20/2026 1:00 PM EDT Office Visit [facility] [address] 3rd Floor, [address] [place] [address] Israel Goodrich MD 22 [facility], [address] [place] [address] [email or web address] documented as of this encounter Results * FL UGI SERIES DOUBLE CONTRAST (04/12/2025 11:22 AM EDT) Anatomical Region Laterality Modality Abdomen Computed Radiogr aphy 04/12/2025 2:01 PM EDT Impressions 04/12/2025 2:42 PM EDT Mild esophageal dysmotility. FLUOROSCOPY TIME: 1 MINUTE 39 SECONDS NUMBER OF IMAGES: 190 The examination was performed by RRAIain. Dr. Avani Boyd was immediately available for portions of the procedure as needed. ATTESTATION: I, Avani Boyd as teaching physician, have reviewed the images for this case and if necessary edited the report originally created by Iain Burr. Narrative 04/12/2025 2:42 PM EDT FL UGI SERIES DOUBLE CONTRAST HISTORY: Acute abdominal pain. COMPARISON: Xr abdomen series 04/12/2025. TECHNIQUE: AIR CONTRAST UPPER GI SERIES FINDINGS: Correlate imaging of the abdomen with recent study. Network Intern images were not obtained. ESOPHAGUS: Motility: The primary peristaltic wave is slightly diminished but without significant dysmotility. Mucosa: No discrete mass, ulceration or fixed stricture demonstrated fluoroscopically. Distensibility: Normal. GASTROESOPHAGEAL JUNCTION: No evidence of hiatal hernia. A 13 mm barium tablet passed into the stomach without difficulty. GASTROESOPHAGEAL REFLUX: None observed. STOMACH: Normally distensible and demonstrates normal contours and mucosal pattern. DUODENUM: Bulb and sweep are normal. Duodenal-jejunal junction is in the normal expected position. Procedure Note Avani Boyd MD - 04/12/2025 FL UGI SERIES DOUBLE CONTRAST HISTORY: Acute abdominal pain. COMPARISON: Xr abdomen series 04/12/2025. TECHNIQUE: AIR CONTRAST UPPER GI SERIES FINDINGS: Correlate imaging of the abdomen with recent study. Network Intern images were notobtained. ESOPHAGUS: Motility: The primary peristaltic wave is slightly diminished butwithout significant dysmotility. Mucosa: No discrete mass, ulceration or fixed stricture demonstratedfluoroscopically. Distensibility: Normal. GASTROESOPHAGEAL JUNCTION: No evidence of hiatal hernia. A 13 mm bariumtablet passed into the stomach without difficulty. GASTROESOPHAGEAL REFLUX: None observed. STOMACH: Normally distensible and demonstrates normal contours andmucosal pattern. DUODENUM: Bulb and sweep are normal. Duodenal-jejunal junction is in thenormal expected position. IMPRESSION: Mild esophageal dysmotility. FLUOROSCOPY TIME: 1 MINUTE 39 SECONDS NUMBER OF IMAGES: 190 The examination was performed by RRAIain. Dr. Avani Boyd wasimmediately available for portions of the procedure as needed. ATTESTATION: I, Avani Boyd as teaching physician, have reviewed theimages for this case and if necessary edited the report originally createdby Iain Burr. Tamica [facility] Final Resul t documented in this encounter Visit Diagnoses Diagnosis Acute abdominal pain- Primary Abdominal pain, unspecified site Acute abdominal pain Abdominal pain, unspecified site documented in this encounter Care Teams Oven Dauber Relationship Specialty Start Date End Date Ciaran Man DO [address] [place] [address] carlos PCP - General Internal Medicine 02/17/25 Chris Martinez MD [address] [place] [address] Hematology and Oncology 05/06/18 Shanta Gregory MD [address] [place], [place] [address] [place] [address] Internal Medicine 08/24/18 documented as of this encounter Additional Source Comments The information contained in this document represents components of the legal health record. It is not the complete legal health record.[facility]
--- OUTSIDE RECORDS SUMMARY | 2025-08-08 19:16 | XMS_ITS | Encounter Summary ---
Author Organization [facility] Address [address] [place] [address] [address] [place] [address] Phone Care Team Providers Care Bed Worker Name Role Phone Chris Martinez MD Unavailable [phone] Ciaran Man DO Primary Care Provider + Shanta Gregory MD Unavailable [phone] Ciaran Man DO Primary Care Provider [phone] Encounter Details Date Type Department Care Team (Late st Contact Info) Description 05/14/2021 Procedure Pass [facility], [address] [address] Social History Tobacco Use Types Packs/Day Years [...] Description 02/20/2026 1:00 PM EDT Office Visit [facility] [address] [place] [address] [address] Israel Goodrich MD [address] [address] documented as of this encounter Visit Diagnoses Not on filedocumented in this encounter Additional Health Concerns Infection Onset Date Last Indicated Resolved Time CoV-Risk 06/17/2021 06/17/2021 06/20/2021 3:52 PM EDT CoV-Risk 03/20/2022 03/20/2022 03/31/2022 1:22 AM EDT CoV-Risk Comment:Per note documentation 02/18/2024 02/19/2024 10:23 AM EDT CoV-Risk 04/11/2024 04/12/2024 04/12/2024 11:0 3 AM EDT documented as of this encounter Care Teams Bed Worker Relationship Specialty Start Date End Date Ciaran Man DO [address] [place] [address] carlos PCP - General Internal Medicine 06/15/18 02/16/25 Ciaran Man DO [address] [place] [address] carlos PCP - General Internal Medicine 02/17/25 Chris Martinez MD [address] [place] [address] Hematology and Oncology 05/06/18 Shanta Gregory MD [facility] [place] [facility] [address] [place] [address] Internal Medicine 08/24/18 documented as of this encounter Additional Source Comments The information contained in this document represents components of the legal health record. It is not the complete legal health record.[facility]
--- OUTSIDE RECORDS SUMMARY | 2025-08-08 19:16 | XMS_ITS | Encounter Summary ---
Author Organization [facility] Address [address] [place] [address] [place] [address] Phone Care Team Providers Care Machine Biller Name Role Phone Chris Martinez MD Unavailable [phone] Shanta Gregory MD Unavailable [phone] Ciaran Man DO Primary Care Provider [phone] Encounter Details Date Type Department Care Team (Late st Contact Info) Description 03/10/2025 Procedure Pass [facility] [place] [address] Social History Tobacco Use Types Packs/Day [...] Description 02/20/2026 1:00 PM EDT Office Visit [facility] [address] [place] [address] 3rd Floor, [address] [place] [address] Israel Goodrich MD [address] [place] [address], [address] [place] [address] [email or web address] documented as of this encounter Visit Diagnoses Not on filedocumented in this encounter Care Teams Machine Biller Relationship Specialty Start Date End Date Ciaran Man DO [address] [place] [address] [email or web address] PCP - General Internal Medicine 02/17/25 Chris Martinez MD [address] [place] [address] [email or web address] Hematology and Oncology 05/06/18 Shanta Gregory MD [facility] [place] [address] Internal Medicine 08/24/18 documented as of this encounter Additional Source Comments The information contained in this document represents components of the legal health record. It is not the complete legal health record.[facility]
--- OUTSIDE RECORDS SUMMARY | 2025-08-08 19:16 | XMS_ITS | Encounter Summary ---
Author Organization [facility] Address [address] [place] [address] [place] [address] Phone Care Team Providers Care Science Analyst Name Role Phone Chris Martinez MD Unavailable [phone] Shanta Gregory MD Unavailable [phone] Ciaran Man DO Primary Care Provider [phone] Encounter Details Date Type Department Care Team (Late st Contact Info) Description 04/12/2025 Ancillary Orders Virtual Department 30 [place] [address] Tamica Cline PA 6 [facility] [place] [address] Acute abdominal pain (Primary Dx) Social History [...] Description 02/20/2026 1:00 PM EDT Office Visit [facility] [address] [place] [address] 3rd Floor, [address] [place] [address] Israel Goodrich MD 22 [facility], [address] [place] [address] [email or web address] documented as of this encounter Results * XR Abdomen Series Supine with Decubitus/Erect and Single View Chest (04/12/2025 10:50 AM EDT) Anatomical Region Laterality Modality Abdomen, Chest Computed Radiogr aphy 04/12/2025 11:2 1 AM EDT Impressions 04/12/2025 11:26 AM EDT Postoperative and posttreatment changes without plain film evidence for bowel obstruction nor pneumoperitoneum. Narrative 04/12/2025 11:26 AM EDT XR ABDOMEN SERIES SUPINE WITH DECUBITIS/ERECT AND SINGLE VIEW CHEST Referring clinician's provided indication for this examination in Epic: Outside Radiology Order; Pain; ACUTE ABDOMINAL PAIN COMPARISON: CT ABDOMEN/PELVIS WITH CONTRAST ; XR CHEST PORTABLE ; XR CHEST PORTABLE ; CT CHEST WITH CONTRAST FINDINGS: CHEST: There is subtle increased density at the right lung base, as before which may be posttreatment related. There is no left-sided consolidation or pulmonary edema. The heart is borderline enlarged. There are mild atherosclerotic calcifications of the aortic arch. There are no pleural effusions or pneumothoraces. There are mild multilevel degenerative changes noted of the osseous structures. ABDOMEN: There are gas-filled loops of small and large bowel without distention nor air/fluid levels. There is no specific evidence for bowel obstruction. There is extensive postoperative changes noted with surgical clips, as before. Postoperative suture line is noted in the pelvis. There is no gross free fluid under the right hemidiaphragm. There is a levoconvex curvature of lower thoracic and upper lumbar spine with multilevel degenerative change. 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 No pneumoperitoneum is seen on upright exam. Procedure Note Jaswant Oakes MD - 04/12/2025 XR ABDOMEN SERIES SUPINE WITH DECUBITIS/ERECT AND SINGLE VIEW CHEST Referring clinician's provided indication for this examination in [facility]:Outside Radiology Order; Pain; ACUTE ABDOMINAL PAIN COMPARISON: CT ABDOMEN/PELVIS WITH CONTRAST ; XR CHEST [id number]; XR CHEST PORTABLE ; CT CHEST WITH [id number] FINDINGS: CHEST: There is subtle increased density at the right lung base, as beforewhich may be posttreatment related. There is no left-sided consolidationor pulmonary edema. The heart is borderline enlarged. There are mildatherosclerotic calcifications of the aortic arch. There are no pleuraleffusions or pneumothoraces. There are mild multilevel degenerativechanges noted of the osseous structures. ABDOMEN: There are gas-filled loops of small and large bowel withoutdistention nor air/fluid levels. There is no specific evidence for bowelobstruction. There is extensive postoperative changes noted with surgicalclips, as before. Postoperative suture line is noted in the pelvis. Thereis no gross free fluid under the right hemidiaphragm. There is alevoconvex curvature of lower thoracic and upper lumbar spine withmultilevel degenerative change. There is postoperative change status postbilateral hip replacements. No pneumoperitoneum is seen on upright exam. IMPRESSION: Postoperative and posttreatment changes without plain film evidence forbowel obstruction nor pneumoperitoneum. Tamica ERICKSON IM[facility] XR ABDOMEN Final Resul t documented in this encounter Visit Diagnoses Diagnosis Acute abdominal pain Abdominal pain, unspecified site Acute abdominal pain- Primary Abdominal pain, unspecified site documented in this encounter Care Teams Science Analyst Relationship Specialty Start Date End Date Ciaran Man DO [address] [place] [address] carlos PCP - General Internal Medicine 02/17/25 Chris Martinez MD [address] [place] [address] Hematology and Oncology 05/06/18 Shanta Gregory MD [facility] [place] [address] Internal Medicine 08/24/18 documented as of this encounter Additional Source Comments The information contained in this document represents components of the legal health record. It is not the complete legal health record.[facility]
--- OUTSIDE RECORDS SUMMARY | 2025-08-08 19:16 | XMS_ITS | Encounter Summary ---
Author Organization [facility] Address [address] [place] [address] [place] [address] Phone Care Team Providers Care Rock Cutter Name Role Phone Chris Martinez MD Unavailable [phone] Ciaran Man DO Primary Care Provider + Shanta Gregory MD Unavailable [phone] Ciaran Man DO Primary Care Provider [phone] Encounter Details Date Type Department Care Team (Late st Contact Info) Description 06/17/2021 Procedure Pass [facility] [address] [place] [address] Social History Tobacco Use Types Packs/Day Years [...] Risk Indicated 06/17/2021 1:48 PM EDT Kamilah Florentino, RN * [place] Suicide Severity Rating Scale (Screener/Recent Self-Report) Question Answer Date of Assessment Author 1. Wish to be (Past 1 Month) No 021 1:48 PM EDT Kamilah Florentino RN 2. Non-Specific Active Suici roxana Thoughts (Past 1 Month) No 06/17/2021 1:48 PM EDT Kamilah Florentino, RN 6. Suicidal Behavior (Lifetime) No 1:48 PM EDT Kamilah Florentino RN documented as of this encounter Plan of Treatment Upcoming Encounters Date Type Department Care Team (Late st Contact Info) Description 02/20/2026 1:00 PM EDT Office Visit [facility] [address] [place] [address] 3rd Floor, [address] [place] [address] Israel Goodrich MD [address] [place] [address] [email or web address] documented as of this encounter Visit Diagnoses Not on filedocumented in this encounter Additional Health Concerns Infection Onset Date Last Indicated Resolved Time CoV-Risk 06/17/2021 06/17/2021 06/20/2021 3:52 PM EDT CoV-Risk 03/20/2022 03/20/2022 03/31/2022 1:22 AM EDT CoV-Risk Comment:Per note documentation 02/18/2024 02/19/2024 10:23 AM EDT CoV-Risk 04/11/2024 04/12/2024 04/12/2024 11:0 3 AM EDT documented as of this encounter Care Teams Rock Cutter Relationship Specialty Start Date End Date Ciaran Man DO [address] [place] [address] carlos PCP - General Internal Medicine 06/15/18 02/16/25 Ciaran Man DO [address] [place] [address] [place] [address] [email or web address] PCP - General Internal Medicine 02/17/25 Chris Martinez MD [address] [place] [address] [email or web address] Hematology and Oncology 05/06/18 Shanta Gregory MD [address] [place] [address] Internal Medicine 08/24/18 documented as of this encounter Additional Source Comments The information contained in this document represents components of the legal health record. It is not the complete legal health record.[facility]
--- OUTSIDE RECORDS SUMMARY | 2025-08-08 19:16 | XMS_ITS | Encounter Summary ---
Author Organization [facility] Address [address] [place] [address] [place] [address] Phone Care Team Providers Care Software Configuration Specialist Name Role Phone Chris Martinez MD Unavailable [phone] Shanta Gregory MD Unavailable [phone] Ciaran Man DO Primary Care Provider [phone] Encounter Details Date Type Department Care Team (Late st Contact Info) Description 03/22/2025 Procedure Pass [facility], Ct Scan - [address] [address] Social History Tobacco Use Types Packs/Day Years [...] housing situation today? I have andreea serrano 03/22/2025 How many times have you move [...] Date of Assessment Author No Risk Indicated 03/25/2025 2:10 PM EDT Ana Matute, RN * [place] Suicide Severity Rating Scale (Screener/Recent Self-Report) Question Answer Date of Assessment Author 1. Wish to be (Past 1 Month) No 025 2:10 PM EDT Ana Dodson, RN 2. Non-Specific Active Suici roxana Thoughts (Past 1 Month) No 03/25/2025 2:10 PM EDT Ana Dodson, RN 6. Suicidal Behavior (Lifetime) No 2:10 PM EDT Ana Dodson, RN documented as of this encounter Plan of Treatment Upcoming Encounters Date Type Department Care Team (Late st Contact Info) Description 02/20/2026 1:00 PM EDT Office Visit [facility] [address] [place] [address] 3rd Floor, [address] [place] [address] Israel Goodrich MD [address] [place] [address] [email or web address] documented as of this encounter Visit Diagnoses Not on filedocumented in this encounter Care Teams Software Configuration Specialist Relationship Specialty Start Date End Date Ciaran Man DO [address] [place] [address] [place] [address] carlos PCP - General Internal Medicine 02/17/25 Chris Martinez MD [address] [place] [address] Hematology and Oncology 05/06/18 Shanta Gregory MD [address] [place] [address] [place] [address] Internal Medicine 08/24/18 documented as of this encounter Additional Source Comments The information contained in this document represents components of the legal health record. It is not the complete legal health record.[facility]
--- OUTSIDE RECORDS SUMMARY | 2025-08-08 19:17 | XMS_ITS | Encounter Summary ---
Author Organization [facility] Address [address] [place] [address] Phone Care Team Providers Care Supervisor Asphalt Paving Name Role Phone Chris Martinez MD Unavailable [phone] Ciaran Man DO Primary Care Provider + Shanta Gregory MD Unavailable [phone] Ciaran Man DO Primary Care Provider + Encounter Details Date Type Department Care Team (Late st Contact Info) Description 05/25/2020 Procedure Pass [facility], [address] [address] Social History Tobacco Use Types Packs/Day Years [...] AM EDT documented as of this encounter Last Filed Vital Signs Vital Sign Reading Time Taken Comments Blood Pressure - - Pulse - - Temperature - - Respiratory Rate - - Oxygen Saturation - - Inhaled Oxygen Concentration - - Weight 68 kg (150 lb) 05/27/2020 1:02 PM EDT Height 170.2 cm (5' 7 ) 05/27/2020 1:02 PM EDT Body Mass Index 23.49 05/27/2020 1:02 PM EDT documented in this encounter Plan of Treatment Upcoming Encounters Date Type Department Care Team (Late st Contact Info) Description 02/20/2026 1:00 PM EDT Office Visit [facility] [address] [place] [address] 3rd Floor, [address] [place] [address] Israel Goodrich MD [address] [place] [address] [email or web address] documented as of this encounter Care Teams Supervisor Asphalt Paving Relationship Specialty Start Date End Date Ciaran Man DO [address] [place] [address] carlos PCP - General Internal Medicine 06/15/18 02/16/25 Ciaran Man DO [address] [facility] [place] [address] [place] [address] carlos PCP - General Internal Medicine 02/17/25 Chris Martinez MD [address] [place] [address] Hematology and Oncology 05/06/18 Shanta Gregory MD [facility] [place] [address] [address] Internal Medicine 08/24/18 documented as of this encounter Additional Source Comments The information contained in this document represents components of the legal health record. It is not the complete legal health record.[facility]
--- OUTSIDE RECORDS SUMMARY | 2025-08-08 19:17 | XMS_ITS | Encounter Summary ---
Author Organization [facility] Address [address] [place] [address] [place] [address] Phone Care Team Providers Care Asset Protection Professional Name Role Phone Chris Martinez MD Unavailable [phone] Ciaran Man DO Primary Care Provider [phone] Shanta Gregory MD Unavailable [phone] Ciaran Man DO Primary Care Provider [phone] Encounter Details Date Type Department Care Team (Late st Contact Info) Description 02/18/2024 Procedure Pass [facility], Ct Scan - [address] [address] Social History Tobacco Use Types Packs/Day Years [...] Date of Assessment Author No Risk Indicated 02/18/2024 3:59 AM EDT Jessa Roche RN * Liberty Suicide Severity Rating Scale (Screener/Recent Self-Report) Question Answer Date of Assessment Author 1. Wish to be (Past 1 Month) No 024 3:59 AM EDT Jessa Loyd RN 2. Non-Specific Active Suici roxana Thoughts (Past 1 Month) No 02/18/2024 3:59 AM EDT Oly Loyd ra, RN 6. Suicidal Behavior (Lifetime) No 3:59 AM EDT Jessa Loyd RN documented as of this encounter Plan of Treatment Upcoming Encounters Date Type Department Care Team (Late st Contact Info) Description 02/20/2026 1:00 PM EDT Office Visit [facility] [address] [place] [address] 3rd [facility], [address] [place] [address] Israel Goodrich MD [address] [place] [address] [email or web address] documented as of this encounter Visit Diagnoses Not on filedocumented in this encounter Additional Health Concerns Infection Onset Date Last Indicated Resolved Time CoV-Risk Comment:Per note documentation 02/18/2024 02/19/2024 10:23 AM EDT CoV-Risk 04/11/2024 04/12/2024 04/12/2024 11:0 3 AM EDT documented as of this encounter Care Teams Asset Protection Professional Relationship Specialty Start Date End Date Ciaran Man DO [address] [place] [address] PCP - General Internal Medicine 06/15/18 02/16/25 Ciaran Man DO [address] [place] [address] carlos PCP - General Internal Medicine 02/17/25 Chris Martinez MD [address] [place] [address] Hematology and Oncology 05/06/18 Shanta Gregory MD [facility] [place] [address] Internal Medicine 08/24/18 documented as of this encounter Additional Source Comments The information contained in this document represents components of the legal health record. It is not the complete legal health record.[facility]
--- OUTSIDE RECORDS SUMMARY | 2025-08-08 19:17 | XMS_ITS | Encounter Summary ---
Author Organization [facility] Address [address] [place] [address] [place] [address] Phone Care Team Providers Care Grants Specialist Name Role Phone Chris Martinez MD Unavailable [phone] Ciaran Man DO Primary Care Provider [phone] Shanta Gregory MD Unavailable [phone] Ciaran Man DO Primary Care Provider [phone] Encounter Details Date Type Department Care Team (Latest Contact Info) Description 08/31/2019 Transcribe Orders [address] [id number] Abad Chauhan MD, PhD [address] [place] [address] [id number] [email or web address] Lyme disease (Primary Dx); Parathyroid disease; Disease of thyroid gland; Disorder of calcium metabolism; Magnesium deficiency Social History Tobacco Use Types Packs/Day Years [...] Description 02/20/2026 1:00 PM EDT Office Visit [facility] [address] [facility] 3rd Floor, [address] [place] [address] Israel Goodrich MD [address] [facility], [address] [place] [address] [email or web address] documented as of this encounter Results * Magnesium (08/31/2019 9:21 AM EST) MAGNESIUM 2.0 1.6 - 2.6 mg/dL [facility] Blood 08/31/2019 9:21 AM EST 08/31/2019 9:52 AM EST Abad Chauhan MD, PhD LAB BLOOD ORDERABLES Fi nal Result Performing Organization Address [facility] Co de Phone Number [address] [address] * (ABNORMAL) Ferritin (08/31/2019 9:21 AM EST) Pathologist [facility] FERRITIN 189(H) 13 - 150 ug/L [facility] Blood 08/31/2019 9:21 AM EST 08/31/2019 9:52 AM EST Abad Chauhan MD, PhD LAB BLOOD ORDERABLES Fi nal Result Performing Organization Address [facility] Co de Phone Number [address] [address] * 25-OH vitamin D (08/31/2019 9:21 AM EST) 25 OH VIT D (TOTAL) 47 30 - 60 ng/mL [facility] Blood 08/31/2019 9:21 AM EST 08/31/2019 9:52 AM EST Abad Chauhan MD, PhD LAB BLOOD ORDERABLES Fi nal Result Performing Organization Address [facility] Co de Phone Number [address] [address] * Calcium (08/31/2019 9:21 AM EST) CALCIUM 10.3 8.4 - 10.3 mg/dL [facility] Blood 08/31/2019 9:21 AM EST 08/31/2019 9:52 AM EST Abad Chauhan MD, PhD LAB BLOOD ORDERABLES Fi nal Result Performing Organization Address [facility] Co de Phone Number [address] [address] * (ABNORMAL) Lyme screen with reflex to Western blot, blood (08/31/2019 9:21 AM EST) Lyme AB IgG Positive(A) Negative [facility] Comment:The Lyme Disease Ant ibody, Confirmation, Serum (Western Blot) has been reflexed. The results will follow. Lyme AB IgM Negative Negative [facility] Blood 08/31/2019 9:21 AM EST 08/31/2019 9:52 AM EST Abad Chauhan MD, PhD LAB BLOOD ORDERABLES Fi nal Result Performing Organization Address [facility] Co de Phone Number [address] [address] * TSH (08/31/2019 9:21 AM EST) TSH 3.39 0.27 - 4.20 uIU/mL [facility] Blood 08/31/2019 9:21 AM EST 08/31/2019 9:52 AM EST Abad Chauhan MD, PhD LAB BLOOD ORDERABLES Fi nal Result Performing Organization Address [facility] Co de Phone Number [address] [address] * Free T4 (08/31/2019 9:21 AM EST) FREE T4 1.1 0.9 - 1.7 ng/dL [facility] Blood 08/31/2019 9:21 AM EST 08/31/2019 9:52 AM EST Abad Chauhan MD, PhD LAB BLOOD ORDERABLES Fi nal Result Performing Organization Address [facility] Co de Phone Number [address] [address] * Parathyroid hormone (PTH) (08/31/2019 9:21 AM EST) PARATHYROID HORMONE 43 15 - 65 pg/mL [facility] Blood 08/31/2019 9:21 AM EST 08/31/2019 9:53 AM EST Abad Chauhan MD, PhD LAB BLOOD ORDERABLES Fi nal Result Performing Organization Address [facility] de Phone Number [address] [address] documented in this encounter Visit Diagnoses Diagnosis Lyme disease- Primary Parathyroid disease Unspecified disorder of parathyroid gland Disease of thyroid gland Unspecified disorder of thyroid Disorder of calcium metabolism Unspecified disorders of calcium metabolism Magnesium deficiency Disorders of magnesium metabolism documented in this encounter Additional Health Concerns Infection Onset Date Last Indicated Resolved Time CoV-Risk 06/17/2021 06/17/2021 06/20/2021 3:52 PM EDT CoV-Risk 03/20/2022 03/20/2022 03/31/2022 1:22 AM EDT CoV-Risk Comment:Per note documentation 02/18/2024 02/19/2024 10:23 AM EDT CoV-Risk 04/11/2024 04/12/2024 04/12/2024 11:0 3 AM EDT documented as of this encounter Care Teams Grants Specialist Relationship Specialty Start Date End Date Ciaran Man DO [address] [place] [address] PCP - General Internal Medicine 06/15/18 02/16/25 Ciaran Man DO [address] [place] [address] PCP - General Internal Medicine 02/17/25 Chris Martinez MD [address] [place] [address] Hematology and Oncology 05/06/18 Shanta Gregory MD [employer] [place] [address] Internal Medicine 08/24/18 documented as of this encounter Additional Source Comments The information contained in this document represents components of the legal health record. It is not the complete legal health record.[facility]
--- OUTSIDE RECORDS SUMMARY | 2025-08-08 19:17 | XMS_ITS | Encounter Summary ---
Author Organization [facility] Address [address] [place] [address] Phone Care Team Providers Care Manager Social Name Role Phone Chris Martinez MD Unavailable [phone] Ciaran Man DO Primary Care Provider [phone] Shanta Gregory MD Unavailable [phone] Ciaran Man DO Primary Care Provider [phone] Reason for Referral * Consultation (Routine) - Closed Specialty Diagnoses / Procedures Referred By Katelin leblanc Referred To Contact Diagnoses Atrial fibrillation, unspecified type Ciaran Man DO Phone: tel: fax: mailto:[email or web address] [address] [place] [address] Phone: tel: Referral ID Status Reason Start Date Expiration Date Visits Re quested Visits Authorized [id number] Closed 06/07/2020 06/07/2021 1 1 Encounter Details Date Type Department Care Team (Late st Contact Info) Description 06/07/2020 Transcribe Orders [facility] Department [address] [place] [address] Ciaran Man DO [address] [place] [address] [place] [address] [email or web address] Atrial fibrillation, unspecified type (Primary Dx) Social [...] Description 02/20/2026 1:00 PM EDT Office Visit [facility] [address] [place] [address], [address] [place] [address] Israel Goodrich MD [address] [place] [address] [email or web address] Scheduled Referrals Name Type Priority Associated Diagnoses Order Schedule Ambulatory referral to [facility]tico[facility] Clinic Outpatient Referral Routine Atrial fibrillation, unspecified type Ordered: 06/07/2020 documented as of this encounter Visit Diagnoses [...] documented as of this encounter Care Teams Manager Social Relationship Specialty Start Date End Date Ciaran Man DO [address] [place] [address] PCP - General Internal Medicine 06/15/18 02/16/25 Ciaran Man DO [address] [place] [address] PCP - General Internal Medicine 02/17/25 Chris Martinez MD [address] [place] [address] Hematology and Oncology 05/06/18 Shanta Gregory MD [address] [place], [place] [address] [address] Internal Medicine 08/24/18 documented as of this encounter Additional Source Comments The information contained in this document represents components of the legal health record. It is not the complete legal health record.[facility]
--- OUTSIDE RECORDS SUMMARY | 2025-08-08 19:17 | XMS_ITS | Encounter Summary ---
Author Organization [facility] Address [address] [place] [address] Phone Care Team Providers Care Shop Superintendent Name Role Phone Chris Martinez MD Unavailable [phone] Ciaran Man DO Primary Care Provider [phone] Shanta Gregory MD Unavailable [phone] Ciaran Man DO Primary Care Provider [phone] Encounter Details Date Type Department Care Team (Late st Contact Info) Description 06/06/2021 Transcribe Orders Virtual Department [address] [place] [address] Ciaran Man DO [address] [place] [address] carlos Osteoarthritis of knee, unspecified (Primary Dx) Social History Tobacco Use Types [...] Description 02/20/2026 1:00 PM EDT Office Visit [facility] [address] [place] [address] 3rd Floor, [address] [place] [address] Israel Goodrich MD [address] [facility], [address] [place] [address] [email or web address] documented as of this encounter Results * XR KNEE 4 OR MORE VIEWS (BILATERAL) (07/03/2021 8:56 AM EDT) Anatomical Region Laterality Modality Knee Bilateral, Knee Right, Knee Left Computed Radiography 07/03/2021 10:2 4 AM EDT Impressions 07/03/2021 10:26 AM EDT Demineralization. Joint space loss more prominent the lateral compartments than medial and with spurring most pronounced at patellofemoral compartments. Small bilateral joint effusions. Narrative 07/03/2021 10:26 AM EDT Bilateral views, was weightbearing. No prior. Right knee: Diffuse demineralization. No chondrocalcinosis. Lateral compartment joint space loss appears more pronounced technically on flexed view where there is suggestion of flui-xz-mtwc contact. There is a significant amount of spurring at the patella as well as. There is a small joint effusion. No bony destruction or bony lesions of clear concern. Left knee: Lateral compartment joint space loss is again more prominent than medial but not as advanced appearing as seen on the right. No chondrocalcinosis. Small joint effusion. Patellofemoral spurring, most pronounced at the lower portion. Regional atherosclerotic changes noted. No bony lesions of concern seen. Procedure Note Axel eBnavides MD - 07/03/2021 Bilateral views, was weightbearing. No prior. Right knee: Diffuse demineralization. No chondrocalcinosis. Lateralcompartment joint space loss appears more pronounced technically on flexedview where there is suggestion of cmeo-so-ueff contact. There is asignificant amount of spurring at the patella as well as. There is a smalljoint effusion. No bony destruction or bony lesions of clear concern. Left knee: Lateral compartment joint space loss is again more prominentthan medial but not as advanced appearing as seen on the right. Nochondrocalcinosis. Small joint effusion. Patellofemoral spurring, mostpronounced at the lower portion. Regional atherosclerotic changes noted.No bony lesions of concern seen. IMPRESSION: Demineralization. Joint space loss more prominent the lateral compartmentsthan medial and with spurring most pronounced at patellofemoralcompartments. Small bilateral joint effusions. us Ciaran Man DO IMG XR LOWER EXTREMITY Final Res ult documented in this encounter Visit Diagnoses Diagnosis Osteoarthritis of knee, unspecified- Primary Osteoarthritis of knee, unspecified documented in this encounter Additional Health Concerns Infection Onset Date Last Indicated Resolved Time CoV-Risk 06/17/2021 06/17/2021 06/20/2021 3:52 PM EDT CoV-Risk 03/20/2022 03/20/2022 03/31/2022 1:22 AM EDT CoV-Risk Comment:Per note documentation 02/18/2024 02/19/2024 10:23 AM EDT CoV-Risk 04/11/2024 04/12/2024 04/12/2024 11:0 3 AM EDT documented as of this encounter Care Teams Shop Superintendent Relationship Specialty Start Date End Date Ciaran Man DO [address] [place] [address] [email or web address] PCP - General Internal Medicine 06/15/18 02/16/25 Ciaran Man DO [address] [place] [address] carlos PCP - General Internal Medicine 02/17/25 Chris Martinez MD [address] [place] [address] [email or web address] Hematology and Oncology 05/06/18 Shanta Gregory MD [address] [place], [place] [address] [address] Internal Medicine 08/24/18 documented as of this encounter Additional Source Comments The information contained in this document represents components of the legal health record. It is not the complete legal health record.[facility]
--- OUTSIDE RECORDS SUMMARY | 2025-08-08 19:17 | XMS_ITS | Encounter Summary ---
Author Organization [facility] Address [address] [place] [address] Phone Care Team Providers Care Feed Miller Name Role Phone Dayron Clements MD Unavailable [phone] Chris Martinez MD Unavailable [phone] Ciaran Man DO Primary Care Provider [phone] Shanta Gregory MD Unavailable [phone] Ciaran Man DO Primary Care Provider [phone] Encounter Details Date Type Department Care Team (Latest Contact Info) Description 06/23/2018 Transcribe Orders [facility] [address] [place] [address] Jenny Grubbs MD [address] [place] [address] [email or web address] Screening for condition (Primary Dx) Social History Tobacco Use Types Packs/Day Years Used Date Smoking Tobacco: Former Cigarettes Q uit: 1970 Smokeless Tobacco: Never Alcohol Use Standard Drinks/Week Comments Yes 0 (1 standard drink = 0.6 oz pur e alcohol) rare Comments Unknown Sex and Gender Information Value Date Recorded Sex Assigned at Female 06/15/2018 11:58 AM EDT Legal Sex Female 7:02 PM EST Gender Identity Female 06/15/2018 11:58 AM EDT Sexual Orientation Straight 06/15/2018 11 :58 AM EDT documented as of this encounter Plan of Treatment Upcoming Encounters Date Type Department Care Team (Late st Contact Info) Description 02/20/2026 1:00 PM EDT Office Visit [facility] [address] [place] [address] 3rd Floor, [address] [place] [address] Israel Goodrich MD 22 [facility], [address] [place] [address] [email or web address] documented as of this encounter Results * Chemistry Hold (06/23/2018 12:34 PM EDT) Blood 06/23/2018 12:3 4 PM EDT 06/23/2018 12:58 PM EDT us Jenny Grubbs MD LAB BLOOD ORDERABLES Final Re sult [facility] documented in this encounter Visit Diagnoses Diagnosis Screening for condition- Primary Screening for unspecified condition documented in this encounter Additional Health Concerns Infection Onset Date Last Indicated Resolved Time CoV-Risk 06/17/2021 06/17/2021 06/20/2021 3:52 PM EDT CoV-Risk 03/20/2022 03/20/2022 03/31/2022 1:22 AM EDT CoV-Risk Comment:Per note documentation 02/18/2024 02/19/2024 10:23 AM EDT CoV-Risk 04/11/2024 04/12/2024 04/12/2024 11:0 3 AM EDT documented as of this encounter Care Teams Feed Miller Relationship Specialty Start Date End Date Ciaran Man DO [address] [place] [address] [email or web address] PCP - General Internal Medicine 06/15/18 02/16/25 Ciaran Man DO [address] [place] [address] [place] [address] carlos PCP - General Internal Medicine 02/17/25 Dayron Clements MD [address] [place] [address] [email or web address] Medical Oncology 05/06/18 08/23/18 Chris Martinez MD [address] [place] [address] [email or web address] Hematology and Oncology 05/06/18 Shanta Gregory MD [address] [place] [phone] Internal Medicine 08/24/18 documented as of this encounter Additional Source Comments The information contained in this document represents components of the legal health record. It is not the complete legal health record.[facility]
--- OUTSIDE RECORDS SUMMARY | 2025-08-08 19:17 | XMS_ITS | Encounter Summary ---
Author Organization [facility] Address [address] [place] [address] Phone Care Team Providers Care Svp Digital Sales Food [employer] Cooking Name Role Phone Dayron Clements MD Unavailable Chris Martinez MD Unavailable [phone] Ciaran Man DO Primary Care Provider + Shanta Gregory MD Unavailable [phone] Ciaran Man DO Primary Care Provider + Encounter Details Date Type Department Care Team (Late st Contact Info) Description 06/15/2018 Procedure Pass [facility], Ct Scan - [address] [address] Social History Tobacco Use Types Packs/Day Years [...] Description 02/20/2026 1:00 PM EDT Office Visit [facility] [address] [place] [address] 3rd Floor, [address] [place] [address] Israel Goodrich MD 22 [facility], [address] [address] documented as of this encounter Visit Diagnoses Not on filedocumented in this encounter Additional Health Concerns Infection Onset Date Last Indicated Resolved Time CoV-Risk 06/17/2021 06/17/2021 06/20/2021 3:52 PM EDT CoV-Risk 03/20/2022 03/20/2022 03/31/2022 1:22 AM EDT CoV-Risk Comment:Per note documentation 02/18/2024 02/19/2024 10:23 AM EDT CoV-Risk 04/11/2024 04/12/2024 04/12/2024 11:0 3 AM EDT documented as of this encounter Care Teams Svp [employer] Food [employer] Cooking Relationship Specialty Start Date End Date Ciaran Man DO [address] [place] [address] carlos PCP - General Internal Medicine 06/15/18 02/16/25 Ciaran Man DO [address] [place] [address] [place] [address] carlos PCP - General Internal Medicine 02/17/25 Dayron Clements MD [address] [place] [address] [email or web address] Medical Oncology 05/06/18 08/23/18 Chris Martinez MD [address] [place] [address] Hematology and Oncology 05/06/18 Shanta Gregory MD [facility] [address] [place] [address] Internal Medicine 08/24/18 documented as of this encounter Additional Source Comments The information contained in this document represents components of the legal health record. It is not the complete legal health record.[facility]
--- OUTSIDE RECORDS SUMMARY | 2025-08-08 19:17 | XMS_ITS | Encounter Summary ---
Author Organization [facility] Address [address] [place] [address] Phone Care Team Providers Care Wet Finisher Wool Name Role Phone Chris Martinez MD Unavailable [phone] Ciaran Man DO Primary Care Provider [phone] Shanta Gregory MD Unavailable [phone] Ciaran Man DO Primary Care Provider [phone] Reason for Referral * Consultation (Routine) - Closed Specialty Diagnoses / Procedures Referred By Katelin leblanc Referred To Contact Neurology Diagnoses Diagnosis unknown System, Provider Not In, [facility] [id number] [place] [address] Phone: tel: Referral ID Status Reason Start Date Expiration Date Visits Re quested Visits Authorized [id number] Closed 06/17/2023 06/17/2024 1 1 Encounter Details Date Type Department Care Team (Late st Contact Info) Description 06/17/2023 Transcribe Orders [facility] Referral Management [address] [place] [address] Ciaran Man DO [address] [facility] [place] [address] [email or web address] Diagnosis unknown (Primary Dx) Social History Tobacco Use Types [...] Description 02/20/2026 1:00 PM EDT Office Visit [facility] [address] [place] [address] 3rd [facility], [address] [place] [address] Israel Goodrich MD [address] [place] [address] [email or web address] Scheduled Referrals Name Type Priority Associated Diagnoses Order Schedule Ambulatory referral to [facility] Neurology Outpatient Referral Routine Diagnosis unknown Ordered: 06/17/2023 documented as of this encounter Visit Diagnoses Diagnosis Diagnosis unknown- Primary documented in this encounter Additional Health Concerns Infection Onset Date Last Indicated Resolved Time CoV-Risk Comment:Per note documentation 02/18/2024 02/19/2024 10:23 AM EDT CoV-Risk 04/11/2024 04/12/2024 04/12/2024 11:0 3 AM EDT documented as of this encounter Care Teams Wet Finisher Wool Relationship Specialty Start Date End Date Ciaran Man DO 30 [place] [address] PCP - General Internal Medicine 06/15/18 02/16/25 Ciaran Man DO [address] [place] [address] PCP - General Internal Medicine 02/17/25 Chris Martinez MD [address] [place] [address] Hematology and Oncology 05/06/18 Shanta Gregory MD [address] [place], [place] [address] [address] Internal Medicine 08/24/18 documented as of this encounter Additional Source Comments The information contained in this document represents components of the legal health record. It is not the complete legal health record.[facility]
--- OUTSIDE RECORDS SUMMARY | 2025-08-08 19:17 | XMS_ITS | Encounter Summary ---
Author Organization [facility] Address [address] [place] [address] Phone Care Team Providers Care Petroleum Refining Firer Name Role Phone Ciaran Man DO Primary Care Provider [phone] Dayron Clements MD Unavailable [phone] Chris Martinez MD Unavailable [phone] Shanta Gregory MD Primary Care Provider [phone] Ciaran Man DO Primary Care Provider [phone] Shanta Gregory MD Unavailable [phone] Ciaran Man DO Primary Care Provider [phone] Reason for Referral * Consultation (Routine) - Closed Specialty Diagnoses / Procedures Referred By Katelin t Referred To Contact Diagnoses Atrial fibrillation, unspecified type Ciaran Man DO Phone: tel: fax: mailto:carlos [address] [address] Phone: tel: Referral ID Status Reason Start Date Expiration Date Visits Re quested Visits Authorized [id number] Closed 03/13/2018 03/13/2019 1 1 Encounter Details Date Type Department Care Team (Late Contact Info) Description 03/13/2018 Transcribe Orders Virtual Department [address] [place] [address] Ciaran Man DO 179 [facility] [place] [address] [place] [address] [email or web address] Atrial fibrillation, unspecified type (Primary Dx) Social History Tobacco Use Types Packs/Day Years Used Date Smoking Tobacco: Former Cigarettes Q uit: 1970 Smokeless Tobacco: Never Comments Unknown Sex and Gender Information Value Date Recorded Sex Assigned at Female 06/15/2018 11:58 AM EDT Legal Sex Female 7:02 PM EST Gender Identity Female 06/15/2018 11:58 AM EDT Sexual Orientation Straight 06/15/2018 11 :58 AM EDT documented as of this encounter Plan of Treatment Upcoming Encounters Date Type Department Care Team ([facility] Contact Info) Description 02/20/2026 1:00 PM EDT Office Visit [facility] [address] [place] [address] 3rd Floor, [address] [place] [address] Israel Goodrich MD [address] [address] [email or web address] Scheduled Referrals Name Type Priority Associated Diagnoses Order Schedule Ambulatory referral to [facility] Outpatient Referral Routine Atrial fibrillation, unspecified type Ordered: 03/13/2018 documented as of this encounter Visit Diagnoses [...] documented as of this encounter Care Teams Petroleum Refining Firer Relationship Specialty Start Date End Date Ciaran Man DO carlos PCP - General Internal Medicine 03/12/18 06/06/18 Shanta Gregory MD [address] [place] [address] [place] [address] PCP - General Internal Medicine 06/07/18 06/14/18 Ciaran Man DO carlos PCP - General Internal Medicine 06/15/18 02/16/25 Ciaran Man DO [address] [place] [address] carlos PCP - General Internal Medicine 02/17/25 Dayron Clements MD [address] [place] [address] [email or web address] Medical Oncology 05/06/18 08/23/18 Chris Martinez MD [address] [place] [address] Hematology and Oncology 05/06/18 Shanta Gregory MD [address] [place] [address] [place] [address] Internal Medicine 08/24/18 documented as of this encounter Additional Source Comments The information contained in this document represents components of the legal health record. It is not the complete legal health record.[facility]
--- OUTSIDE RECORDS SUMMARY | 2025-08-08 19:17 | XMS_ITS | Encounter Summary ---
Author Organization [facility] Address [address] [place] [address] [place] [address] Phone Care Team Providers Care Retail Service Specialist Name Role Phone Chris Martinez MD Unavailable [phone] Ciaran Man DO Primary Care Provider + Shanta Gregory MD Unavailable [phone] Ciaran Man DO Primary Care Provider + Encounter Details Date Type Department Care Team (Late st Contact Info) Description 07/11/2023 Procedure Pass Non-Invasive Cardiology [address] [place] [address] Social History Tobacco Use Types [...] Description 02/20/2026 1:00 PM EDT Office Visit [facility] [address] [place] [address] 3rd Floor, [address] [place] [address] Israel Goodrich MD [address] [place] [address] [email or web address] documented as of this encounter Visit Diagnoses Not on filedocumented in this encounter Additional Health Concerns Infection Onset Date Last Indicated Resolved Time CoV-Risk Comment:Per note documentation 02/18/2024 02/19/2024 10:23 AM EDT CoV-Risk 04/11/2024 04/12/2024 04/12/2024 11:0 3 AM EDT documented as of this encounter Care Teams Retail Service Specialist Relationship Specialty Start Date End Date Ciaran Man DO 30 [place] [address] carlos PCP - General Internal Medicine 06/15/18 02/16/25 Ciaran Man DO [address] [place] [address] [place] [address] carlos PCP - General Internal Medicine 02/17/25 Chris Martinez MD [address] [place] [address] Hematology and Oncology 05/06/18 Shanta Gregory MD [facility] [place] [facility] [address] [place] [address] Internal Medicine 08/24/18 documented as of this encounter Additional Source Comments The information contained in this document represents components of the legal health record. It is not the complete legal health record.[facility]
--- OUTSIDE RECORDS SUMMARY | 2025-08-08 19:17 | XMS_ITS | Encounter Summary ---
Author Organization [facility] Address [address] [place] [address] [place] [address] Phone Care Team Providers Care Control And Recovery Special Tactics Name Role Phone Ciaran Man DO Primary Care Provider + Shanta Gregory MD Primary Care Provider + Ciaran Man DO Primary Care Provider + Dayron Clements MD Unavailable [phone] Chris Martinez MD Unavailable [phone] Shanta Gregory MD Primary Care Provider + Ciaran Man DO Primary Care Provider + Shanta Gregory MD Unavailable [phone] Ciaran Man DO Primary Care Provider + Encounter Details Date Type Department Care Team (Latest Contact Info) Description 08/15/2017 Ancillary Orders [facility] [address] [place] [address] 3rd Floor, [address] [place] [address] Israel Goodrich MD 22 [facility], [address] [place], [place] [phone] [email or web address] Aortic valve insufficiency, etiology of cardiac valve disease unspecified Social History Tobacco Use Types Packs/Day Years Used Date Smoking Tobacco: Never Assessed Comments Unknown Sex and Gender Information Value [...] Description 02/20/2026 1:00 PM EDT Office Visit [facility] [address] [place] [address] 3rd Floor, [address] [place] [address] Israel Goodrich MD [address] [place] [address], [facility] [address] [place] [address] [email or web address] documented as of this encounter Results * TTE COMPREHENSIVE (06/04/2018 10:40 AM EDT) Anatomical Region Laterality Modality Heart Ultrasound us Israel Goodrich MD CV ECHO ORDERABLES Final Re sult documented in this encounter Visit Diagnoses Diagnosis Aortic valve insufficiency, etiology of cardiac valve disease unspecified documented in this encounter Additional Health Concerns Infection Onset Date Last Indicated Resolved Time CoV-Risk 06/17/2021 06/17/2021 06/20/2021 3:52 PM EDT CoV-Risk 03/20/2022 03/20/2022 03/31/2022 1:22 AM EDT CoV-Risk Comment:Per note documentation 02/18/2024 02/19/2024 10:23 AM EDT CoV-Risk 04/11/2024 04/12/2024 04/12/2024 11:0 3 AM EDT documented as of this encounter Care Teams Control And Recovery Special Tactics Relationship Specialty Start Date End Date Ciaran Man DO 179 [facility] [place] [address] carlos PCP - General 04/19/14 02/16/18 Shanta Gregory MD [address] [place] [address] [place] [address] PCP - General 02/17/18 03/11/18 Ciaran Man DO [address] [place] [address] [place] [address] carlos PCP - General Internal Medicine 03/12/18 06/06/18 Shanta Gregory MD [address] [place] [address] [place] [address] PCP - General Internal Medicine 06/07/18 06/14/18 Ciaran Man DO [address] [place] [address] [place] [address] carlos PCP - General Internal Medicine 06/15/18 02/16/25 Ciaran Man DO [address] [place] [address] carlos PCP - General Internal Medicine 02/17/25 Dayron Clements MD [address] [place] [address] [email or web address] Medical Oncology 05/06/18 08/23/18 Chris Martinez MD [address] [place] [address] Hematology and Oncology 05/06/18 Shanta Gregory MD [address] [place] [facility] [place] [facility] [address] [place] [address] Internal Medicine 08/24/18 documented as of this encounter Additional Source Comments The information contained in this document represents components of the legal health record. It is not the complete legal health record.[facility]
--- OUTSIDE RECORDS SUMMARY | 2025-08-08 19:17 | XMS_ITS | Encounter Summary ---
Author Organization [facility] Address [address] [place] [address] [place] [address] Phone Care Team Providers Care Scrap Sawyer Name Role Phone Chris Martinez MD Unavailable [phone] Ciaran Man DO Primary Care Provider [phone] Shanta Gregory MD Unavailable [phone] Ciaran Man DO Primary Care Provider [phone] Encounter Details Date Type Department Care Team (Late st Contact Info) Description 06/11/2024 Procedure Pass [facility], [address] [address] Social History Tobacco Use Types Packs/Day Years [...] Description 02/20/2026 1:00 PM EDT Office Visit [facility] [address] [place] [address] 3rd [facility], [address] [address] Israel Goodrich MD [address] [place] [address] [email or web address] documented as of this encounter Visit Diagnoses Not on filedocumented in this encounter Care Teams Scrap Sawyer Relationship Specialty Start Date End Date Ciaran Man DO 30 [place] [address] [email or web address] PCP - General Internal Medicine 06/15/18 02/16/25 Ciaran Man DO [address] [place] [address] [place] [address] [email or web address] PCP - General Internal Medicine 02/17/25 Chris Martinez MD [address] [place] [address] [email or web address] Hematology and Oncology 05/06/[address] [facility] [address] [address] Internal Medicine 08/24/18 documented as of this encounter Additional Source Comments The information contained in this document represents components of the legal health record. It is not the complete legal health record.[facility]
--- OUTSIDE RECORDS SUMMARY | 2025-08-08 19:17 | XMS_ITS | Encounter Summary ---
Author Organization [facility] Address [address] [place] [address] Phone Care Team Providers Care Financial Recording Clerk Name Role Phone Ciaran Man DO Primary Care Provider + Dayron Clements MD Unavailable [phone] Chris Martinez MD Unavailable [phone] Shanta Gregory MD Primary Care Provider [phone] Ciaran Man DO Primary Care Provider + Shanta Gregory MD Unavailable [phone] Ciaran Man DO Primary Care Provider + Encounter Details Date Type Department Care Team (Latest Contact Info) Description 05/07/2018 Transcribe Orders [facility] [address] [place] [address] Jenny Grubbs MD 30 [place] [address] [email or web address] Examination (Primary Dx) Social History Tobacco Use Types [...] Description 02/20/2026 1:00 PM EDT Office Visit [facility] [address] [place] [address] 3rd Floor, [address] [place] [address] Israel Goodrich MD 22 [facility], [address] [place] [address] [email or web address] documented as of this encounter Results * Chemistry Hold (05/07/2018 10:10 AM EDT) Blood 05/07/2018 10:1 0 AM EDT 05/07/2018 10:15 AM EDT us Jenny Grubbs MD LAB BLOOD ORDERABLES [facility] documented in this encounter Visit Diagnoses Diagnosis Examination- Primary Unspecified examination documented in this encounter Additional Health Concerns Infection Onset Date Last Indicated Resolved Time CoV-Risk 06/17/2021 06/17/2021 06/20/2021 3:52 PM EDT CoV-Risk 03/20/2022 03/20/2022 03/31/2022 1:22 AM EDT CoV-Risk Comment:Per note documentation 02/18/2024 02/19/2024 10:23 AM EDT CoV-Risk 04/11/2024 04/12/2024 04/12/2024 11:0 3 AM EDT documented as of this encounter Care Teams Financial Recording Clerk Relationship Specialty Start Date End Date Ciaran Man DO [email or web address] PCP - General Internal Medicine 03/12/18 06/06/18 Shanta Gregory MD [address] [place] [address] [place] [address] PCP - General Internal Medicine 06/07/18 06/14/18 Ciaran Man DO carlos PCP - General Internal Medicine 06/15/18 02/16/25 Ciaran Man DO [address] [place] [address] carlos PCP - General Internal Medicine 02/17/25 Dayron Clements MD [address] [place] [address] [email or web address] Medical Oncology 05/06/18 08/23/18 Chris Martinez MD [address] [place] [address] Hematology and Oncology 05/06/18 Shanta Gregory MD [address] [place] [address] [place] [address] Internal Medicine 08/24/18 documented as of this encounter Additional Source Comments The information contained in this document represents components of the legal health record. It is not the complete legal health record.[facility]
--- OUTSIDE RECORDS SUMMARY | 2025-08-08 19:17 | XMS_ITS | Encounter Summary ---
Author Organization [facility] Address [address] [place] [address] [place] [address] Phone Care Team Providers Care Coding Director Name Role Phone Chris Martinez MD Unavailable [phone] Ciaran Man DO Primary Care Provider [phone] Shanta Gregory MD Unavailable [phone] Ciaran Man DO Primary Care Provider [phone] Encounter Details Date Type Department Care Team (Late st Contact Info) Description 02/18/2024 Procedure Pass [facility], Ct Scan - [address] [address] Social History Tobacco Use Types Packs/Day Years [...] 3:59 AM EDT Jessa Roche RN * Arroyo Suicide Severity Rating Scale (Screener/Recent Self-Report) Question [...] Description 02/20/2026 1:00 PM EDT Office Visit [facility] [address] [place] [address] 3rd [facility], [address] [place] [address] Israel Goodrich MD [address] [place] [address] [email or web address] documented as of this encounter Visit Diagnoses Not on filedocumented in this encounter Additional Health Concerns Infection Onset Date Last Indicated Resolved Time CoV-Risk Comment:Per note documentation 02/18/2024 02/19/2024 10:23 AM EDT CoV-Risk 04/11/2024 04/12/2024 04/12/2024 11:0 3 AM EDT documented as of this encounter Care Teams Coding Director Relationship Specialty Start Date End Date Ciaran Man DO [address] [place] [address] PCP - General Internal Medicine 06/15/18 02/16/25 Ciaran Man DO [address] [place] [address] carlos PCP - General Internal Medicine 02/17/25 Chris Martinez MD [address] [place] [address] Hematology and Oncology 05/06/18 Shanta Gregory MD [facility] [place] [address] Internal Medicine 08/24/18 documented as of this encounter Additional Source Comments The information contained in this document represents components of the legal health record. It is not the complete legal health record.[facility]
--- OUTSIDE RECORDS SUMMARY | 2025-08-08 19:17 | XMS_ITS | Encounter Summary ---
Author Organization [facility] Address [address] [place] [address] Phone Care Team Providers Care Anesthesiology Medical Doctor Name Role Phone Ciaran Man DO Primary Care Provider + Shanta Gregory MD Primary Care Provider + Ciaran Man DO Primary Care Provider + Dayron Clements MD Unavailable [phone] Chris Martinez MD Unavailable [phone] Shanta Gregory MD Primary Care Provider + Ciaran Man DO Primary Care Provider + Shanta Gregory MD Unavailable [phone] Ciaran Man DO Primary Care Provider + Encounter Details Date Type Department Care Team (Late st Contact Info) Description 08/15/2017 Ancillary [facility] [address] [place] [address] Israel Goodrich MD 22 [facility], [address] [place], [place] [phone] Social History Tobacco Use Types Packs/Day Years [...] Description 02/20/2026 1:00 PM EDT Office Visit [facility] [address] [place] [address] 3rd Floor, [address] [place] [address] Israel Goodrich MD 22 [facility] [address] [place] [address] [email or web address] documented as of this encounter Visit Diagnoses Not on filedocumented in this encounter Additional Health Concerns Infection Onset Date Last Indicated Resolved Time CoV-Risk 06/17/2021 06/17/2021 06/20/2021 3:52 PM EDT CoV-Risk 03/20/2022 03/20/2022 03/31/2022 1:22 AM EDT CoV-Risk Comment:Per note documentation 02/18/2024 02/19/2024 10:23 AM EDT CoV-Risk 04/11/2024 04/12/2024 04/12/2024 11:0 3 AM EDT documented as of this encounter Care Teams Anesthesiology Medical Doctor Relationship Specialty Start Date End Date Ciaran Man DO 179 [facility] [address] [place] [address] carlos PCP - General 04/19/14 02/16/18 Shanta Gregory MD [address] [place] [address] [place] [address] PCP - General 02/17/18 03/11/18 Ciaran Man DO [address] [place] [address] [place] [address] carlos PCP - General Internal Medicine 03/12/18 06/06/18 Shanta Gregory MD [address] [place] [address] [place] [address] PCP - General Internal Medicine 06/07/18 06/14/18 Ciaran Man DO [address] [place] [address] [place] [address] carlos PCP - General Internal Medicine 06/15/18 02/16/25 Ciaran Man DO [address] [place] [address] carlos PCP - General Internal Medicine 02/17/25 Dayron Clements MD [address] [place] [address] [email or web address] Medical Oncology 05/06/18 08/23/18 Chris Martinez MD [address] [place] [address] Hematology and Oncology 05/06/18 Shanta Gregory MD [address] [place] [address] [place] [address] Internal Medicine 08/24/18 documented as of this encounter Additional Source Comments The information contained in this document represents components of the legal health record. It is not the complete legal health record.[facility]
--- OUTSIDE RECORDS SUMMARY | 2025-08-08 19:17 | XMS_ITS | Encounter Summary ---
Author Organization [facility] Address [address] [place] [address] [place] [address] Phone Care Team Providers Care Electrode Cleaning Machine Operator Name Role Phone Chris Martinez MD Unavailable [phone] Ciaran Man DO Primary Care Provider + Shanta Gregory MD Unavailable [phone] Ciaran Man DO Primary Care Provider [phone] Encounter Details Date Type Department Care Team (Late st Contact Info) Description 02/18/2024 Procedure Pass [facility] [address] [place] [address] Social History Tobacco Use Types Packs/Day Years [...] 3:59 AM EDT Jessa Roche RN * Garza Suicide Severity Rating Scale (Screener/Recent Self-Report) Question Answer Date of Assessment Author 1. Wish to be (Past 1 Month) No 024 3:59 AM EDT Jessa Loyd RN 2. Non-Specific Active Suici roxana Thoughts (Past 1 Month) No 02/18/2024 3:59 AM EDT Estrella Loyd ra, RN 6. Suicidal Behavior (Lifetime) No 3:59 AM EDT Jessa Loyd RN documented as of this encounter Plan of Treatment Upcoming Encounters Date Type Department Care Team (Late st Contact Info) Description 02/20/2026 1:00 PM EDT Office Visit [facility] [address] [place] [address] 3rd [facility], [address] [place] [address] Israel Goodrich MD [address] [place] [address] [email or web address] documented as of this encounter Visit Diagnoses Not on filedocumented in this encounter Additional Health Concerns Infection Onset Date Last Indicated Resolved Time CoV-Risk Comment:Per note documentation 02/18/2024 02/19/2024 10:23 AM EDT CoV-Risk 04/11/2024 04/12/2024 04/12/2024 11:0 3 AM EDT documented as of this encounter Care Teams Electrode Cleaning Machine Operator Relationship Specialty Start Date End Date Ciaran Man DO [address] [place] [address] PCP - General Internal Medicine 06/15/18 02/16/25 Ciaran Man DO [address] [place] [address] PCP - General Internal Medicine 02/17/25 Chris Martinez MD [address] [place] [address] Hematology and Oncology 05/06/18 Shanta Gregory MD [facility] [address] [place] [address] Internal Medicine 08/24/18 documented as of this encounter Additional Source Comments The information contained in this document represents components of the legal health record. It is not the complete legal health record.[facility]
--- OUTSIDE RECORDS SUMMARY | 2025-08-08 19:17 | XMS_ITS | Encounter Summary ---
Author Organization [facility] Address [address] [place] [address] Phone Care Team Providers Care Stone Crusher Operator Name Role Phone Chris Martinez MD Unavailable [phone] Ciaran Man DO Primary Care Provider [phone] Shanta Gregory MD Unavailable [phone] Ciaran Man DO Primary Care Provider [phone] Reason for Referral * MRI/CAT Scan - Closed Specialty Diagnoses / Procedures Referred By Katelin leblanc Referred To Contact Radiology Diagnoses Intervertebral disc disorder with radiculopathy of lumbar region Procedures MRI Lumbar Spine Ciaran Man DO Phone: tel: fax: mailto:carlos Referral ID Status Reason Start Date Expiration Date Visits Re quested Visits Authorized [id number] Closed 05/29/2020 11/25/2020 1 1 Encounter Details Date Type Department Care Team (Late st Contact Info) Description 05/25/2020 Transcribe Orders Virtual Department [address] [place] [address] Ciaran Man DO [address] [facility] [place] [address] [place] [address] [email or web address] Intervertebral disc disorder with radiculopathy of lumbar region (Primary Dx) Social History Tobacco Use Types [...] Description 02/20/2026 1:00 PM EDT Office Visit [facility] [address] [place] [address] 3rd [facility], [address] [place] [address] Israel Goodrich MD [address] [place] [address] [email or web address] documented as of this encounter Results * MRI LUMBAR SPINE (BONE) WITHOUT CONTRAST (06/01/2020 3:27 PM EDT) Anatomical Region Laterality Modality L-spine Magnetic Resonan ce 06/01/2020 3:38 PM EDT Impressions 06/01/2020 3:59 PM EDT 1. Stable multilevel degenerative changes of the lumbar spine, as detailed, including moderate L2-3 spinal canal stenosis. Otherwise, no evidence of high-grade spinal canal or neural foraminal stenosis. 2. Mild bilateral renal pelvocaliectasis versus mild hydronephrosis, which is incompletely evaluated. May consider further evaluation with dedicated renal ultrasound, as clinically warranted. Narrative 06/01/2020 3:59 PM EDT TECHNIQUE: MRI LUMBAR SPINE (BONE) WITHOUT CONTRAST COMPARISON: MRI lumbar spine 06/18/2019. Lumbosacral radiograph 05/25/2020. HISTORY: As per header. FINDINGS: Evaluation of fine anatomic detail is partially limited secondary to motion artifact/technique; within these limitations: For the purposes of numbering on the current exam, the most inferior incomplete intervertebral disc is labeled as L5-S1 level, which is consistent with the numbering on the prior exam. There is redemonstration of levoconvex curvature of the lumbar spine. There is mild grade 1 anterolisthesis of L2 on L3 and retrolisthesis of L3 on L4, not significantly changed. Vertebral body heights are maintained. There is no evidence of a suspicious focal marrow replacing lesion or significant bone marrow edema. The visualized spinal cord and cauda equina nerve roots are unremarkable. The conus medullaris appears to terminate at the T12-L1 level. There are multilevel degenerative changes of the lumbar spine, including loss of intervertebral disc height, loss of intervertebral disc T2 signal intensity, endplate irregularity/signal abnormality, multilevel small posterior disc bulges, and facet hypertrophy. There is redemonstration of presumed peripheral nerve sheath root cysts at the bilateral, right greater than left, T11-12 level, right T12 level, and bilateral S1-2 level. 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 There is apparent left sided renal pelviectasis. There is apparent right-sided mild hydronephrosis versus renal pelviectasis. There is atrophy of the posterior paraspinal musculature. The paraspinal soft tissues are otherwise unremarkable. FINDINGS BY LEVEL: T12-L1: Small posterior disc bulge. No evidence of significant spinal canal or neural foraminal stenosis on the sagittal images. L1-2: Small posterior disc bulge and mild facet hypertrophy. No significant spinal canal or neural foraminal stenosis. L2-3: Anterolisthesis with uncovering of a small posterior disc bulge, moderate facet hypertrophy, and ligamentum flavum infolding. Moderate spinal canal stenosis. There is subarticular zone narrowing, without evidence of impingement of the descending L3 nerve roots. No significant neural foraminal stenosis. This finding could not significantly changed. L3-4: Retrolisthesis of uncovering of a small posterior disc bulge, mild facet hypertrophy, and ligamentum flavum thickening. Mild spinal canal stenosis. No significant neural foraminal stenosis. These findings are not significantly changed. L4-5: Mild facet hypertrophy. No significant spinal canal or neural foraminal stenosis. L5-S1: Small posterior disc bulge and mild facet hypertrophy. No significant spinal canal. Mild bilateral neural foraminal stenosis. These findings are not significantly changed. The multilevel degenerative changes, as detailed above, are not significantly changed. Procedure Note Azam Van MD, PhD - 06/01/2020 TECHNIQUE: MRI LUMBAR SPINE (BONE) WITHOUT CONTRAST COMPARISON: MRI lumbar spine 06/18/2019. Lumbosacral radiograph 05/25/2020. HISTORY: As per header. FINDINGS: Evaluation of fine anatomic detail is partially limited secondary tomotion artifact/technique; within these limitations: For the purposes of numbering on the current exam, the most inferiorincomplete intervertebral disc is labeled as L5-S1 level, which isconsistent with the numbering on the prior exam. There is redemonstration of levoconvex curvature of the lumbar spine.There is mild grade 1 anterolisthesis of L2 on L3 and retrolisthesis of L3on L4, not significantly changed. Vertebral body heights are maintained. There is no evidence of asuspicious focal marrow replacing lesion or significant bone marrowedema. The visualized spinal cord and cauda equina nerve roots are unremarkable.The conus medullaris appears to terminate at the T12-L1 level. There are multilevel degenerative changes of the lumbar spine, includingloss of intervertebral disc height, loss of intervertebral disc T2 signalintensity, endplate irregularity/signal abnormality, multilevel smallposterior disc bulges, and facet hypertrophy. There is redemonstration of presumed peripheral nerve sheath root cysts atthe bilateral, right greater than left, T11-12 level, right T12 level, andbilateral S1-2 level. There is redemonstration of a presumed Tarlov cystswithin the sacrum measuring up to 14 mm There are redemonstration of multilevel T2 hyperintense foci within theleft kidney (measuring up to 3 cm), which may represent cysts but are incomplete evaluated. There is apparent left sided renal pelviectasis. Thereis apparent right-sided mild hydronephrosis versus renal pelviectasis. There is atrophy of the posterior paraspinal musculature. The paraspinal soft tissues are otherwise unremarkable. FINDINGS BY LEVEL: T12-L1: Small posterior disc bulge. No evidence of significant spinalcanal or neural foraminal stenosis on the sagittal images. L1-2: Small posterior disc bulge and mild facet hypertrophy. Nosignificant spinal canal or neural foraminal stenosis. L2-3: Anterolisthesis with uncovering of a small posterior disc bulge,moderate facet hypertrophy, and ligamentum flavum infolding. Moderatespinal canal stenosis. There is subarticular zone narrowing, withoutevidence of impingement of the descending L3 nerve roots. No significantneural foraminal stenosis. This finding could not significantly changed. L3-4: Retrolisthesis of uncovering of a small posterior disc bulge, mildfacet hypertrophy, and ligamentum flavum thickening. Mild spinal canalstenosis. No significant neural foraminal stenosis. These findings are notsignificantly changed. L4-5: Mild facet hypertrophy. No significant spinal canal or neuralforaminal stenosis. L5-S1: Small posterior disc bulge and mild facet hypertrophy. Nosignificant spinal canal. Mild bilateral neural foraminal stenosis. Thesefindings are not significantly changed. The multilevel degenerative changes, as detailed above, are notsignificantly changed. IMPRESSION: 1. Stable multilevel degenerative changes of the lumbar spine, asdetailed, including moderate L2-3 spinal canal stenosis. Otherwise, noevidence of high-grade spinal canal or neural foraminal stenosis. 2. Mild bilateral renal pelvocaliectasis versus mild hydronephrosis, whichis incompletely evaluated. May consider further evaluation with dedicatedrenal ultrasound, as clinically warranted. us Ciaran A Bigda DO IMG MR XSPECIALTY Final Result * XR THORACIC SPINE 3 VIEW (05/25/2020 11:35 AM EDT) Anatomical Region Laterality Modality T-spine Computed Radiogr aphy 05/25/2020 11:4 3 AM EDT Impressions 05/25/2020 11:47 AM EDT Stable thoracolumbar scoliosis and lower thoracic spine disc disease. Narrative 05/25/2020 11:47 AM EDT HISTORY: As above. COMPARISON: 04/26/2019. THORACIC SPINE RADIOGRAPH FINDINGS: 3 views obtained. Stable osteopenia and thoracolumbar scoliosis. Stable multilevel thoracic spine endplate spine spurring and mild T9-10 and T8-9 disc space narrowing. On the swimmer's view there is stable severe C5-6 and C6-7 disc disease. No compression fractures. No destructive or suspicious bone lesions. Chronic aortic arch calcified plaque. Left upper abdominal surgical clips. Imaged lungs are clear. Paraspinal soft tissues are normal. Procedure Note Jeremy Brambila MD - 05/25/2020 HISTORY: As above. COMPARISON: 04/26/2019. THORACIC SPINE RADIOGRAPH FINDINGS: 3 views obtained. Stable osteopenia and thoracolumbar scoliosis. Stable multilevel thoracicspine endplate spine spurring and mild T9-10 and T8-9 disc spacenarrowing. On the swimmer's view there is stable severe C5-6 and C6-7 discdisease. No compression fractures. No destructive or suspicious bonelesions. Chronic aortic arch calcified plaque. Left upper abdominalsurgical clips. Imaged lungs are clear. Paraspinal soft tissues arenormal. IMPRESSION: Stable thoracolumbar scoliosis and lower thoracic spine disc disease. us Ciaran A Bigda DO IMG XR SPINE Final Result * XR LUMBOSACRAL SPINE 4 OR MORE VIEWS (05/25/2020 11:34 AM EDT) Anatomical Region Laterality Modality L-spine Computed Radiogr aphy 05/25/2020 12:0 0 PM EDT Impressions 05/25/2020 12:11 PM EDT Stable osteopenia, scoliosis and multilevel disc disease. Narrative 05/25/2020 12:11 PM EDT HISTORY: As above. COMPARISON: 04/26/2019. LUMBAR SPINE RADIOGRAPH FINDINGS: 7 views obtained. Chronic osteopenia, mild upper lumbar levoscoliosis and severe L4-5 and L5-S1 disc disease with facet arthropathy. No acute fracture or malalignment. No compression fractures, spondylolysis or destructive or suspicious bone lesions. Extensive abdominopelvic surgical clips again noted. Incompletely imaged bilateral hip prostheses. Procedure Note Jeremy Brambila MD - 05/25/2020 HISTORY: As above. COMPARISON: 04/26/2019. LUMBAR SPINE RADIOGRAPH FINDINGS: 7 views obtained. Chronic osteopenia, mild upper lumbar levoscoliosis and severe L4-5 andL5-S1 disc disease with facet arthropathy. No acute fracture ormalalignment. No compression fractures, spondylolysis or destructive orsuspicious bone lesions. Extensive abdominopelvic surgical clips againnoted. Incompletely imaged bilateral hip prostheses. IMPRESSION: Stable osteopenia, scoliosis and multilevel disc disease. 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 documented in this encounter Additional Health Concerns Infection Onset Date Last Indicated Resolved Time CoV-Risk 06/17/2021 06/17/2021 06/20/2021 3:52 PM EDT CoV-Risk 03/20/2022 03/20/2022 03/31/2022 1:22 AM EDT CoV-Risk Comment:Per note documentation 02/18/2024 02/19/2024 10:23 AM EDT CoV-Risk 04/11/2024 04/12/2024 04/12/2024 11:0 3 AM EDT documented as of this encounter Care Teams Stone Crusher Operator Relationship Specialty Start Date End Date Ciaran Man DO [address] [place] [address] [email or web address] PCP - General Internal Medicine 06/15/18 02/16/25 Ciaran Man DO [address] [place] [address] [email or web address] PCP - General Internal Medicine 02/17/25 Chris Martinez MD [address] [place] [address] [email or web address] Hematology and Oncology 05/06/18 Shanta Gregory MD [address] [place] [phone] Internal Medicine 08/24/18 documented as of this encounter Additional Source Comments The information contained in this document represents components of the legal health record. It is not the complete legal health record.[facility]
--- OUTSIDE RECORDS SUMMARY | 2025-08-08 19:17 | XMS_ITS | Encounter Summary ---
Author Organization [facility] Address [address] [place] [address] Phone Care Team Providers Care Film Crew Member Name Role Phone Chris Martinez MD Unavailable [phone] Ciaran Man DO Primary Care Provider [phone] Shanta Gregory MD Unavailable [phone] Ciaran Man DO Primary Care Provider [phone] Encounter Details Date Type Department Care Team (Latest Contact Info) Description 09/06/2020 Transcribe Orders Virtual Department [address] [place] [address] Elias Harris MD [address] [place] [address], [address] [address] [email or web address] Other hydronephrosis (Primary Dx) Social History Tobacco Use [...] Description 02/20/2026 1:00 PM EDT Office Visit [facility] [address] [place] [address] 3rd Floor, [address] [place] [address] Israel Goodrich MD [address] [facility], [address] [place] [address] [email or web address] documented as of this encounter Results * US Kidneys and Bladder (09/18/2020 11:16 AM EST) Anatomical Region Laterality Modality Abdomen, Kidney Ultrasound 09/18/2020 11:3 0 AM EST Impressions 09/18/2020 11:36 AM EST There is now mild hydronephrosis bilaterally, with no shadowing stones or other detected etiology for the hydronephrosis. Narrative 09/18/2020 11:36 AM EST US KIDNEYS AND BLADDER History: Previous demonstration of hydronephrosis TECHNIQUE: Ultrasound evaluation of the KIDNEYS AND BLADDER. Volumetric sweeps were obtained and reviewed. COMPARISON: 07/01/19 FINDINGS: RIGHT KIDNEY: The right kidney measures 4.8 x 10.8 cm. No renal mass or shadowing stone, with residual mild hydronephrosis, similar to or slightly more pronounced than on the previous study . LEFT KIDNEY: The left kidney measures 4.4 x 9.3 cm. No renal mass or shadowing stone, with mild hydronephrosis, unchanged compared to the previous study. Stable lower pole cyst that appears to be simple, measuring 3.3 x 3.5 cm BLADDER: Unremarkable. Bilateral ureteral jets are present. Procedure Note Israel Snell MD - 09/18/2020 US KIDNEYS AND BLADDER History: Previous demonstration of hydronephrosis TECHNIQUE: Ultrasound evaluation of the KIDNEYS AND BLADDER. Volumetric sweeps wereobtained and reviewed. COMPARISON: 07/01/19 FINDINGS: RIGHT KIDNEY: The right kidney measures 4.8 x 10.8 cm. No renal mass orshadowing stone, with residual mild hydronephrosis, similar to or slightlymore pronounced than on the previous study . LEFT KIDNEY: The left kidney measures 4.4 x 9.3 cm. No renal mass orshadowing stone, with mild hydronephrosis, unchanged compared to theprevious study. Stable lower pole cyst that appears to be simple,measuring 3.3 x 3.5 cm BLADDER: Unremarkable. Bilateral ureteral jets are present. IMPRESSION: There is now mild hydronephrosis bilaterally, with no shadowing stones orother detected etiology for the hydronephrosis. us Elias Harris MD IMG US RENAL Final Result documented in this encounter Visit Diagnoses Diagnosis Other hydronephrosis- Primary Other hydronephrosis documented in this encounter Additional Health Concerns Infection Onset Date Last Indicated Resolved Time CoV-Risk 06/17/2021 06/17/2021 06/20/2021 3:52 PM EDT CoV-Risk 03/20/2022 03/20/2022 03/31/2022 1:22 AM EDT CoV-Risk Comment:Per note documentation 02/18/2024 02/19/2024 10:23 AM EDT CoV-Risk 04/11/2024 04/12/2024 04/12/2024 11:0 3 AM EDT documented as of this encounter Care Teams Film Crew Member Relationship Specialty Start Date End Date Ciaran Man DO [address] [place] [address] [email or web address] PCP - General Internal Medicine 06/15/18 02/16/25 Ciaran Man DO [address] [place] [address] [email or web address] PCP - General Internal Medicine 02/17/25 Chris Martinez MD [address] [place] [address] [email or web address] Hematology and Oncology 05/06/18 Shanta Gregory MD [facility]19 [place] [address] Internal Medicine 08/24/18 documented as of this encounter Additional Source Comments The information contained in this document represents components of the legal health record. It is not the complete legal health record.[facility]
--- OUTSIDE RECORDS SUMMARY | 2025-08-08 19:18 | XMS_ITS | Encounter Summary ---
Author Organization [facility] Address [address] [place] [address] Phone Care Team Providers Care Poultry Farmer Egg Name Role Phone Chris Martinez MD Unavailable [phone] Ciaran Man DO Primary Care Provider [phone] Shanta Gregory MD Unavailable [phone] Ciaran Man DO Primary Care Provider [phone] Encounter Details Date Type Department Care Team (Late st Contact Info) Description 04/21/2019 Transcribe Orders Virtual Department [address] [place] [address] Ciaran Man DO [address] [facility] [place] [address] carlos Radiculopathy, lumbar region (Primary Dx) Social History Tobacco [...] Description 02/20/2026 1:00 PM EDT Office Visit [facility] [address] [facility] 3rd Floor, [address] [place] [address] Israel Goodrich MD [address] [facility], [address] [place] [address] [email or web address] documented as of this encounter Results * XR LUMBOSACRAL SPINE 4 OR MORE VIEWS (04/26/2019 2:55 PM EDT) Anatomical Region Laterality Modality L-spine Radiographic Elvia ging 04/26/2019 3:36 PM EDT Impressions 04/26/2019 3:39 PM EDT Moderate scoliosis associated with multilevel mild degenerative changes.. Diffuse bone demineralization. No significant compression fracture deformities appreciated. POS - [id number] Narrative 04/26/2019 3:39 PM EDT EXAM: XR LUMBOSACRAL SPINE 4 OR MORE VIEWS COMPARISON: Lumbar spine MRI on March 25, 2008 FINDINGS: Diffuse bone demineralization. Moderate scoliosis of the included spine. Vertebral body heights appear maintained. Joint space narrowing at multiple levels. Small marginal osteophytes at multiple levels. Bilateral sacroiliac joints are congruent. Patient is status post bilateral hip arthroplasties. Multiple surgical clips project projecting over the lumbar spine. Large amount of fecal load within the colonic loops and rectum. Procedure Note Colette Helton MD - 04/26/2019 EXAM: XR LUMBOSACRAL SPINE 4 OR MORE VIEWS COMPARISON: Lumbar spine MRI on March 25, 2008 FINDINGS: Diffuse bone demineralization. Moderate scoliosis of the included spine.Vertebral body heights appear maintained. Joint space narrowing atmultiple levels. Small marginal osteophytes at multiple levels. Bilateralsacroiliac joints are congruent. Patient is status post bilateral hiparthroplasties. Multiple surgical clips project projecting over the lumbarspine. Large amount of fecal load within the colonic loops and rectum. IMPRESSION: Moderate scoliosis associated with multilevel mild degenerative changes..Diffuse bone demineralization. No significant compression fracturedeformities appreciated. POS - [id number] Ciaran Man DO IMG XR SPINE Final Result documented in this encounter Visit Diagnoses Diagnosis Radiculopathy, lumbar region- Primary Thoracic or lumbosacral neuritis or radiculitis, unspecified Radiculopathy, lumbar region Thoracic or lumbosacral neuritis or radiculitis, unspecified documented in this encounter Additional Health Concerns Infection Onset Date Last Indicated Resolved Time CoV-Risk 06/17/2021 06/17/2021 06/20/2021 3:52 PM EDT CoV-Risk 03/20/2022 03/20/2022 03/31/2022 1:22 AM EDT CoV-Risk Comment:Per note documentation 02/18/2024 02/19/2024 10:23 AM EDT CoV-Risk 04/11/2024 04/12/2024 04/12/2024 11:0 3 AM EDT documented as of this encounter Care Teams Poultry Farmer Egg Relationship Specialty Start Date End Date Ciaran Man DO [address] [place] [address] carlos PCP - General Internal Medicine 06/15/18 02/16/25 Ciaran Man DO [address] [place] [address] carlos PCP - General Internal Medicine 02/17/25 Chris Martinez MD [address] [place] [address] Hematology and Oncology 05/06/18 Shanta Gregory MD [address] [place] [address] Internal Medicine 08/24/18 documented as of this encounter Additional Source Comments The information contained in this document represents components of the legal health record. It is not the complete legal health record.[facility]
--- OUTSIDE RECORDS SUMMARY | 2025-08-08 19:18 | XMS_ITS | Encounter Summary ---
Author Organization [facility] Address [address] [place] [address] Phone Care Team Providers Care Canvas Worker Apprentice Name Role Phone Chris Martinez MD Unavailable Ciaran Man DO Primary Care Provider [phone] Shanta Gregory MD Unavailable [phone] Ciaran Man DO Primary Care Provider [phone] Encounter Details Date Type Department Care Team (Late Contact Info) Description 04/26/2019 Ancillary Orders Virtual Department [address] [place] [address] System, Provider Not In, [place] [address] Radiculopathy, lumbar region; Thoracic spine pain Social History Tobacco Use Types Packs/Day Years [...] Description 02/20/2026 1:00 PM EDT Office Visit [facility] [address] [facility] 3rd Floor, [address] [place] [address] Israel Goodrich MD [address] [facility], [address] [place] [address] [email or web address] documented as of this encounter Results * XR THORACIC SPINE 3 VIEW (04/26/2019 2:56 PM EDT) Anatomical Region Laterality Modality T-spine Radiographic Elvia ging 04/26/2019 3:40 PM EDT Impressions 04/26/2019 3:44 PM EDT No acute fracture or subluxation. Mild degenerative changes at T9-T10. POS - [id number] Narrative 04/26/2019 3:44 PM EDT EXAM: XR THORACIC SPINE 3 VIEW COMPARISON: PET CT on March 05, 2018. FINDINGS: Mild scoliosis. No anterior or posterior subluxations. Vertebral body heights are preserved. Small marginal osteophytes and disc space narrowing at T9-T10 level. Included portions of the lungs are clear. Procedure Note Colette Helton MD - 04/26/2019 EXAM: XR THORACIC SPINE 3 VIEW COMPARISON: PET CT on March 05, 2018. FINDINGS: Mild scoliosis. No anterior or posterior subluxations. Vertebral bodyheights are preserved. Small marginal osteophytes and disc space narrowingat T9-T10 level. Included portions of the lungs are clear. IMPRESSION: No acute fracture or subluxation. Mild degenerative changes at T9-T10. POS - [email or web address] us Ciaran A Bigda DO IMG XR SPINE Final Result documented in this encounter Visit Diagnoses Diagnosis Radiculopathy, lumbar region Thoracic or lumbosacral neuritis or radiculitis, unspecified Thoracic spine pain Pain in thoracic spine Radiculopathy, lumbar region Thoracic or lumbosacral neuritis or radiculitis, unspecified Thoracic spine pain Pain in thoracic spine documented in this encounter Additional Health Concerns Infection Onset Date Last Indicated Resolved Time CoV-Risk 06/17/2021 06/17/2021 06/20/2021 3:52 PM EDT CoV-Risk 03/20/2022 03/20/2022 03/31/2022 1:22 AM EDT CoV-Risk Comment:Per note documentation 02/18/2024 02/19/2024 10:23 AM EDT CoV-Risk 04/11/2024 04/12/2024 04/12/2024 11:0 3 AM EDT documented as of this encounter Care Teams Canvas Worker Apprentice Relationship Specialty Start Date End Date Ciaran Man DO [address] [place] [address] carlos PCP - General Internal Medicine 06/15/18 02/16/25 Ciaran Man DO [address] [place] [address] carlos PCP - General Internal Medicine 02/17/25 Chris Martinez MD [address] [place] [address] Hematology and Oncology 05/06/18 Shanta Gregory MD [facility] [place] [address] [place] [address] Internal Medicine 08/24/18 documented as of this encounter Additional Source Comments The information contained in this document represents components of the legal health record. It is not the complete legal health record.[facility]
--- OUTSIDE RECORDS SUMMARY | 2025-08-08 19:18 | XMS_ITS | Encounter Summary ---
Author Organization [facility] Address [address] [place] [address] Phone Care Team Providers Care Credit Analysis Manager Name Role Phone Ciaran Man DO Primary Care Provider + Dayron Clements MD Unavailable [phone] Chris Martinez MD Unavailable [phone] Shanta Gregory MD Primary Care Provider [phone] Ciaran Man DO Primary Care Provider + Shanta Gregory MD Unavailable [phone] Ciaran Man DO Primary Care Provider + Encounter Details Date Type Department Care Team (Latest Contact Info) Description 03/19/2018 Transcribe Orders [facility] [address] [place] [address] Jenny Grubbs MD [address] [place] [address] [email or web address] Routine lab draw (Primary Dx) Social History Tobacco Use Types [...] Description 02/20/2026 1:00 PM EDT Office Visit [facility] [address] [place] [address] [address]rd Floor, [address] [place] [address] Israel Goodrich MD [address] [facility], [address] [place] [address] [email or web address] documented as of this encounter Results * Chemistry Hold (03/19/2018 9:15 AM EDT) Blood 03/19/2018 9:15 AM EDT 03/19/2018 9:26 AM EDT us Jenny Grubbs MD LAB BLOOD ORDERABLES Final Re sult [employer] documented in this encounter Visit Diagnoses Diagnosis Routine lab draw- Primary documented in this encounter Additional Health Concerns Infection Onset Date Last Indicated Resolved Time CoV-Risk 06/17/2021 06/17/2021 06/20/2021 3:52 PM EDT CoV-Risk 03/20/2022 03/20/2022 03/31/2022 1:22 AM EDT CoV-Risk Comment:Per note documentation 02/18/2024 02/19/2024 10:23 AM EDT CoV-Risk 04/11/2024 04/12/2024 04/12/2024 11:0 3 AM EDT documented as of this encounter Care Teams Credit Analysis Manager Relationship Specialty Start Date End Date Ciaran Man DO [email or web address] PCP - General Internal Medicine 03/12/18 06/06/18 Shanta Gregory MD [address] [place] [address] [place] [address] PCP - General Internal Medicine 06/07/18 06/14/18 Ciaran Man DO carlos PCP - General Internal Medicine 06/15/18 02/16/25 Ciaran Man DO [address] [place] [address] carlos PCP - General Internal Medicine 02/17/25 Dayron Clements MD [address] [place] [address] [email or web address] 05/06/18 08/23/18 Chris Martinez MD [address] [place] [address] Hematology and Oncology 05/06/18 Shanta Gregory MD [address] [place] [address] [address] [place] [address] Internal Medicine 08/24/18 documented as of this encounter Additional Source Comments The information contained in this document represents components of the legal health record. It is not the complete legal health record.[facility]
== END 2025-08-08 15:04 | disposition home or self-care (01) ==
LOC: HO.MANLDS 15:03
PROVIDERS: Visit Provider Physician Assistant
DX: L29.9 Pruritus, unspecified (principal); T78.40XA Allergy, unspecified, initial encounter; N39.0 Urinary tract infection, site not specified
CPT/HCPCS: 36415; 80053; 81001; 84550; 85652; 86140; 87086